=== PATIENT | male | born 1950 | race Caucasian/White ===

== ENCOUNTER → 2018-04-03 09:07 | Outpatient (CLI) | payer OTHER, MEDICARE, SELFPAY ==
[2018-04-03 10:53] LABS: Add Manual Diff / Slide Review NO; Basophils Percent Auto 0.7 % (0-2); Eosinophils Percent Auto 1.8 % (2-4); Hematocrit 44.8 % (41-53); Hemoglobin 15.1 g/dL (13.5-17.5); Lymphocytes Percent Auto 12.3 % (25-40); Mean Corpuscular HGB Conc 33.6 % (30-36); Mean Corpuscular Hemoglobin 32.4 PG (26-34); Mean Corpuscular Volume 96.5 fL (80-100); Monocytes Percent Auto 7.5 % (3-14); Neutrophils Absolute Auto 6800 /uL (3000-5900); Neutrophils Percent Auto 77.7 % (50-75); Platelet Count 169 X10^3/uL (150-400); Red Blood Cell Count 4.65 X10^6/uL (4.5-5.9); Red Cell Distribution Width 14.1 % (11.6-14.8); White Blood Cell Count 8.7 X10^3/uL (4.5-11.0)
[2018-04-03 11:10] LABS: Alanine Aminotransferase 39 IU/L (21-72); Albumin 3.9 g/dL (3.5-5.0); Albumin Globulin Ratio 1.2 (1.0-2.8); Alkaline Phosphatase 59 U/L (38-126); Aspartate Aminotransferase 31 IU/L (17-59); BUN Creatinine Ratio 25.6 (6-22); Bilirubin Total 0.7 mg/dL (0.2-1.3); Blood Urea Nitrogen 23 mg/dL (9-20); Calcium 9.1 mg/dL (8.4-10.2); Carbon Dioxide 28 mmol/L (22-32); Chloride 101 mmol/L (98-107); Cholesterol 107 mg/dL (140-199); Estimated Glomerular Filt Rate > 60.0 mL/min (>60); Globulin 3.2 g/dL (1.7-4.1); Glucose 116 mg/dL (80-110); HDL Cholesterol 44 mg/dL (40-60); HEMOLYSIS < 15 (0-50); LDL Cholesterol Calculated 42 mg/dL (<100); Potassium 4.4 mmol/L (3.4-5.1); Sodium 142 mmol/L (137-145); Total Protein 7.1 g/dL (6.3-8.2); Triglycerides 104 mg/dL (35-150)
[2018-04-04 20:19] LABS: Testosterone, Free 3.49 ng/dL
== END ==
PROVIDERS: PCP Registered Nurse; Visit Provider Internal Medicine
DX: I95.1 Orthostatic hypotension (principal)
CPT/HCPCS: 36415; 80053; 80061; 84402; 85025

== ENCOUNTER → 2018-09-28 17:30 | Outpatient (CLI) | payer MEDICARE, OTHER, SELFPAY | PROVIDERS: PCP Registered Nurse; Visit Provider Orthopaedic Surgery | DX: Z96.643 Presence of artificial hip joint, bilateral (principal) | CPT/HCPCS: 36415; 82495; 83018 ==

== ENCOUNTER → 2018-11-30 12:17 | Outpatient (CLI) | payer MEDICARE, OTHER, SELFPAY ==
--- NOTE | 2018-11-30 | DI.MRI.S_ITS ---
PROCEDURE: MR HIP LT WO CON INDICATIONS: LEFT HIP PAIN TECHNIQUE: Noncontrast coronal T1 spin echo and STIR through the bony pelvis. Coronal and axial T2 fast spin echo with fat saturation, sagittal T1 spin echo, and oblique axial T2 fast spin echo with fat saturation through the hip. COMPARISON: None. FINDINGS: Image quality: Blooming artifacts from left hip prosthesis is noted. Bones and joints: Patient is status post bilateral total hip arthroplasty. Blooming artifacts are noted partially obscuring evaluation of bilateral hip joints. There is no gross marrow edema. No acute fracture or dislocation. Bone marrow of the pelvic ring and proximal femurs show normal signal throughout. No intraosseous lesions or fractures. The visualized lower lumbar spine appears normally aligned. Tendons and ligaments: There is small amount of fluid seen adjacent to the posterior lateral aspect of bilateral greater trochanter, suggestive of fluid distending the trochanteric bursa and may represent trochanteric bursitis. The gluteus medius and minimus tendons appear intact, without associated muscle atrophy. The nearby proximal iliotibial band also appears intact. The iliopsoas tendon appears intact without evidence for impingement syndrome. The origin of the hamstring tendon is intact at the ischial tuberosity, as well as the associated sacrotuberous ligament. The straight and reflected heads of the rectus femoris muscle origin appear intact, as well as the conjoint tendon. The ligamentum teres appears intact where visualized. Soft tissues: Visualized muscles demonstrate normal bulk and internal signal. Quadratus femoris muscle demonstrates no internal edema to suggest ischiofemoral impingement. The proximal sciatic neurovascular bundle appears normal adjacent to the hamstring tendons. No free pelvic fluid. Bladder wall thickness is normal. Genitourinary structures and bowel loops appear normal where visualized. IMPRESSION: 1. Patient is status post bilateral total hip arthroplasty with post surgical changes. No gross acute fracture or dislocation. No abnormal marrow signal. 2. Fluid distending trochanteric bursa suggest clinical correlation for possible mild trochanteric bursitis. No other muscle or tendon signal abnormality. 3. No significant left hip joint effusion is seen. Dictated by: Silas Gonzalez M.D. on 11/30/2018 at 16:20 Approved by: Silas Gonzalez M.D. on 11/30/2018 at 16:36
== END ==
PROVIDERS: PCP Registered Nurse; Visit Provider Orthopaedic Surgery
DX: M25.552 Pain in left hip (principal); Z96.643 Presence of artificial hip joint, bilateral
CPT/HCPCS: 73721

== ENCOUNTER → 2018-12-18 16:01 | Outpatient (CLI) | payer MEDICARE, OTHER, SELFPAY ==
[2018-12-18 17:47] LABS: Erythrocyte Sedimentation Rate 7 MM/HR (0-15)
[2018-12-18 17:54] LABS: Add Manual Diff / Slide Review NO; Basophils Absolute Auto 0 /uL (0-100); Basophils Percent Auto 0.7 % (0-2); Eosinophils Absolute Auto 100 /uL (0-450); Eosinophils Percent Auto 1.5 % (2-4); Hematocrit 43.2 % (41-53); Hemoglobin 14.7 g/dL (13.5-17.5); Lymphocytes Absolute Auto 1300 /uL (1100-4500); Lymphocytes Percent Auto 19.7 % (25-40); Mean Corpuscular HGB Conc 34.1 % (30-36); Mean Corpuscular Hemoglobin 32.5 PG (26-34); Mean Corpuscular Volume 95.3 fL (80-100); Monocytes Absolute Auto 700 /uL (0-900); Monocytes Percent Auto 10.4 % (3-14); Neutrophils Absolute Auto 4500 /uL (1500-7000); Neutrophils Percent Auto 67.7 % (50-75); Platelet Count 189 X10^3/uL (150-400); Red Blood Cell Count 4.54 X10^6/uL (4.5-5.9); Red Cell Distribution Width 13.9 % (11.6-14.8); White Blood Cell Count 6.7 X10^3/uL (4.5-11.0)
[2018-12-18 18:02] LABS: Alanine Aminotransferase 44 IU/L (21-72); Albumin 4.3 g/dL (3.5-5.0); Albumin Globulin Ratio 1.4 (1.0-2.8); Alkaline Phosphatase 67 U/L (38-126); Aspartate Aminotransferase 32 IU/L (17-59); BUN Creatinine Ratio 17.5 (6-22); Bilirubin Total 0.6 mg/dL (0.2-1.3); Blood Urea Nitrogen 14 mg/dL (9-20); Calcium 9.5 mg/dL (8.4-10.2); Carbon Dioxide 26 mmol/L (22-32); Chloride 102 mmol/L (98-107); Estimated Glomerular Filt Rate > 60.0 mL/min (>60); Globulin 3.1 g/dL (1.7-4.1); Glucose 77 mg/dL (80-110); HEMOLYSIS < 15 (0-50); Potassium 4.1 mmol/L (3.4-5.1); Sodium 139 mmol/L (137-145); Total Protein 7.4 g/dL (6.3-8.2)
[2018-12-18 18:03] LABS: C-Reactive Protein Quant < 0.5 mg/dL (<1.0)
[2018-12-18 18:05] LABS: Hemoglobin A1C% w Est Avg Glu 5.7 % (4.0-6.0)
== END ==
PROVIDERS: PCP Registered Nurse; Visit Provider Orthopaedic Surgery
DX: Z96.643 Presence of artificial hip joint, bilateral (principal); Z01.818 Encounter for other preprocedural examination; Z01.812 Encounter for preprocedural laboratory examination
CPT/HCPCS: 36415; 80053; 83036; 85025; 85651; 86140; 87086

== ENCOUNTER 2019-02-07 08:46 | Inpatient (IN) | payer MEDICARE, OTHER, SELFPAY ==
[2019-01-24 14:02] VITALS: BMI 30.1
[2019-02-07] VITALS (13 sets, daily range): BP systolic 108–130; BP diastolic 52–77; PULSE 66–102; RESP 6–18; TEMP 36–37.1; O2SAT 92–98; BMI 30.1
--- NOTE | 2019-02-07 | PATH_ITS ---
[facility] Accession Number: [id number] . 01 Material submitted: . bursa - LEFT HIP BURSA . 02 Diagnosis: Left Hip Bursa: Reactive synovitis with associated foreign debris. . . . COMMENT: These changes are discussed with Dr. Cassie Ferris by telephone at 2:10 on 02/11/2019. MRV/02/11/2019 . 02 Electronically signed: . Lupillo Connell MD, Pathologist NPI- [id number] . 01 Gross description: . Received in formalin, labeled bursa left hip tissue, is a piece of narayan-luo rubbery semi-translucent fibromembranous tissue (6.5 x 3.5 x 0.7 cm). [employer] serial sections are submitted in cassettes A1 and A2. ([id number]) /MRV . 02 Microscopic: . Sections are of tissue stated to represent a left hip bursa. There is thick fibrosis and a marked proliferative inflammatory process which includes primarily hemosiderin-laden histiocytes with multinucleated giant cells and deposition of fragments of foreign material. Evidence of old hemorrhage is present with hemosiderin deposition in many areas. Focal calcification is noted. The changes are those of a reactive synovitis associated with foreign debris. . 02 Pathologist provided ICD-10: M70.72 . 02 CPT . 248906 Performed at: 01 [facility] [address], [place], [place] [id number] MD Alfrde Johns MD Phone: [phone] Performed at: 02 [facility] [address] [place], [place] [id number] MD Jessica Baeza MD Phone: [phone]
[2019-02-07] MEDS: LACTATED RINGERS 1,000 ML 42 ML IV ×2 (09:30→12:48)
[2019-02-07] MEDS: VANCOMYCIN 1,000 MG/200 ML FROZ.PIGGY 200 MG IV ×2 (10:09→18:23)
--- NOTE | 2019-02-07 10:54 | PM.PREOP ---
Pre-operative Note Interval Note History & Physical reviewed/Exam performed by Physician: Yes Changes to H&P: No H&P completed within 30 days and has changed as indicated here:: The patient does note some minimal increased right hip pain. his cultures were no growth from his left hip. I reviewed in detail that the plan is to revise his metal on metal acetabular liner and do a cup revision if needed. limits of the procedure options risks benefits and complications were discussed in detail. possibility of persistent symptoms and difficulties despite successful cup revision was also discussed in detail.
--- NOTE | 2019-02-07 10:56 | PM.OP.1 ---
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 he is quite concerned about metal on metal complications and potential systemic effects and preoperative workup did show evidence of elevated metal ions. He is brought to the operating room for revision of his acetabulum. Non-operative management has failed and the patient has requested total hip replacement. The risks, benefits and alternatives to surgery were discussed with the patient prior to proceeding. Risks discussed included, but were not limited to, failure to relieve pain, leg length discrepancy, dislocation, stiffness, infection, nerve damage, deep venous thrombosis, pulmonary embolism, stroke, coma, heart attack, permanent paralysis and , as well as the potential need for eventual revision of the prosthetic. Surgeon: aCssie Ferris Plant Maintenance Manager: Ernst Singh Anesthesia Type: General and Spinal Operative Notes Findings: Mild staining of the pseudo capsule was slightly brownish debris, moderate synovitis in the capsule and also anteriorly along the abductors, clear appearing fluid, no evidence of significant hip abductor abnormalities or necrosis, moderate trunnion no cysts at the neck head junction but no significant wear on the femoral neck, no obvious wear along the acetabular rim, metal liner, or femoral head, good stability with 40 mm polyethylene liner and ceramic head Closure Type: primary Specimen(s): other (Cultures) Prosthetic devices, grafts, tissues, transplants, or devices: Depuy 56 by 40 mm polyethylene liner, ceramic head +0 x 40 Applied: drain(s) Estimated Blood Loss (mL): 250 Blood products transfused: none Procedure in detail: The patient was seen in the pre-operative area, where the patient identified the left hip as the operative site and this was marked with my initials. The patient received pre-operative antibiotics and was taken to the operating room and placed on the operative table in the right lateral decubitus position after satisfactory anesthesia. A night time nanny out was performed. The left leg was prepared from the ankle to the iliac crest with ChloroPrep in the usual fashion and draped through sterile drapes. The hip was approached through an approximately 20 cm incision centered over the greater trochanter and curving gently posteriorly as it went proximally. This was carried sharply to the fascia janessa, which was divided and retracted with a self retaining retractor. The trochanteric bursa was excised with care being taken to avoid the sciatic nerve, which was identified and protected throughout the case. there was brownish staining of the trochanteric bursa and moderate synovitis especially anteriorly along the hip abductors but also in the capsule. the hip abductors did not have significant wear. The pseudo capsule was meticulously removed as well as the trochanteric bursa. The residual capsule was incised and the capsulomuscular flap was raised and tagged for later repair. The hip was dislocated, and the femoral head was removed. there was moderate trunnionosis at the head neck junction. the stem was checked and was noted to be stable. The femur was carefully retracted primarily superiorly and also anteriorly. A pocket along the superior and anterior aspect of the acetabulum was prepared for placement of the femoral neck. the femur was gently mobilized anteriorly in order to allow exposure of the acetabulum. Retractors were placed to expose the acetabulum. the rim of the acetabulum was meticulously visualized. synovectomy was performed removing all inflamed tissues, metal debris and some capsule. bone overlying the rim edge was carefully removed. the rim was then tamped with a metal tamp until the metal liner disengaged and it was carefully removed with a [place] and phoebe. There was no evidence of wear along the residual acetabular component rim. A 40 mm by 56 high density polyethylene liner was placed after meticulously cleaning and drying the acetabulum. the locking mechanism was meticulously checked circumferentially with a [place] and was noted that the component was stable. A trial head was then placed and the hip relocated and checked for leg length and stability. The patient was stable in the position of sleep, of squatting, and could be put through a range of motion with 45 degrees internal rotation without dislocation. At 90 degrees flexion, internal rotation to 70 was possible before dislocation. This was felt to be satisfactory and the appropriate components were opened, and the trials were removed. both the residual acetabular rim as well as the neck were carefully cleaned and dried prior to impacting the new components. The hip was meticulously irrigated with normal saline and carefully dried. Finally the femoral head was impacted onto the stem. The acetabulum was cleared of all material and the hip relocated one final time. The capsulomuscular flap was then repaired to the greater trochanter though an awl hole using the tag sutures. The short external rotators were repaired with a nonabsorbable polyester. A deep drain was placed and brought out anteriorly. The fascia janessa was closed with Vicryl. The subcutaneous layer was closed with barbed sutures and SteriStrips. A Jose dressing was applied and the patient was taken to recovery having tolerated the procedure well. Complications: none Condition: stable Disposition: Acute Care Plan for aftercare: The patient will be maintained on a standard total hip replacement protocol with weight bearing as tolerated and posterior hip precautions. The patient will receive Aspirin and sequential compression devices for DVT prophylaxis. The patient will be discharged home when safe for the home environment.
[2019-02-07] MEDS: GENTAMICIN 200 MG in SODIUM CHLORIDE 0.9% 100 ML 105 ML IV (11:00)
--- NOTE | 2019-02-07 11:05 | P.OP_ITS ---
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 he is quite concerned about metal on metal complications and potential systemic effects and preoperative workup did show evidence of elevated metal ions. He is brought to the operating room for revision of his acetabulum. Non-operative management has failed and the patient has requested total hip replacement. The risks, benefits and alternatives to surgery were discussed with the patient prior to proceeding. Risks discussed included, but were not limited to, failure to relieve pain, leg length discrepancy, dislocation, stiffness, infection, nerve damage, deep venous thrombosis, pulmonary embolism, stroke, coma, heart attack, permanent paralysis and , as well as the potential need for eventual revision of the prosthetic. Surgeon: Cassie Ferris Hydraulic Hammer Operator: Ernst Singh Anesthesia Type: General and Spinal Operative Notes Findings: Mild staining of the pseudo capsule was slightly brownish debris, mod erate synovitis in the capsule and also anteriorly along the abductors, clear appearing fluid, no evidence of significant hip abductor abnormalities or necrosis, moderate trunnion no cysts at the neck head junction but no significant wear on the femoral neck, no obvious wear along the acetabular rim, metal liner, or femoral head, good stability with 40 mm polyethylene liner and ceramic head Closure Type: primary Specimen(s): other (Cultures) Prosthetic devices, grafts, tissues, transplants, or devices: Depuy 56 by 40 mm polyethylene liner, ceramic head +0 x 40 Applied: drain(s) Estimated Blood Loss (mL): 250 Blood products transfused: none Procedure in detail: The patient was seen in the pre-operative area, where the patient identified the left hip as the operative site and this was marked with my initials. The patient received pre-operative antibiotics and was taken to the operating room and placed on the operative table in the right lateral decubitus position after satisfactory anesthesia. A full stack java developer out was performed. The left leg was prepared from the ankle to the iliac crest with ChloroPrep in the usual fashion and draped through sterile drapes. The hip was approached through an approximately 20 cm incision centered over the greater trochanter and curving gently posteriorly as it went proximally. This was carried sharply to the fascia janessa, which was divided and retracted with a self retaining retractor. The trochanteric bursa was excised with care being taken to avoid the sciatic nerve, which was identified and protected throughout the case. there was brownish staining of the trochanteric bursa and moderate synovitis especially anteriorly along the hip abductors but also in the capsule. the hip abductors did not have significant wear. The pseudo capsule was meticulously removed as well as the trochanteric bursa. The residual capsule was incised and the capsulomuscular flap was raised and tagged for later repair. The hip was dislocated, and the femoral head was removed. there was moderate trunnionosis at the head neck junction. the stem was checked and was noted to be stable. The femur was carefully retracted primarily superiorly and also anteriorly. A pocket along the superior and anterior aspect of the acetabulum was prepared for placement of the femoral neck. the femur was gently mobilized anteriorly in order to allow exposure of the acetabulum. Retractors were placed to expose the acetabulum. the rim of the acetabulum was meticulously visualized. synovectomy was performed removing all inflamed tissues, metal debris and some capsule. bone overlying the rim edge was carefully removed. the rim was then tamped with a metal tamp until the metal liner disengaged and it was carefully removed with a [place] and phoebe. There was no evidence of wear along the residual acetabular component rim. A 40 mm by 56 high density polyethylene liner was placed after meticulously cleaning and drying the acetabulum. the locking mechanism was meticulously checked circumferentially with a [place] and was noted that the component was stable. A trial head was then placed and the hip relocated and checked for leg length and stability. The patient was stable in the position of sleep, of squatting, and could be put through a range of motion with 45 degrees internal rotation without dislocation. At 90 degrees flexion, internal rotation to 70 was possible before dislocation. This was felt to be satisfactory and the appropriate components were opened, and the trials were removed. both the residual acetabular rim as well as the neck were carefully cleaned and dried prior to impacting the new components. The hip was meticulously irrigated with normal saline and carefully dried. Finally the femoral head was impacted onto the stem. The acetabulum was cleared of all material and the hip relocated one final time. The capsulomuscular flap was then repaired to the greater trochanter though an awl hole using the tag sutures. The short external rotators were repaired with a nonabsorbable polyester. A deep drain was placed and brought out anteriorly. The fascia janessa was closed with Vicryl. The subcutaneous layer was closed with barbed sutures and SteriStrips. A Jose dressing was applied and the patient was taken to recovery having tolerated the procedure well. Complications: none Condition: stable Disposition: Acute Care Plan for aftercare: The patient will be maintained on a standard total hip replacement protocol with weight bearing as tolerated and posterior hip precautions. The patient will receive Aspirin and sequential compression devices for DVT prophylaxis. The patient will be discharged home when safe for the home environment.
[2019-02-07] MEDS: TRANEXAMIC ACID 1,000 MG VIAL 1000 MG INJ ×2 (11:25→12:25)
--- NOTE | 2019-02-07 11:30 | DI.RAD.S_ITS ---
PROCEDURE: XR HIP W PEL IF DONE LT 2V INDICATIONS: post op films TECHNIQUE: AP pelvis and lateral view of the left hip acquired. COMPARISON: [facility], , HIP 2V LEFT, 11/22/2013, 16:03. FINDINGS: Bones: Patient is status post left hip arthroplasty, with hardware components in expected positions. The hip joint appears congruent. The visualized bony structures appear intact. Incidental right hip arthroplasty also noted Soft tissues: Overlying postoperative changes are noted. No suspicious soft tissue densities. IMPRESSION: Expected postoperative appearance. Dictated by: Alf Cantu M.D. on 02/07/2019 at 16:56 Approved by: Alf Cantu M.D. on 02/07/2019 at 16:57
[2019-02-07] MEDS: BUPIVACAINE 0.25% W/ EPI 30 ML VIAL 60 ML INJ (11:44)
[2019-02-07] MEDS: BUPIVACAINE LIPOSOME 266 MG/20 ML VIAL INJ (11:45)
[2019-02-07] MEDS: POVIDONE-IODINE 15 ML, SODIUM CHLORIDE 0.9% 250 ML TOP (11:53)
--- NOTE | 2019-02-07 11:59 | SUR.OPER ---
Lateral on padded OR bed. Gel axillary roll. Arms secured on padded armboard with pillow supporting top arm. Padded hip positioner braces x4 - anterior and posterior chest and pelvis. Additional gel pad used anterior pelvis. Gel pad under bottom leg from knee to foot and secured with tape over sheet.
--- NOTE | 2019-02-07 12:12 | PC.NURSE ---
Day shift: Not on AC unit at this time.
--- NOTE | 2019-02-07 14:15 | PC.NURSE ---
Day shift: Arrived on unit from PACU at approx 1410. Oriented to room and call light. Bed alarm is on. Pt is A&Ox3. MIKA dressing CDI and erica-vac in place and functioning. VS ok. Needs O2 monitoring for 12 hours. PPP. CMS not returned fully yet.
--- NOTE | 2019-02-07 14:18 | SUR.PHASEI ---
Stable PACU stay. Report called to Grant. Dressing to l hip c/d/i. MIKA dressing and hemovac intact. As I was getting ready to transport pt he stated, when I first got here (to PACU) I had right sided chest pain. Pt denied SOB, diaphoresis and nausea. This reported to Dr Castano who stated it could have been from positioning on OR table. This reported to pt along with instructions to tell staff immediately if he gets chest pains/discomfort and not to wait till after the fact. Pt voiced an understanding. Pt transported up to [facility] [address] and left in stable condition under the care of Grant.
[2019-02-07] MEDS: LACTATED RINGERS 1,000 ML 125 ML IV (14:30)
--- NOTE | 2019-02-07 15:25 | SUR.OPER ---
Per instructions reviewed with Cliff luong and Nataliia, director of surgical services. Following all instructions, explants prepared, packaged and shipped to [facility].
--- NOTE | 2019-02-07 17:02 | PT.IPTN ---
Current Diagnoses Broken internal left hip prosthesis, initial encounter (02/07/19) Surgery Performed Operation Date: 02/07/19 10:45 Actual Procedures p Total Hip Arthroplasty Revision(Left) - Cassie Ferris MD Physical Therapy Treatment Note M3 PT-IP Subjective Start: 02/07/19 17:01 Freq: NEEDED Status: Active Protocol: Document 02/07/19 17:01 AB (Rec: 02/07/19 17:02 AB [id number]) Subjective Physical Therapy Visit Type Notes checked on pt for PT eval but pt stated that he still cannot feel his toes and not able to move them. stated that he is not ready for PT. will f/u tomorrow.
--- NOTE | 2019-02-07 18:07 | PC.NURSE ---
Evening Shift Note- Patient arrive to room from PACU on at approx 1415. [facility] Patient alert and oriented and able to make needs known to staff. Patient pleasent, calm, and cooperative with care. Dressing to left hip c/d/i. ice pack applied. Patient reports getting feeling back to legs at 1810. Patient agrees to call for assistance. call conley and phone within reach. will continue to monitor.
[2019-02-07] MEDS: OXYCODONE IR 5 MG TABLET 10 MG PO ×2 (18:21→22:26)
[2019-02-07] MEDS: ACETAMINOPHEN 325 MG TABLET 975 MG PO (20:43)
[2019-02-07] MEDS: DOCUSATE 100 MG CAPSULE PO (20:43)
[2019-02-07] MEDS: ASPIRIN EC 81 MG TABLET PO (20:43)
[2019-02-08] VITALS: BP 127/58; PULSE 76; RESP 16; TEMP 36.6; O2SAT 95
[2019-02-08] MEDS: OXYCODONE IR 5 MG TABLET 10 MG PO ×3 (02:22→09:06)
[2019-02-08 03:55] VITALS: BP 144/88; PULSE 82; RESP 18; TEMP 36.9; O2SAT 95
--- NOTE | 2019-02-08 04:41 | PC.NURSE ---
Assumed care of pt at 2300 on 02/07/19. Pt sleeping during bedside hand-off. Awakens at approx 0200. Drsg C/D/I, Green ok light flashing on brandie cartridge. H/V compressed without drainage. CMS+, denies numbness, able to wiggle toes. PPP. Post hip precautions in effect and pt is aware of them. Pillow between legs. Pt able to reposition independently in bed while maintaining precautions. Voiding in urinal. PO Analgesics effective. Bed alarm on. Call light within reach.
[2019-02-08 05:30] LABS: Hematocrit 35.9 % (41-53); Hemoglobin 12.3 g/dL (13.5-17.5)
--- NOTE | 2019-02-08 07:16 | PM.PNPO.1 ---
Exam Vital Signs (past 8 hours): - 02/08/19 00:00 02/08/19 03:55 Temperature 97.9 F 98.4 F Pulse Rate 76 82 Respiratory Rate 16 18 Blood Pressure 127/58 L 144/88 H Pulse Oximetry 95 95 Oxygen Delivery Method Room Air Oxygen Flow Rate 0 Objective Labs Result Diagrams: 02/08/19 05:10 Labs: Laboratory Results - last 24 hr 02/08/19 05:10 Hgb 12.3 L Hct 35.9 L Assessment & Plan Post-op Postoperative Procedures Operation Date: 02/07/19 10:45 Actual Procedures Side Surgeon p Total Hip Arthroplasty Revision Left Cassie Ferris MD
--- NOTE | 2019-02-08 07:45 | PM.DS.1 ---
History of Present Illness Date Patient Seen: 02/08/19 Chief complaint: [id number] Narrative: Patient is seen bedside status post revision of left acetabular component and femoral head postop day #1. Patient is doing well he has been ambulating with his walker and his pain is well controlled. Denies chest pain shortness of breath and calf pain. He elicits understanding of his posterior hip precautions. He would like to go home today. Discharge Providers Date of admission: 02/07/19 08:46 Discharge Date: 02/08/19 Primary care physician: Payton Morfin MD Consults: 01/24/19 15:08 Consult to Respiratory Therapy Evaluate & Treat Comment: LT CHANDRIKA Revision 02/07-NIKI-no CPAP w/100lb wt loss Physician Instructions: Evaluate and treat 02/07/19 06:00 Consult to Anesthesiology Routine Comment: Consulting Provider: Anesthesiologist Reason for consultation: Regional block for post operative pain control 02/07/19 14:14 Consult to Discharge Planning Routine Comment: Consult to Physical Therapy Evaluate & Treat Comment: oob today Physician Instructions: post op CHANDRIKA protocol Consult to Respiratory Therapy Evaluate & Treat Comment: Physician Instructions: Evaluate and treat 02/08/19 09:42 Consult to Occupational Therapy Evaluate & Treat Comment: Physician Instructions: Evaluate and treat 02/08/19 14:06 Consult to Physical Therapy Evaluate & Treat Comment: Front Wheel Walker for home use Physician Instructions: Evaluate and Treat Discharge provider: Stephani Musa PA-C Summary Discharge Diagnosis: Failure of orthopedic prosthesis Hospital Course: Patient admitted to the hospital on 02/07/2019 status post revision of left acetabular component and femoral head by Dr. Ferris. Patient tolerated the procedure well with no major complications. They were transferred to the acute care floor where they were placed on the standard joint replacement pathway and protocol. They were seen by physical therapy who recommended that they be discharged home. They were stable and ready for discharge on 02/08/19. Status at Discharge Cognitive/behavioral status at discharge: oriented Functional status at discharge: uses cane/walker Overall status at discharge: patient is progressing back to baseline Time Spent with Patient Less than 30 minutes Exam Vital Signs (past 8 hours): - 02/08/19 09:00 02/08/19 12:00 Temperature 98.3 F 98.4 F Pulse Rate 88 62 Respiratory Rate 18 16 Blood Pressure 106/58 L 102/53 L Pulse Oximetry 96 95 Oxygen Delivery Method Room Air Oxygen Flow Rate 0 Narrative Exam Narrative: Well-developed, well-nourished, no acute distress. Alert and oriented to person, place, and time. Dressing on operative hip is clean, dry, and intact with no signs of drainage. Minimal erythema and generalized swelling around the surgical site. Neurovascularly intact in the operative extremity with a soft and compressible calf. Range of motion of the operative ankle intact. Objective Labs Result Diagrams: 02/08/19 05:10 Labs: Laboratory Results - last 24 hr 02/08/19 05:10 Hgb 12.3 L Hct 35.9 L Discharge Plan Discharge Plan Patient Disposition: Home Discharge comment: Discharge home with walker Discharge Med Rec/Prescriptions Prescriptions: New oxycodone 5 mg Tablet 10 mg PO Q4-6H PRN (Reason: Pain, Severe (7-10)) Qty: 40 RF: 0 acetaminophen 325 mg Tablet 975 mg PO TID Qty: 60 RF: 0 aspirin 81 mg Tablet,Delayed Release (Dr/Ec) 81 mg PO BID Qty: 60 RF: 0 docusate sodium 100 mg Capsule 100 mg PO BID Qty: 60 RF: 0 meloxicam 15 mg tablet 15 mg PO 0800 Qty: 30 RF: 0 hydroxyzine pamoate [Vistaril] 25 mg capsule 25 mg PO Q4-6H PRN (Reason: nausea or muscle spasms) Qty: 40 RF: 0 Continued ALBUTEROL (PROVENTIL INHALER) 1 puff Inhalation PRN PRN (Reason: Shortness Of Breath) Qty: 0 RF: 0 losartan [Cozaar] 100 MG tablet 100 mg PO QDAY Qty: 0 RF: 0 tamsulosin 0.4 mg Capsule 0.4 mg PO DAILY RF: 0 zolpidem [Ambien] 10 mg Tablet 10 mg PO BEDTIME PRN (Reason: Sleep) RF: 0 Victoza 2-Van 0.6 mg/0.1 mL (18 mg/3 mL) Pen Injector 1.8 mg SUBCUT DAILY RF: 0 atorvastatin 40 mg PO DAILY RF: 0 aspirin 81 mg Tablet,Delayed Release (Dr/Ec) 81 mg PO DAILY RF: 0 sertraline [Zoloft] 20 mg/mL Concentrate 20 mg PO DAILY RF: 0 Discontinued oxycodone 5 mg Capsule 1 - 2 tab PO Q4-6H PRN (Reason: Pain) RF: 0 Follow up/Referrals: Cassie Ferris MD [Physician] - Provider Discharge Instructions Diet: Diet as Tolerated Activity: Weight bear as tolerated. Posterior hip precautions: No flexing hip >90 degrees, No crossing operative leg over nonoperative leg. Cold/Heat Therapy: Ice packs as needed Skin/Wound/Dressing Care Report to your healthcare provider any signs of infection, such as:: chills, fever, increased pain and unusual drainage Dressing: Leave dressing in place. Dressing will be removed at post op visit. Other wound treatment: Follow [employer] guide. Visit Report/Discharge Packet Instructions: DI for Hip Replacement, Stool Softeners, Meloxicam, Oxycodone, Hydroxyzine Stand Alone Forms: Surgery Discharge Discharge Data Primary Care Provider: Payton Morfin Attending Provider: Cassie Ferris Admit Date/Time: 02/07/19 08:46
[2019-02-08] MEDS: DOCUSATE 100 MG CAPSULE PO (08:45)
[2019-02-08] MEDS: ATORVASTATIN 20 MG TABLET 40 MG PO (08:45)
[2019-02-08] MEDS: SERTRALINE 25 MG TABLET PO (08:45)
[2019-02-08] MEDS: MELOXICAM 7.5 MG TABLET 15 MG PO (08:45)
[2019-02-08] MEDS: ASPIRIN EC 81 MG TABLET PO (08:45)
[2019-02-08] MEDS: ACETAMINOPHEN 325 MG TABLET 975 MG PO ×2 (08:45→14:06)
[2019-02-08 09:00] VITALS: BP 106/58; PULSE 88; RESP 18; TEMP 36.8; O2SAT 96
[2019-02-08] MEDS: TAMSULOSIN 0.4 MG CAPSULE PO (09:06)
[2019-02-08] MEDS: LOSARTAN 50 MG TABLET 100 MG PO (09:06)
[2019-02-08 12:00] VITALS: BP 102/53; PULSE 62; RESP 16; TEMP 36.9; O2SAT 95
--- NOTE | 2019-02-08 12:06 | PT.IIE ---
Current Diagnoses Broken internal left hip prosthesis, initial encounter (02/07/19) Surgery Performed Operation Date: 02/07/19 10:45 Actual Procedures p Total Hip Arthroplasty Revision(Left) - Cassie Ferris MD Surgical History (Last Updated 01/24/19 @ 15:04 by Citlaly Limon, RN) History of arthroplasty of both hips (Acute) History of carpal tunnel surgery of right wrist (Acute) History of vasectomy (Acute) Hx of blepharoplasty (Acute) Hx of heart artery stent (Acute 10/20/01) Hx of prostate biopsy (Acute 10/14/15) S/P lobectomy of lung (Acute ~1991) Medical History (Last Updated 01/24/19 @ 15:13 by Citlaly Limon RN) Arthritis (Acute) Back pain (Acute) CAD (coronary artery disease) (Acute) COPD (chronic obstructive pulmonary disease) (Acute) Carotid artery disease (Acute) Compound fracture (Acute) Cyst of left kidney (Acute) Depression (Acute) Diabetes (Acute) Easy bruisability (Acute) Enlarged prostate (Acute) Finding of abnormal level of heavy metals in blood (Acute ~2018) Former smoker (Acute) HLD (hyperlipidemia) (Acute) HTN (hypertension) (Acute) Hearing loss (Acute 01/22/18) Lung cancer (Acute ~1991) Neck pain (Acute) Neuropathy (Acute) NIKI (obstructive sleep apnea) (Acute) Pneumonia (Acute) RLS (restless legs syndrome) (Acute) Rosacea (Acute) Physical Therapy Inpatient Evaluation/Re-Eval M1 PT/OT-IP Prior Functional Status Start: 02/07/19 17:01 Freq: NEEDED Status: Active Protocol: Document 02/08/19 09:25 (Rec: 02/08/19 12:06 [email or web address]) Medical Review Prior Functional Status Medical History Reviewed Yes Communication No deficits noted. Able to make needs known Mobility and Gait Pt was an independent ambulator at home and community without AD. Pt states he has difficulty time for prolonged sitting which increased his L hip pain. 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 Pt drives as well Activities of Daily Living and IADL's Pt was independent for ADLs and IADLs without AD. Social History Household Members spouse Living Arrangements Apartment/Condo Number of Floors (Floors) 3 or More Floors Number of Stairs To Enter/Railing? 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 He has his soapstoner office on 2nd floor and his studio is on 3rd floor. Pt states his entrance to his bedroom is very narrow that he usually has the wall for support in order to get to his bed. Citlaly is now in [place] but will be back on Monday faculty research assistant. Pt states he will be by himself for the weekend if he got to be d/c home. He has his personal compliance investigator friend that will be able to drive him upon d/c and assist him as needed. He also has couple friends live close by to help him if needed. Pt has a hx of bilateral avascular necrosis about 10 years ago and have both hip replaced. This sx is for revision of acetabulum with posterior approach. M2 PT-IP Current Condition Start: 02/07/19 17:01 Freq: NEEDED Status: Active Protocol: Document 02/08/19 09:25 (Rec: 02/08/19 12:06 [email or web address]) Physical Therapy Current Condition Current Condition Evaluation Date 02/07/19 Treatment Diagnosis Revision of L CHANDRIKA, impaired gait and activity tolerance. Onset Date 02/08/19 Precautions Posterior Hip Precautions No Hip Flexion > 90 degrees No Hip Internal Rotation No Hip Adduction Weight Bearing Status Weight Bearing Status Weight Bear as Tolerated M3 PT-IP Subjective Start: 02/07/19 17:01 Freq: NEEDED Status: Active Protocol: Document 02/08/19 09:25 (Rec: 02/08/19 12:06 [email or web address]) Subjective Physical Therapy Visit Type Type Initial Evaluation Visit Start Time 09:25 Visit Stop Time 10:05 Total Visit Minutes 40 Notes Per RN, pt has been getting OOB without difficulty. Number of ART PROFESSOR Visits 0 Physical Therapy Visit Comments Patient Comments Im doing very good and not much of discomfort. Patient Goals To return home Therapy Pain Assessment Pain When Pain Assessed During Mobility Pain Present Pain Present Pain Reported Location Left Hip Intensity 3 Scale Used Numeric (1 - 10) Description Aching Pain Management Techniques Apply Cold Modification of Treatment Timing of Activity with Medications M4 PT-IP Mobility and Gait Start: 02/07/19 17:01 Freq: NEEDED Status: Active Protocol: Document 02/08/19 09:25 (Rec: 02/08/19 12:06 [email or web address]) PT-Transfer Assessment Sit to and From Stand Sit to and from Stand Standby Assistance Use of Upper Extremities Equipment Transfer Assistive Device Gait Belt Front Wheeled Walker Orthotic/Prosthetic Devices or Brace: No Transfers Transfer Destination Bed Chair Transfer Technique Stand Step Pivot Transfer Ability Level of Assist Standby Assistance Comments Mobility Comments Pt was up in chair upon assessment. Pt got up from low chair with stagger stance, FWW and proper hand placements on walker and armrest. He stood up and transferred between low chair multiple times this session did not c/o discomfort. Gait Assessment Gait Gait Assistance Required: Standby Assistance Distance (Feet) 300 Able to Maintain Weight Bearing Status Yes During Gait Assistive Devices Assistive Device Gait Belt Front Wheeled Walker Orthotic/Prosthetic Devices or Brace: No Gait Deviations General Gait Pattern Antalgic Decreased Stride Length Decreased Feet Clearance Factors Limiting Gait Function Factors Limiting Gait Function Decreased Activity Tolerance Decreased Strength Limited Range of Motion Pain Comments Gait Comments Pt amb from chair to hallway with FWW SBA. Pt was very steady and only has minimal antalgic gait on L. Pt does seem to have slight IR during mobility but he states that is his baseline gait. Pt also amb without AD but with wall for support for 20 feet since he has a narrow entrance to his bedroom. Stair Climbing Assessment Comments Stair Climbing Comments did not attmept since pt does not have stairs PT-Balance Assessment Sitting Balance and Reactions Static Sitting Balance Ability Normal Dynamic Sitting Balance Ability Normal Standing Balance and Reactions Static Standing Balance Ability Normal Dynamic Standing Balance Ability Normal Device Used FWW M5 PT-IP Objective Assessments Start: 02/07/19 17:01 Freq: NEEDED Status: Active Protocol: Document 02/08/19 09:25 (Rec: 02/08/19 12:06 [email or web address]) Orientation Orientation/Cognition Level of Alertness Alert Orientation Name Age Birthday Month Date Year Day of Week Place Situation Language Function Ability No Deficits Noted Safety Awareness Understands Safety Issues Memory Description No Deficits Noted Gross Range of Motion Upper Extremity ROM Assessment Within Functional Limits Lower Extremity ROM Assessment Left Impaired Strength Upper Extremity Strength Assessment Within Functional Limits Lower Extremity Strength Assessment Left Impaired Hip 3+/5 Coordination Assessment Gross Coordination Gross Coordination WNL Assessment Finger to Nose Test Normal Performance Pronation/Supination Test Normal Performance Sensation Assessment Sensation Gross Sensation WNL Light Touch Intact Proprioception (Position) Intact Muscle Tone Muscle Tone WNL Yes M6 PT-IP Treatment Start: 02/07/19 17:01 Freq: NEEDED Status: Active Protocol: Document 02/08/19 09:25 HH (Rec: 02/08/19 12:06 HH [email or web address]) Physical Therapy Treatment Exercises Exercises Ankle Pumps Gluteal Sets Quad Sets Heel Slides Straight Leg Raises Education Education Provided Precautions Weight Bearing Status Post-Op Packet Safety M7 PT-IP Assessment and Plan Start: 02/07/19 17:01 Freq: NEEDED Status: Active Protocol: Document 02/08/19 09:25 HH (Rec: 02/08/19 12:06 HH [email or web address]) PT Summary Assessment and Plan Potential Rehabilitation Potential Excellent Status of Condition at Evaluation Stable Summary Impairments Pain ROM Strength Transfers Gait Activity Tolerance Assessment Summary Pt is low complexity who has POD #2 Revision of L CHANDRIKA. Pt was very independent for mobility assessment. He was able to amb 300 ft with FWW with minimal antalgic gait and he is very aware of his 3/3 precautions since prior hip sx . Pt currently does not have a FWW/ Shower seat or chair for transfer, and he will be alone for the weekend until Monday ( will be back on monday morning). Pt states he will temporarily take towel bath for the weekend and he feels safe to be d/c at this point as well. Recommended pt to participate outpatient PT to improve overall mobility. Pt will be safe to be d/c home once he gets a FWW today. Goals Bed Mobility Goal Independent Transfer Goal Independent Front Wheeled Walker Gait Goal Independent Front Wheel Walker Gait Distance 400 Other Goals walk with wall support but no AD for 20 ft Days to Meet Goals 1 Frequency of Treatment Frequency Of Treatment Twice a Day Treatment Plan Physical Therapy Treatment Plan Bed Mobility Training Transfer Training Gait Training Therapeutic Exercise Balance Retraining Post Op Education Discharge Planning Hot or Cold Pack Other Recommendations and Next Treatment walk with wall support but no Focus AD for 20 ft dispense FWW gait training as grace Recommendations To Nursing Amount of Assist Needed Standby Assistance Discharge Recommendations PT Discharge Recommendations Home with Assistance Other Discharge Recommendations Pt currently does not have a FWW/ Shower seat or chair for transfer, and he will be alone for the weekend until Monday ( will be back on monday morning). Pt states he will temporarily take towel bath for the weekend and he feels safe to be d/c at this point as well. Recommended pt to participate outpatient PT to improve overall mobility. Pt will be safe to be d/c home once he gets a FWW today. Equipment Needed for Home Before FWW/ Shower seat or chair Discharge
--- NOTE | 2019-02-08 14:37 | PT.IPTN ---
Current Diagnoses Broken internal left hip prosthesis, initial encounter (02/07/19) Surgery Performed Operation Date: 02/07/19 10:45 Actual Procedures p Total Hip Arthroplasty Revision(Left) - Cassie Ferris MD Physical Therapy Treatment Note M2 PT-IP Current Condition Start: 02/07/19 17:01 Freq: NEEDED Status: Active Protocol: Document 02/08/19 09:25 HH (Rec: 02/08/19 12:06 [email or web address]) Physical Therapy Current Condition Current Condition Evaluation Date 02/07/19 Treatment Diagnosis Revision of L CHANDRIKA, impaired gait and activity tolerance. Onset Date 02/08/19 Precautions Posterior Hip Precautions No Hip Flexion > 90 degrees No Hip Internal Rotation No Hip Adduction Weight Bearing Status Weight Bearing Status Weight Bear as Tolerated M3 PT-IP Subjective Start: 02/07/19 17:01 Freq: NEEDED Status: Active Protocol: Document 02/08/19 14:00 HH (Rec: 02/08/19 14:37 [id number]) Subjective Physical Therapy Visit Type Type Treatment Note Visit Start Time 14:00 Visit Stop Time 14:20 Total Visit Minutes 20 Number of SIEBEL ADMINISTRATOR Visits 0 Physical Therapy Visit Comments Patient Comments Pt deo discomfort after gait training this morning. Feels safe to go home. M4 PT-IP Mobility and Gait Start: 02/07/19 17:01 Freq: NEEDED Status: Active Protocol: Document 02/08/19 14:00 HH (Rec: 02/08/19 14:37 [id number]) PT-Transfer Assessment Sit to and From Stand Sit to and from Stand Independent Use of Upper Extremities Equipment Transfer Assistive Device Gait Belt Front Wheeled Walker Orthotic/Prosthetic Devices or Brace: No Transfers Transfer Destination Bed Transfer Technique Stand Step Pivot Transfer Ability Level of Assist Independent Comments Mobility Comments Pt sat up at EOB and agreeable to amb. He stood up independently with increased WB on RLE. Gait Assessment Gait Gait Assistance Required: Independent Distance (Feet) 350 Able to Maintain Weight Bearing Status Yes During Gait Assistive Devices Assistive Device Gait Belt Front Wheeled Walker Orthotic/Prosthetic Devices or Brace: No Gait Deviations General Gait Pattern Antalgic Decreased Stride Length Decreased Feet Clearance Factors Limiting Gait Function Factors Limiting Gait Function Decreased Activity Tolerance Decreased Strength Limited Range of Motion Pain Comments Gait Comments Pt amb from EOB to hallway for a total of 350 feet without break. Pt was able to amb with normal gait and step length. Educated pt to attempt with slight foot turner machine operator. Stair Climbing Assessment Comments Stair Climbing Comments did not attmept since pt does not have stairs PT-Balance Assessment Sitting Balance and Reactions Static Sitting Balance Ability Normal Dynamic Sitting Balance Ability Normal Standing Balance and Reactions Static Standing Balance Ability Normal Dynamic Standing Balance Ability Normal Device Used FWW M5 PT-IP Objective Assessments Start: 02/07/19 17:01 Freq: NEEDED Status: Active Protocol: Document 02/08/19 09:25 (Rec: 02/08/19 12:06 [email or web address]) Orientation Orientation/Cognition Level of Alertness Alert Orientation Name Age Birthday Month Date Year Day of Week Place Situation Language Function Ability No Deficits Noted Safety Awareness Understands Safety Issues Memory Description No Deficits Noted Gross Range of Motion Upper Extremity ROM Assessment Within Functional Limits Lower Extremity ROM Assessment Left Impaired Strength Upper Extremity Strength Assessment Within Functional Limits Lower Extremity Strength Assessment Left Impaired Hip 3+/5 Coordination Assessment Gross Coordination Gross Coordination WNL Assessment Finger to Nose Test Normal Performance Pronation/Supination Test Normal Performance Sensation Assessment Sensation Gross Sensation WNL Light Touch Intact Proprioception (Position) Intact Muscle Tone Muscle Tone WNL Yes M6 PT-IP Treatment Start: 02/07/19 17:01 Freq: NEEDED Status: Active Protocol: Document 02/08/19 14:00 (Rec: 02/08/19 14:37 [id number]) Physical Therapy Treatment Exercises Exercises Ankle Pumps Gluteal Sets Quad Sets Heel Slides Straight Leg Raises Education Education Provided Precautions Weight Bearing Status Post-Op Packet Safety Equipment Issued Equipment Type and Company FWW M7 PT-IP Assessment and Plan Start: 02/07/19 17:01 Freq: NEEDED Status: Active Protocol: Document 02/08/19 14:00 (Rec: 02/08/19 14:37 [id number]) PT Summary Assessment and Plan Potential Rehabilitation Potential Excellent Status of Condition at Evaluation Stable Summary Impairments Pain ROM Strength Transfers Gait Activity Tolerance Assessment Summary Verbal order received for FWW for home use from chandler Shields. Adjusted walker height for pt. Pt cont progress and able to amb with normal gait pattern. Pt is now safe to d/c home Frequency of Treatment Frequency Of Treatment Discharge Recommendations To Nursing Amount of Assist Needed Independent Discharge Recommendations PT Discharge Recommendations Home with Assistance Outpatient PT
[2019-02-08 15:30] VITALS: BP 94/47; PULSE 70; RESP 18; TEMP 37; O2SAT 94
--- NOTE | 2019-02-08 15:58 | CM.DANOTE ---
Discharge Planning/Care Management DCP: assessment: Case received, EMR reviewed and met with pt. Introduced self and role. Pt is a 68 year old male who admitted yesterday for a planned CHANDRIKA revision: Surgeon: Dr Ferris Payer: Medicare and [facility] INPT admission status: confirmed by UR ROMELIA Ricketts Pt's pre-op plan indicated he planned a snf rehab stay as he is currently home alone. Ortho PA did order a d/c home this morning but at that time pt had not yet been up with PT. Met with pt after the PT session and found him up and independent in the room. He stated he had done better than anticipated and he did wish to go home today. He has a friend picking him up after 1800 today and his medications have been sent to pharmacy, filled and then placed in the Pharmacy so that pt can be issued them at d/c. This was confirmed by RMOELIA Harman. Pt says he does not have anyone staying with him but has help getting him settled at home this evening and then checking in and assisting prn. He confirms that he feels very comfortable with this plan. Home as per above. CM Discharge Assessment Start: 02/08/19 15:57 Freq: Status: Active Protocol: Document 02/08/19 15:57 ITV (Rec: 02/08/19 15:58 ITV [id number]) Discharge Planning Assessment Advance Directives? Yes Advance Directives on File Yes History Provided By Patient Medical Record Prior Living Arrangements Apartment/Condo Whiteboard Updated in Patient Room with Yes name and ext. 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 Patient Also Known As (AKA) David Patient Information Reviewed Via Phone Assessment Assessment Completed With Patient Diagnostic Results BMP/CMP CBC EKG Primary Care Provider Payton Morfin Seen Specialist in Last 12 Months Yes Specialist Seen Manager Talent Management ENT Orthopedist Primary Language Cypriot Meter Reader Inspector Required No Height 175.26 cm Weight 92.533 kg Body Mass Index (BMI) 30.1 Hearing Ability Hard of Hearing Use of Hearing Aid Visual Assist Contacts Glasses Dentition Type Teeth, Natural Present Barriers to Learning None Auditory Comment Deaf in right ear, 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 Hx Anesthesia Reactions Yes: I was told I tried to get off the table during lung surgery Hx Family Anesthesia Reaction No Hx Malignant Hyperthermia No Hx Blood Transfusions No Comment Right upper, middle lobe lobectomy r/t lung cancer Anesthesia Review Requested No Park Attendant No alcohol intake former Alcohol Intake Frequency Other: Quit age 23 Smoking Status Former smoker how long ago did patient quit smoking Quit 1998 Substance Use Type does not use Pain Present Pain Reported Musculoskeletal Symptoms Back Pain Difficulty Walking Joint Pain Muscle Cramps Neck Pain History of Falling (Recent or History of No ) Patient is completely paralyzed or No completely immobile Mental Status Oriented to own ability Is patient on oxygen? No Does patient have ORDONEZ/SOB Yes: Stress related r/t reduced lung capacity, COPD Hx Sleep Apnea Yes: No CPAP after 100lb weight loss Currently Taking a Beta Phyllis No Can You Climb a Flight of Stairs Without Yes: Stress related r/t SOB reduced lung capacity, COPD Hx Chest Pain No Hx SOB Yes: Stress related r/t reduced lung capacity, COPD Hx Syncope or Dizziness No Anti-Coagulant Therapy No Has a Manager Talent Management Yes: Dr. Sheldon-last visit Hx Pacemaker/ICD No Pacemaker Rep Required? No Cardiac Clearance Received Yes Comment Cardiac visit, clearance scanned to record Diet Type At Home Regular dysphagia No Comment Restricts to 1250 calorie diet Genitourinary Symptoms Dribbling Bladder Pattern Frequency Urgency Urinary Catheter Present No Hx Urinary Self Catheterization No Diabetes Yes: Does not check blood sugars at home HgbA1C 5.7 Date 12/18/18 Presence of External or Internal Medical Yes: Bilateral hip prosthesis, Devices cardiac stents, clips in chest Have you traveled outside the [facility] in the last 30 days? Marital Status Lives With spouse Prior Living Arrangements Apartment/Condo Support System Child/Children Spouse Does the Patient Have Assistance After Yes Surgery Patient Discharge Plan Description Snf Facility/Rehab Comment Pt wants to go to [facility] Feels Safe in Current Environment Yes Been Physically Hurt or Threatened By a No Person in Current Environment Do you have thoughts of harming yourself None or others? Are you currently considering suicide? No Do you have a plan to hurt yourself or No Plan others? Do You Have Any Spiritual Beliefs That No May Affect Your HC Choices? Do You Have Any Cultural Practices That No May Affect Your HC Choices? Spiritual Referral None Who Can We Speak to About Patient's Care Family, friends Identifying Code for Release of Patient Declines to issue Information Health Care Proxy/Next of Kin Citlaly () Stephani (friend) Health Care Proxy Phone Number Citlaly: [phone] Stephani: Emergency Contact Name Citlaly () Stephani (friend) Emergency Contact Phone Number Citlaly: [phone] [facility]: Advance Directives? Yes Advance Directives on File Yes Power of Software Controls Engineer Yes Power of Software Controls Engineer Name Citlaly () Power of Software Controls Engineer PAC Instructions Durable medical equipment Medications to take/avoid Nasal antibiotic No ETOH/petroleum product on skin DOS NPO Post-op transportation Pre-surgical wash Sturdy shoes/comfortable clothes Do not bring valuables and remove jewelry
--- NOTE | 2019-02-08 16:48 | OT.IP.EVAL ---
Current Diagnoses Broken internal left hip prosthesis, initial encounter (02/07/19) Surgery Performed Operation Date: 02/07/19 10:45 Actual Procedures p Total Hip Arthroplasty Revision(Left) - Cassie Ferris MD Past Medical History (Last Updated 01/24/19 @ 15:13 by Citlaly Limon, RN) Arthritis (Acute) Back pain (Acute) CAD (coronary artery disease) (Acute) COPD (chronic obstructive pulmonary disease) (Acute) Carotid artery disease (Acute) Compound fracture (Acute) Cyst of left kidney (Acute) Depression (Acute) Diabetes (Acute) Easy bruisability (Acute) Enlarged prostate (Acute) Finding of abnormal level of heavy metals in blood (Acute ~2018) Former smoker (Acute) HLD (hyperlipidemia) (Acute) HTN (hypertension) (Acute) Hearing loss (Acute 01/22/18) Lung cancer (Acute ~1991) Neck pain (Acute) Neuropathy (Acute) NIKI (obstructive sleep apnea) (Acute) Pneumonia (Acute) RLS (restless legs syndrome) (Acute) Rosacea (Acute) Surgical History (Last Updated 01/24/19 @ 15:04 by Citlaly Limon, RN) History of arthroplasty of both hips (Acute) History of carpal tunnel surgery of right wrist (Acute) History of vasectomy (Acute) Hx of blepharoplasty (Acute) Hx of heart artery stent (Acute 10/20/01) Hx of prostate biopsy (Acute 10/14/15) S/P lobectomy of lung (Acute ~1991) Occupational Therapy Inpatient Evaluation/Re-Eval M1 PT/OT-IP Prior Functional Status Start: 02/08/19 16:30 Freq: NEEDED Status: Active Protocol: Document 02/08/19 16:31 [facility] (Rec: 02/08/19 16:48 [facility] [id number]) Medical Review Prior Functional Status Medical History Reviewed Yes Communication No deficits noted. Able to make needs known Mobility and Gait Pt was an independent ambulator at home and community without AD. Pt states he has difficulty time for prolonged sitting which increased his L hip pain. 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 Pt drives as well Activities of Daily Living and IADL's Pt was independent for ADLs and IADLs without AD. Social History Household Members none Living Arrangements Apartment/Condo Number of Floors (Floors) 3 or More Floors Number of Stairs To Enter/Railing? 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 He has his ticker installer office on 2nd floor and his studio is on 3rd floor. Pt states his entrance to his bedroom is very narrow that he usually has the wall for support in order to get to his bed. Citlaly is now in [place] but will be back on Monday hospital nurse liaison. Pt states he will be by himself for the weekend if he got to be d/c home. He has his personal child protective investigator friend that will be able to drive him upon d/c and assist him as needed. He also has couple friends live close by to help him if needed. Pt has a hx of bilateral avascular necrosis about 10 years ago and have both hip replaced. This sx is for revision of acetabulum with posterior approach. M2 OT-IP Current Condition Start: 02/08/19 16:30 Freq: Status: Active Protocol: Document 02/08/19 16:31 [facility] (Rec: 02/08/19 16:48 [facility] [id number]) Occupational Therapy Current Condition Current Condition Evaluation Date 02/08/19 Treatment Diagnosis Revision Left CHANDRIKA Diagnosis Onset Date 02/07/19 Post Operative Precautions Posterior Hip Precautions No Hip Flexion > 90 degrees No Hip Internal Rotation No Hip Adduction Weight Bearing Status Weight Bearing Status Weight Bear as Tolerated M3 OT- IP Subjective and Pain Start: 02/08/19 16:30 Freq: Status: Active Protocol: Document 02/08/19 16:31 [facility] (Rec: 02/08/19 16:48 [facility] [id number]) OT- Subjective Occupational Therapy Visit Type Type Initial Evaluation Visit Start Time 16:00 Visit Stop Time 16:15 Total Visit Minutes 15 Occupational Therapy Visit Comments Patient Comments Pt states doing well and mainly only concerns were showering as he has a tub/ shower at home. OT Pain Assessment Pain When Pain Assessed At Rest Pain Present Pain Present Denied Pain M4 OT- IP ADL's Start: 02/08/19 16:30 Freq: Status: Active Protocol: Document 02/08/19 16:31 [facility] (Rec: 02/08/19 16:48 [facility] [id number]) OT [id number] General Evaluation Self-Feeding Ability Independent OT ADL-Dressing Comments OT Dressing Comments Pt given finishing range feeder otherwise able to do LB dressing needs with increased time. OT ADL-Toileting Comments OT Toileting Comments Pt states able to lean over to wipe and follow hip precautions, otherwise aware to stand and wipe if needed. OT ADL-Bathing Comments OT Bathing Comments Educated pt tub bench option , but states to just sponge off for now. Pt refusing to try to shower at this time and wants to do it at home eventually. M6 OT- IP Functional Cognition Start: 02/08/19 16:30 Freq: Status: Active Protocol: Document 02/08/19 16:31 [facility] (Rec: 02/08/19 16:48 [facility] [id number]) Cognitive Factors Limiting Selfcare Function Cognitive Ability Level of Alertness Alert Patient Orientation Name Age Birthday Month Date Year Day of Week Place Situation Attention Span Ability Capable of Focused Attention Capable of Sustained Attention Ability to Follow Commands Able to Follow Multi-Step Commands Memory Description No Deficits Noted Safety Awareness No Deficits Noted Problem Solving Ability No deficits Noted Cognitive Comments Cognitive Assessment Comments Pt intact at this time. Pt a little concerned about his low blood pressure today, nursin aware. M7 OT- IP Mobility and Balance Start: 02/08/19 16:30 Freq: Status: Active Protocol: Document 02/08/19 16:31 [facility] (Rec: 02/08/19 16:48 [facility] [id number]) OT-Transfer Assessment Sit to and From Stand Sit to and from Stand Independent Comments Mobility Comments Pt able to independently stand on his own and move in the room with good safety. OT- Balance Assessment Sitting Balance and Reactions Static Sitting Balance Ability Normal Dynamic Sitting Balance Ability Normal Standing Balance and Reactions Static Standing Balance Ability Normal M8 OT- IP Objective Assessments Start: 02/08/19 16:30 Freq: Status: Active Protocol: Document 02/08/19 16:31 [facility] (Rec: 02/08/19 16:48 [facility] [id number]) OT Gross Range of Motion Upper Extremity Range of Motion Assessment Within Functional Limits M9 OT- IP Assessment and Plan Start: 02/08/19 16:30 Freq: Status: Active Protocol: Document 02/08/19 16:31 [facility] (Rec: 02/08/19 16:48 [facility] [id number]) OT Summary Assessment and Plan Potential Rehabilitation Potential Excellent Analytic Complexity at Evaluation Low Summary OT Impairments Strength Progress Towards Goals Progressing Toward Goals Assessment Summary Pt doing well and looking to go home today. Pt has multiple friends to call for assist until come home on Monday. . Goals Days to Meet Goals 1 Frequency of Treatment Frequency Of Treatment Once a Day Treatment Plan OT Treatment Plan Discharge Planning Discharge Recommendations OT Discharge Recommendations Home with Assistance Home Equipment Needs Tub bench
== END 2019-02-08 17:57 | disposition home or self-care (01) | DRG 468 ==
PROVIDERS: Admitting Provider Orthopaedic Surgery; Family Provider Internal Medicine; PCP Internal Medicine; Visit Provider Orthopaedic Surgery
PROC: 0SRB02Z Replacement of Left Hip Joint with Metal on Polyethylene Synthetic Substitute, Open Approach (ICD-10-PCS; principal; 2019-02-07 10:45)
DX: T84.091A Other mechanical complication of internal left hip prosthesis, initial encounter (principal); M65.852 Other synovitis and tenosynovitis, left thigh; E11.9 Type 2 diabetes mellitus without complications; G47.33 Obstructive sleep apnea (adult) (pediatric); E78.2 Mixed hyperlipidemia; G47.00 Insomnia, unspecified; I10 Essential (primary) hypertension; I25.10 Atherosclerotic heart disease of native coronary artery without angina pectoris; Z87.891 Personal history of nicotine dependence
CPT/HCPCS: 36415; 73502; 85014; 85018; 87070; 87075; 87205; 88304; 94760; 97116; 97161; 97165; 97530; C1776; C9290; J1100; J2250; J2405; J2704; J3010; J3370

== ENCOUNTER → 2019-04-30 16:36 | Outpatient (CLI) | payer MEDICARE, OTHER, SELFPAY ==
[2019-02-07 14:38] VITALS: BMI 30.1
[2019-05-02 21:14] LABS: Chromium, Plasma 1.8 mcg/L (< 1.3)
== END ==
PROVIDERS: Family Provider Internal Medicine; PCP Internal Medicine; Visit Provider Orthopaedic Surgery
DX: T84.011D Broken internal left hip prosthesis, subsequent encounter (principal); Z96.642 Presence of left artificial hip joint; Z96.643 Presence of artificial hip joint, bilateral
CPT/HCPCS: 36415; 82495; 83018

== ENCOUNTER → 2019-05-20 16:37 | Outpatient (CLI) | payer MEDICARE, OTHER, SELFPAY ==
[2019-02-07 14:38] VITALS: BMI 30.1
[2019-05-20 17:47] LABS: B Type Natriuretic Peptide < 100 (<100)
== END ==
PROVIDERS: Family Provider Internal Medicine; PCP Internal Medicine; Visit Provider Internal Medicine Cardiovascular Disease
DX: R06.02 Shortness of breath (principal)
CPT/HCPCS: 36415; 83880

== ENCOUNTER → 2019-06-18 07:38 | Outpatient (CLI) | payer MEDICARE, OTHER, SELFPAY ==
[2019-02-07 14:38] VITALS: BMI 30.1
--- NOTE | 2019-06-18 08:44 | P.PCN_ITS ---
Cardiac Stress Test Report Referral & Results Date Patient Seen: 06/18/19 Time Patient Seen: 08:30 Requesting provider: Padilla Sheldon Indication: Dyspnea on exertion Rest ECG: Normal sinus rhythm Procedure Note: Today following both written and verbal informed consent the patient was exercised according to a standard Shane protocol patient went for a total of 4 minutes 19 seconds achieving a maximum heart rate of 149 maximum systolic blood pressure of 210. This is approximately 7 METs. Exercise was terminated at this point because of dyspnea. Patient was also given Cardiolite through a previously started Hep-Lock IV by the supervisor nuclear medicine approximately 1 minute prior to the cessation of exercise. Markedly reduced exercise capacity. Patient very dyspneic and wheezy with exertion. Diffuse [address] deviations. Appropriate heart rate and blood pressure response to exercise. Impression: Intermediate probability for ischemia. Will await perfusion imaging. Please note: Actual ECG tracings can be found in the PACS system.
--- NOTE | 2019-06-19 17:46 | DI.NM.S_ITS ---
DATE OF SERVICE: 06/18/2019 PROCEDURE: Exercise perfusion study. INDICATIONS: Dyspnea on exertion with known CAD, status post Ms. circumflex and right coronary artery stenting in 10/2001; history of diabetes, hypertension, hyperlipidemia; history of CA, lung, status post right middle lobe and lower lobe lobectomy in 1991. RADIOPHARMACEUTICAL: 25.2 mCi technetium-99m Myoview IV was injected at stress and 20.3 mCi technetium-99m Myoview IV was injected at rest. CARDIAC STRESS: Patient underwent exercise perfusion study under the supervision of an attending staff. He walked on Shane protocol for 4 minutes 19 seconds, achieved 99% of target heart rate, hypertensive blood pressure response. Resting blood pressure 132/76. Peak blood pressure to 10/80. Baseline rhythm was sinus. During stress, there was some nonspecific ST-T changes, intermittent PACs. No significant sustained arrhythmias seen. Patient developed significant shortness of breath and had wheezing as well. His functional aerobic impairment, positive 40%. He achieved 7 METs of workload. RAW DATA: There is increased subdiaphragmatic activity. Patient's weight is 227 pounds. GATED STUDY: Stress LV ejection fraction 63% without any obvious wall motion abnormalities. Resting end-diastolic volume is 113 mL. TID ratio was not calculated; however, on my visual inspection, I don't see any significant transient ischemic dilatation.. Lung/heart ratio is 0.37, which is within normal limits. MYOCARDIAL PERFUSION SCAN: Stress supine, resting supine, and stress prone images were compared to each other. Stress supine and resting supine images revealed moderate-sized, [id number] decreased perfusion of inferior wall, inferior apex. There is additional small distal anterior wall defect seen as well during stress supine. During stress prone images, inferior wall and inferior apical defect got improved. However, distal anterior wall defect got worsened. CONCLUSION: This is an abnormal myocardial perfusion study with evidence of mild reversible ischemia in the distal anterior wall. Inferior wall defect appears to be due to diaphragmatic attenuation artifact as it got improved during prone images. Patient had perfusion study in 05/2015. At that time, he was able to walk for 7 minutes 42 seconds. Patient has diaphragmatic tissue attenuation artifact in the inferior wall. Distal anterior wall defect got improved during prone images as well. However, in this study, there is a reversible ischemia in the distal anterior wall. Poor exercise tolerance. His shortness of breath appears to be multifactorial. Stress left ventricular (LV) ejection fraction 63%. David Ochoa - JOSUÉ/elkin/ doc#: [id number]/job#: [id number] dd: 06/19/2019 17:19:00 dt: 06/19/2019 17:34:00 DICTATING MD/COPIES TO: Padilla Sheldon MD COPIES MNE: DAISY
== END ==
PROVIDERS: Family Provider Internal Medicine; PCP Internal Medicine; Visit Provider Internal Medicine Cardiovascular Disease
DX: R06.09 Other forms of dyspnea (principal); I25.10 Atherosclerotic heart disease of native coronary artery without angina pectoris; R94.39 Abnormal result of other cardiovascular function study; E11.9 Type 2 diabetes mellitus without complications; I10 Essential (primary) hypertension; E78.5 Hyperlipidemia, unspecified; Z95.5 Presence of coronary angioplasty implant and graft; Z85.118 Personal history of other malignant neoplasm of bronchus and lung
CPT/HCPCS: 78452; 93016; 93017; 93018; A9502

== ENCOUNTER → 2019-06-19 14:38 | Outpatient (CLI) | payer MEDICARE, OTHER, SELFPAY ==
[2019-02-07 14:38] VITALS: BMI 30.1
--- NOTE | 2019-06-19 | DI.ECHO.S_ITS ---
[facility]---------+ [facility] +---------+ : : [address] [place] [address] : : : : [id number] : : : : Phone: [phone]---------+ Echocardiogram Report + + :Name: TANK ALBARADO Study Date: 06/19/2019 Height: 69 in : :[facility] Weight: 218 lb : : Gender: Male BSA: 2.1 m2 : :: 1950 Age: 68 yrs BP: 128/55 mmHg: :Reason For Study: ORDONEZ : : Performed By: Markie Garza : :Referring: HAWK CABRERA : + + Interpretation Summary The left ventricle is normal in size. The ejection fraction is estimated to be 60-65%. There has been no significant change in LVEF since the previous study. MV E/A: 1.0 Med Peak E' Patricio: 2.9 cm/sec E/E' med: 24.0 The right ventricle is normal in size and function. No significant valvular pathology seen. The IVC is of normal diameter and collapses less than 50% with a sniff. This suggests a right atrial pressure of 8 mm Hg. Procedure: A two-dimensional transthoracic echocardiogram with color flow and Doppler was performed. The study quality was technically adequate. Comparison is made with the echocardiogram of 07/06/16. The patient was in normal sinus rhythm during the exam. Left Ventricle: The left ventricle is normal in size. There is normal left ventricular wall thickness. There is no thrombus. The ejection fraction is estimated to be 60-65%. There has been no significant change since the previous study. There are no focal wall motion abnormalities. MV E/A: 1.0 Med Peak E' Patricio: 2.9 cm/sec E/E' med: 24.0. Right Ventricle: The right ventricle is normal in size and function. Atria: The left atrial size is normal. There has been no significant change since the previous study. The right atrium is mildly dilated. The interatrial septum is intact with no evidence for an atrial septal defect. Mitral Valve: The mitral valve is normal in structure and function. There is trace mitral regurgitation. Aortic Valve: The aortic valve is trileaflet. The aortic valve opens well. There is no aortic valve stenosis. No aortic regurgitation is present. Tricuspid Valve: The tricuspid valve is normal in structure and function. Pulmonary artery pressures cannot be estimated because of the lack of a measurable TR jet velocity. There is trace tricuspid regurgitation. Pulmonic Valve: The pulmonic valve is not well seen, but is grossly normal. There is no pulmonic valvular regurgitation. Great Vessels: The aortic root is normal size. The dimensions of the ascending aorta are normal. The pulmonary artery is normal size. The IVC is of normal diameter and collapses less than 50% with a sniff. This suggests a right atrial pressure of 8 mm Hg. Pericardium/ Pleura There is no pericardial effusion. There is an anterior echo-free space consistent with a fat pad. There is no pleural effusion. MMode/2D Measurements & Calculations LVIDd: 5.4 cm LVOT diam: 2.3 cm LVIDs: 3.8 cm Ao root diam: 3.4 cm FS: 29.0 % Aortic Jxn: 2.3 cm EPSS: 0.63 cm asc Aorta Diam: 3.1 cm IVSd: 0.90 cm LVPWd: 0.88 cm LV morales. diameter/BSA (cm/m^2): 2.5 LV sys. diameter/BSA (cm/m^2): 1.8 LA dimension: 4.4 cm RA long axis: 4.3 cm LA A2 area: 20.6 cm2 RA area: 18.8 cm2 LA A4 area: 18.7 cm2 RA vol: 69.6 ml LA length (vol): 5.2 cm RA : 32.5 ml/m2 LA vol: 62.5 ml IVC diam: 1.9 cm LA vol index: 29.2 ml/m2 Doppler Measurements & Calculations Ao V2 max: 127.3 cm/sec LVOT Max Patricio: 112.6 cm/sec Ao V2 mean: 83.4 cm/sec LV V1 max P.1 mmHg Ao max P.5 mmHg LV V1 VTI: 22.2 cm Ao mean P.1 mmHg STANISLAV(I,D): 4.1 cm2 Ao V2 VTI: 22.7 cm STANISLAV(V,D): 3.7 cm2 sev ratio: 0.98 STANISLAV indexed to BSA (cm^2/m^2): 1.9 MV E max patricio: 69.2 cm/sec PA V2 max: 106.1 cm/sec MV A max patricio: 69.2 cm/sec PA V2 mean: 75.9 cm/sec MV E/A: 1.0 PA mean P.5 mmHg Med Peak E' Patricio: 2.9 cm/sec PA pr(Accel): 64.0 mmHg E/E' med: 24.0 PA Accel Time: 0.03 sec Lat Peak E' Patricio: 5.7 cm/sec E/E' lat: 12.2 E/e' average: 18.1 MV dec time: 0.20 sec SV([facility]): 92.2 ml Reading Physician:12:06 PM
== END ==
PROVIDERS: Family Provider Internal Medicine; PCP Internal Medicine; Visit Provider Internal Medicine Cardiovascular Disease
DX: R06.02 Shortness of breath (principal); R06.09 Other forms of dyspnea
CPT/HCPCS: 93306

== ENCOUNTER → 2019-06-21 15:53 | Outpatient (CLI) | payer MEDICARE, OTHER, SELFPAY ==
[2019-02-07 14:38] VITALS: BMI 30.1
--- NOTE | 2019-06-28 08:55 | P.PFT.S_ITS ---
Pulmonary Function Test Referral & Results Date Patient Seen: 06/21/19 Requesting provider: Padilla Sheldon Results: The spirometry demonstrates an FVC of 3.15 L which is 74% of predicted. The FEV1 was measured at 1.67 L which is 53% of predicted. The FEV1/FVC ratio was 53 which is 72% of predicted. Following the administration of bronchodilator there was an 18% improvement in FEV1 and a 59% improvement in FEF 25-75%. Lung volumes show an SVC of 3.54 L which is 80% of predicted. The diffusing capacity was measured at 20.81 which is 67% of predicted. No hemoglobin value was provided, so no correction for potential anemia could be made, if appropriate. The maximum voluntary ventilation was reduced Interpretation: This study demonstrates mild to moderate obstructive lung disease based on reduction FEV1. There is evidence of benefit following bronchodilator based on improvement in both FEV1 and FEF 25-75% There may also be mild restrictive lung disease based on minimal reduction in l fransisco volumes particularly SVC There is also reduction in diffusing capacity suggesting an element of disease at the capillary alveolar level
== END ==
PROVIDERS: Family Provider Internal Medicine; PCP Internal Medicine; Visit Provider Internal Medicine Cardiovascular Disease
DX: R06.02 Shortness of breath (principal); J44.9 Chronic obstructive pulmonary disease, unspecified
CPT/HCPCS: 94060; 94726; 94729

== ENCOUNTER → 2019-09-24 15:43 | Outpatient (ROUT) | payer MEDICARE, OTHER, SELFPAY ==
[2019-02-07 14:38] VITALS: BMI 30.1
[2019-09-24 16:06] LABS: Alanine Aminotransferase 37 IU/L (<50); Albumin 4.1 g/dL (3.5-5.0); Albumin Globulin Ratio 1.2 (1.0-2.8); Alkaline Phosphatase 68 U/L (38-126); Aspartate Aminotransferase 43 IU/L (17-59); Bilirubin Total 0.8 mg/dL (0.2-1.3); Blood Urea Nitrogen 18 mg/dL (9-20); Calcium 9.8 mg/dL (8.4-10.2); Carbon Dioxide 30 mmol/L (22-32); Chloride 103 mmol/L (98-107); Cholesterol 195 mg/dL (140-199); Estimated Glomerular Filt Rate > 60.0 mL/min (>60); Globulin 3.3 g/dL (1.7-4.1); Glucose 96 mg/dL (80-110); HDL Cholesterol 58 mg/dL (40-60); HEMOLYSIS < 15 (0-50); LDL Cholesterol Calculated 120 mg/dL (<100); Potassium 4.6 mmol/L (3.4-5.1); Sodium 140 mmol/L (137-145); Total Protein 7.4 g/dL (6.3-8.2); Triglycerides 84 mg/dL (35-150)
[2019-09-24 16:10] LABS: Hemoglobin A1C% w Est Avg Glu 5.9 % (4.0-6.0)
== END ==
PROVIDERS: Family Provider Internal Medicine; PCP Internal Medicine; Visit Provider Internal Medicine
DX: E11.9 Type 2 diabetes mellitus without complications (principal); E78.2 Mixed hyperlipidemia; I10 Essential (primary) hypertension
CPT/HCPCS: 80053; 80061; 83036

== ENCOUNTER → 2019-10-08 15:18 | Outpatient (CLI) | payer MEDICARE, OTHER, SELFPAY ==
[2019-02-07 14:38] VITALS: BMI 30.1
== END ==
PROVIDERS: Family Provider Internal Medicine; PCP Internal Medicine; Visit Provider Orthopaedic Surgery
DX: Z96.642 Presence of left artificial hip joint (principal)
CPT/HCPCS: 36415; 82495; 83018

== ENCOUNTER → 2019-12-23 18:34 | Outpatient (ROUT) | payer MEDICARE, OTHER, SELFPAY ==
[2019-02-07 14:38] VITALS: BMI 30.1
[2019-12-23 18:59] LABS: C-Reactive Protein Quant 1.4 mg/dL (<1.0); Uric Acid 5.6 mg/dL (3.5-8.5)
[2019-12-23 19:05] LABS: Rheumatoid Factor < 8.6 IU/mL (<12.0)
[2019-12-23 19:38] LABS: Hemoglobin A1C% w Est Avg Glu 5.9 % (4.0-6.0)
[2019-12-23 20:39] LABS: Erythrocyte Sedimentation Rate 35 MM/HR (0-15)
== END ==
PROVIDERS: Family Provider Internal Medicine; PCP Internal Medicine; Visit Provider Internal Medicine
DX: M25.50 Pain in unspecified joint (principal); E11.9 Type 2 diabetes mellitus without complications
CPT/HCPCS: 83036; 84550; 85651; 86038; 86140; 86430

== ENCOUNTER → 2020-03-05 12:27 | Outpatient (CLI) | payer MEDICARE, OTHER, SELFPAY ==
[2019-02-07 14:38] VITALS: BMI 30.1
--- NOTE | 2020-03-05 | DI.CT.S_ITS ---
PROCEDURE: CT CHEST WO CON INDICATIONS: Chronic obstructive pulmonary disease, unspecified TECHNIQUE: Noncontrast 5 mm thick sections acquired from the pulmonary apices to the posterior costophrenic angles. 1 mm lung window, 5 mm thick coronal and sagittal and 7 mm axial MIP reformats were then acquired. For radiation dose reduction, the following was used: automated exposure control, adjustment of mA and/or kV according to patient size. COMPARISON: [facility], CHEST 2 VIEW, 10/14/2015, 23:01. [facility], CHEST 2 VIEW, 06/04/2015, 17:19. FINDINGS: Image quality: Excellent. Lungs and pleura: No acute air space opacities. There is emphysematous exchange mechanic the lungs bilaterally comprised of both centrilobular emphysema and also mild bullous emphysema is seen at the lung base and lung apex on the right No pleural effusions or pneumothorax. Central and peripheral airways are patent and normal in caliber. Mediastinum: Heart size is normal. No pericardial effusion. No mediastinal adenopathy by size criteria. Thoracic aorta and central pulmonary arteries are normal in size. Esophagus is normal in caliber. No hiatal hernia. Bones and chest wall: No suspicious bony lesions. No vertebral body compression fractures. No axillary or supraclavicular adenopathy by size criteria. Thyroid gland appears normal where well seen but is only partially visualized. Abdomen: Visualized upper abdominal solid organs and bowel loops appear normal in the absence of contrast. IMPRESSION: COPD appears present with both centrilobular and bullous emphysema, right greater than left. Chronic lung scarring is present at each lung base, also greater on the right than the left, with asymmetric elevation of the right hemidiaphragm. No neoplasm found. Dictated by: Don Boswell M.D. on 03/05/2020 at 13:24 Approved by: Don Boswell M.D. on 03/05/2020 at 13:26
== END ==
PROVIDERS: Family Provider Internal Medicine; PCP Internal Medicine; Referring Provider Internal Medicine; Visit Provider Internal Medicine
DX: J44.9 Chronic obstructive pulmonary disease, unspecified (principal)
CPT/HCPCS: 71250

== ENCOUNTER → 2020-04-22 16:04 | Outpatient (CLI) | payer MEDICARE, OTHER, SELFPAY ==
[2019-02-07 14:38] VITALS: BMI 30.1
[2020-04-22 17:37] LABS: Hemoglobin A1C% w Est Avg Glu 5.7 % (4.0-6.0)
[2020-04-24 18:11] LABS: Chromium, Plasma 3.2 ug/L (0.1-2.1)
== END ==
PROVIDERS: Family Provider Internal Medicine; PCP Internal Medicine; Referring Provider Internal Medicine; Visit Provider Internal Medicine
DX: E11.9 Type 2 diabetes mellitus without complications (principal); T56.891D Toxic effect of other metals, accidental (unintentional), subsequent encounter
CPT/HCPCS: 36415; 82495; 83018; 83036

== ENCOUNTER → 2020-05-13 14:47 | Outpatient (CLI) | payer MEDICARE, OTHER, SELFPAY ==
[2019-02-07 14:38] VITALS: BMI 30.1
--- NOTE | 2020-05-13 | DI.ECHO.S_ITS ---
[place] +---------+ [facility] +---------+ : : [address] : [place] : : : : [id number] : : : : Phone: [phone]+ Echocardiogram Report + + :Name: TANK ALBARADO Study Date: 05/13/2020 Height: 69 in : :[facility] Weight: 242 lb : : Gender: Male BSA: 2.2 m2 : :: 1950 Age: 69 yrs BP: 142/80 mmHg: :Reason For Study: SHORTNESS OF BREATH : :Ordering Physician: DEBORAH, : :HAWK Performed By: Stephanie Mcwilliams : :Referring: HAWK CABRERA : + + Interpretation Summary The left ventricle is normal in size and wall thickness. The ejection fraction is estimated to be 55-60%. In June 19, 2019: E/E prime ratio was 24.In this study, it is 9.7. Diastolic dysfunction has improved. Now it is relaxation type of diastolic dysfunction. The right ventricle is normal in size and function. No significant valvular pathology seen. Procedure: There has been no significant change since the previous study. The study quality was technically adequate. Comparison is made with the echocardiogram of 06/19/2019. The patient was in sinus rhythm with heart rates between 46-81 bpm during the exam. Left Ventricle: The left ventricle is normal in size and wall thickness. There is no thrombus. The ejection fraction is estimated to be 55-60%. There has been no significant change since the previous exam. There are no focal wall motion abnormalities. Diastolic parameters suggest a relaxation abnormality of the left ventricle, consistent with probable normal filling pressures. Right Ventricle: The right ventricle is normal in size and function. Atria: Both atria are normal in size. Both atria have remained unchanged in size since the prior echo exam. There is no Doppler evidence for an interatrial shunt. Mitral Valve: There is mild mitral annular calcification. There is no mitral valve stenosis. There is trace mitral regurgitation. Aortic Valve: The aortic valve is not well visualized. The aortic valve opens well. There is no aortic valve stenosis. No aortic regurgitation is present. Tricuspid Valve: The tricuspid valve is normal. Pulmonary artery pressures cannot be estimated because of the lack of a measurable TR jet velocity but the IVC suggests a CVP of around 8 mmHg. There is trace tricuspid regurgitation. Pulmonic Valve: The pulmonic valve is not well seen, but is grossly normal. There is no pulmonic valvular regurgitation. Great Vessels: The aortic root is normal size. The ascending aorta could not be visualized. The IVC is of normal diameter and collapses less than 50% with a sniff. This suggests a right atrial pressure of 8 mm Hg. Pericardium/ Pleura There is no pericardial effusion. There is an anterior echo-free space consistent with a fat pad. There is no pleural effusion. MMode/2D Measurements & Calculations LVIDd: 5.4 cm LVOT diam: 2.5 cm LVIDs: 3.8 cm Ao root diam: 2.8 cm FS: 28.4 % Ao Arch Diam (Prox Trans): 2.0 cm EPSS: 1.4 cm IVSd: 0.81 cm LVPWd: 0.90 cm LV morales. diameter/BSA (cm/m^2): 2.4 LV sys. diameter/BSA (cm/m^2): 1.7 LA A2 area: 17.9 cm2 RA long axis: 4.7 cm LA A4 area: 18.2 cm2 RA area: 17.8 cm2 LA length (vol): 4.9 cm RA vol: 57.8 ml LA vol: 56.7 ml RA : 25.8 ml/m2 LA vol index: 25.3 ml/m2 IVC diam: 1.6 cm RVD1 (basal): 3.7 cm TAPSE: 2.1 cm Doppler Measurements & Calculations Ao V2 max: 97.8 cm/sec LVOT Max Patricio: 87.8 cm/sec Ao V2 mean: 67.5 cm/sec LV V1 max P.1 mmHg Ao max P.8 mmHg LV V1 VTI: 15.6 cm Ao mean P.1 mmHg STANISLAV(I,D): 4.4 cm2 Ao V2 VTI: 17.0 cm STANISLAV(V,D): 4.2 cm2 sev ratio: 0.92 STANISLAV indexed to BSA (cm^2/m^2): 1.9 MV E max patricio: 62.3 cm/sec PA V2 max: 94.4 cm/sec MV A max patricio: 72.6 cm/sec PA V2 mean: 67.7 cm/sec MV E/A: 0.86 PA mean P.0 mmHg Med Peak E' Patricio: 6.5 cm/sec PA pr(Accel): 53.3 mmHg E/E' med: 9.7 Lat Peak E' Patricio: 7.7 cm/sec E/E' lat: 8.1 E/e' average: 8.9 MV dec time: 0.24 sec SV(OT): 74.0 ml Reading Physician:02:03 PM
== END ==
PROVIDERS: Family Provider Internal Medicine; PCP Internal Medicine; Referring Provider Internal Medicine Cardiovascular Disease; Visit Provider Internal Medicine Cardiovascular Disease
DX: R06.02 Shortness of breath (principal); J44.9 Chronic obstructive pulmonary disease, unspecified
CPT/HCPCS: 93306

== ENCOUNTER → 2020-06-29 16:39 | Outpatient (CLI) | payer MEDICARE, OTHER, SELFPAY ==
[2019-02-07 14:38] VITALS: BMI 30.1
[2020-06-29 18:14] LABS: Alanine Aminotransferase 27 IU/L (<50); Albumin 3.7 g/dL (3.5-5.0); Albumin Globulin Ratio 1.2 (1.0-2.8); Alkaline Phosphatase 71 U/L (38-126); Aspartate Aminotransferase 38 IU/L (17-59); BUN Creatinine Ratio 18.5 (6-22); Bilirubin Total 0.4 mg/dL (0.2-1.3); Blood Urea Nitrogen 17 mg/dL (9-20); Calcium 8.9 mg/dL (8.4-10.2); Carbon Dioxide 29 mmol/L (22-32); Chloride 106 mmol/L (98-107); Cholesterol 137 mg/dL (140-199); Estimated Glomerular Filt Rate > 60.0 mL/min (>60); Globulin 3.2 g/dL (1.7-4.1); Glucose 98 mg/dL (80-110); HDL Cholesterol 49 mg/dL (40-60); HEMOLYSIS 15 (0-50); LDL Cholesterol Calculated 60 mg/dL (<100); Potassium 4.2 mmol/L (3.4-5.1); Sodium 140 mmol/L (137-145); Total Protein 6.9 g/dL (6.3-8.2); Triglycerides 139 mg/dL (35-150)
== END ==
PROVIDERS: Family Provider Internal Medicine; PCP Internal Medicine; Referring Provider Internal Medicine Cardiovascular Disease; Visit Provider Internal Medicine Cardiovascular Disease
DX: I25.10 Atherosclerotic heart disease of native coronary artery without angina pectoris (principal); E78.00 Pure hypercholesterolemia, unspecified; I10 Essential (primary) hypertension
CPT/HCPCS: 36415; 80053; 80061

== ENCOUNTER 2020-07-31 14:46 | Emergency (ER) | payer MEDICARE, OTHER, SELFPAY ==
[2019-02-07 14:38] VITALS: BMI 30.1
[2020-07-31] VITALS (14 sets, daily range): BP systolic 118–167; BP diastolic 59–80; PULSE 80–116; RESP 16–28; TEMP 37.7–38; O2SAT 95–97; BMI 37.5
--- NOTE | 2020-07-31 15:05 | DI.RAD.S_ITS ---
PROCEDURE: XR CHEST 1V INDICATIONS: Suspected sepsis TECHNIQUE: One view of the chest was acquired. COMPARISON: [facility], CT, CT CHEST WO CON, 03/05/2020, 12:34. FINDINGS: Surgical changes and devices: None. Lungs and pleura: Bullous changes and scarring in the right lung base are similar, again producing some elevation of the right hemidiaphragm. Prominent subdiaphragmatic fat is also present which further uplifts the right hemidiaphragm. Findings are not significantly changed from the CT chest obtained 03/05/2020. Right lung is otherwise clear. The left lung and pleural space are clear. Mediastinum: Mediastinal contours appear normal. Heart size is normal. Bones and chest wall: No suspicious bony lesions. Overlying soft tissues appear unremarkable. IMPRESSION: Chronic bullous emphysematous changes and scarring in the right lateral lung, not significantly changed. No acute process demonstrated. Dictated by: Jasvir Gastelum M.D. on 07/31/2020 at 15:18 Approved by: Jasvir Gastelum M.D. on 07/31/2020 at 15:20
[2020-07-31 15:12] LABS: Add Manual Diff / Slide Review NO; Basophils Absolute Auto 0 /uL (0-100); Basophils Percent Auto 0.4 % (0-2); Eosinophils Absolute Auto 100 /uL (0-450); Eosinophils Percent Auto 0.8 % (2-4); Hematocrit 41.5 % (41-53); Hemoglobin 13.8 g/dL (13.5-17.5); Lymphocytes Absolute Auto 500 /uL (1100-4500); Lymphocytes Percent Auto 7.7 % (25-40); Mean Corpuscular HGB Conc 33.2 % (30-36); Mean Corpuscular Hemoglobin 32.4 PG (26-34); Mean Corpuscular Volume 97.5 fL (80-100); Monocytes Absolute Auto 800 /uL (0-900); Monocytes Percent Auto 12.6 % (3-14); Neutrophils Absolute Auto 5300 /uL (1500-7000); Neutrophils Percent Auto 78.5 % (50-75); Platelet Count 187 X10^3/uL (150-400); Red Blood Cell Count 4.26 X10^6/uL (4.5-5.9); Red Cell Distribution Width 15.2 % (11.6-14.8); White Blood Cell Count 6.7 X10^3/uL (4.5-11.0)
[2020-07-31] MEDS: SODIUM CHLORIDE 0.9% 1,000 ML 1000 ML IV (15:19)
[2020-07-31 15:20] LABS: INR 1.2 (0.9-1.3); Prothrombin Time 13.5 SECONDS (10.1-12.7)
[2020-07-31 15:23] LABS: PTT Partial Thromboplastin Tim 30 SECONDS (26.4-36.2)
[2020-07-31 15:26] LABS: Alanine Aminotransferase 23 IU/L (<50); Albumin Globulin Ratio 1.2 (1.0-2.8); Alkaline Phosphatase 63 U/L (38-126); Aspartate Aminotransferase 32 IU/L (17-59); BUN Creatinine Ratio 16.3 (6-22); Bilirubin Total 0.7 mg/dL (0.2-1.3); Blood Urea Nitrogen 13 mg/dL (9-20); Calcium 9.2 mg/dL (8.4-10.2); Carbon Dioxide 26 mmol/L (22-32); Chloride 105 mmol/L (98-107); Estimated Glomerular Filt Rate > 60.0 mL/min (>60); Globulin 3.4 g/dL (1.7-4.1); Glucose 127 mg/dL (80-110); HEMOLYSIS 22 (0-50); Lipase 74 U/L (23-300); Sodium 138 mmol/L (137-145); Total Protein 7.4 g/dL (6.3-8.2)
[2020-07-31 15:28] LABS: Lactate (Lactic Acid) 2.4 mmol/L (0.7-2.1)
[2020-07-31 15:37] LABS: Amylase 61 U/L (30-110); Creatine Kinase 77 U/L (55-170)
[2020-07-31 15:41] LABS: Procalcitonin 0.66 ng/mL (<0.5)
[2020-07-31 15:48] LABS: COVID19 -Nasal RAPID Negative (Negative)
[2020-07-31 15:52] LABS: NT-proBNP (BNP-Adult 18+) 455 pg/mL (<125); Troponin I < 0.012 ng/mL (0.01-0.034)
[2020-07-31 16:08] LABS: Influenza A - CEPHEID Flu A NEGATIVE (NEGATIVE); Influenza B - CEPHEID Flu B NEGATIVE (NEGATIVE)
--- NOTE | 2020-07-31 16:28 | DI.CT.S_ITS ---
PROCEDURE: CT CHEST ABD PEL W CON INDICATIONS: sob, fever, lower abd pain TECHNIQUE: After the administration of intravenous contrast, 5 mm thick sections acquired from the lung apices to the symphysis. 5 mm coronal and sagittal reformats were performed, with additional 7 mm MIP reformats through the lungs. For radiation dose reduction, the following was used: automated exposure control, adjustment of mA and/or kV according to patient size. COMPARISON: [facility], CT, CHEST ABDOMEN PELVIS WITH CONTRAST, 11/08/2007, 16:25. [facility], CT, CT CHEST WO CON, 03/05/2020, 12:34. FINDINGS: Image quality: Excellent. CHEST: Lungs and pleura: Remote partial right pulmonary resection. Bilateral centrilobular emphysematous change, right greater than left. Numerous right sided prominent bullae. No suspicious pulmonary nodules. No acute airspace opacities. No pleural effusions or pneumothorax. Central and peripheral airways appear patent and normal in caliber. Mediastinum: Heart size is normal. Coronary artery calcifications. No pericardial effusion. No mediastinal or hilar adenopathy by size criteria. Thoracic aorta and central pulmonary arteries are normal in size. Esophagus is normal in caliber. No hiatal hernia. Chest wall: No axillary or supraclavicular adenopathy by size criteria. Thyroid gland is unremarkable as visualized. . ABDOMEN: Solid organs: Liver is normal in size and enhancement. Gallbladder is unremarkable . Biliary system is non dilated. Pancreas enhances normally. Spleen is normal in size and enhancement. No adrenal nodules. Kidneys demonstrate normal size and enhancement, without hydronephrosis. Peritoneum and bowel: . No free fluid or air. Extensive sigmoid diverticulosis. Question mild acute diverticulitis. Cannot exclude underlying lesion in the sigmoid. There is prominent bowel wall thickening focally in the sigmoid. Bowel loops otherwise demonstrate normal wall thickness and caliber Nodes and vessels: No retroperitoneal or mesenteric adenopathy by size criteria. Aorta and inferior vena cava are normal in size. Extensive abdominal aortic atherosclerotic calcifications. Miscellaneous: No ventral hernias. PELVIS: Genitourinary: Bladder wall thickness is normal. Miscellaneous: No inguinal hernias or adenopathy. Beam hardening artifact in the lower pelvis secondary to bilateral total hip arthroplasties. Bones: No suspicious bony lesions. No acute vertebral body compression fractures. Old mild L2 compression. Bilateral total hip arthroplasties. IMPRESSION: 1. Remote partial pulmonary resection on the right. 2. Centrilobular emphysema. 3. No evidence acute pulmonary process. 4. Coronary artery disease. 5. Extensive sigmoid diverticulosis. Cannot exclude mild superimposed acute sigmoid diverticulitis. 6. Recommend direct visualization of the sigmoid utilizing colonoscopy if this has not been done in the recent past. 7. No evidence of metastatic disease. Dictated by: Evert Briscoe M.D. on 07/31/2020 at 17:02 Approved by: Evert Briscoe M.D. on 07/31/2020 at 17:06
[2020-07-31 17:09] LABS: Reflexed Lactate in 2 Hours Y
[2020-07-31 17:55] LABS: Lactate 2HR (Lactic Acid Rflx) 0.8 mmol/L (0.7-2.1)
[2020-07-31] MEDS: CIPROFLOXACIN 500 MG TABLET PO (18:21)
[2020-07-31] MEDS: metroNIDAZOLE 500 MG TABLET PO (18:21)
--- NOTE | 2020-07-31 19:33 | ED.ABDPAIN ---
HPI - Abdominal Pain <KIMBERLY RodgersP-BC - Last Filed: 07/31/20 20:55> General Chief Complaint: Fever Stated Complaint: pain in midsection, chills, dry cough,headache Time Seen by Provider: 07/31/20 15:11 Source: patient Mode of arrival: Ambulatory Limitations: no limitations History of Present Illness HPI narrative: The patient is a very pleasant 70-year-old male former smoker with history of lung cancer who presents with a chief complaint of fever and lower abdominal pain for the past few days. This started yesterday. He had slight nausea, no vomiting, soft to loose stools. He does have history of lobectomy related to lung cancer. He states that he has felt increasingly short of breath recently, but that has been going on for several months. He has not taken anything to feel better. 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 He denies any chest pain. He denies any dysuria urgency or frequency. He does note fevers up to 101 at home. He denies any productive cough. Related Data Home Medications Medication Instructions Recorded Confirmed ALBUTEROL (PROVENTIL INHALER) 1 puff INHALATION PRN PRN #0 08/17/11 02/07/19 losartan [Cozaar] 100 mg PO QDAY #0 08/17/11 02/07/19 Victoza 2-Van 1.8 mg SUBCUT DAILY 01/24/19 02/07/19 aspirin 81 mg PO DAILY 01/24/19 02/07/19 atorvastatin 40 mg PO DAILY 01/24/19 02/07/19 tamsulosin 0.4 mg PO DAILY 01/24/19 02/07/19 zolpidem [Ambien] 10 mg PO BEDTIME PRN 01/24/19 02/07/19 sertraline [Zoloft] 20 mg PO DAILY 02/07/19 02/07/19 Previous Rx's Medication Instructions Recorded acetaminophen 975 mg PO TID #60 tab 02/08/19 aspirin 81 mg PO BID #60 tab 02/08/19 docusate sodium 100 mg PO BID #60 cap 02/08/19 hydroxyzine pamoate [Vistaril] 25 mg PO Q4-6H PRN #40 cap 02/08/19 meloxicam 15 mg PO 0800 #30 tab 02/08/19 oxycodone 10 mg PO Q4-6H PRN #40 tab 02/08/19 ciprofloxacin HCl [Cipro] 500 mg PO BID #20 tab 07/31/20 hydrocodone-acetaminophen [[place]] 1 tab PO Q4-6H PRN #10 tab 07/31/20 metronidazole 500 mg PO TID 10 Days #30 tab 07/31/20 ondansetron 4 mg PO Q6H PRN #20 tab 07/31/20 Allergies Allergy/AdvReac Type Severity Reaction Status Date / Time latex Allergy Severe Rash Verified 07/31/20 14:58 Penicillins [PENICILLINS] Allergy Severe Anaphylaxis Verified 07/31/20 14:58 adhesive tape AdvReac Severe Melts to Verified 07/31/20 14:58 my skin and pulls my skin off amino acids [From Chromimin] AdvReac Severe High blood Verified 07/31/20 14:58 level of chromim chromium [From Chromimin] AdvReac Severe High blood Verified 07/31/20 14:58 level of chromim cobalt AdvReac Severe High blood Verified 07/31/20 14:58 level of cobalt meperidine [MEPERIDINE] AdvReac Severe VOMITING Verified 07/31/20 14:58 morphine [MORPHINE] AdvReac Intermediate HALLUCINATI Verified 07/31/20 14:58 ONS Review of Systems <ESTHER Rodgers - Last Filed: 07/31/20 20:55> Review of Systems Narrative: GENERAL: See HPI HEENT: Denies sinus pain, ear pain, sore throat, difficulty swallowing, dizziness. RESPIRATORY: See HPI CARDIOVASCULAR: Denies chest pain, palpitations, orthopnea, edema, GASTROINTESTINAL: See HPI : Denies dysuria, frequency, incontinence, hematuria, urinary retention. MUSCULOSKELETAL: denies weakness, joint pain, or bony pain SKIN: Denies rash, skin lesions, or other NEUROLOGIC: Denies weakness, headache, numbness, change in speech, confusion, seizures, incoordination. PSYCHIATRIC: No concerning psychosocial issues. 12 point review of systems is negative except for those stated above Patient History <ESTHER Rodgers - Last Filed: 07/31/20 20:55> Medical History (Updated 07/31/20 @ 19:35 by ESTHER Rodgers) Arthritis (Acute) Back pain (Acute) CAD (coronary artery disease) (Acute) Carotid artery disease (Acute) Compound fracture (Acute) COPD (chronic obstructive pulmonary disease) (Acute) Cyst of left kidney (Acute) Depression (Acute) Diabetes (Acute) Easy bruisability (Acute) Enlarged prostate (Acute) Finding of abnormal level of heavy metals in blood (Acute ~2018) Former smoker (Acute) Hearing loss (Acute 01/22/18) HLD (hyperlipidemia) (Acute) HTN (hypertension) (Acute) Lung cancer (Acute ~1991) Neck pain (Acute) Neuropathy (Acute) NIKI (obstructive sleep apnea) (Acute) Pneumonia (Acute) RLS (restless legs syndrome) (Acute) Rosacea (Acute) Surgical History (Updated 01/24/19 @ 15:04 by Citlaly Limon RN) History of arthroplasty of both hips (Acute) History of carpal tunnel surgery of right wrist (Acute) History of vasectomy (Acute) Hx of blepharoplasty (Acute) Hx of heart artery stent (Acute 10/20/01) Hx of prostate biopsy (Acute 10/14/15) S/P lobectomy of lung (Acute ~1991) Social History household members: none Smoking Status: Former smoker alcohol intake: former Smoking Status: Former smoker alcohol intake frequency: holidays/special occasions only Substance Use Type: does not use Exam <ESTHER Rodgers - Last Filed: 07/31/20 20:55> Narrative Exam Narrative: GENERAL: This is a well-nourished, well-developed patient, in no acute distress HEAD: Atraumatic. Normocephalic. No temporal or scalp tenderness. EYES: Pupils equal round and reactive. Extraocular motions intact. No scleral icterus. No injection or drainage. ENT: Nose without bleeding, purulent drainage or septal hematoma. Throat without erythema, tonsillar hypertrophy or exudate. Uvula midline. Airway patent. NECK: Trachea midline. No JVD or lymphadenopathy. Supple, nontender, no meningeal signs. CARDIOVASCULAR: Regular rate and rhythm RESPIRATORY: Decreased bilaterally auscultation. Course Breath sounds equal bilaterally. No wheezes, rales, or rhonchi. No cough. No increased respiratory effort. No accessory muscle use. Speaking full sentences. GASTROINTESTINAL: Abdomen is diffusely tender bilateral lower quadrant palpation, non-tender, nondistended. No hepato-splenomegaly, or palpable masses. No guarding. Active bowel sounds all 4 quadrants. EXTREMITIES: No clubbing, cyanosis, or edema. No joint tenderness, effusion, or edema noted. BACK: Nontender without deformity or crepitance. No flank tenderness. NEURO: AOx3. Interactive. Age appropriate. Stable SKIN: No rash or erythema on visible skin Initial Vital Signs Initial Vital Signs: Vital Signs Temperature 100.4 F H 07/31/20 14:51 Pulse Rate 116 H 07/31/20 14:51 Respiratory Rate 28 H 07/31/20 14:51 Blood Pressure 167/72 H 07/31/20 14:51 Pulse Oximetry 96 07/31/20 14:51 <Sandra Pelaez DO - Last Filed: 08/02/20 07:08> Initial Vital Signs Initial Vital Signs: Vital Signs Temperature 100.4 F H 07/31/20 14:51 Pulse Rate 116 H 07/31/20 14:51 Respiratory Rate 28 H 07/31/20 14:51 Blood Pressure 167/72 H 07/31/20 14:51 Pulse Oximetry 96 07/31/20 14:51 Scores <ESTHER Rodgers - Last Filed: 07/31/20 20:55> GCS Sturdivant coma scale eye opening: Spontaneous Amado coma scale verbal response: Orientated Stur[place] coma scale motor response: Obey commands Amado coma scale total score: 15 Course <ESTHER Rodgers - Last Filed: 07/31/20 20:55> Orders Ordered: Discontinued Medications Ciprofloxacin (Cipro) 500 mg PO NOW ONE Stop: 07/31/20 18:11 Last Admin: 07/31/20 18:21 Dose: 500 mg Documented by: TOMAS Sodium Chloride (Normal Saline 0.9%) 1,000 mls @ 1,000 mls/hr IV BOLUS ONE Stop: 07/31/20 16:04 Last Infusion: 07/31/20 17:13 Dose: 0 mls/hr Documented by: Admin: 07/31/20 15:19 Dose: 1,000 mls/hr Documented by: JAMIE Metronidazole (Metronidazole) 500 mg PO NOW ONE Stop: 07/31/20 18:11 Last Admin: 07/31/20 18:21 Dose: 500 mg Documented by: MMINOR Vital Signs Vital signs: Vital Signs - 8 hr 07/31/20 14:51 07/31/20 15:05 07/31/20 15:07 Temperature 100.4 F H Pulse Rate 116 H 103 H 104 H Respiratory Rate 28 H Blood Pressure 167/72 H 146/65 H Pulse Oximetry 96 97 97 07/31/20 15:30 07/31/20 16:00 07/31/20 16:30 Temperature Pulse Rate 95 H 95 H 89 Respiratory Rate 16 Blood Pressure 143/59 H 135/60 118/79 Pulse Oximetry 96 96 96 07/31/20 17:00 07/31/20 17:40 07/31/20 17:42 Temperature Pulse Rate 84 85 84 Respiratory Rate Blood Pressure 128/65 Pulse Oximetry 96 97 97 07/31/20 18:00 07/31/20 18:30 07/31/20 19:38 Temperature Pulse Rate 81 80 94 H Respiratory Rate Blood Pressure 143/65 H 131/63 Pulse Oximetry 95 95 97 07/31/20 19:39 07/31/20 19:44 Temperature 99.8 F H Pulse Rate 94 H 85 Respiratory Rate 18 Blood Pressure 135/80 135/80 Pulse Oximetry 97 97 <Sandra Pelaez DO - Last Filed: 08/02/20 07:08> Orders Ordered: Discontinued Medications Ciprofloxacin (Cipro) 500 mg PO NOW ONE Stop: 07/31/20 18:11 Last Admin: 07/31/20 18:21 Dose: 500 mg Documented by: TOMAS Sodium Chloride (Normal Saline 0.9%) 1,000 mls @ 1,000 mls/hr IV BOLUS ONE Stop: 07/31/20 16:04 Last Infusion: 07/31/20 17:13 Dose: 0 mls/hr Documented by: Admin: 07/31/20 15:19 Dose: 1,000 mls/hr Documented by: JAMIE Metronidazole (Metronidazole) 500 mg PO NOW ONE Stop: 07/31/20 18:11 Last Admin: 07/31/20 18:21 Dose: 500 mg Documented by: MMJAVYR Vital Signs Vital signs: Vital Signs - 8 hr 07/31/20 14:51 07/31/20 15:05 07/31/20 15:07 Temperature 100.4 F H Pulse Rate 116 H 103 H 104 H Respiratory Rate 28 H Blood Pressure 167/72 H 146/65 H Pulse Oximetry 96 97 97 07/31/20 15:30 07/31/20 16:00 07/31/20 16:30 Temperature Pulse Rate 95 H 95 H 89 Respiratory Rate 16 Blood Pressure 143/59 H 135/60 118/79 Pulse Oximetry 96 96 96 07/31/20 17:00 07/31/20 17:40 07/31/20 17:42 Temperature Pulse Rate 84 85 84 Respiratory Rate Blood Pressure 128/65 Pulse Oximetry 96 97 97 07/31/20 18:00 07/31/20 18:30 07/31/20 19:38 Temperature Pulse Rate 81 80 94 H Respiratory Rate Blood Pressure 143/65 H 131/63 Pulse Oximetry 95 95 97 07/31/20 19:39 07/31/20 19:44 Temperature 99.8 F H Pulse Rate 94 H 85 Respiratory Rate 18 Blood Pressure 135/80 135/80 Pulse Oximetry 97 97 MDM - Abdominal Pain <KILEY Rodgers-BC - Last Filed: 07/31/20 20:55> Lab Data Result diagrams: 07/31/20 15:00 07/31/20 15:00 Labs: Lab Results 07/31/20 07/31/20 07/31/20 Range/Units 14:55 15:00 15:00 WBC 6.7 (4.5-11.0) X10^3/uL RBC 4.26 L (4.5-5.9) X10^6/uL Hgb 13.8 (13.5-17.5) g/dL Hct 41.5 (41-53) % MCV 97.5 (80-100) fL MCH 32.4 (26-34) PG MCHC 33.2 (30-36) % RDW 15.2 H (11.6-14.8) % Plt Count 187 (150-400) X10^3/uL Neut % (Auto) 78.5 H (50-75) % Lymph % (Auto) 7.7 L (25-40) % [place] % (Auto) 12.6 (3-14) % Eos % (Auto) 0.8 L (2-4) % Baso % (Auto) 0.4 (0-2) % Neut # (Auto) 5300 (7224-2589) /uL Lymph # (Auto) 500 L (6407-3597) /uL [place] # (Auto) 800 (0-900) /uL Eos # (Auto) 100 (0-450) /uL Baso # (Auto) 0 (0-100) /uL PT 13.5 H (10.1-12.7) SECONDS INR 1.2 (0.9-1.3) APTT 30 (26.4-36.2) SECONDS Sodium (137-145) mmol/L Potassium (3.4-5.1) mmol/L Chloride (98-107) mmol/L Carbon Dioxide (22-32) mmol/L BUN (9-20) mg/dL Creatinine (0.66-1.25) mg/dL Estimated GFR (>60) mL/min BUN/Creatinine Ratio (6-22) Glucose (80-110) mg/dL Lactate (0.7-2.1) mmol/L Calcium (8.4-10.2) mg/dL Total Bilirubin (0.2-1.3) mg/dL AST (17-59) IU/L ALT (<50) IU/L Alkaline Phosphatase (38-126) U/L Total Creatine Kinase (55-170) U/L CK-MB (CK-2) CK-MB (CK-2) Rel Index Troponin I (0.01-0.034) ng/mL NT-Pro-B Natriuret Pep (<125) pg/mL Total Protein (6.3-8.2) g/dL Albumin (3.5-5.0) g/dL Globulin (1.7-4.1) g/dL Albumin/Globulin Ratio (1.0-2.8) Amylase (30-110) U/L Lipase (23-300) U/L Procalcitonin (<0.5) ng/mL COVID-19 PCR Negative (Negative) Influenza A (RT-PCR) (NEGATIVE) Influenza B (RT-PCR) (NEGATIVE) 07/31/20 07/31/20 07/31/20 Range/Units 15:00 15:00 15:00 WBC (4.5-11.0) X10^3/uL RBC (4.5-5.9) X10^6/uL Hgb (13.5-17.5) g/dL Hct (41-53) % MCV (80-100) fL MCH (26-34) PG MCHC (30-36) % RDW (11.6-14.8) % Plt Count (150-400) X10^3/uL Neut % (Auto) (50-75) % Lymph % (Auto) (25-40) % [place] % (Auto) (3-14) % Eos % (Auto) (2-4) % Baso % (Auto) (0-2) % Neut # (Auto) (8340-8621) /uL Lymph # (Auto) (8934-0497) /uL [place] # (Auto) (0-900) /uL Eos # (Auto) (0-450) /uL Baso # (Auto) (0-100) /uL PT (10.1-12.7) SECONDS INR (0.9-1.3) APTT (26.4-36.2) SECONDS Sodium 138 (137-145) mmol/L Potassium 4.0 (3.4-5.1) mmol/L Chloride 105 (98-107) mmol/L Carbon Dioxide 26 (22-32) mmol/L BUN 13 (9-20) mg/dL Creatinine 0.80 (0.66-1.25) mg/dL Estimated GFR > 60.0 (>60) mL/min BUN/Creatinine Ratio 16.3 (6-22) Glucose 127 H (80-110) mg/dL Lactate 2.4 H (0.7-2.1) mmol/L Calcium 9.2 (8.4-10.2) mg/dL Total Bilirubin 0.7 (0.2-1.3) mg/dL AST 32 (17-59) IU/L ALT 23 (<50) IU/L Alkaline Phosphatase 63 (38-126) U/L Total Creatine Kinase (55-170) U/L CK-MB (CK-2) CK-MB (CK-2) Rel Index Troponin I (0.01-0.034) ng/mL NT-Pro-B Natriuret Pep (<125) pg/mL Total Protein 7.4 (6.3-8.2) g/dL Albumin 4.0 (3.5-5.0) g/dL Globulin 3.4 (1.7-4.1) g/dL Albumin/Globulin Ratio 1.2 (1.0-2.8) Amylase (30-110) U/L Lipase 74 (23-300) U/L Procalcitonin 0.66 H (<0.5) ng/mL COVID-19 PCR (Negative) Influenza A (RT-PCR) (NEGATIVE) Influenza B (RT-PCR) (NEGATIVE) 07/31/20 07/31/20 07/31/20 Range/Units 15:00 15:00 15:30 WBC (4.5-11.0) X10^3/uL RBC (4.5-5.9) X10^6/uL Hgb (13.5-17.5) g/dL Hct (41-53) % MCV (80-100) fL MCH (26-34) PG MCHC (30-36) % RDW (11.6-14.8) % Plt Count (150-400) X10^3/uL Neut % (Auto) (50-75) % Lymph % (Auto) (25-40) % [place] % (Auto) (3-14) % Eos % (Auto) (2-4) % Baso % (Auto) (0-2) % Neut # (Auto) (8884-0442) /uL Lymph # (Auto) (1026-2556) /uL [place] # (Auto) (0-900) /uL Eos # (Auto) (0-450) /uL Baso # (Auto) (0-100) /uL PT (10.1-12.7) SECONDS INR (0.9-1.3) APTT (26.4-36.2) SECONDS Sodium (137-145) mmol/L Potassium (3.4-5.1) mmol/L Chloride (98-107) mmol/L Carbon Dioxide (22-32) mmol/L BUN (9-20) mg/dL Creatinine (0.66-1.25) mg/dL Estimated GFR (>60) mL/min BUN/Creatinine Ratio (6-22) Glucose (80-110) mg/dL Lactate (0.7-2.1) mmol/L Calcium (8.4-10.2) mg/dL Total Bilirubin (0.2-1.3) mg/dL AST (17-59) IU/L ALT (<50) IU/L Alkaline Phosphatase (38-126) U/L Total Creatine Kinase 77 (55-170) U/L CK-MB (CK-2) TNP CK-MB (CK-2) Rel Index TNP Troponin I < 0.012 (0.01-0.034) ng/mL NT-Pro-B Natriuret Pep 455 H (<125) pg/mL Total Protein (6.3-8.2) g/dL Albumin (3.5-5.0) g/dL Globulin (1.7-4.1) g/dL Albumin/Globulin Ratio (1.0-2.8) Amylase 61 (30-110) U/L Lipase (23-300) U/L Procalcitonin (<0.5) ng/mL COVID-19 PCR (Negative) Influenza A (RT-PCR) Flu a negative (NEGATIVE) Influenza B (RT-PCR) Flu b negative (NEGATIVE) 07/31/20 Range/Units 17:36 WBC (4.5-11.0) X10^3/uL RBC (4.5-5.9) X10^6/uL Hgb (13.5-17.5) g/dL Hct (41-53) % MCV (80-100) fL MCH (26-34) PG MCHC (30-36) % RDW (11.6-14.8) % Plt Count (150-400) X10^3/uL Neut % (Auto) (50-75) % Lymph % (Auto) (25-40) % [place] % (Auto) (3-14) % Eos % (Auto) (2-4) % Baso % (Auto) (0-2) % Neut # (Auto) (5844-7925) /uL Lymph # (Auto) (5142-7893) /uL [place] # (Auto) (0-900) /uL Eos # (Auto) (0-450) /uL Baso # (Auto) (0-100) /uL PT (10.1-12.7) SECONDS INR (0.9-1.3) APTT (26.4-36.2) SECONDS Sodium (137-145) mmol/L Potassium (3.4-5.1) mmol/L Chloride (98-107) mmol/L Carbon Dioxide (22-32) mmol/L BUN (9-20) mg/dL Creatinine (0.66-1.25) mg/dL Estimated GFR (>60) mL/min BUN/Creatinine Ratio (6-22) Glucose (80-110) mg/dL Lactate 0.8 (0.7-2.1) mmol/L Calcium (8.4-10.2) mg/dL Total Bilirubin (0.2-1.3) mg/dL AST (17-59) IU/L ALT (<50) IU/L Alkaline Phosphatase (38-126) U/L Total Creatine Kinase (55-170) U/L CK-MB (CK-2) CK-MB (CK-2) Rel Index Troponin I (0.01-0.034) ng/mL NT-Pro-B Natriuret Pep (<125) pg/mL Total Protein (6.3-8.2) g/dL Albumin (3.5-5.0) g/dL Globulin (1.7-4.1) g/dL Albumin/Globulin Ratio (1.0-2.8) Amylase (30-110) U/L Lipase (23-300) U/L Procalcitonin (<0.5) ng/mL COVID-19 PCR (Negative) Influenza A (RT-PCR) (NEGATIVE) Influenza B (RT-PCR) (NEGATIVE) Point of care testing: Urine Dip Bedside Urine Glucose Negative Bedside Urine Bilirubin - Negative Bedside Urine Ketone - Negative Urine Specific [place] 1.010 Bedside Urine Occult Blood - Negative Bedside Urine pH 5.5 Bedside Urine Protein - Negative Bedside Urine Urobilinogen +/- 1mg Bedside Urine Nitrite - Negative Bedside Urine Leukocytes - Negative Esterase Imaging Data CT scan - abdomen/pelvis: Radiologist's Impression: [address] [place] [id number] Scan Report Signed Patient: David Ochoa RMR#: [id number] : 8Acct:[id number] Age/Sex: 70 / MDate of Service: 07/31/20 Loc: ED Accession Number: [id number] Procedure: CT chest abd pel w con [facility]ing [facility] CT CHEST ABD PEL W CON INDICATIONS: sob, fever, lower abd pain TECHNIQUE: After the administration of intravenous contrast, 5 mm thick sections acquired from the lung apices to the symphysis. 5 mm coronal and sagittal reformats were performed, with additional 7 mm MIP reformats through the lungs. For radiation dose reduction, the following was used: automated exposure control, adjustment of mA and/or kV according to patient size. COMPARISON: [facility], CT, CHEST ABDOMEN PELVIS WITH CONTRAST, 11/08/2007, 16:25. [facility], CT, CT CHEST WO CON, 03/05/2020, 12:34. FINDINGS: Image quality: Excellent. CHEST: Lungs and pleura: Remote partial right pulmonary resection. Bilateral centrilobular emphysematous change, right greater than left. Numerous right sided prominent bullae. No suspicious pulmonary nodules. No acute airspace opacities. No pleural effusions or pneumothorax. Central and peripheral airways appear patent and normal in caliber. Mediastinum: Heart size is normal. Coronary artery calcifications. No pericardial effusion. No mediastinal or hilar adenopathy by size criteria. Thoracic aorta and central pulmonary arteries are normal in size. Esophagus is normal in caliber. No hiatal hernia. Chest wall: No axillary or supraclavicular adenopathy by size criteria. Thyroid gland is unremarkable as visualized. . ABDOMEN: Solid organs: Liver is normal in size and enhancement. Gallbladder is unremarkable . Biliary system is non dilated. Pancreas enhances normally. Spleen is normal in size and enhancement. No adrenal nodules. Kidneys demonstrate normal size and enhancement, without hydronephrosis. Peritoneum and bowel: . No free fluid or air. Extensive sigmoid diverticulosis. Question mild acute diverticulitis. Cannot exclude underlying lesion in the sigmoid. There is prominent bowel wall thickening focally in the sigmoid. Bowel loops otherwise demonstrate normal wall thickness and caliber Nodes and vessels: No retroperitoneal or mesenteric adenopathy by size criteria. Aorta and inferior vena cava are normal in size. Extensive abdominal aortic atherosclerotic calcifications. Miscellaneous: No ventral hernias. PELVIS: Genitourinary: Bladder wall thickness is normal. Miscellaneous: No inguinal hernias or adenopathy. Beam hardening artifact in the lower pelvis secondary to bilateral total hip arthroplasties. Bones: No suspicious bony lesions. No acute vertebral body compression fractures. Old mild L2 compression. Bilateral total hip arthroplasties. IMPRESSION: 1. Remote partial pulmonary resection on the right. 2. Centrilobular emphysema. 3. No evidence acute pulmonary process. 4. Coronary artery disease. 5. Extensive sigmoid diverticulosis. Cannot exclude mild superimposed acute sigmoid diverticulitis. 6. Recommend direct visualization of the sigmoid utilizing colonoscopy if this has not been done in the recent past. 7. No evidence of metastatic disease. Dictated by: Evert Briscoe M.D. on 07/31/2020 at 17:02 Approved by: Evert Briscoe M.D. on 07/31/2020 at 17:06 ECG Data Attestation: I personally reviewed and interpreted this ECG as follows: Interpretation: Ventricular 86. P.r. interval 176. QRS 92. viewed by Dr Parsons MDM Narrative Medical decision making narrative: The patient is a 70-year-old male with complicated medical history including lung resection who presents with a chief complaint of lower abdominal pain and fever. He tests negative for covered, negative for influenza. He has a normal EKG, negative troponin. He initially notes that his shortness of breath is increasing, though and then states that his breathing is at baseline on discharge. His concerning for diverticulitis as he has prominent bowel wall thickening focally in the sigmoid. His initial lactate was 2.4, he received 1 L fluids and it decreased to 0.8. He is able to tolerate p.o. ciprofloxacin and Flagyl. I discussed at length dietary changes, not drinking alcohol with Flagyl, light clear liquid diet with slow to advance. Discussed at length coming back to ER for acute concerns such as chest pain, shortness of breath, concern of heart attack or stroke, abdominal pain with fever inability keep down fluids source medications. Case discussed with Dr. Pelaez. I did discuss with the patient's primary care provider Dr Morfin who plans on following up with the patient in the next week or so. The patient feels much improved on discharge, has no questions or concerns and states understanding of return precautions as well as follow-up care. He declines pain medications in the emergency department as he has to drive home. Steady to ambulate upon discharge. <Sandra Pelaez, DO - Last Filed: 08/02/20 07:08> Lab Data Labs: Lab Results 07/31/20 07/31/20 07/31/20 Range/Units 14:55 15:00 15:00 WBC 6.7 (4.5-11.0) X10^3/uL RBC 4.26 L (4.5-5.9) X10^6/uL Hgb 13.8 (13.5-17.5) g/dL Hct 41.5 (41-53) % MCV 97.5 (80-100) fL MCH 32.4 (26-34) PG MCHC 33.2 (30-36) % RDW 15.2 H (11.6-14.8) % Plt Count 187 (150-400) X10^3/uL Neut % (Auto) 78.5 H (50-75) % Lymph % (Auto) 7.7 L (25-40) % [place] % (Auto) 12.6 (3-14) % Eos % (Auto) 0.8 L (2-4) % Baso % (Auto) 0.4 (0-2) % Neut # (Auto) 5300 (0823-7311) /uL Lymph # (Auto) 500 L (0407-1183) /uL [place] # (Auto) 800 (0-900) /uL Eos # (Auto) 100 (0-450) /uL Baso # (Auto) 0 (0-100) /uL PT 13.5 H (10.1-12.7) SECONDS INR 1.2 (0.9-1.3) APTT 30 (26.4-36.2) SECONDS Sodium (137-145) mmol/L Potassium (3.4-5.1) mmol/L Chloride (98-107) mmol/L Carbon Dioxide (22-32) mmol/L BUN (9-20) mg/dL Creatinine (0.66-1.25) mg/dL Estimated GFR (>60) mL/min BUN/Creatinine Ratio (6-22) Glucose (80-110) mg/dL Lactate (0.7-2.1) mmol/L Calcium (8.4-10.2) mg/dL Total Bilirubin (0.2-1.3) mg/dL AST (17-59) IU/L ALT (<50) IU/L Alkaline Phosphatase (38-126) U/L Total Creatine Kinase (55-170) U/L CK-MB (CK-2) CK-MB (CK-2) Rel Index Troponin I (0.01-0.034) ng/mL NT-Pro-B Natriuret Pep (<125) pg/mL Total Protein (6.3-8.2) g/dL Albumin (3.5-5.0) g/dL Globulin (1.7-4.1) g/dL Albumin/Globulin Ratio (1.0-2.8) Amylase (30-110) U/L Lipase (23-300) U/L Procalcitonin (<0.5) ng/mL COVID-19 PCR Negative (Negative) Influenza A (RT-PCR) (NEGATIVE) Influenza B (RT-PCR) (NEGATIVE) 07/31/20 07/31/20 07/31/20 Range/Units 15:00 15:00 15:00 WBC (4.5-11.0) X10^3/uL RBC (4.5-5.9) X10^6/uL Hgb (13.5-17.5) g/dL Hct (41-53) % MCV (80-100) fL MCH (26-34) PG MCHC (30-36) % RDW (11.6-14.8) % Plt Count (150-400) X10^3/uL Neut % (Auto) (50-75) % Lymph % (Auto) (25-40) % [place] % (Auto) (3-14) % Eos % (Auto) (2-4) % Baso % (Auto) (0-2) % Neut # (Auto) (7177-2869) /uL Lymph # (Auto) (8144-4413) /uL [place] # (Auto) (0-900) /uL Eos # (Auto) (0-450) /uL Baso # (Auto) (0-100) /uL PT (10.1-12.7) SECONDS INR (0.9-1.3) APTT (26.4-36.2) SECONDS Sodium 138 (137-145) mmol/L Potassium 4.0 (3.4-5.1) mmol/L Chloride 105 (98-107) mmol/L Carbon Dioxide 26 (22-32) mmol/L BUN 13 (9-20) mg/dL Creatinine 0.80 (0.66-1.25) mg/dL Estimated GFR > 60.0 (>60) mL/min BUN/Creatinine Ratio 16.3 (6-22) Glucose 127 H (80-110) mg/dL Lactate 2.4 H (0.7-2.1) mmol/L Calcium 9.2 (8.4-10.2) mg/dL Total Bilirubin 0.7 (0.2-1.3) mg/dL AST 32 (17-59) IU/L ALT 23 (<50) IU/L Alkaline Phosphatase 63 (38-126) U/L Total Creatine Kinase (55-170) U/L CK-MB (CK-2) CK-MB (CK-2) Rel Index Troponin I (0.01-0.034) ng/mL NT-Pro-B Natriuret Pep (<125) pg/mL Total Protein 7.4 (6.3-8.2) g/dL Albumin 4.0 (3.5-5.0) g/dL Globulin 3.4 (1.7-4.1) g/dL Albumin/Globulin Ratio 1.2 (1.0-2.8) Amylase (30-110) U/L Lipase 74 (23-300) U/L Procalcitonin 0.66 H (<0.5) ng/mL COVID-19 PCR (Negative) Influenza A (RT-PCR) (NEGATIVE) Influenza B (RT-PCR) (NEGATIVE) 07/31/20 07/31/20 07/31/20 Range/Units 15:00 15:00 15:30 WBC (4.5-11.0) X10^3/uL RBC (4.5-5.9) X10^6/uL Hgb (13.5-17.5) g/dL Hct (41-53) % MCV (80-100) fL MCH (26-34) PG MCHC (30-36) % RDW (11.6-14.8) % Plt Count (150-400) X10^3/uL Neut % (Auto) (50-75) % Lymph % (Auto) (25-40) % [place] % (Auto) (3-14) % Eos % (Auto) (2-4) % Baso % (Auto) (0-2) % Neut # (Auto) (1486-1302) /uL Lymph # (Auto) (5407-5986) /uL [place] # (Auto) (0-900) /uL Eos # (Auto) (0-450) /uL Baso # (Auto) (0-100) /uL PT (10.1-12.7) SECONDS INR (0.9-1.3) APTT (26.4-36.2) SECONDS Sodium (137-145) mmol/L Potassium (3.4-5.1) mmol/L Chloride (98-107) mmol/L Carbon Dioxide (22-32) mmol/L BUN (9-20) mg/dL Creatinine (0.66-1.25) mg/dL Estimated GFR (>60) mL/min BUN/Creatinine Ratio (6-22) Glucose (80-110) mg/dL Lactate (0.7-2.1) mmol/L Calcium (8.4-10.2) mg/dL Total Bilirubin (0.2-1.3) mg/dL AST (17-59) IU/L ALT (<50) IU/L Alkaline Phosphatase (38-126) U/L Total Creatine Kinase 77 (55-170) U/L CK-MB (CK-2) TNP CK-MB (CK-2) Rel Index TNP Troponin I < 0.012 (0.01-0.034) ng/mL NT-Pro-B Natriuret Pep 455 H (<125) pg/mL Total Protein (6.3-8.2) g/dL Albumin (3.5-5.0) g/dL Globulin (1.7-4.1) g/dL Albumin/Globulin Ratio (1.0-2.8) Amylase 61 (30-110) U/L Lipase (23-300) U/L Procalcitonin (<0.5) ng/mL COVID-19 PCR (Negative) Influenza A (RT-PCR) Flu a negative (NEGATIVE) Influenza B (RT-PCR) Flu b negative (NEGATIVE) 07/31/20 Range/Units 17:36 WBC (4.5-11.0) X10^3/uL RBC (4.5-5.9) X10^6/uL Hgb (13.5-17.5) g/dL Hct (41-53) % MCV (80-100) fL MCH (26-34) PG MCHC (30-36) % RDW (11.6-14.8) % Plt Count (150-400) X10^3/uL Neut % (Auto) (50-75) % Lymph % (Auto) (25-40) % [place] % (Auto) (3-14) % Eos % (Auto) (2-4) % Baso % (Auto) (0-2) % Neut # (Auto) (4529-7770) /uL Lymph # (Auto) (4999-4655) /uL [place] # (Auto) (0-900) /uL Eos # (Auto) (0-450) /uL Baso # (Auto) (0-100) /uL PT (10.1-12.7) SECONDS INR (0.9-1.3) APTT (26.4-36.2) SECONDS Sodium (137-145) mmol/L Potassium (3.4-5.1) mmol/L Chloride (98-107) mmol/L Carbon Dioxide (22-32) mmol/L BUN (9-20) mg/dL Creatinine (0.66-1.25) mg/dL Estimated GFR (>60) mL/min BUN/Creatinine Ratio (6-22) Glucose (80-110) mg/dL Lactate 0.8 (0.7-2.1) mmol/L Calcium (8.4-10.2) mg/dL Total Bilirubin (0.2-1.3) mg/dL AST (17-59) IU/L ALT (<50) IU/L Alkaline Phosphatase (38-126) U/L Total Creatine Kinase (55-170) U/L CK-MB (CK-2) CK-MB (CK-2) Rel Index Troponin I (0.01-0.034) ng/mL NT-Pro-B Natriuret Pep (<125) pg/mL Total Protein (6.3-8.2) g/dL Albumin (3.5-5.0) g/dL Globulin (1.7-4.1) g/dL Albumin/Globulin Ratio (1.0-2.8) Amylase (30-110) U/L Lipase (23-300) U/L Procalcitonin (<0.5) ng/mL COVID-19 PCR (Negative) Influenza A (RT-PCR) (NEGATIVE) Influenza B (RT-PCR) (NEGATIVE) Point of care testing: Urine Dip Bedside Urine Glucose Negative Bedside Urine Bilirubin - Negative Bedside Urine Ketone - Negative Urine Specific [place] 1.010 Bedside Urine Occult Blood - Negative Bedside Urine pH 5.5 Bedside Urine Protein - Negative Bedside Urine Urobilinogen +/- 1mg Bedside Urine Nitrite - Negative Bedside Urine Leukocytes - Negative Esterase Discharge Plan Departure Patient Disposition: Home Clinical Impression: Diverticulitis Abdominal pain Qualifiers: Abdominal location: lower abdomen, unspecified Qualified Code(s): R10.30 - Lower abdominal pain, unspecified Discharge Date/Time: 07/31/20 19:45 Instructions: DI for Diverticulitis, DI for Fever (Symptom) -- Adult Activity Restrictions/Additional Instructions: Thank you for trusting us with your care today. Happy birthday. I am sorry that you have been diagnosed with diverticulitis on your birthday. As discussed, please start with a clear liquid diet and advance slowly. I sent for prescriptions to [facility], 1 is for pain, 1 is for nausea and to antibiotics. I have given you a prescription of a narcotic for pain. Be aware that this can be constipating and sedating. I encouraged taking with a stool softener, pushing fluids and fiber. Do not take and drive, operate heavy machinery, etc. Do not combine it with any other sedating substances such as alcohol. The combination of narcotics and alcohol and/or other sedatives can be lethal. As discussed, please follow-up with primary care provider in the next few days. Please come back to the emergency department for any acute concerns such as chest pain, shortness of breath, concern of heart attack stroke, inability keep down fluids or your medications. Please rest over the next few days and use Tylenol as needed and able. Today we tested due for influenza came back negative. We also tested you for coronavirus, which came back negative. Prescriptions: New ondansetron 4 mg tablet,disintegrating 4 mg PO Q6H PRN (Reason: nausea and vomiting) Qty: 20 RF: 0 hydrocodone-acetaminophen [[place]] 5-325 mg tablet 1 tab PO Q4-6H PRN (Reason: pain) Qty: 10 RF: 0 ciprofloxacin HCl [Cipro] 500 mg tablet 500 mg PO BID Qty: 20 RF: 0 metronidazole 500 mg tablet 500 mg PO TID 10 Days Qty: 30 RF: 0 No Action ALBUTEROL (PROVENTIL INHALER) 1 puff Inhalation PRN PRN (Reason: Shortness Of Breath) Qty: 0 RF: 0 losartan [Cozaar] 100 MG tablet 100 mg PO QDAY Qty: 0 RF: 0 tamsulosin 0.4 mg Capsule 0.4 mg PO DAILY RF: 0 zolpidem [Ambien] 10 mg Tablet 10 mg PO BEDTIME PRN (Reason: Sleep) RF: 0 Victoza 2-Van 0.6 mg/0.1 mL (18 mg/3 mL) Pen Injector 1.8 mg SUBCUT DAILY RF: 0 atorvastatin 40 mg PO DAILY RF: 0 aspirin 81 mg Tablet,Delayed Release (Dr/Ec) 81 mg PO DAILY RF: 0 sertraline [Zoloft] 20 mg/mL Concentrate 20 mg PO DAILY RF: 0 oxycodone 5 mg Tablet 10 mg PO Q4-6H PRN (Reason: Pain, Severe (7-10)) Qty: 40 RF: 0 acetaminophen 325 mg Tablet 975 mg PO TID Qty: 60 RF: 0 aspirin 81 mg Tablet,Delayed Release (Dr/Ec) 81 mg PO BID Qty: 60 RF: 0 docusate sodium 100 mg Capsule 100 mg PO BID Qty: 60 RF: 0 meloxicam 15 mg tablet 15 mg PO 0800 Qty: 30 RF: 0 hydroxyzine pamoate [Vistaril] 25 mg capsule 25 mg PO Q4-6H PRN (Reason: nausea or muscle spasms) Qty: 40 RF: 0 Referrals: Payton Morfin MD [Primary Care Provider] - <Sandra Pelaez DO - Last Filed: 08/02/20 07:08> Cosign ED Attending Cosrajature Attestation: I was immediately available in the department for consultation. Documentation has been reviewed. I agree with assessment and plan.
== END 2020-07-31 19:45 | disposition home or self-care (01) ==
PROVIDERS: Emergency Medicine; Emergency Provider Nurse Practitioner Family; Family Provider Internal Medicine; PCP Internal Medicine
DX: K57.92 Diverticulitis of intestine, part unspecified, without perforation or abscess without bleeding (principal); R10.30 Lower abdominal pain, unspecified; R50.9 Fever, unspecified; R11.0 Nausea; R06.02 Shortness of breath; R05 Cough; R51.9 Headache, unspecified
CPT/HCPCS: 36415; 71045; 71260; 74177; 80053; 81003; 82150; 82550; 83605; 83690; 83880; 84145; 84484; 85025; 85610; 85730; 87040; 87502; 87635; 93005; 96360; 96361; 99284; 99285

== ENCOUNTER → 2020-08-10 19:45 | Outpatient (CLI) | payer MEDICARE, OTHER, SELFPAY ==
[2019-02-07 14:38] VITALS: BMI 30.1
[2020-08-10 20:54] LABS: Clostridium Difficile Tox PCR Negative for C. diff
== END ==
PROVIDERS: Family Provider Internal Medicine; PCP Internal Medicine; Referring Provider Internal Medicine; Visit Provider Internal Medicine
DX: Z11.9 Encounter for screening for infectious and parasitic diseases, unspecified (principal)
CPT/HCPCS: 87493

== ENCOUNTER → 2020-08-26 13:50 | Outpatient (CLI) | payer MEDICARE, OTHER, SELFPAY ==
[2019-02-07 14:38] VITALS: BMI 30.1
[2020-08-26 17:51] LABS: Adenovirus F 40/41 Not Detected (Not Detect); Astrovirus Not Detected (Not Detect); Campylobacter Not Detected (Not Detect); Clostridium difficile toxin AB Not Detected (Not Detect); Cryptosporidium Not Detected (Not Detect); Cyclospora cayetanensis Not Detected (Not Detect); Entamoeba histolytica Not Detected (Not Detect); Enteroaggregative E.coli Not Detected (Not Detect); Enteropathogenic E.coli Not Detected (Not Detect); Enterotoxigenic E.coli It/st Not Detected (Not Detect); Giardia lamblia Not Detected (Not Detect); Norovirus GI/GII Not Detected (Not Detect); Plesiomonsa shigelloides Not Detected (Not Detect); Rotavirus A Not Detected (Not Detect); Salmonella Not Detected (Not Detect); Sapovirus Not Detected (Not Detect); Shiga-like toxin-prod E.coli Not Detected (Not Detect); Shigella/Enteroinvasive E.coli Not Detected (Not Detect); Vibrio Not Detected (Not Detect); Vibrio cholerae Not Detected (Not Detect); Yersinia enterocolitica Not Detected (Not Detect)
== END ==
PROVIDERS: Family Provider Internal Medicine; PCP Internal Medicine; Referring Provider Internal Medicine; Visit Provider Internal Medicine
DX: R19.7 Diarrhea, unspecified (principal)
CPT/HCPCS: 87493; 87507

== ENCOUNTER → 2020-09-04 12:43 | Outpatient (CLI) | payer MEDICARE, OTHER, SELFPAY ==
[2019-02-07 14:38] VITALS: BMI 30.1
--- NOTE | 2020-09-04 | DI.CT.S_ITS ---
PROCEDURE: CT ABDOMEN PELVIS W CON INDICATIONS: Lower abdominal pain, unspecified TECHNIQUE: After the administration of oral and intravenous contrast, 5 mm thick sections acquired from the diaphragms to the symphysis. 5 mm thick coronal and sagittal reformats were performed. For radiation dose reduction, the following was used: automated exposure control, adjustment of mA and/or kV according to patient size. COMPARISON: [facility], CT, CT CHEST ABD PEL W CON, 07/31/2020, 16:32. FINDINGS: Image quality: Excellent. ABDOMEN: Lung bases: Multiple paraseptal blebs within the right lower lobe, as before. No change in left lateral lung base nodule measuring 10 mm. Heart size is normal. Calcification of the coronary vasculature. Solid organs: Liver is normal in size and enhancement. Gallbladder is within normal limits . Biliary system is non-dilated. Pancreas enhances normally. Spleen is normal in size and enhancement. No adrenal nodules. Multiple right renal cysts are present, as before. Kidneys are otherwise normal in size and enhancement, without hydronephrosis. Peritoneum and bowel: Stomach and small bowel are within normal limits. Appendix is normal. Colon is nondistended. Diverticulosis of the descending and sigmoid colon is present. There is moderate thickening of the distal descending and proximal sigmoid colon, which demonstrates mild surrounding fat stranding. No pericolonic abscess. No free fluid or air. Nodes and vessels: No retroperitoneal or mesenteric adenopathy. Aorta and inferior vena cava are normal in caliber. Retroaortic left renal vein. Miscellaneous: No ventral hernias. PELVIS: Genitourinary: Bladder wall thickness is normal. Miscellaneous: No inguinal hernias or adenopathy. Bones: Bilateral hip arthroplasty. No suspicious bony lesions. No vertebral body compression fractures. IMPRESSION: 1. Distal descending/proximal sigmoid colon diverticulitis. No pericolonic abscess. Follow-up colonoscopy is recommended to exclude underlying neoplasm. 2. Coronary artery disease. 3. No change in left lung base nodule. Follow-up is recommended as below. 4. Normal appendix. Fleischner Society criteria for SOLID lung nodule followup. Nodule size (mm)Low-risk patientHigh-risk patient<6 (single or multiple)No routine followup.Optional CT at 12 months. 6-8 (single or multiple)CT at 6-12 months, then optional CT at 18-24 mo.CT at 6-12 months, then CT at 18-24 months. >8 (single)CT, PET-CT, or biopsy at 3 months. Same as for low-risk pts. >8 (multiple)CT at 3-6 months, then optional CT at 18-24 mo.CT at 3-6 months, then CT at 18-24 months. Recommendations do not apply to lung cancer screening, patients with immunosuppression, or patients with known primary cancer. Dictated by: Sharmaine Rosales M.D. on 09/04/2020 at 13:46 Approved by: Sharmaine Rosales M.D. on 09/04/2020 at 13:50
[2020-09-04 13:10] LABS: Bacteria Urine None Seen; RBC Urine None Seen (0-5/HPF); WBC Urine None Seen (0-5/HPF)
[2020-09-04 13:23] LABS: Add Manual Diff / Slide Review NO; Basophils Absolute Auto 0 /uL (0-100); Basophils Percent Auto 0.6 % (0-2); Eosinophils Absolute Auto 100 /uL (0-450); Eosinophils Percent Auto 1.8 % (2-4); Hematocrit 44.2 % (41-53); Hemoglobin 14.7 g/dL (13.5-17.5); Lymphocytes Absolute Auto 1000 /uL (1100-4500); Lymphocytes Percent Auto 12.9 % (25-40); Mean Corpuscular HGB Conc 33.2 % (30-36); Mean Corpuscular Hemoglobin 31.8 PG (26-34); Mean Corpuscular Volume 95.8 fL (80-100); Monocytes Absolute Auto 1000 /uL (0-900); Monocytes Percent Auto 12.6 % (3-14); Neutrophils Absolute Auto 5600 /uL (1500-7000); Neutrophils Percent Auto 72.1 % (50-75); Platelet Count 207 X10^3/uL (150-400); Red Blood Cell Count 4.62 X10^6/uL (4.5-5.9); Red Cell Distribution Width 14.8 % (11.6-14.8); White Blood Cell Count 7.7 X10^3/uL (4.5-11.0)
[2020-09-04 13:27] LABS: Appearance Urine UA CLEAR; Bilirubin Urine UA NEGATIVE (NEGATIVE); Color Urine UA YELLOW; Glucose Urine UA NEGATIVE (Negative); Ketones Urine UA NEGATIVE (NEGATIVE); Leukocyte Esterase Urine UA NEGATIVE (NEGATIVE); Nitrite Urine UA NEGATIVE (Negative); Occult Blood Urine UA TRACE-LYSED (Negative); Protein Urine UA TRACE (Negative); Specific Gravity Urine UA 1.025 (1.000-1.035); Urobilinogen Urine UA 0.2 E.U./dL (0.2); pH Urine UA 5.5 (4.5-8.0)
[2020-09-04 13:33] LABS: Mucus Urine 1+ (Negative)
[2020-09-04 13:38] LABS: Alanine Aminotransferase 27 IU/L (<50); Albumin 4.2 g/dL (3.5-5.0); Albumin Globulin Ratio 1.1 (1.0-2.8); Alkaline Phosphatase 75 U/L (38-126); Aspartate Aminotransferase 33 IU/L (17-59); BUN Creatinine Ratio 23.5 (6-22); Bilirubin Total 0.7 mg/dL (0.2-1.3); Blood Urea Nitrogen 19 mg/dL (9-20); Calcium 9.3 mg/dL (8.4-10.2); Carbon Dioxide 27 mmol/L (22-32); Chloride 105 mmol/L (98-107); Estimated Glomerular Filt Rate > 60.0 mL/min (>60); Globulin 3.8 g/dL (1.7-4.1); Glucose 111 mg/dL (80-110); HEMOLYSIS < 15 (0-50); Potassium 4.2 mmol/L (3.4-5.1); Sodium 137 mmol/L (137-145)
== END ==
PROVIDERS: Family Provider Internal Medicine; PCP Internal Medicine; Referring Provider Internal Medicine; Visit Provider Internal Medicine
DX: R10.30 Lower abdominal pain, unspecified (principal); K57.32 Diverticulitis of large intestine without perforation or abscess without bleeding; I25.10 Atherosclerotic heart disease of native coronary artery without angina pectoris
CPT/HCPCS: 36415; 74177; 80053; 81001; 85025; 87086

== ENCOUNTER → 2020-09-30 15:46 | Outpatient (CLI) | payer MEDICARE, OTHER, SELFPAY ==
[2019-02-07 14:38] VITALS: BMI 30.1
[2020-09-30 16:46] LABS: Alanine Aminotransferase 28 IU/L (<50); Albumin 3.8 g/dL (3.5-5.0); Albumin Globulin Ratio 1.1 (1.0-2.8); Alkaline Phosphatase 84 U/L (38-126); Aspartate Aminotransferase 34 IU/L (17-59); Bilirubin Total 0.3 mg/dL (0.2-1.3); Bilirubin Unconjugated 0.3 mg/dL (0.0-1.1); Cholesterol 127 mg/dL (140-199); Globulin 3.4 g/dL (1.7-4.1); HDL Cholesterol 45 mg/dL (40-60); HEMOLYSIS 16 (0-50); LDL Cholesterol Calculated 37 mg/dL (<100); Total Protein 7.2 g/dL (6.3-8.2); Triglycerides 227 mg/dL (35-150)
== END ==
PROVIDERS: Family Provider Internal Medicine; PCP Internal Medicine; Referring Provider Nurse Practitioner; Visit Provider Nurse Practitioner
DX: E78.00 Pure hypercholesterolemia, unspecified (principal)
CPT/HCPCS: 36415; 80061; 80076

== ENCOUNTER → 2020-10-20 14:36 | Outpatient (CLI) | payer MEDICARE, OTHER, SELFPAY ==
[2019-02-07 14:38] VITALS: BMI 30.1
[2020-10-20 16:25] LABS: COVID19 -Nasal RAPID Negative (Negative)
== END ==
PROVIDERS: PCP Internal Medicine; Visit Provider Specialist
DX: Z01.812 Encounter for preprocedural laboratory examination (principal); Z20.822 Contact with and (suspected) exposure to COVID-19
CPT/HCPCS: 87635; C9803

== ENCOUNTER 2020-10-22 06:49 | Day surgery (SDC) | payer MEDICARE, OTHER, SELFPAY ==
[2019-02-07 14:38] VITALS: BMI 30.1
[2020-10-22] VITALS (8 sets, daily range): BP systolic 111–163; BP diastolic 54–85; PULSE 58–82; RESP 13–18; TEMP 36.1–36.7; O2SAT 93–96; BMI 37.5
--- NOTE | 2020-10-22 | PATH_ITS ---
[facility] Accession Number: [id number] . 01 Material submitted: . PART A: colon - 30 CM COLON POLYP PART B: colon - 70 CM COLON POLYP . 01 Clinical history: . B: 70 CM COLON POLYP X2 LESIONS . 02 Diagnosis: A. Colon, 30 cm Polyp, Biopsy: Tubular adenoma. . B. Colon, 70 cm Polyp x2, Biopsies: Tubular adenomas. MRV 10/27/2020 1253 Local . 02 Electronically signed: . Jessica Baeza MD, Pathologist NPI- [id number] . 01 Gross description: . Part A: 30 CM COLON POLYP: Received in formalin are 3 fragment(s) of luo, soft tissue measuring 0.8 x 0.3 x 0.1 cm to 0.3 x 0.2 x 0.2 cm submitted entirely in 1 cassette(s) Part B: 70 CM COLON POLYP: Received in formalin are 3 fragment(s) of luo, soft tissue measuring 0.3 x 0.3 x 0.2 cm to 0.2 x 0.2 x 0.1 cm submitted entirely in 1 cassette(s) /QBJ 10/23/2020 0845 Local . 02 Pathologist provided ICD-10: D12.6 . 02 CPT . 016596, [id number] Performed at: 01 [facility] [address], [place], [place] [id number] MD Alfred Johns MD Phone: [phone] Performed at: 02 [facility] [address] [place], [place] [id number] MD Jessica Baeza MD Phone: [phone]
[2020-10-22] MEDS: LACTATED RINGERS 1,000 ML 200 ML IV (07:35)
--- NOTE | 2020-10-22 07:47 | PM.PREOP ---
Pre-operative Note COVID-19 COVID-19 status: Negative Result date/Date tested (Pos, Neg/Pending): 10/21/20 Interval Note History & Physical reviewed/Exam performed by Physician: Yes Changes to H&P: No ASA Class (for procedural sedation): III
[2020-10-22] MEDS: ONDANSETRON 4 MG/2 ML INJ IV (07:55)
[2020-10-22] MEDS: METOPROLOL TARTRATE 5 MG/5 ML INJ 3 MG IV (08:06)
[2020-10-22] MEDS: fentaNYL 250 MCG/5 ML INJ 200 MCG IV (08:21)
[2020-10-22] MEDS: MIDAZOLAM 5 MG/5 ML VIAL IV (08:22)
--- NOTE | 2020-10-22 08:33 | PM.OP.ENDO ---
Operative Date/Time/Diagnoses Date of procedure: 10/22/20 Time of procedure: 08:33 Pre-op diagnosis: History of diverticulitis. Screening exam. Post-op diagnosis: same (The sigmoid and right colon diverticulosis. Heaviest concentration in the sigmoid. Three small polyps. Internal hemorrhoids. Large prostate) Procedure & Clinicians Study performed: Colonoscopy with cold biopsy Same procedure as scheduled: Yes Indications: Screening. History of diverticulitis. Evaluating for colon lesion. Surgeon: Luis Felipe Johnson Procedure Notes SCOAP/Timeout: Performed Procedure in detail: The patient was placed in the left lateral decubitus position and underwent IV sedation directed by the surgeon consisting of fentanyl and Versed. Digital exam was remarkable for a very large firm prostate.. The scope was inserted and advanced through the rectum into the sigmoid, descending, transverse, and ascending colon. The sigmoid was somewhat tortuous with extensive diverticulosis. There was a small polyp at 30 cm. I partially removed on the way in so I could irene this and removed the rest of it on the way out.. The cecum was reached identified by the ileocecal valve and the appendiceal opening. The ileocecal valve was successfully cannulated. The terminal ileum was normal in appearance. The scope was gradually brought out. To Polyps were found at 70 cm adjacent to 1 another. These were biopsied and removed. The scope was continued out word and identified the 1st polyp site. I removed the remainder of that polyp.. The scope ultimately was retroflexed in the rectum. The appearance was remarkable for internal hemorrhoids.. The scope was removed and the patient tolerated the procedure well. Prep was excellent. Scope withdrawal time: 8 minutes (10 total) Sedation minutes: 28 Findings: diverticulosis and polyp (At 70 (two) in 30 (one)cm from the anal verge. All 3 polyps were small.) Specimen(s): other (Polyps) Complications: none Post-procedure Recommendations: Colonscopy in 5 years and Start medication(s) (Consider using Metamucil) Follow up: as needed Disposition: PACU
== END 2020-10-22 09:30 | disposition home or self-care (01) ==
PROVIDERS: PCP Internal Medicine; Referring Provider Internal Medicine; Visit Provider Specialist
PROC: 0DJD8ZZ Inspection of Lower Intestinal Tract, Via Natural or Artificial Opening Endoscopic (ICD-10-PCS; CPT 45378; principal; 2020-10-22 07:45)
DX: K57.30 Diverticulosis of large intestine without perforation or abscess without bleeding (principal); I10 Essential (primary) hypertension; E66.9 Obesity, unspecified; E11.9 Type 2 diabetes mellitus without complications; I25.10 Atherosclerotic heart disease of native coronary artery without angina pectoris; Z79.4 Long term (current) use of insulin; Z87.19 Personal history of other diseases of the digestive system; K64.8 Other hemorrhoids; N40.0 Benign prostatic hyperplasia without lower urinary tract symptoms; D12.6 Benign neoplasm of colon, unspecified
CPT/HCPCS: 45380; 99152; 99153; J2250; J2405; J3010

== ENCOUNTER → 2020-10-29 18:40 | Outpatient (ROUT) | payer MEDICARE, OTHER, SELFPAY ==
[2019-02-07 14:38] VITALS: BMI 30.1
[2020-10-31 06:10] LABS: PSA Free % 23.4 % (.); PSA, Total 5.9 ng/mL (0.0-4.0)
== END ==
PROVIDERS: PCP Internal Medicine; Visit Provider Internal Medicine
DX: Z12.5 Encounter for screening for malignant neoplasm of prostate (principal)
CPT/HCPCS: 84153; 84154; G0103

== ENCOUNTER → 2020-10-30 09:14 | Outpatient (CLI) | payer MEDICARE, OTHER, SELFPAY ==
[2019-02-07 14:38] VITALS: BMI 30.1
[2020-10-30] MEDS: COVID-19 VACC(MODERNA-1)/PF 100 MCG/0.5 ML VIAL IM (09:22)
== END ==
PROVIDERS: PCP Internal Medicine; Visit Provider Internal Medicine
DX: Z23 Encounter for immunization (principal)
CPT/HCPCS: 0011A; 91301

== ENCOUNTER → 2020-11-10 11:48 | Outpatient (CLI) | payer MEDICARE, OTHER, SELFPAY ==
[2019-02-07 14:38] VITALS: BMI 30.1
--- NOTE | 2020-11-10 11:54 | DI.RAD.S_ITS ---
PROCEDURE: XR LUMBAR SPINE 2-3V INDICATIONS: LOW BACK PAIN RT SIDE TECHNIQUE: 3 views of the lumbar spine were acquired. COMPARISON: MR, L-SPINE WITHOUT CONTRAST, 09/04/2012, 9:30. [facility], MR, L-SPINE WITHOUT CONTRAST, 03/22/2007, 16:47. [facility], CT, CT ABDOMEN PELVIS W CON, 09/04/2020, 14:10. [facility], CR, L-SPINE 2-3 VIEWS, 04/26/2012, 9:05. FINDINGS: Bones: 5 [id number] vertebrae are present. There is grade 1 anterolisthesis of L4 on L5. Mild degenerative disc disease throughout the lumbar spine, most pronounced at L1-L2 and L2-L3. Severe facet arthropathy at L4-L5 and L5-S1. No vertebral body compression fractures. No suspicious bony lesions. Bilateral hip arthroplasties. Soft tissues: Overlying bowel gas pattern is normal. There are atherosclerotic calcifications. IMPRESSION: 1. Mild degenerative disc disease and severe facet arthropathy in lumbar spine as described. 2. Severe atherosclerotic calcifications. Dictated by: Sanchez Stanley M.D. on 11/10/2020 at 13:14 Approved by: Sanchez Stanley M.D. on 11/10/2020 at 13:18
== END ==
PROVIDERS: PCP Internal Medicine; Referring Provider Internal Medicine; Visit Provider Internal Medicine
DX: M51.16 Intervertebral disc disorders with radiculopathy, lumbar region (principal); M47.26 Other spondylosis with radiculopathy, lumbar region; M47.27 Other spondylosis with radiculopathy, lumbosacral region
CPT/HCPCS: 72100

== ENCOUNTER → 2020-11-27 08:28 | Outpatient (CLI) | payer MEDICARE, OTHER, SELFPAY ==
[2019-02-07 14:38] VITALS: BMI 30.1
[2020-11-27] MEDS: COVID-19 VACC #2, MRNA(MOD) 100 MCG/0.5 ML VIAL IM (08:39)
== END ==
PROVIDERS: PCP Internal Medicine; Visit Provider Internal Medicine
DX: Z23 Encounter for immunization (principal)
CPT/HCPCS: 0012A; 91301

== ENCOUNTER → 2021-01-21 16:37 | Outpatient (CLI) | payer MEDICARE, OTHER, SELFPAY ==
[2019-02-07 14:38] VITALS: BMI 30.1
--- NOTE | 2021-01-21 16:39 | DI.MRI.S_ITS ---
PROCEDURE: MR LUMBAR SPINE WO CON INDICATIONS: LUMBAGO WITH SCIATICA, RIGHT SIDE TECHNIQUE: Noncontrast sagittal T1 spin echo and T2 fast echo, sagittal STIR, axial T1 and T2 fast spin echo through the lumbar spine. In cases with scoliosis, additional coronal T2 fast spin echo may be performed. COMPARISON: [facility], CR, L-SPINE 2-3 VIEWS, 04/26/2012, 9:05. [facility], MR, L-SPINE WITHOUT CONTRAST, 09/04/2012, 9:30. FINDINGS: Image quality: Excellent. Alignment and Curvature: 5 lumbar type vertebral bodies are present by plain film. There is mild, grade 1 anterolisthesis of L4 on L5. Bone Marrow: Marrow is of normal overall signal. No acute vertebral body compression fractures. There is mild reactive signal within the endplates adjacent to the T12-L1, L1-L2, L2-L3, and L4-L5 intervertebral discs. Small Schmorl's node invaginate the superior L2 endplate, as before. Spinal Cord: Conus medullaris terminates at the mid L2 level. Visualized cord demonstrates normal signal and size. Paraspinous Soft Tissues: No paravertebral masses. Retroaortic left renal vein. T12-L1: Mild disc height loss. Moderate disc desiccation. Mild facet and ligamentum flavum hypertrophy. Mild canal stenosis. Mild bilateral foraminal stenosis. No significant change. L1-L2: Moderate disc height loss and desiccation. Mild diffuse disc bulge. Mild facet and ligamentum flavum hypertrophy. Mild epidural lipomatosis. Mild canal stenosis. Mild right greater than left foraminal stenosis. No significant change. L2-L3: Moderate disc desiccation. Mild diffuse disc bulge. Mild facet and ligamentum flavum hypertrophy. Mild epidural lipomatosis. Mild canal stenosis. Mild bilateral foraminal stenosis. No significant change. L3-L4: Mild disc desiccation and diffuse disc bulge. Mild facet and ligamentum flavum hypertrophy. Mild epidural lipomatosis. Mild canal stenosis. Moderate left and mild right foraminal stenosis. No significant change. L4-L5: Mild disc height loss. Moderate disc desiccation. Mild diffuse disc bulge. Moderate facet and ligamentum flavum hypertrophy. Mild epidural lipomatosis. Increased, severe canal stenosis. Increased, moderate subarticular foraminal stenosis bilaterally. L5-S1: Mild disc height loss and desiccation. Mild diffuse disc bulge. Mild facet and ligamentum flavum hypertrophy. Mild canal stenosis. Moderate left and mild right subarticular foraminal stenosis. No significant change. IMPRESSION: 1. Multilevel degenerative disc and facet disease, as well as ligamentum flavum hypertrophy and epidural lipomatosis. 2. Multilevel canal stenosis, worst at L4-L5, where there is increased, severe canal stenosis. 3. Multilevel foraminal stenoses, worst at L3-L4, L4-L5, and L5-S1, where there are moderate foraminal stenosis as described above. Dictated by: Sharmaine Rosales M.D. on 01/22/2021 at 10:10 Approved by: Sharmaine Rosales M.D. on 01/22/2021 at 10:19
== END ==
PROVIDERS: PCP Internal Medicine; Referring Provider Internal Medicine; Visit Provider Internal Medicine
DX: M54.41 Lumbago with sciatica, right side (principal); M51.36 Other intervertebral disc degeneration, lumbar region; M48.061 Spinal stenosis, lumbar region without neurogenic claudication
CPT/HCPCS: 72148

== ENCOUNTER 2021-05-29 05:10 | Emergency (ER) | payer MEDICARE, OTHER, SELFPAY ==
[2019-02-07 14:38] VITALS: BMI 30.1
[2021-05-29 05:29] VITALS: BP 178/82; PULSE 102; TEMP 36.1; O2SAT 98; BMI 37.3
--- NOTE | 2021-05-29 05:34 | DI.CT.S_ITS ---
PROCEDURE: CT ABDOMEN PELVIS W CON INDICATIONS: llq pain. TECHNIQUE: After the administration of oral and IV contrast, axial sections were acquired from the lung bases to the pubic symphysis. Coronal and sagittal reformats were performed. For radiation dose reduction, the following was used: automated exposure control, adjustment of mA and/or kV according to patient size. COMPARISON: [facility], CT, CT ABDOMEN PELVIS W CON, 09/04/2020, 14:10. FINDINGS: Lower thorax: Subpleural blebs and bulla noted on the right, unchanged from the prior. Dense coronary vascular calcification present. Solid left lower lobe lateral small pulmonary nodule measuring 10 mm, remains unchanged. Liver: Normal in size and attenuation. No contour deformity present. Biliary system: No calcified cholelithiasis or pericholecystic inflammation. No intra or extrahepatic bile duct dilatation. Pancreas: Unremarkable without mass or inflammation evident. Spleen: Normal in size and density. Adrenals: Normal morphology and density. Reproductive system: Unremarkable as visualized. Urinary system: Normal renal size and attenuation. Right renal cysts measure up to 2.1 cm, similar to the prior. No renal calculi, hydronephrosis, or solid mass present. Urinary bladder unremarkable. Gastrointestinal system: Multiple diverticula arise from the descending and sigmoid colon. There is focal pericolonic phlegmon and small encapsulated pericolonic abscess measuring 1.7 x 3.3 cm. No evidence of obstruction. Appendix: Normal appendix identified. No evidence of appendicitis. Peritoneal spaces: No mesenteric or retroperitoneal adenopathy. No free air. No free fluid. Vasculature: Aortic atherosclerotic vascular calcification noted without evidence of aneurysm. Musculoskeletal: Normal bone mineralization. No acute fractures. Abdominal wall intact without evidence of ventral or inguinal hernias. Bilateral hip arthroplasty obscures evaluation of the pelvis. IMPRESSION: 1. Acute sigmoid diverticulitis associated with small 1.7 x 3.3 cm pericolonic abscess 2. Stable left lower lobe 10 mm nodule. Approved by: Jim Israel M.D. on 05/29/2021 at 7:20
[2021-05-29] MEDS: KETOROLAC 30 MG/ML VIAL IV (06:04)
[2021-05-29] MEDS: SODIUM CHLORIDE 0.9% 1,000 ML 150 ML IV (06:05)
--- NOTE | 2021-05-29 06:20 | ED.ABDPAIN ---
HPI - Abdominal Pain <Sandra DO Latanya - Last Filed: 05/30/21 03:35> General Chief Complaint: Abdominal Pain Stated Complaint: left side pain/spasms Time Seen by Provider: 05/29/21 05:28 Source: patient Mode of arrival: Wheelchair Limitations: no limitations History of Present Illness HPI narrative: The patient is a 70-year-old male history of coronary artery disease with 2 stents, type 2 diabetes, hypertension hyperlipidemia, pain and diverticulitis presenting today with left lower quadrant pain. He apparently had some abdominal discomfort after he ate dinner which then progressed through the evening. Pain started in his left lower quadrant it does seem to wax and wane however the car ride over was quite painful for him. He has had 4 bouts of diarrhea and feeling nauseous but no actual vomiting. He has not had any fever or chills. He has not had any bloody diarrhea no chest pain or shortness of breath. He denies any flank pain and no priors history of kidney stone. Related Data Home Medications Medication Instructions Recorded Confirmed ALBUTEROL (PROVENTIL INHALER) 1 puff INHALATION PRN PRN #0 08/17/11 10/22/20 losartan 100 mg tablet (Cozaar) 100 mg PO QDAY #0 08/17/11 10/22/20 aspirin 81 mg tablet,delayed 81 mg PO DAILY 01/24/19 10/22/20 release tamsulosin 0.4 mg capsule 0.4 mg PO DAILY 01/24/19 10/22/20 sertraline 20 mg/mL oral 20 mg PO DAILY 02/07/19 10/22/20 concentrate (Zoloft) atenolol 25 mg tablet 25 mg PO DAILY 09/23/20 10/22/20 celecoxib 200 mg capsule 200 mg PO DAILY 09/23/20 10/22/20 cholecalciferol (vitamin D3) 25 25 mcg PO DAILY 09/23/20 10/22/20 mcg (1,000 unit) capsule insulin glargine 100 unit/mL (3 10 unit SUBCUT QPM 09/23/20 10/22/20 mL) subcutaneous pen (Lantus Solostar U-100 Insulin) liraglutide 0.6 mg/0.1 mL (18 mg/3 See Rx Instructions SUBCUT .COMPLEX 09/23/20 10/22/20 mL) subcutaneous pen injector mv-min-vit C 1,000 ea PO 09/23/20 09/23/20 [id number] 124 50 mg efferves tablet (Air Protector) nitroglycerin 0.4 mg sublingual 0.4 mg SUBLINGUAL Q5M PRN 09/23/20 10/22/20 tablet sildenafil 25 mg tablet 25 mg PO DAILY 09/23/20 09/23/20 mometasone-formoterol HFA 50 mcg-5 See Rx Instructions .ROUTE .COMPLEX 10/22/20 10/22/20 mcg/actuation aerosol inhaler (Dulera) oxycodone 5 mg tablet 5 mg PO QID PRN 10/22/20 10/22/20 tamsulosin 0.4 mg capsule 0.8 mg PO BEDTIME 10/22/20 10/22/20 Previous Rx's Medication Instructions Recorded acetaminophen 325 mg tablet 975 mg PO TID #60 tab 02/08/19 meloxicam 15 mg tablet 15 mg PO 0800 #30 tab 02/08/19 levofloxacin 750 mg tablet 750 mg PO DAILY #10 tab 05/29/21 oxycodone-acetaminophen 5 mg-325 1 tab PO Q6H PRN #10 tab 05/29/21 mg tablet Allergies Allergy/AdvReac Type Severity Reaction Status Date / Time latex Allergy Severe Rash Verified 10/22/20 07:27 Penicillins [PENICILLINS] Allergy Severe Anaphylaxis Verified 10/22/20 07:27 adhesive tape AdvReac Severe Melts to Verified 10/22/20 07:27 my skin and pulls my skin off amino acids [From Chromimin] AdvReac Severe High blood Verified 10/22/20 07:27 level of chromim chromium [From Chromimin] AdvReac Severe High blood Verified 10/22/20 07:27 level of chromim cobalt AdvReac Severe High blood Verified 10/22/20 07:27 level of cobalt meperidine [MEPERIDINE] AdvReac Severe VOMITING Verified 10/22/20 07:27 morphine [MORPHINE] AdvReac Intermediate HALLUCINATI Verified 10/22/20 07:27 ONS Review of Systems <Sandra Pelaez DO - Last Filed: 05/30/21 03:35> Review of Systems Narrative: GENERAL: Denies chills, fatigue, malaise, fever, sweats, travel HEENT: Denies sinus pain, ear pain, sore throat, difficulty swallowing, neck pain RESPIRATORY: Denies dyspnea, cough, wheezing, hemoptysis, sputum. CARDIOVASCULAR: Denies chest pain, palpitations, orthopnea, edema GASTROINTESTINAL: See HPI : Denies dysuria, frequency, incontinence, hematuria, urinary retention, flank pain. MUSCULOSKELETAL: Denies weakness, joint pain, or bony pain SKIN: No rash, no erythema, no pruritus NEUROLOGIC: Denies weakness, dizziness, headache, numbness, change in speech, confusion PSYCHIATRIC: No concerning psychosocial issues. 12 point review of systems is negative except for those stated above and HPI Patient History <DO Alysia Byrd Last Filed: 05/30/21 03:35> Medical History Arthritis Back pain CAD (coronary artery disease) Carotid artery disease Compound fracture COPD (chronic obstructive pulmonary disease) Cyst of left kidney Depression Diabetes Easy bruisability Enlarged prostate Finding of abnormal level of heavy metals in blood (~2018) Former smoker Hearing loss (01/22/18) HLD (hyperlipidemia) HTN (hypertension) Lung cancer (~1991) Neck pain Neuropathy NIKI (obstructive sleep apnea) Pneumonia RLS (restless legs syndrome) Rosacea Surgical History History of arthroplasty of both hips History of carpal tunnel surgery of right wrist History of vasectomy Hx of blepharoplasty Hx of heart artery stent (10/20/01) Hx of prostate biopsy (10/14/15) S/P lobectomy of lung (~1991) Social History household members: none occupational status: employed Smoking Status: Former smoker alcohol intake: former substance use type: does not use Smoking Status: Former smoker alcohol intake frequency: holidays/special occasions only Substance Use Type: does not use Exam <DO Alysia Byrd Last Filed: 05/30/21 03:35> Initial Vital Signs Initial Vital Signs: Vital Signs Temperature 97.0 F L 05/29/21 05:29 Pulse Rate 102 H 05/29/21 05:29 Blood Pressure 178/82 H 05/29/21 05:29 Pulse Oximetry 98 05/29/21 05:29 GENERAL: Alert very nice 70-year-old male BMI 37 HEENT: Head atraumatic,EOMI, pupils reactive, face symmetric, moist mucous membranes CARDIOVASCULAR: Regular rate and rhythm without murmurs, rubs or gallops. RESPIRATORY: Breath sounds equal bilaterally, no wheezes rales or rhonchi. ABDOMEN: Soft, tender pain no guarding or rebound : No CVA tenderness EXTREMITIES: Normal range of motion, no clubbing or edema. Neurovascularly intact NEUROLOGICAL: Alert and oriented x4.Normal gait and speech. SKIN: Warm, dry, no laceration, no petechiae, no rashes or lesions. <Vale Carter MD - Last Filed: 05/29/21 09:59> Initial Vital Signs Initial Vital Signs: Vital Signs Temperature 97.0 F L 05/29/21 05:29 Pulse Rate 102 H 05/29/21 05:29 Blood Pressure 178/82 H 05/29/21 05:29 Pulse Oximetry 98 05/29/21 05:29 Course <Sandra Pelaez DO - Last Filed: 05/30/21 03:35> Orders Ordered: Discontinued Medications Hydromorphone HCl (Hydromorphone 0.5 Mg Inj) 0.5 mg IV Q15MIN PRN PRN Reason: Pain, Last Admin: 05/29/21 07:49 Dose: 0.5 mg Documented by: CTRIngrisHANDER Sodium Chloride (Normal Saline 0.9%) 1,000 mls @ 150 mls/hr IV CONT TREY Last Admin: 05/29/21 06:05 Dose: 150 mls/hr Documented by: JAMES Levofloxacin (Levaquin) 750 mg in 150 mls @ 100 mls/hr IV NOW ONE Stop: 05/29/21 09:09 Last Infusion: 05/29/21 09:57 Dose: 0 mls/hr Documented by: CTR.HANDER Admin: 05/29/21 07:50 Dose: 100 mls/hr Documented by: CTRIngrisHANDER Ketorolac Tromethamine (Ketorolac 30 Mg/Ml Vial) 30 mg IV NOW ONE Stop: 05/29/21 05:35 Last Admin: 05/29/21 06:04 Dose: 30 mg Documented by: JAMES Oxycodone/Acetaminophen (Oxycodone/Acetaminophen 5/325 Tablet) 1 tab PO NOW ONE Stop: 05/29/21 10:03 Last Admin: 05/29/21 10:06 Dose: 1 tab Documented by: GUILLERMO Vital Signs Vital signs: Vital Signs - 8 hr 05/29/21 05:29 Temperature 97.0 F L Pulse Rate 102 H Blood Pressure 178/82 H Pulse Oximetry 98 <Vale Carter MD - Last Filed: 05/29/21 09:59> Course Course Narrative: 740 am Care is assumed from Dr. Alex cameron. Patient is examined and independently examined. He remains mildly tachycardic in the mid 90s, Toradol has been somewhat helpful for pain but he is requesting additional pain medication. Abdominal exam reveals reasonable bowel tones moderate left lower quadrant pain with mild peritoneal signs but no guarding. With the CT scan revealing acute diverticulitis and a small layla diverticular abscess without free intraperitoneal air, IV antibiotics in the form of Levaquin are initiated. He has an anaphylactic reaction to penicillins. Given his diabetes and cancer comorbidities and the small layla diverticular abscess with peritoneal signs but no evidence of full abscess rupture will discuss care with General surgery, Dr. Ryder. To see if we should admit this gentleman for additional observation and IV antibiotics or go ahead and send him home with oral antibiotics. He and his for completely reliable they live just a couple blocks away and can easily return to the emergency department if symptoms worsen. Patient is willing to consider both options. Orders Ordered: Discontinued Medications Hydromorphone HCl (Hydromorphone 0.5 Mg Inj) 0.5 mg IV Q15MIN PRN PRN Reason: Pain, Last Admin: 05/29/21 07:49 Dose: 0.5 mg Documented by: GUILLERMO Sodium Chloride (Normal Saline 0.9%) 1,000 mls @ 150 mls/hr IV CONT TREY Last Admin: 05/29/21 06:05 Dose: 150 mls/hr Documented by: JAMES Levofloxacin (Levaquin) 750 mg in 150 mls @ 100 mls/hr IV NOW ONE Stop: 05/29/21 09:09 Last Infusion: 05/29/21 09:57 Dose: 0 mls/hr Documented by: Admin: 05/29/21 07:50 Dose: 100 mls/hr Documented by: GUILLERMO Ketorolac Tromethamine (Ketorolac 30 Mg/Ml Vial) 30 mg IV NOW ONE Stop: 05/29/21 05:35 Last Admin: 05/29/21 06:04 Dose: 30 mg Documented by: JAMES Oxycodone/Acetaminophen (Oxycodone/Acetaminophen 5/325 Tablet) 1 tab PO NOW ONE Stop: 05/29/21 10:03 Last Admin: 05/29/21 10:06 Dose: 1 tab Documented by: GUILLERMO Vital Signs Vital signs: Vital Signs - 8 hr 05/29/21 05:29 Temperature 97.0 F L Pulse Rate 102 H Blood Pressure 178/82 H Pulse Oximetry 98 MDM - Abdominal Pain <Sandra Pelaez DO - Last Filed: 05/30/21 03:35> Lab Data Result diagrams: 05/29/21 06:18 05/29/21 06:18 Labs: Lab Results 05/29/21 05/29/21 Range/Units 06:18 06:18 WBC 13.0 H (4.5-11.0) X10^3/uL RBC 3.78 L (4.5-5.9) X10^6/uL Hgb 12.1 L (13.5-17.5) g/dL Hct 36.6 L (41-53) % MCV 96.8 (80-100) fL MCH 31.9 (26-34) PG MCHC 33.0 (30-36) % RDW 14.6 (11.6-14.8) % Plt Count 205 (150-400) X10^3/uL Neut % (Auto) 84.7 H (50-75) % Lymph % (Auto) 6.9 L (25-40) % [facility] % (Auto) 7.8 (3-14) % Eos % (Auto) 0.2 L (2-4) % Baso % (Auto) 0.4 (0-2) % Neut # (Auto) 47898 H (5592-6145) /uL Lymph # (Auto) 900 L (3388-2736) /uL [facility] # (Auto) 1000 H (0-900) /uL Eos # (Auto) 0 (0-450) /uL Baso # (Auto) 100 (0-100) /uL Sodium 138 (137-145) mmol/L Potassium 4.6 (3.4-5.1) mmol/L Chloride 109 H (98-107) mmol/L Carbon Dioxide 22 (22-32) mmol/L BUN 24 H (9-20) mg/dL Creatinine 0.92 (0.66-1.25) mg/dL Estimated GFR > 60.0 (>60) mL/min BUN/Creatinine Ratio 26.1 H (6-22) Glucose 130 H (80-110) mg/dL Calcium 9.3 (8.4-10.2) mg/dL Total Bilirubin 0.6 (0.2-1.3) mg/dL AST 30 (17-59) IU/L ALT 24 (<50) IU/L Alkaline Phosphatase 71 (38-126) U/L Total Protein 7.7 (6.3-8.2) g/dL Albumin 4.1 (3.5-5.0) g/dL Globulin 3.6 (1.7-4.1) g/dL Albumin/Globulin Ratio 1.1 (1.0-2.8) Lipase 249 (23-300) U/L Point of care testing: Urine Dip Bedside Urine Glucose Negative Bedside Urine Bilirubin - Negative Bedside Urine Ketone - Negative Urine Specific [place] 1.025 Bedside Urine Occult Blood - Negative Bedside Urine pH 6.0 Bedside Urine Protein - Negative Bedside Urine Urobilinogen - Negative Bedside Urine Nitrite - Negative Bedside Urine Leukocytes - Negative Esterase MDM Narrative Medical decision making narrative: Patient is signed out to Dr. Carter CT pending. <Vale Carter MD - Last Filed: 05/29/21 09:59> Lab Data Labs: Lab Results 05/29/21 05/29/21 Range/Units 06:18 06:18 WBC 13.0 H (4.5-11.0) X10^3/uL RBC 3.78 L (4.5-5.9) X10^6/uL Hgb 12.1 L (13.5-17.5) g/dL Hct 36.6 L (41-53) % MCV 96.8 (80-100) fL MCH 31.9 (26-34) PG MCHC 33.0 (30-36) % RDW 14.6 (11.6-14.8) % Plt Count 205 (150-400) X10^3/uL Neut % (Auto) 84.7 H (50-75) % Lymph % (Auto) 6.9 L (25-40) % [facility] % (Auto) 7.8 (3-14) % Eos % (Auto) 0.2 L (2-4) % Baso % (Auto) 0.4 (0-2) % Neut # (Auto) 69292 H (6505-6933) /uL Lymph # (Auto) 900 L (4369-7917) /uL [facility] # (Auto) 1000 H (0-900) /uL Eos # (Auto) 0 (0-450) /uL Baso # (Auto) 100 (0-100) /uL Sodium 138 (137-145) mmol/L Potassium 4.6 (3.4-5.1) mmol/L Chloride 109 H (98-107) mmol/L Carbon Dioxide 22 (22-32) mmol/L BUN 24 H (9-20) mg/dL Creatinine 0.92 (0.66-1.25) mg/dL Estimated GFR > 60.0 (>60) mL/min BUN/Creatinine Ratio 26.1 H (6-22) Glucose 130 H (80-110) mg/dL Calcium 9.3 (8.4-10.2) mg/dL Total Bilirubin 0.6 (0.2-1.3) mg/dL AST 30 (17-59) IU/L ALT 24 (<50) IU/L Alkaline Phosphatase 71 (38-126) U/L Total Protein 7.7 (6.3-8.2) g/dL Albumin 4.1 (3.5-5.0) g/dL Globulin 3.6 (1.7-4.1) g/dL Albumin/Globulin Ratio 1.1 (1.0-2.8) Lipase 249 (23-300) U/L Point of care testing: Urine Dip Bedside Urine Glucose Negative Bedside Urine Bilirubin - Negative Bedside Urine Ketone - Negative Urine Specific [place] 1.025 Bedside Urine Occult Blood - Negative Bedside Urine pH 6.0 Bedside Urine Protein - Negative Bedside Urine Urobilinogen - Negative Bedside Urine Nitrite - Negative Bedside Urine Leukocytes - Negative Esterase Imaging Data CT scan - abdomen/pelvis: Radiologist's Impression: Acute diverticulitis involving the distal colon associated with a small layla diverticular abscess adjacent to the distal descending colon. No free intraperitoneal air. Yodit Irizarry MD [facility] Narrative Medical decision making narrative: Patient is signed out to Dr. Emma RAE pending. 1000 70-year-old gentleman with acute diverticulitis and small abscess without free air. Care is reviewed with Dr. Ryder. Treatment at this point would be IV antibiotics and observation only. With shared decision making we opted to have the patient go home with continued levofloxacin and a small prescription for pain medication. He and his live just a few blocks from the hospital and can easily return if things get worse. Believe he is a reliable an appropriate patient for discharge home at this time. Questions are answered. Discharge Plan Departure Patient Disposition: Home Clinical Impression: Diverticulitis Instructions: Diverticulitis Activity Restrictions/Additional Instructions: Thank you for coming in today You do have diverticulitis. There is a very small abscess but your body is controlling this nicely. You do need antibiotics. I have given you your 1st 24 hours worth of antibiotics 3 year IV in the emergency department. We discussed staying in the hospital versus going home. At this time, I think that it is safe for you to go home knowing that you can quickly return to the ER if your having worsening pain, increasing fevers, new symptoms or any other changes. You do need to complete 10 additional days of levofloxacin. You can use a Percocet every 6 hours for pain if you needed. This can cause constipation which can make the diverticulitis worse. If you find you are getting constipated please add fiber and or stool softeners. Again, if you are having worsening symptoms or your pain is not able to be controlled with oral pain medicine please come back and we will plan on admitting you to the hospital. Prescriptions: New levofloxacin 750 mg tablet 750 mg PO DAILY Qty: 10 RF: 0 oxycodone-acetaminophen 5-325 mg tablet 1 tab PO Q6H PRN (Reason: pain) Qty: 10 RF: 0 No Action ALBUTEROL (PROVENTIL INHALER) 1 puff Inhalation PRN PRN (Reason: Shortness Of Breath) Qty: 0 RF: 0 losartan [Cozaar] 100 MG tablet 100 mg PO QDAY Qty: 0 RF: 0 atenolol 25 mg tablet 25 mg PO DAILY RF: 0 celecoxib 200 mg capsule 200 mg PO DAILY RF: 0 cholecalciferol (vitamin D3) 25 mcg (1,000 unit) capsule 25 mcg PO DAILY RF: 0 Lantus Solostar U-100 Insulin 100 unit/mL (3 mL) insulin pen 10 unit SUBCUT QPM RF: 0 liraglutide 0.6 mg/0.1 mL (18 mg/3 mL) pen injector See Rx Instructions SUBCUT .COMPLEX RF: 0 nitroglycerin 0.4 mg tablet, sublingual 0.4 mg sublingual Q5M PRN (Reason: Chest Pain) RF: 0 Air Protector 1,000-50 mg tablet, effervescent PO RF: 0 sildenafil 25 mg tablet 25 mg PO DAILY RF: 0 tamsulosin 0.4 mg Capsule 0.4 mg PO DAILY RF: 0 aspirin 81 mg Tablet,Delayed Release (Dr/Ec) 81 mg PO DAILY RF: 0 sertraline [Zoloft] 20 mg/mL Concentrate 20 mg PO DAILY RF: 0 acetaminophen 325 mg Tablet 975 mg PO TID Qty: 60 RF: 0 meloxicam 15 mg tablet 15 mg PO 0800 Qty: 30 RF: 0 Dulera 50-5 mcg/actuation Hfa Aerosol Inhaler See Rx Instructions .ROUTE .COMPLEX RF: 0 tamsulosin 0.4 mg Capsule 0.8 mg PO BEDTIME RF: 0 oxycodone 5 mg Tablet 5 mg PO QID PRN (Reason: Pain (Scale Score 4-6)) RF: 0 Referrals: Payton Morfin MD [Primary Care Provider] -
[2021-05-29 06:25] LABS: Add Manual Diff / Slide Review NO; Basophils Absolute Auto 100 /uL (0-100); Basophils Percent Auto 0.4 % (0-2); Eosinophils Absolute Auto 0 /uL (0-450); Eosinophils Percent Auto 0.2 % (2-4); Hematocrit 36.6 % (41-53); Hemoglobin 12.1 g/dL (13.5-17.5); Lymphocytes Absolute Auto 900 /uL (1100-4500); Lymphocytes Percent Auto 6.9 % (25-40); Mean Corpuscular Hemoglobin 31.9 PG (26-34); Mean Corpuscular Volume 96.8 fL (80-100); Monocytes Absolute Auto 1000 /uL (0-900); Monocytes Percent Auto 7.8 % (3-14); Neutrophils Absolute Auto 11000 /uL (1500-7000); Neutrophils Percent Auto 84.7 % (50-75); Platelet Count 205 X10^3/uL (150-400); Red Blood Cell Count 3.78 X10^6/uL (4.5-5.9); Red Cell Distribution Width 14.6 % (11.6-14.8)
[2021-05-29 06:35] LABS: Alanine Aminotransferase 24 IU/L (<50); Albumin 4.1 g/dL (3.5-5.0); Albumin Globulin Ratio 1.1 (1.0-2.8); Alkaline Phosphatase 71 U/L (38-126); Aspartate Aminotransferase 30 IU/L (17-59); BUN Creatinine Ratio 26.1 (6-22); Bilirubin Total 0.6 mg/dL (0.2-1.3); Blood Urea Nitrogen 24 mg/dL (9-20); Calcium 9.3 mg/dL (8.4-10.2); Carbon Dioxide 22 mmol/L (22-32); Chloride 109 mmol/L (98-107); Estimated Glomerular Filt Rate > 60.0 mL/min (>60); Globulin 3.6 g/dL (1.7-4.1); Glucose 130 mg/dL (80-110); HEMOLYSIS 39 (0-50); Lipase 249 U/L (23-300); Potassium 4.6 mmol/L (3.4-5.1); Sodium 138 mmol/L (137-145); Total Protein 7.7 g/dL (6.3-8.2)
[2021-05-29] MEDS: HYDROMORPHONE 0.5 MG INJ IV (07:49)
[2021-05-29] MEDS: levoFLOXacin 750 MG/150 ML PIGGYBACK 100 MG IV (07:50)
[2021-05-29] MEDS: OXYCODONE/ACETAMINOPHEN 5/325 TABLET 1 TAB PO (10:06)
== END 2021-05-29 10:51 | disposition home or self-care (01) ==
PROVIDERS: Emergency Medicine; Emergency Provider Emergency Medicine; PCP Internal Medicine
DX: K57.92 Diverticulitis of intestine, part unspecified, without perforation or abscess without bleeding (principal)
CPT/HCPCS: 36415; 74177; 80053; 81003; 83690; 85025; 99284; J1170; J1885; J1956; Q9967

== ENCOUNTER 2021-05-30 08:50 | Inpatient (IN) | payer MEDICARE, OTHER, SELFPAY ==
[2019-02-07 14:38] VITALS: BMI 30.1
[2021-05-30 08:58] VITALS: BP 163/80; PULSE 102; RESP 16; TEMP 37.2; O2SAT 96; BMI 37.3
[2021-05-30] MEDS: SODIUM CHLORIDE 0.9% 1,000 ML 150 ML IV (09:21)
[2021-05-30] MEDS: metroNIDAZOLE 500 MG/100 ML PIGGYBACK 100 MG IV ×3 (09:22→22:17)
[2021-05-30] MEDS: HYDROMORPHONE 0.5 MG INJ IV (09:22)
[2021-05-30] MEDS: ONDANSETRON 4 MG/2 ML INJ IV (09:22)
[2021-05-30 09:29] LABS: Add Manual Diff / Slide Review NO; Basophils Absolute Auto 100 /uL (0-100); Basophils Percent Auto 0.6 % (0-2); Eosinophils Absolute Auto 100 /uL (0-450); Eosinophils Percent Auto 0.7 % (2-4); Hematocrit 35.2 % (41-53); Hemoglobin 11.8 g/dL (13.5-17.5); Lymphocytes Absolute Auto 900 /uL (1100-4500); Lymphocytes Percent Auto 7.8 % (25-40); Mean Corpuscular HGB Conc 33.5 % (30-36); Mean Corpuscular Volume 95.6 fL (80-100); Monocytes Absolute Auto 900 /uL (0-900); Monocytes Percent Auto 8.1 % (3-14); Neutrophils Absolute Auto 9300 /uL (1500-7000); Neutrophils Percent Auto 82.8 % (50-75); Platelet Count 183 X10^3/uL (150-400); Red Blood Cell Count 3.69 X10^6/uL (4.5-5.9); Red Cell Distribution Width 14.6 % (11.6-14.8); White Blood Cell Count 11.2 X10^3/uL (4.5-11.0)
[2021-05-30 09:42] LABS: Lactate (Lactic Acid) 0.9 mmol/L (0.7-2.1)
[2021-05-30 09:43] LABS: Alanine Aminotransferase 19 IU/L (<50); Albumin 3.9 g/dL (3.5-5.0); Albumin Globulin Ratio 1.1 (1.0-2.8); Alkaline Phosphatase 55 U/L (38-126); Aspartate Aminotransferase 27 IU/L (17-59); BUN Creatinine Ratio 17.9 (6-22); Bilirubin Total 0.6 mg/dL (0.2-1.3); Blood Urea Nitrogen 15 mg/dL (9-20); Calcium 9.4 mg/dL (8.4-10.2); Carbon Dioxide 21 mmol/L (22-32); Chloride 109 mmol/L (98-107); Estimated Glomerular Filt Rate > 60.0 mL/min (>60); Globulin 3.6 g/dL (1.7-4.1); Glucose 118 mg/dL (80-110); HEMOLYSIS 16 (0-50); Potassium 4.1 mmol/L (3.4-5.1); Sodium 137 mmol/L (137-145); Total Protein 7.5 g/dL (6.3-8.2)
--- NOTE | 2021-05-30 10:15 | ED_ITS ---
HPI - Abdominal Pain General Chief Complaint: Abdominal Pain Stated Complaint: DIVERTICULITIS- RETURNING PT OF [facility] Time Seen by Provider: 05/30/21 08:53 Source: patient Mode of arrival: Ambulatory Limitations: no limitations History of Present Illness HPI narrative: 70-year-old gentleman with history of coronary artery disease type 2 diabetes hypertension hyperlipidemia was seen yesterday in the emergency room and diagnosed with acute diverticulitis with small contained layla diverticular abscess. He was started on Levaquin and after significant discussion was discharged home with significant instructions to return if he was not improved. Over the course of the evening as long as he took his oxycodone h e found that his pain was tolerable however he is continuing to have significant discomfort and comes in for further evaluation today. He has not had any diarrhea, no fevers and is not vomiting. He denies chest pain, orthopnea, dyspnea, palpitations, headache or neurologic changes. Note urinary frequency that is a new finding. Suspect that this may be from inflammatory changes in the lower colon that are irritating his bladder. He does not complain of dysuria Related Data Home Medications Medication Instructions Recorded Confirmed ALBUTEROL (PROVENTIL INHALER) 1 puff INHALATION PRN PRN #0 08/17/11 10/22/20 losartan 100 mg tablet (Cozaar) 100 mg PO QDAY #0 08/17/11 10/22/20 aspirin 81 mg tablet,delayed 81 mg PO DAILY 01/24/19 10/22/20 release tamsulosin 0.4 mg capsule 0.4 mg PO DAILY 01/24/19 10/22/20 sertraline 20 mg/mL oral 20 mg PO DAILY 02/07/19 10/22/20 concentrate (Zoloft) atenolol 25 mg tablet 25 mg PO DAILY 09/23/20 10/22/20 celecoxib 200 mg capsule 200 mg PO DAILY 09/23/20 10/22/20 cholecalciferol (vitamin D3) 25 25 mcg PO DAILY 09/23/20 10/22/20 mcg (1,000 unit) capsule insulin glargine 100 unit/mL (3 10 unit SUBCUT QPM 09/23/20 10/22/20 mL) subcutaneous pen (Lantus Solostar U-100 Insulin) liraglutide 0.6 mg/0.1 mL (18 mg/3 See Rx Instructions SUBCUT .COMPLEX 09/23/20 10/22/20 mL) subcutaneous pen injector mv-min-vit C 1,000 ea PO 09/23/20 09/23/20 [id number]-herb 124 50 mg efferves tablet (Air Protector) nitroglycerin 0.4 mg sublingual 0.4 mg SUBLINGUAL Q5M PRN 09/23/20 10/22/20 tablet sildenafil 25 mg tablet 25 mg PO DAILY 09/23/20 09/23/20 mometasone-formoterol HFA 50 mcg-5 See Rx Instructions .ROUTE .COMPLEX 10/22/20 10/22/20 mcg/actuation aerosol inhaler (Dulera) oxycodone 5 mg tablet 5 mg PO QID PRN 10/22/20 10/22/20 tamsulosin 0.4 mg capsule 0.8 mg PO BEDTIME 10/22/20 10/22/20 Previous Rx's Medication Instructions Recorded acetaminophen 325 mg tablet 975 mg PO TID #60 tab 02/08/19 meloxicam 15 mg tablet 15 mg PO 0800 #30 tab 02/08/19 levofloxacin 750 mg tablet 750 mg PO DAILY #10 tab 05/29/21 oxycodone-acetaminophen 5 mg-325 1 tab PO Q6H PRN #10 tab 05/29/21 mg tablet Allergies Allergy/AdvReac Type Severity Reaction Status Date / Time latex Allergy Severe Rash Verified 05/30/21 08:58 Penicillins [PENICILLINS] Allergy Severe Anaphylaxis Verified 05/30/21 08:58 adhesive tape AdvReac Severe Melts to Verified 05/30/21 08:58 my skin and pulls my skin off amino acids [From Chromimin] AdvReac Severe High blood Verified 05/30/21 08:58 level of chromim chromium [From Chromimin] AdvReac Severe High blood Verified 05/30/21 08:58 level of chromim cobalt AdvReac Severe High blood Verified 05/30/21 08:58 level of cobalt meperidine [MEPERIDINE] AdvReac Severe VOMITING Verified 05/30/21 08:58 morphine [MORPHINE] AdvReac Intermediate HALLUCINATI Verified 05/30/21 08:58 ONS Review of Systems Review of Systems Narrative: Remainder of complete review of systems is otherwise unremarkable except for that included in the HPI. Patient History Medical History Arthritis Back pain CAD (coronary artery disease) Carotid artery disease Compound fracture COPD (chronic obstructive pulmonary disease) Cyst of left kidney Depression Diabetes Easy bruisability Enlarged prostate Finding of abnormal level of heavy metals in blood (~2018) Former smoker Hearing loss (01/22/18) HLD (hyperlipidemia) HTN (hypertension) Lung cancer (~1991) Neck pain Neuropathy NIKI (obstructive sleep apnea) Pneumonia RLS (restless legs syndrome) Rosacea Surgical History History of arthroplasty of both hips History of carpal tunnel surgery of right wrist History of vasectomy Hx of blepharoplasty Hx of heart artery stent (10/20/01) Hx of prostate biopsy (10/14/15) S/P lobectomy of lung (~1991) Family History (Updated 05/30/21 @ 11:01 by Carie Rizvi MD) Mother Congestive heart failure Father Pancreatic cancer Brother Diverticulitis Sister Diverticulitis Social History household members: none occupational status: employed Smoking Status: Former smoker alcohol intake: former substance use type: does not use Smoking Status: Former smoker alcohol intake frequency: holidays/special occasions only Substance Use Type: does not use Exam Narrative Exam Narrative: General: Alert appropriate in moderate pain but able to give a complete coherent history. Respiratory: Able to speak in full sentences, no obvious respiratory distress Cardiac: Regular rate in rhythm, no murmurs Abdomen: Positive bowel tones significant tenderness through the entire abdomen with mild peritoneal signs in the left lower quadrant. Exam is similar to yesterday. Skin: No obvious rashes, warm and dry Neurologic: Grossly intact no obvious asymmetries or abnormalities Psych: appropriate insight and affect, cooperative Initial Vital Signs Initial Vital Signs: Vital Signs Temperature 99.0 F 05/30/21 08:58 Pulse Rate 102 H 05/30/21 08:58 Respiratory Rate 16 05/30/21 08:58 Blood Pressure 163/80 H 05/30/21 08:58 Pulse Oximetry 96 05/30/21 08:58 Course Orders Ordered: ED Orders 05/30/21 09:10 COVID19 - ADMIT (EBD [employer] swab/PCR) Stat Complete Blood Count AUTO DIFF Stat Comprehensive Metabolic Panel Stat Lactate (Lactic Acid) Stat 05/30/21 09:45 Blood Culture Stat Enoxaparin Sodium (Enoxaparin 40 Mg/0.4 Ml Syringe) 40 mg SUBCUT DAILY TREY Hydromorphone HCl (Hydromorphone 0.5 Mg Inj) 0.5 mg IV Q15MIN PRN PRN Reason: Pain, Last Admin: 05/30/21 09:22 Dose: 0.5 mg Documented by: AURELIO Hydromorphone HCl (Hydromorphone 1 Mg Inj) 1 mg IV Q3H PRN PRN Reason: Pain, Severe (7-10) Hydromorphone HCl (Hydromorphone 0.5 Mg Inj) 0.5 mg IV Q3H PRN PRN Reason: Pain, Moderate (4-6) Sodium Chloride (Normal Saline 0.9%) 1,000 mls @ 100 mls/hr IV CONT TREY Ciprofloxacin (Cipro) 400 mg in 200 mls @ 200 mls/hr IV Q12H TREY Metronidazole (Flagyl) 500 mg in 100 mls @ 100 mls/hr IV Q6H TREY Naloxone HCl (Naloxone 0.4 Mg/Ml Vial) 0.2 mg IV Q2MIN PRN PRN Reason: Opiate Reversal Ondansetron HCl (Ondansetron 4 Mg Odt) 4 mg PO Q8HR PRN PRN Reason: Nausea And Vomiting Ondansetron HCl (Ondansetron 4 Mg/2 Ml Inj) 4 mg IV Q8HR PRN PRN Reason: Nausea And Vomiting Oxycodone HCl (Oxycodone Ir 5 Mg Tablet) 5 mg PO Q6HR PRN PRN Reason: Pain, Moderate (4-6) Discontinued Medications Sodium Chloride (Normal Saline 0.9%) 1,000 mls @ 150 mls/hr IV CONT TREY Stop: 05/30/21 10:50 Last Admin: 05/30/21 09:21 Dose: 150 mls/hr Documented by: ELISABETHOTEM Levofloxacin (Levaquin) 750 mg in 150 mls @ 100 mls/hr IV NOW ONE Stop: 05/30/21 10:27 Metronidazole (Flagyl) 500 mg in 100 mls @ 100 mls/hr IV NOW ONE Stop: 05/30/21 09:57 Last Infusion: 05/30/21 10:32 Dose: 0 mls/hr Documented by: Admin: 05/30/21 09:22 Dose: 100 mls/hr Documented by: AURELIO Ondansetron HCl (Ondansetron 4 Mg/2 Ml Inj) 4 mg IV NOW ONE Stop: 05/30/21 08:54 Last Admin: 05/30/21 09:22 Dose: 4 mg Documented by: AURELIO Vital Signs Vital signs: Vital Signs - 8 hr 05/30/21 08:58 Temperature 99.0 F Pulse Rate 102 H Respiratory Rate 16 Blood Pressure 163/80 H Pulse Oximetry 96 MDM - Abdominal Pain Lab Data Result diagrams: 05/30/21 09:10 05/30/21 09:10 Labs: Lab Results 05/30/21 05/30/21 05/30/21 Range/Units 09:10 09:10 09:10 WBC 11.2 H (4.5-11.0) X10^3/uL RBC 3.69 L (4.5-5.9) X10^6/uL Hgb 11.8 L (13.5-17.5) g/dL Hct 35.2 L (41-53) % MCV 95.6 (80-100) fL MCH 32.0 (26-34) PG MCHC 33.5 (30-36) % RDW 14.6 (11.6-14.8) % Plt Count 183 (150-400) X10^3/uL Neut % (Auto) 82.8 H (50-75) % Lymph % (Auto) 7.8 L (25-40) % [place] % (Auto) 8.1 (3-14) % Eos % (Auto) 0.7 L (2-4) % Baso % (Auto) 0.6 (0-2) % Neut # (Auto) 9300 H (7789-7969) /uL Lymph # (Auto) 900 L (0936-8420) /uL [place] # (Auto) 900 (0-900) /uL Eos # (Auto) 100 (0-450) /uL Baso # (Auto) 100 (0-100) /uL Sodium 137 (137-145) mmol/L Potassium 4.1 (3.4-5.1) mmol/L Chloride 109 H (98-107) mmol/L Carbon Dioxide 21 L (22-32) mmol/L BUN 15 (9-20) mg/dL Creatinine 0.84 (0.66-1.25) mg/dL Estimated GFR > 60.0 (>60) mL/min BUN/Creatinine Ratio 17.9 (6-22) Glucose 118 H (80-110) mg/dL Lactate 0.9 (0.7-2.1) mmol/L Calcium 9.4 (8.4-10.2) mg/dL Total Bilirubin 0.6 (0.2-1.3) mg/dL AST 27 (17-59) IU/L ALT 19 (<50) IU/L Alkaline Phosphatase 55 (38-126) U/L Total Protein 7.5 (6.3-8.2) g/dL Albumin 3.9 (3.5-5.0) g/dL Globulin 3.6 (1.7-4.1) g/dL Albumin/Globulin Ratio 1.1 (1.0-2.8) SARS-CoV-2 (PCR) (Negative) 05/30/21 Range/Units 09:10 WBC (4.5-11.0) X10^3/uL RBC (4.5-5.9) X10^6/uL Hgb (13.5-17.5) g/dL Hct (41-53) % MCV (80-100) fL MCH (26-34) PG MCHC (30-36) % RDW (11.6-14.8) % Plt Count (150-400) X10^3/uL Neut % (Auto) (50-75) % Lymph % (Auto) (25-40) % [place] % (Auto) (3-14) % Eos % (Auto) (2-4) % Baso % (Auto) (0-2) % Neut # (Auto) (9093-7927) /uL Lymph # (Auto) (4223-4380) /uL [place] # (Auto) (0-900) /uL Eos # (Auto) (0-450) /uL Baso # (Auto) (0-100) /uL Sodium (137-145) mmol/L Potassium (3.4-5.1) mmol/L Chloride (98-107) mmol/L Carbon Dioxide (22-32) mmol/L BUN (9-20) mg/dL Creatinine (0.66-1.25) mg/dL Estimated GFR (>60) mL/min BUN/Creatinine Ratio (6-22) Glucose (80-110) mg/dL Lactate (0.7-2.1) mmol/L Calcium (8.4-10.2) mg/dL Total Bilirubin (0.2-1.3) mg/dL AST (17-59) IU/L ALT (<50) IU/L Alkaline Phosphatase (38-126) U/L Total Protein (6.3-8.2) g/dL Albumin (3.5-5.0) g/dL Globulin (1.7-4.1) g/dL Albumin/Globulin Ratio (1.0-2.8) SARS-CoV-2 (PCR) Negative (Negative) Point of care testing: Urine Dip Bedside Urine Glucose Negative Bedside Urine Bilirubin - Negative Bedside Urine Ketone - Negative Urine Specific [place] 1.025 Bedside Urine Occult Blood - Negative Bedside Urine pH 6 Bedside Urine Protein - Negative Bedside Urine Urobilinogen - Negative Bedside Urine Nitrite - Negative Bedside Urine Leukocytes - Negative Esterase MDM Narrative Medical decision making narrative: 70-year-old gentleman who was seen yesterday diagnosed with acute diverticulitis and a small pericolonic abscess described as ?focal pericolonic phlegmon and small encapsulated pericolonic abscess measuring 1.7 x 3.3 cm without evidence of obstruction?. Care is reviewed with Dr. Ryder, general surgery yesterday. Abscess is small enough that percutaneous drainage is not going to be appropriate and he does not need surgery. This is medical management for the time being. With shared decision making we opted for discharge yesterday but he returns today with increasing pain. Labs are not worse and exam is similar to yesterday. Like to admit him for further pain control and IV antibiotics. Have expanded from oral Levaquin to IV Levaquin and Flagyl. He is comfortable was small doses of Dilaudid. Have spoken with Dr. garth ulrich, admitting hospitalist today. Patient will be admitted for acute diverticulitis with pericolonic abscess small enough to not need surgical or percutaneous intervention at this time. Discharge Plan Departure Patient Disposition: Admitted as Observation Clinical Impression: Diverticulitis, Pericolonic abscess due to diverticulitis Admit Date/Time: 05/30/21 10:33 Admit Provider: Carie Rizvi
[2021-05-30 10:19] LABS: COVID19 - ADMIT (NP swab/PCR) Negative (Negative)
[2021-05-30 10:50] VITALS: BP 155/65; PULSE 80; RESP 22; TEMP 36.9; O2SAT 97
--- NOTE | 2021-05-30 10:55 | PM.HP.1 ---
History of Present Illness History of Present Illness Date Patient Seen: 05/30/21 Chief complaint: DIVERTICULITIS- RETURNING PT OF [facility] Narrative: This is a 70-year-old male with type 2 diabetes mellitus, COPD and hypertension along with a history of diverticulitis who presents with sudden onset of left-sided abdominal pain yesterday morning and a CT scan done in the emergency department at that time showing diverticulitis with a diverticular abscess measuring 1.3 x 3.3 cm. He tried and failed an outpatient treatment regimen of oral antibiotics and oral pain medication. Last night he was not able to get pain control longer than 2 hours at a time and so returned to the emergency department. IV Dilaudid has been more effective and so now he will be admitted for IV antibiotics and IV pain control. He was discussed with surgery yesterday who reviewed the CT scan measurements and suggested oral antibiotics could be effective versus IV inpatient treatment. There is no indication for IR to place a drain unless the abscess becomes larger. He has had no fever, vomiting, bleeding, diarrhea. His 1st episode of diverticulitis took several weeks to resolve in 2019. He remembers a colonoscopy last year after which the surgeon suggested to him that he had severe diverticular disease. Patient History Medical History Arthritis Back pain CAD (coronary artery disease) Carotid artery disease Compound fracture COPD (chronic obstructive pulmonary disease) Cyst of left kidney Depression Diabetes Easy bruisability Enlarged prostate Finding of abnormal level of heavy metals in blood (~2018) Former smoker Hearing loss (01/22/18) HLD (hyperlipidemia) HTN (hypertension) Lung cancer (~1991) Neck pain Neuropathy NIKI (obstructive sleep apnea) Pneumonia RLS (restless legs syndrome) Rosacea Surgical History History of arthroplasty of both hips History of carpal tunnel surgery of right wrist History of vasectomy Hx of blepharoplasty Hx of heart artery stent (10/20/01) Hx of prostate biopsy (10/14/15) S/P lobectomy of lung (~1991) Family & Social History Family History (Updated 05/30/21 @ 11:01 by Carie Rizvi MD) Mother Congestive heart failure Father Pancreatic cancer Brother Diverticulitis Sister Diverticulitis Social History: household members none Safety & Behavioral: Feels Safe in Current Yes Environment Been Physically Hurt or No Threatened By a Person Tobacco & Substance use: Tobacco type cigarettes Smoking Status Former smoker alcohol intake former alcohol intake frequency holiday/special occasion Substance Use Type does not use Meds Home Medications and Allergies Home Medications Medication Instructions Recorded Confirmed Type ALBUTEROL (PROVENTIL INHALER) 1 puff INHALATION PRN PRN #0 08/17/11 05/30/21 History losartan 100 mg tablet (Cozaar) 100 mg PO QDAY #0 08/17/11 05/30/21 History tamsulosin 0.4 mg capsule 0.8 mg PO DAILY 01/24/19 05/30/21 History sertraline 20 mg/mL oral 100 mg PO DAILY 02/07/19 05/30/21 History concentrate (Zoloft) celecoxib 200 mg capsule 200 mg PO DAILY 09/23/20 05/30/21 History cholecalciferol (vitamin D3) 25 25 mcg PO DAILY 09/23/20 05/30/21 History mcg (1,000 unit) capsule liraglutide 0.6 mg/0.1 mL (18 mg/3 1.8 mg SUBCUT DAILY 09/23/20 05/30/21 History mL) subcutaneous pen injector nitroglycerin 0.4 mg sublingual 0.4 mg SUBLINGUAL Q5M PRN 09/23/20 05/30/21 History tablet mometasone-formoterol HFA 50 mcg-5 2 puff INHALATION BID 10/22/20 05/30/21 History mcg/actuation aerosol inhaler (Dulera) oxycodone 5 mg tablet 5 mg PO QID PRN 10/22/20 05/30/21 History levofloxacin 750 mg tablet 750 mg PO DAILY #10 tab 05/29/21 05/30/21 Rx oxycodone-acetaminophen 5 mg-325 1 tab PO Q6H PRN #10 tab 05/29/21 05/30/21 Rx mg tablet cyclobenzaprine 10 mg tablet 10 mg PO DAILY PRN 05/30/21 05/30/21 History evolocumab 140 mg/mL subcutaneous 140 mg SUBCUT Q10D 05/30/21 05/30/21 History syringe (Repatha Syringe) meloxicam 15 mg tablet 15 mg PO 0800 PRN 05/30/21 05/30/21 History methocarbamol 750 mg tablet 750 mg PO DAILY PRN 05/30/21 05/30/21 History metoprolol succinate 25 mg 25 mg PO DAILY 05/30/21 05/30/21 History tablet,extended release 24 hr rosuvastatin 5 mg tablet (Crestor) 5 mg PO DAILY 05/30/21 05/30/21 History zolpidem 10 mg tablet 10 mg PO QPM PRN 05/30/21 05/30/21 History Allergies Allergy/AdvReac Type Severity Reaction Status Date / Time latex Allergy Severe Rash Verified 05/30/21 08:58 Penicillins [PENICILLINS] Allergy Severe Anaphylaxis Verified 05/30/21 08:58 adhesive tape AdvReac Severe Melts to Verified 05/30/21 08:58 my skin and pulls my skin off amino acids [From Chromimin] AdvReac Severe High blood Verified 05/30/21 08:58 level of chromim chromium [From Chromimin] AdvReac Severe High blood Verified 05/30/21 08:58 level of chromim cobalt AdvReac Severe High blood Verified 05/30/21 08:58 level of cobalt meperidine [MEPERIDINE] AdvReac Severe VOMITING Verified 05/30/21 08:58 morphine [MORPHINE] AdvReac Intermediate HALLUCINATI Verified 05/30/21 08:58 ONS Review of Systems Review of Systems Narrative: Positive for abdominal pain, dysuria, hearing loss and mild fever. Negative for chills, sweats, vomiting, diarrhea, bleeding, rashes, coughing, chest pain, headaches, fever above 100, difficulty talking, difficulty walking, new allergies, seizures. Exam Vital Signs (past 8 hours): - 05/30/21 08:58 Temperature 99.0 F Pulse Rate 102 H Respiratory Rate 16 Blood Pressure 163/80 H Pulse Oximetry 96 Oxygen Delivery Method Room Air Narrative Exam Narrative: He is alert and oriented x3, in no apparent distress He is quite hard of hearing Pupils are equally round and reactive to light and accommodation. Extraocular muscles are intact. Sclerae are pink and nonicteric. No lymph nodes are felt head, neck, supraclavicular area. Throat looks normal JVD is less than 6 cm No carotid bruits are heard There is no thyromegaly Heart is regular rate and rhythm without murmur Lungs are clear to auscultation bilaterally Abdomen is soft, bowel sounds positive, obese, nontender except for a localized area in the left side of the abdomen that is quite tender. There is no organomegaly Extremities have no ankle edema Skin is no rash jaundice Neurological exam Cranial nerves 2-12 test intact There is no tremor Motor function is 5/5 throughout Gait and balance are not tested. Objective Labs Result Diagrams: 05/30/21 09:10 05/30/21 09:10 Labs: Laboratory Results - last 24 hr 05/30/21 05/30/21 05/30/21 09:10 09:10 09:10 WBC 11.2 H RBC 3.69 L Hgb 11.8 L Hct 35.2 L MCV 95.6 MCH 32.0 MCHC 33.5 RDW 14.6 Plt Count 183 Neut % (Auto) 82.8 H Lymph % (Auto) 7.8 L [place] % (Auto) 8.1 Eos % (Auto) 0.7 L Baso % (Auto) 0.6 Neut # (Auto) 9300 H Lymph # (Auto) 900 L [place] # (Auto) 900 Eos # (Auto) 100 Baso # (Auto) 100 Sodium 137 Potassium 4.1 Chloride 109 H Carbon Dioxide 21 L BUN 15 Creatinine 0.84 Estimated GFR > 60.0 BUN/Creatinine Ratio 17.9 Glucose 118 H Lactate 0.9 Calcium 9.4 Total Bilirubin 0.6 AST 27 ALT 19 Alkaline Phosphatase 55 Total Protein 7.5 Albumin 3.9 Globulin 3.6 Albumin/Globulin Ratio 1.1 SARS-CoV-2 (PCR) 05/30/21 09:10 WBC RBC Hgb Hct MCV MCH MCHC RDW Plt Count Neut % (Auto) Lymph % (Auto) [place] % (Auto) Eos % (Auto) Baso % (Auto) Neut # (Auto) Lymph # (Auto) [place] # (Auto) Eos # (Auto) Baso # (Auto) Sodium Potassium Chloride Carbon Dioxide BUN Creatinine Estimated GFR BUN/Creatinine Ratio Glucose Lactate Calcium Total Bilirubin AST ALT Alkaline Phosphatase Total Protein Albumin Globulin Albumin/Globulin Ratio SARS-CoV-2 (PCR) Negative Assessment & Plan Assessment & Plan narrative: This is a 70-year-old male with type 2 diabetes mellitus, COPD and hypertension along with a history of diverticulitis who presents with sudden onset of left-sided abdominal pain yesterday morning and a CT scan done in the emergency department at that time showing diverticulitis with a diverticular abscess measuring 1.3 x 3.3 cm. He tried and failed an outpatient treatment regimen of oral antibiotics and oral pain medication. Acute diverticulitis/diverticular abscess, present on admission, active. -white blood count 11.[address] scan showing a 1.3 by 3.3 cm diverticular abscess. -he has failed an attempt at outpatient oral antibiotics with increasing pain -will be placed on IV dilaudid, ciprofloxacin and metronidazole. -follow daily CBC and repeat CT scan if pain worsens. -consult General surgery if pain worsens COPD, present on admission. Active. -continue albuterol, Dulera Coronary artery disease, present admission. Active. -continue rosuvastatin and metoprolol. Hyperlipidemia, present admission. Chronic. -continue rosuvastatin Hypertension, present on admission. Active. -Continue losartan and metoprolol Type 2 diabetes mellitus, present on admission. Active. -Continue Liraglutide Depression, present admission. Chronic. -Continue Zoloft BPH, present on admission. Chronic. -Continue tamsulosin Insomnia, present on admission. Chronic. -Continue zolpidem Arthritis, present on admission. Chronic. -continue Celebrex Hearing loss, present on admission. Chronic. His backup decision maker is his Dilcianox for DVT prevention PCP is Dr. Payton perdomo
[2021-05-30 11:05] VITALS: BMI 37.3
[2021-05-30] MEDS: levoFLOXacin 750 MG/150 ML PIGGYBACK 100 MG IV (11:56)
[2021-05-30 11:59] VITALS: BP 155/69; PULSE 71; RESP 18; O2SAT 97
[2021-05-30] MEDS: SODIUM CHLORIDE 0.9% 1,000 ML 100 ML IV (12:04)
--- NOTE | 2021-05-30 13:04 | PC.NURSE ---
Patient brought up from ER to room 218 and admitted by Kimberly Martinez. Patient axox3, VSS on RA, up with SB assistance to bathroom to use urinal. Tolerating IV fluids and IV antibiotics as ordered. Full liquid tray delivered for lunch. Patient states abdominal pain is localized to left lower quadrant, but did note some crampy feelings after lunch. Call light within reach, and will continue to monitor.
[2021-05-30] MEDS: OXYCODONE IR 5 MG TABLET PO ×2 (13:54→20:23)
[2021-05-30 15:20] VITALS: BP 148/70; PULSE 75; RESP 18; TEMP 36.2; O2SAT 97
[2021-05-30] MEDS: HYDROMORPHONE 1 MG INJ IV (16:42)
[2021-05-30 19:41] VITALS: BP 127/62; PULSE 89; RESP 18; TEMP 36.8; O2SAT 96
[2021-05-30] MEDS: ATORVASTATIN 20 MG TABLET 10 MG PO (20:22)
[2021-05-30 23:20] VITALS: BP 160/79; PULSE 88; RESP 24; TEMP 36.5; O2SAT 97
[2021-05-31] VITALS (7 sets, daily range): BP systolic 118–152; BP diastolic 51–71; PULSE 69–89; RESP 12–20; TEMP 36.1–36.8; O2SAT 94–98
[2021-05-31] MEDS: HYDROMORPHONE 0.5 MG INJ IV ×2 (00:13→09:49)
[2021-05-31] MEDS: SODIUM CHLORIDE 0.9% 1,000 ML 100 ML IV ×2 (00:13→13:30)
[2021-05-31] MEDS: metroNIDAZOLE 500 MG/100 ML PIGGYBACK 100 MG IV ×4 (05:42→22:10)
[2021-05-31] MEDS: OXYCODONE IR 5 MG TABLET PO ×3 (05:43→22:14)
[2021-05-31 05:46] LABS: Add Manual Diff / Slide Review NO; Basophils Absolute Auto 0 /uL (0-100); Basophils Percent Auto 0.3 % (0-2); Eosinophils Absolute Auto 100 /uL (0-450); Eosinophils Percent Auto 0.5 % (2-4); Hematocrit 31.7 % (41-53); Hemoglobin 10.8 g/dL (13.5-17.5); Lymphocytes Absolute Auto 900 /uL (1100-4500); Lymphocytes Percent Auto 8.8 % (25-40); Mean Corpuscular HGB Conc 34.1 % (30-36); Mean Corpuscular Hemoglobin 33.1 PG (26-34); Mean Corpuscular Volume 96.9 fL (80-100); Monocytes Absolute Auto 1000 /uL (0-900); Monocytes Percent Auto 10.2 % (3-14); Neutrophils Absolute Auto 7900 /uL (1500-7000); Neutrophils Percent Auto 80.2 % (50-75); Platelet Count 167 X10^3/uL (150-400); Red Blood Cell Count 3.27 X10^6/uL (4.5-5.9); Red Cell Distribution Width 14.3 % (11.6-14.8); White Blood Cell Count 9.9 X10^3/uL (4.5-11.0)
[2021-05-31 05:49] LABS: Blood Urea Nitrogen 12 mg/dL (9-20); Calcium 8.9 mg/dL (8.4-10.2); Carbon Dioxide 25 mmol/L (22-32); Chloride 106 mmol/L (98-107); Estimated Glomerular Filt Rate > 60.0 mL/min (>60); Glucose 110 mg/dL (80-110); HEMOLYSIS < 15 (0-50); Potassium 4.4 mmol/L (3.4-5.1); Sodium 135 mmol/L (137-145)
[2021-05-31] MEDS: CELECOXIB 200 MG CAPSULE PO (08:56)
[2021-05-31] MEDS: CHOLECALCIFEROL (VITAMIN D3) 1,000 UNIT TABLET 1000 UNIT PO (08:56)
[2021-05-31] MEDS: ENOXAPARIN 40 MG/0.4 ML SYRINGE SUBCUT (08:56)
[2021-05-31] MEDS: SERTRALINE 50 MG TABLET 100 MG PO (08:57)
[2021-05-31] MEDS: TAMSULOSIN 0.4 MG CAPSULE 0.8 MG PO (08:57)
[2021-05-31] MEDS: LOSARTAN 50 MG TABLET 100 MG PO (08:58)
[2021-05-31] MEDS: METOPROLOL ER 25 MG TABLET PO (08:58)
--- NOTE | 2021-05-31 09:09 | CM.DANOTE ---
DCP: Case received, EMR reviewed and met with patient. Spouse, Citlaly, was also at bedside. Introduced self and role. Was able to obtain information regarding patient's baseline activity status prior to hospitalization. DCP assessment completed with information currently available. Patient is a 70 year old male who admitted yesterday morning to the care of the hospitalist team. PCP: Dr. Payton Morfin Payer: confirmed: Medicare/[facility]. Patient came to the hospital via private vehicle secondary to having abdominal discomfort. He originally came to the ER, and was diagnosed with acute diverticulitis. He was sent home with oral antibiotics, but when he went home, the pain had gotten worse, and came back to the ER. He was admitted for acute diverticulitis with layla diverticular abscess. He is now on IV Levaquin, as well as IV Flagyl. According to notes, as surgeon consulted, patient will not need surgery as long as the abscess remains small. He is also here for pain control. Met with patient in his room. He was sitting on the edge of his bed, he had originally been on the phone. His was also in the room. Patient is alert and oriented, and independent at his baseline. Him and his reside here in [place]. 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 Confirmed with him that Dr. Payton Morfin is his primary care provider. Patient also indicated, he has had an episode of diverticulitis before. P: DCP to continue to follow for any needs. Patient should be able to go home when deemed medically stable. Tracy Lyons RN/Photoeng[employer]ving Photographer
--- NOTE | 2021-05-31 13:06 | PM.PN.1 ---
Subjective Subjective Date Patient Seen: 05/31/21 Time Patient Seen: 08:00 Interval history: He has no change in his symptoms today. He still feels a little nauseous. No vomiting. Passing gas. Still has significant pain that comes and goes, but seems to be moderately improved with pain medications. Exam Vital Signs (past 8 hours): - 05/31/21 07:45 05/31/21 08:58 05/31/21 11:50 Temperature 97.4 F L 98.2 F Pulse Rate 75 75 69 Respiratory Rate 16 16 Blood Pressure 136/68 136/68 136/58 L Pulse Oximetry 97 96 Oxygen Delivery Method Room Air Oxygen Flow Rate 0 Narrative Exam Narrative: GEN: alert and oriented x3, in no acute distress CV: regular rate and rhythm without murmur PULM: clear to auscultation bilaterally ABD: soft, bowel sounds positive, obese, tender lower left side of abdomen, no rebound/guarding, no organomegaly EXT: no edema Objective Labs Result Diagrams: 05/31/21 05:00 05/31/21 05:00 Labs: Laboratory Results - last 24 hr 05/31/21 05/31/21 05:00 05:00 WBC 9.9 RBC 3.27 L Hgb 10.8 L Hct 31.7 L MCV 96.9 MCH 33.1 MCHC 34.1 RDW 14.3 Plt Count 167 Neut % (Auto) 80.2 H Lymph % (Auto) 8.8 L Mckean % (Auto) 10.2 Eos % (Auto) 0.5 L Baso % (Auto) 0.3 Neut # (Auto) 7900 H Lymph # (Auto) 900 L Mckean # (Auto) 1000 H Eos # (Auto) 100 Baso # (Auto) 0 Sodium 135 L Potassium 4.4 Chloride 106 Carbon Dioxide 25 BUN 12 Creatinine 0.80 Estimated GFR > 60.0 BUN/Creatinine Ratio 15.0 Glucose 110 Calcium 8.9 PFSH Medical History Arthritis Back pain CAD (coronary artery disease) Carotid artery disease Compound fracture COPD (chronic obstructive pulmonary disease) Cyst of left kidney Depression Diabetes Easy bruisability Enlarged prostate Finding of abnormal level of heavy metals in blood (~2018) Former smoker Hearing loss (01/22/18) HLD (hyperlipidemia) HTN (hypertension) Lung cancer (~1991) Neck pain Neuropathy NIKI (obstructive sleep apnea) Pneumonia RLS (restless legs syndrome) Rosacea Surgical History History of arthroplasty of both hips History of carpal tunnel surgery of right wrist History of vasectomy Hx of blepharoplasty Hx of heart artery stent (10/20/01) Hx of prostate biopsy (10/14/15) S/P lobectomy of lung (~1991) Family History (Updated 05/30/21 @ 11:01 by Carie Rizvi MD) Mother Congestive heart failure Father Pancreatic cancer Brother Diverticulitis Sister Diverticulitis Social History household members: spouse occupational status: employed Smoking Status: Former smoker alcohol intake: former substance use type: does not use Assessment & Plan Assessment & Plan narrative: Mr. Ochoa is a 70M with PMH type 2 diabetes mellitus, COPD and hypertension along with a history of diverticulitis who presents with left-sided abdominal pain found to have diverticulitis with a diverticular abscess measuring 1.3 x 3.3 cm. He tried and failed an outpatient treatment regimen of oral antibiotics and oral pain medication. Acute diverticulitis/diverticular abscess, present on admission, active. -white blood count 11.[address] scan showing a 1.3 by 3.3 cm diverticular abscess, WBC improved with antibiotics -he has failed an attempt at outpatient oral antibiotics with increasing pain -will be placed on IV dilaudid, ciprofloxacin and metronidazole. -follow daily CBC and repeat CT scan if pain worsens. -consult General surgery if pain worsens COPD, present on admission. Active. -continue albuterol, Dulera Coronary artery disease, present admission. Active. -continue rosuvastatin and metoprolol. Hyperlipidemia, present admission. Chronic. -continue rosuvastatin Hypertension, present on admission. Active. -Continue losartan and metoprolol Type 2 diabetes mellitus, present on admission. Active. -Continue Liraglutide Depression, present admission. Chronic. -Continue Zoloft BPH, present on admission. Chronic. -Continue tamsulosin Insomnia, present on admission. Chronic. -Continue zolpidem Arthritis, present on admission. Chronic. -continue Celebrex Hearing loss, present on admission. Chronic. His backup decision maker is his Rux for DVT prevention PCP is Dr. Payton perdomo
[2021-05-31] MEDS: CIPROFLOXACIN 400 MG/200 ML PIGGYBACK 200 MG IV ×2 (13:24→23:58)
[2021-05-31] MEDS: ATORVASTATIN 20 MG TABLET 10 MG PO (22:10)
[2021-05-31] MEDS: SODIUM CHLORIDE 0.9% 1,000 ML 1000 ML IV (23:16)
[2021-06-01] MEDS: SODIUM CHLORIDE 0.9% 1,000 ML 100 ML IV (03:15)
[2021-06-01] MEDS: metroNIDAZOLE 500 MG/100 ML PIGGYBACK 100 MG IV (04:26)
[2021-06-01 04:45] VITALS: BP 126/56; PULSE 59; RESP 20; TEMP 36.2; O2SAT 95
[2021-06-01 05:22] LABS: Hemoglobin 10.2 g/dL (13.5-17.5); Mean Corpuscular HGB Conc 33.9 % (30-36); Mean Corpuscular Hemoglobin 32.9 PG (26-34); Mean Corpuscular Volume 96.8 fL (80-100); Platelet Count 168 X10^3/uL (150-400); Red Cell Distribution Width 14.3 % (11.6-14.8); White Blood Cell Count 7.5 X10^3/uL (4.5-11.0)
[2021-06-01 05:47] LABS: BUN Creatinine Ratio 15.3 (6-22); Blood Urea Nitrogen 13 mg/dL (9-20); Calcium 8.5 mg/dL (8.4-10.2); Carbon Dioxide 23 mmol/L (22-32); Chloride 110 mmol/L (98-107); Estimated Glomerular Filt Rate > 60.0 mL/min (>60); Glucose 110 mg/dL (80-110); HEMOLYSIS < 15 (0-50); Potassium 4.2 mmol/L (3.4-5.1); Sodium 137 mmol/L (137-145)
[2021-06-01 08:17] VITALS: BP 144/68
[2021-06-01] MEDS: LOSARTAN 50 MG TABLET 100 MG PO (08:17)
[2021-06-01] MEDS: CHOLECALCIFEROL (VITAMIN D3) 1,000 UNIT TABLET 1000 UNIT PO (08:17)
[2021-06-01] MEDS: CELECOXIB 200 MG CAPSULE PO (08:17)
[2021-06-01 08:18] VITALS: BP 144/68
[2021-06-01] MEDS: SERTRALINE 50 MG TABLET 100 MG PO (08:18)
[2021-06-01] MEDS: METOPROLOL ER 25 MG TABLET PO (08:18)
[2021-06-01] MEDS: TAMSULOSIN 0.4 MG CAPSULE 0.8 MG PO (08:19)
[2021-06-01 09:10] VITALS: BP 144/68; PULSE 76; RESP 17; TEMP 36.4; O2SAT 98
--- NOTE | 2021-06-01 11:18 | CM.DPC ---
DCP: continued. Case received and discussed in Team Rounds. Dr. Rawls stated that pt was stable for d/c home today on oral antibiotics. Followup with PCP is planned.
[2021-06-01 11:53] VITALS: BP 127/61; PULSE 72; RESP 17; TEMP 36.6; O2SAT 98
--- NOTE | 2021-06-01 18:45 | P.DS_ITS ---
History of Present Illness History of Present Illness Chief complaint: DIVERTICULITIS- RETURNING PT OF MAHSA Narrative: Per Dr. Rizvi: This is a 70-year-old male with type 2 diabetes mellitus, COPD and hypertension along with a history of diverticulitis who presents with sudden onset of left- sided abdominal pain yesterday morning and a CT scan done in the emergency department at that time showing diverticulitis with a diverticular abscess measuring 1.3 x 3.3 cm. He tried and failed an outpatient treatment regimen of oral antibiotics and oral pain medication. Last night he was not able to get pain control longer than 2 hours at a time and so returned to the emergency department. IV Dilaudid has been more effective and so now he will be admitted for IV antibiotics and IV pain control. He was discussed with surgery yesterday who reviewed the CT scan measurements and suggested oral antibiotics could be effective versus IV inpatient treatment. There is no indication for IR to place a drain unless the abscess becomes larger. He has had no fever, vomiting, bleeding, diarrhea. His 1st episode of diverticulitis took several weeks to resolve in 2019. He remembers a colonoscopy last year after which the surgeon suggested to him that he had severe diverticular disease. Discharge Providers Provider Date of admission: 05/30/21 10:33 Discharge Date: 06/01/21 Primary care physician: Payton Morfin MD Discharge provider: Stefan Rawls MD Summary Hospital Course Discharge Diagnosis: 1. Acute diverticulitis with small diverticular abscess 2. COPD 3. CAD 4. HL 5. HTN 6. Type 2 Diabetes, not on insulin Hospital Course: Mr. Ochoa represented to the ED for worsening pain from his diverticulitis. He had been seen on 05/29 and discharged home, but had worsening abdominal pain. He remained hemodynamically stable. His initial WBC was 13.0, on dc improved to 7.5. His abdominal pain improved and he began tolerating diet with bowel movement. Surgery was made aware of patient but given size of abscess did not think patient needed drainage or surgery unless his symptoms worsened. He was discharged with an additional week of antibiotics to complete a 10 day course of antibiotics for his diverticulitis. He should follow up with his PCP within one week. Exam Vital Signs (past 8 hours): - 06/01/21 11:53 Temperature 97.8 F Pulse Rate 72 Respiratory Rate 17 Blood Pressure 127/61 Pulse Oximetry 98 Oxygen Delivery Method Room Air Oxygen Flow Rate 0 Narrative Exam Narrative: GEN: alert and oriented x3, in no acute distress CV: regular rate and rhythm without murmur PULM: clear to auscultation bilaterally ABD: soft, bowel sounds positive, obese, nontender, no rebound/guarding, no organomegaly EXT: no edema Objective Labs Result Diagrams: 06/01/21 04:55 06/01/21 04:55 Labs: Laboratory Results - last 24 hr 06/01/21 06/01/21 04:55 04:55 WBC 7.5 RBC 3.10 L Hgb 10.2 L Hct 30.0 L MCV 96.8 MCH 32.9 MCHC 33.9 RDW 14.3 Plt Count 168 Sodium 137 Potassium 4.2 Chloride 110 H Carbon Dioxide 23 BUN 13 Creatinine 0.85 Estimated GFR > 60.0 BUN/Creatinine Ratio 15.3 Glucose 110 Calcium 8.5 PFSH Medical History Arthritis Back pain CAD (coronary artery disease) Carotid artery disease Compound fracture COPD (chronic obstructive pulmonary disease) Cyst of left kidney Depression Diabetes Easy bruisability Enlarged prostate Finding of abnormal level of heavy metals in blood (~2018) Former smoker Hearing loss (01/22/18) HLD (hyperlipidemia) HTN (hypertension) Lung cancer (~1991) Neck pain Neuropathy NIKI (obstructive sleep apnea) Pneumonia RLS (restless legs syndrome) Rosacea Surgical History History of arthroplasty of both hips History of carpal tunnel surgery of right wrist History of vasectomy Hx of blepharoplasty Hx of heart artery stent (10/20/01) Hx of prostate biopsy (10/14/15) S/P lobectomy of lung (~1991) Family History (Updated 05/30/21 @ 11:01 by Carie Rizvi MD) Mother Congestive heart failure Father Pancreatic cancer Brother Diverticulitis Sister Diverticulitis Social History household members: spouse occupational status: employed Smoking Status: Former smoker alcohol intake: former substance use type: does not use Discharge Plan Discharge Plan Patient Disposition: Home Provider Discharge Comment: Mr. Ochoa was admitted with abdominal pain and had diverticulitis with a small fluid collection (abscess). Surgery was consulted and determined that there was no need for drainage given the size. Mr. Ochoa was started on antibiotics and improved. He should continue on antibiotics for another week. He should follow up with his PCP within a week to make sure he is improving. Discharge orders & Medications Prescriptions: New oxycodone 5 mg Tablet 5 mg PO Q6HR PRN (Reason: Pain, Moderate (4-6)) Qty: 16 RF: 0 ciprofloxacin HCl [Cipro] 500 mg tablet 500 mg PO Q12H Qty: 14 RF: 0 metronidazole [Flagyl] 500 mg tablet 500 mg PO Q8H Qty: 21 RF: 0 Continued ALBUTEROL (PROVENTIL INHALER) 1 puff Inhalation PRN PRN (Reason: Shortness Of Breath) Qty: 0 RF: 0 losartan [Cozaar] 100 MG tablet 100 mg PO QDAY Qty: 0 RF: 0 cholecalciferol (vitamin D3) 25 mcg (1,000 unit) capsule 25 mcg PO DAILY RF: 0 liraglutide 0.6 mg/0.1 mL (18 mg/3 mL) pen injector 1.8 mg SUBCUT DAILY RF: 0 nitroglycerin 0.4 mg tablet, sublingual 0.4 mg sublingual Q5M PRN (Reason: Chest Pain) RF: 0 tamsulosin 0.4 mg Capsule 0.8 mg PO DAILY RF: 0 sertraline [Zoloft] 20 mg/mL Concentrate 100 mg PO DAILY RF: 0 Dulera 50-5 mcg/actuation Hfa Aerosol Inhaler 2 puff inhalation BID RF: 0 cyclobenzaprine 10 mg tablet 10 mg PO DAILY PRN (Reason: Pain, Moderate) RF: 0 methocarbamol 750 mg tablet 750 mg PO DAILY PRN (Reason: Pain, Moderate) RF: 0 metoprolol succinate 25 mg tablet extended release 24 hr 25 mg PO DAILY RF: 0 zolpidem 10 mg tablet 10 mg PO QPM PRN (Reason: Sleep) RF: 0 Repatha Syringe 140 mg/mL syringe 140 mg SUBCUT Q10D RF: 0 meloxicam 15 mg tablet 15 mg PO 0800 PRN (Reason: Pain, Severe) RF: 0 rosuvastatin [Crestor] 5 mg tablet 5 mg PO DAILY RF: 0 Discontinued celecoxib 200 mg capsule 200 mg PO DAILY RF: 0 levofloxacin 750 mg tablet 750 mg PO DAILY Qty: 10 RF: 0 oxycodone-acetaminophen 5-325 mg tablet 1 tab PO Q6H PRN (Reason: pain) Qty: 10 RF: 0 oxycodone 5 mg Tablet 5 mg PO QID PRN (Reason: Pain (Scale Score 4-6)) RF: 0 Follow up/Referrals: Payton Morfin MD [Primary Care Provider] - Diet/Activity/Treatments Diet: Diet as Tolerated and Carb-consistent/Diabetic Skin/Wound/Dressing Care Report to your healthcare provider any signs of infection, such as:: chills, fever and increased pain Visit Report/Discharge Packet Instructions: Diverticulitis, DI for Prescription Opioid Use Discharge Data Primary Care Provider: Payton Morfin Quality MIPS - DC The patient has current or prior documentation of left ventricular ejection fraction (LVEF) less than 40%, or moderate or severely depressed left ventricular systolic function.: No
== END 2021-06-01 12:35 | disposition home or self-care (01) | DRG 392 ==
LOC: ED 10:31 → AC 11:52
PROVIDERS: Internal Medicine; Admitting Provider Family Medicine; Emergency Provider Emergency Medicine; PCP Internal Medicine; Referring Provider Emergency Medicine; Visit Provider Family Medicine
DX: K57.20 Diverticulitis of large intestine with perforation and abscess without bleeding (principal); E11.9 Type 2 diabetes mellitus without complications; J44.9 Chronic obstructive pulmonary disease, unspecified; I10 Essential (primary) hypertension; E78.5 Hyperlipidemia, unspecified; G25.81 Restless legs syndrome; F32.9 Major depressive disorder, single episode, unspecified; I25.10 Atherosclerotic heart disease of native coronary artery without angina pectoris; N40.0 Benign prostatic hyperplasia without lower urinary tract symptoms; G47.00 Insomnia, unspecified; M19.90 Unspecified osteoarthritis, unspecified site; Z20.822 Contact with and (suspected) exposure to COVID-19; Z79.899 Other long term (current) drug therapy; Z87.891 Personal history of nicotine dependence
CPT/HCPCS: 36415; 74177; 80048; 80053; 81003; 82962; 83605; 83690; 85025; 85027; 87040; 87635; 96365; 96375; 99284; C9803; J0744; J1170; J1650; J1885; J1956; J2405; Q9967

== ENCOUNTER → 2021-06-30 10:51 | Outpatient (CLI) | payer MEDICARE, OTHER, SELFPAY ==
[2021-06-30 11:23] LABS: Add Manual Diff / Slide Review NO; Basophils Absolute Auto 100 /uL (0-100); Basophils Percent Auto 0.9 % (0-2); Eosinophils Absolute Auto 100 /uL (0-450); Eosinophils Percent Auto 1.2 % (2-4); Hematocrit 37.9 % (41-53); Lymphocytes Absolute Auto 1200 /uL (1100-4500); Lymphocytes Percent Auto 16.5 % (25-40); Mean Corpuscular HGB Conc 34.3 % (30-36); Mean Corpuscular Hemoglobin 32.8 PG (26-34); Mean Corpuscular Volume 95.7 fL (80-100); Monocytes Absolute Auto 700 /uL (0-900); Monocytes Percent Auto 9.8 % (3-14); Neutrophils Absolute Auto 5400 /uL (1500-7000); Neutrophils Percent Auto 71.6 % (50-75); Platelet Count 199 X10^3/uL (150-400); Red Blood Cell Count 3.96 X10^6/uL (4.5-5.9); Red Cell Distribution Width 14.3 % (11.6-14.8); White Blood Cell Count 7.6 X10^3/uL (4.5-11.0)
[2021-06-30 11:45] LABS: Hemoglobin A1C% w Est Avg Glu 5.7 % (4.0-6.0)
[2021-06-30 11:57] LABS: Alanine Aminotransferase 25 IU/L (<50); Albumin 4.4 g/dL (3.5-5.0); Albumin Globulin Ratio 1.3 (1.0-2.8); Alkaline Phosphatase 66 U/L (38-126); Aspartate Aminotransferase 35 IU/L (17-59); BUN Creatinine Ratio 23.1 (6-22); Bilirubin Total 0.6 mg/dL (0.2-1.3); Blood Urea Nitrogen 18 mg/dL (9-20); Calcium 9.7 mg/dL (8.4-10.2); Carbon Dioxide 30 mmol/L (22-32); Chloride 104 mmol/L (98-107); Cholesterol 155 mg/dL (140-199); Estimated Glomerular Filt Rate > 60.0 mL/min (>60); Globulin 3.4 g/dL (1.7-4.1); Glucose 109 mg/dL (80-110); HDL Cholesterol 59 mg/dL (40-60); HEMOLYSIS 24 (0-50); LDL Cholesterol Calculated 71 mg/dL (<100); Potassium 4.8 mmol/L (3.4-5.1); Sodium 139 mmol/L (137-145); Total Protein 7.8 g/dL (6.3-8.2); Triglycerides 125 mg/dL (35-150)
[2021-06-30 15:07] LABS: Creatinine Urine Random 89.3 mg/dL
[2021-06-30 15:11] LABS: Microalbumi Creatinin Ratio Ur 23.5 ug/mg CR (<30); Microalbumin Urine Random 2.1 mg/dL (0-1.6)
[2021-07-01 17:46] LABS: Hep C Virus Ab w/Reflex Quant NEGATIVE s/c (NEGATIVE)
== END ==
PROVIDERS: PCP Internal Medicine; Referring Provider Internal Medicine; Visit Provider Internal Medicine
DX: E11.9 Type 2 diabetes mellitus without complications (principal); K57.92 Diverticulitis of intestine, part unspecified, without perforation or abscess without bleeding; Z79.4 Long term (current) use of insulin; I10 Essential (primary) hypertension; E78.5 Hyperlipidemia, unspecified; Z11.59 Encounter for screening for other viral diseases
CPT/HCPCS: 36415; 80053; 80061; 82043; 82570; 83036; 85025; 86803

== ENCOUNTER → 2021-08-31 11:35 | Outpatient (CLI) | payer MEDICARE, OTHER, SELFPAY ==
[2021-08-31 13:11] LABS: Add Manual Diff / Slide Review NO; Basophils Absolute Auto 0 /uL (0-100); Basophils Percent Auto 0.5 % (0-2); Eosinophils Absolute Auto 100 /uL (0-450); Eosinophils Percent Auto 0.6 % (2-4); Hematocrit 35.3 % (41-53); Hemoglobin 11.9 g/dL (13.5-17.5); Lymphocytes Absolute Auto 1200 /uL (1100-4500); Lymphocytes Percent Auto 14.5 % (25-40); Mean Corpuscular HGB Conc 33.7 % (30-36); Mean Corpuscular Hemoglobin 31.6 PG (26-34); Mean Corpuscular Volume 93.9 fL (80-100); Monocytes Absolute Auto 700 /uL (0-900); Monocytes Percent Auto 8.4 % (3-14); Neutrophils Absolute Auto 6100 /uL (1500-7000); Platelet Count 206 X10^3/uL (150-400); Red Blood Cell Count 3.76 X10^6/uL (4.5-5.9); Red Cell Distribution Width 14.4 % (11.6-14.8)
[2021-08-31 14:12] LABS: Cholesterol 147 mg/dL (140-199); HDL Cholesterol 53 mg/dL (40-60); LDL Cholesterol Calculated 69 mg/dL (<100); Triglycerides 125 mg/dL (35-150)
[2021-08-31 14:56] LABS: Vitamin B12 501 pg/mL (239-931)
== END ==
PROVIDERS: PCP Internal Medicine; Referring Provider Internal Medicine; Visit Provider Internal Medicine
DX: E78.5 Hyperlipidemia, unspecified (principal); R53.82 Chronic fatigue, unspecified
CPT/HCPCS: 36415; 80061; 82607; 85025

== ENCOUNTER → 2021-10-06 14:48 | Outpatient (ROUT) | payer MEDICARE, OTHER, SELFPAY ==
[2021-10-06 15:20] LABS: COVID19 -Nasal RAPID Negative (Negative)
== END ==
PROVIDERS: PCP Internal Medicine; Visit Provider Physician Assistant
DX: Z20.822 Contact with and (suspected) exposure to COVID-19 (principal)
CPT/HCPCS: 87635

== ENCOUNTER 2021-10-16 11:01 | Emergency (ER) | payer MEDICARE, OTHER, SELFPAY ==
[2021-10-16 11:08] VITALS: BP 152/79; PULSE 84; RESP 30; TEMP 36.4; O2SAT 97; BMI 35.4
[2021-10-16 11:16] VITALS: PULSE 85; RESP 25; O2SAT 96
--- NOTE | 2021-10-16 11:17 | DI.RAD.S_ITS ---
PROCEDURE: XR CHEST 1V INDICATIONS: suspected sepsis TECHNIQUE: One view of the chest was acquired. COMPARISON: [facility], CT, CT ABDOMEN PELVIS W CON, 05/29/2021, 6:43. , [facility], CR, XR CHEST 1V, 07/31/2020, 15:10. FINDINGS: Surgical changes and devices: None. Lungs and pleura: Emphysematous. changes are present. Subdiaphragmatic fat is noted on the right, unchanged minimal appearance of patchy left basilar opacity is noted. Mediastinum: Mediastinal contours appear normal. Heart size is normal. Bones and chest wall: No suspicious bony lesions. Overlying soft tissues appear unremarkable. IMPRESSION: Minimal patchy left basilar opacity possibly atelectasis versus developing pneumonia. Dictated by: Anna Horvath M.D. on 10/16/2021 at 11:50 Approved by: Anna Horvath M.D. on 10/16/2021 at 11:51
[2021-10-16 11:30] VITALS: PULSE 77; RESP 25; O2SAT 96
[2021-10-16 11:43] LABS: Add Manual Diff / Slide Review NO; Basophils Absolute Auto 0 /uL (0-100); Basophils Percent Auto 0.3 % (0-2); Eosinophils Absolute Auto 0 /uL (0-450); Eosinophils Percent Auto 0.1 % (2-4); Lymphocytes Absolute Auto 1000 /uL (1100-4500); Lymphocytes Percent Auto 8.4 % (25-40); Mean Corpuscular HGB Conc 33.4 % (30-36); Mean Corpuscular Hemoglobin 31.3 PG (26-34); Mean Corpuscular Volume 93.9 fL (80-100); Monocytes Absolute Auto 400 /uL (0-900); Monocytes Percent Auto 3.8 % (3-14); Neutrophils Absolute Auto 10100 /uL (1500-7000); Neutrophils Percent Auto 87.4 % (50-75); Platelet Count 216 X10^3/uL (150-400); Red Blood Cell Count 3.83 X10^6/uL (4.5-5.9); Red Cell Distribution Width 15.3 % (11.6-14.8); White Blood Cell Count 11.6 X10^3/uL (4.5-11.0)
[2021-10-16 11:52] LABS: INR 1.1 (0.9-1.3)
[2021-10-16 11:54] LABS: PTT Partial Thromboplastin Tim 31 SECONDS (26.4-36.2)
[2021-10-16 11:57] LABS: Lactate (Lactic Acid) 1.7 mmol/L (0.7-2.1)
[2021-10-16 11:58] LABS: Alanine Aminotransferase 37 IU/L (<50); Albumin 3.8 g/dL (3.5-5.0); Albumin Globulin Ratio 1.2 (1.0-2.8); Alkaline Phosphatase 81 U/L (38-126); Aspartate Aminotransferase 28 IU/L (17-59); BUN Creatinine Ratio 28.3 (6-22); Bilirubin Total 0.6 mg/dL (0.2-1.3); Blood Urea Nitrogen 26 mg/dL (9-20); Calcium 9.2 mg/dL (8.4-10.2); Carbon Dioxide 22 mmol/L (22-32); Chloride 110 mmol/L (98-107); Estimated Glomerular Filt Rate > 60.0 mL/min (>60); Globulin 3.3 g/dL (1.7-4.1); Glucose 136 mg/dL (80-110); HEMOLYSIS < 15 (0-50); Lipase 114 U/L (23-300); Sodium 139 mmol/L (137-145); Total Protein 7.1 g/dL (6.3-8.2)
[2021-10-16 11:59] LABS: Creatine Kinase 29 U/L (55-170)
[2021-10-16 12:11] LABS: NT-proBNP (BNP-Adult 18+) 338 pg/mL (<125); Troponin I < 0.012 ng/mL (0.01-0.034)
[2021-10-16 12:15] LABS: Procalcitonin 0.11 ng/mL (<0.5)
--- NOTE | 2021-10-16 13:01 | ED.GENADULT ---
HPI - General Adult General Chief complaint: Fever Stated complaint: thinks pneumonia, needs xray/labs Time Seen by Provider: 10/16/21 11:33 Source: patient Mode of arrival: Ambulatory History of Present Illness HPI narrative: 71-year-old gentleman with COPD, diabetes, hypertension, coronary artery disease presents with worsening cough and low-grade fevers after completing a course of doxycycline for presumed pneumonia. He is fully vaccinated in boosted for COVID. Has not been having significant chest pain or palpitations however he does notice some pain across his mid back starting on the left side radiating to the right that is worse with a deep breath. He saw his primary care physician when symptoms started about a week and half ago was given a prednisone taper and a course of doxycycline. He felt that that improved but then he plateaued and over the last 2-3 days has been having recurrent low-grade fevers and increasing cough. The cough is nonproductive. His primary care provider has given him a prescription for continued prednisone and changed antibiotics to Levaquin. He has not yet started these but has both medications available to him. He comes in for further evaluation at this time. He describes no orthopnea, palpitations, exertional dyspnea, abdominal pain, vomiting, diarrhea, dysuria or hematuria. He notes no lower extremity edema and has not complain of any headaches. Related Data Home Medications Medication Instructions Recorded Confirmed ALBUTEROL (PROVENTIL INHALER) 1 puff INHALATION PRN PRN #0 08/17/11 05/30/21 losartan 100 mg tablet (Cozaar) 100 mg PO QDAY #0 08/17/11 05/30/21 tamsulosin 0.4 mg capsule 0.8 mg PO DAILY 01/24/19 05/30/21 sertraline 20 mg/mL oral 100 mg PO DAILY 02/07/19 05/30/21 concentrate (Zoloft) cholecalciferol (vitamin D3) 25 25 mcg PO DAILY 09/23/20 05/30/21 mcg (1,000 unit) capsule liraglutide 0.6 mg/0.1 mL (18 mg/3 1.8 mg SUBCUT DAILY 09/23/20 05/30/21 mL) subcutaneous pen injector nitroglycerin 0.4 mg sublingual 0.4 mg SUBLINGUAL Q5M PRN 12/09/20 08/15/21 tablet mometasone-formoterol HFA 50 mcg-5 2 puff INHALATION BID 10/22/20 05/30/21 mcg/actuation aerosol inhaler (Dulera) cyclobenzaprine 10 mg tablet 10 mg PO DAILY PRN 05/30/21 05/30/21 evolocumab 140 mg/mL subcutaneous 140 mg SUBCUT Q10D 05/30/21 05/30/21 syringe (Repatha Syringe) meloxicam 15 mg tablet 15 mg PO 0800 PRN 05/30/21 05/30/21 methocarbamol 750 mg tablet 750 mg PO DAILY PRN 05/30/21 05/30/21 metoprolol succinate 25 mg 25 mg PO DAILY 05/30/21 05/30/21 tablet,extended release 24 hr rosuvastatin 5 mg tablet (Crestor) 5 mg PO DAILY 05/30/21 05/30/21 zolpidem 10 mg tablet 10 mg PO QPM PRN 05/30/21 05/30/21 Previous Rx's Medication Instructions Recorded ciprofloxacin HCl 500 mg tablet 500 mg PO Q12H #14 tab 06/01/21 (Cipro) metronidazole 500 mg tablet 500 mg PO Q8H #21 tab 06/01/21 (Flagyl) oxycodone 5 mg tablet 5 mg PO Q6HR PRN #16 tab 06/01/21 Allergies Allergy/AdvReac Type Severity Reaction Status Date / Time latex Allergy Severe Rash Verified 10/16/21 11:12 Penicillins [PENICILLINS] Allergy Severe Anaphylaxis Verified 10/16/21 11:12 adhesive tape AdvReac Severe Melts to Verified 10/16/21 11:12 my skin and pulls my skin off amino acids [From Chromimin] AdvReac Severe High blood Verified 10/16/21 11:12 level of chromim chromium [From Chromimin] AdvReac Severe High blood Verified 10/16/21 11:12 level of chromim cobalt AdvReac Severe High blood Verified 10/16/21 11:12 level of cobalt meperidine [MEPERIDINE] AdvReac Severe VOMITING Verified 10/16/21 11:12 morphine [MORPHINE] AdvReac Intermediate HALLUCINATI Verified 10/16/21 11:12 ONS Review of Systems Review of Systems Narrative: Remainder of complete review of systems is otherwise unremarkable except for that included in the HPI. Patient History Medical History Arthritis Back pain CAD (coronary artery disease) Carotid artery disease Compound fracture COPD (chronic obstructive pulmonary disease) Cyst of left kidney Depression Diabetes Easy bruisability Enlarged prostate Finding of abnormal level of heavy metals in blood (~2018) Former smoker Hearing loss (01/22/18) HLD (hyperlipidemia) HTN (hypertension) Lung cancer (~1991) Neck pain Neuropathy NIKI (obstructive sleep apnea) Pneumonia RLS (restless legs syndrome) Rosacea Surgical History History of arthroplasty of both hips History of carpal tunnel surgery of right wrist History of vasectomy Hx of blepharoplasty Hx of heart artery stent (10/20/01) Hx of prostate biopsy (10/14/15) S/P lobectomy of lung (~1991) Family History Mother Congestive heart failure Father Pancreatic cancer Brother Diverticulitis Sister Diverticulitis Social History household members: spouse occupational status: employed Smoking Status: Former smoker alcohol intake: former substance use type: does not use Smoking Status: Former smoker alcohol intake frequency: holidays/special occasions only Substance Use Type: does not use Exam Narrative Exam Narrative: General: Healthy appearing, in no acute distress. Able to give a complete and coherent history. Well-nourished well-developed HEENT: Moist mucous membranes, normal sclera with reactive pupils, Neck: No JVD, supple Respiratory: Lungs are clear to auscultation, no wheezing no rales no rhonchi. Full and symmetrical air movement Cardiac: Regular rate and rhythm no murmurs no bruits Abdomen: Soft, nontender, good bowel tones, no flank pain Skin: Warm and dry, no rashes Neurologic: Grossly neurologically intact with no obvious asymmetries or abnormalities Extremities: No trauma, well perfused Psych: Cooperative, appropriate insight and affect Initial Vital Signs Initial Vital Signs: Vital Signs Temperature 97.5 F L 10/16/21 11:08 Pulse Rate 84 10/16/21 11:08 Respiratory Rate 30 H 10/16/21 11:08 Blood Pressure 152/79 H 10/16/21 11:08 Pulse Oximetry 97 10/16/21 11:08 Course Orders Ordered: ED Orders 10/16/21 11:17 XR chest 1V Stat EKG-12 Lead Stat RT Consult Eval and Treat NOW 10/16/21 11:25 Complete Blood Count AUTO DIFF Stat Comprehensive Metabolic Panel Stat Lactate (Lactic Acid) Stat Lipase Stat NT-proBNP (BNP-Adult 18+) Stat Partial Thromboplastin Time Stat Procalcitonin Stat Prothrombin Time INR Stat Respiratory Panel (Film Array) Stat Troponin & CK Cardiac Panel Stat 10/16/21 12:20 Blood Culture Stat Vital Signs Vital signs: Vital Signs - 8 hr 10/16/21 11:08 10/16/21 11:16 10/16/21 11:30 Temperature 97.5 F L Pulse Rate 84 85 77 Respiratory Rate 30 H 25 H 25 H Blood Pressure 152/79 H Pulse Oximetry 97 96 96 Medical Decision Making Lab Data Result diagrams: 10/16/21 11:25 10/16/21 11:25 Labs: Lab Results 10/16/21 10/16/21 10/16/21 Range/Units 11:25 11:25 11:25 WBC 11.6 H (4.5-11.0) X10^3/uL RBC 3.83 L (4.5-5.9) X10^6/uL Hgb 12.0 L (13.5-17.5) g/dL Hct 36.0 L (41-53) % MCV 93.9 (80-100) fL MCH 31.3 (26-34) PG MCHC 33.4 (30-36) % RDW 15.3 H (11.6-14.8) % Plt Count 216 (150-400) X10^3/uL Neut % (Auto) 87.4 H (50-75) % Lymph % (Auto) 8.4 L (25-40) % [place] % (Auto) 3.8 (3-14) % Eos % (Auto) 0.1 L (2-4) % Baso % (Auto) 0.3 (0-2) % Neut # (Auto) 35584 H (7357-0119) /uL Lymph # (Auto) 1000 L (9692-5714) /uL [place] # (Auto) 400 (0-900) /uL Eos # (Auto) 0 (0-450) /uL Baso # (Auto) 0 (0-100) /uL PT (10.1-12.7) SECONDS INR (0.9-1.3) APTT (26.4-36.2) SECONDS Sodium 139 (137-145) mmol/L Potassium 4.0 (3.4-5.1) mmol/L Chloride 110 H (98-107) mmol/L Carbon Dioxide 22 (22-32) mmol/L BUN 26 H (9-20) mg/dL Creatinine 0.92 (0.66-1.25) mg/dL Estimated GFR > 60.0 (>60) mL/min BUN/Creatinine Ratio 28.3 H (6-22) Glucose 136 H (80-110) mg/dL Lactate 1.7 (0.7-2.1) mmol/L Calcium 9.2 (8.4-10.2) mg/dL Total Bilirubin 0.6 (0.2-1.3) mg/dL AST 28 (17-59) IU/L ALT 37 (<50) IU/L Alkaline Phosphatase 81 (38-126) U/L Total Creatine Kinase (55-170) U/L CK-MB (CK-2) CK-MB (CK-2) Rel Index Troponin I (0.01-0.034) ng/mL NT-Pro-B Natriuret Pep (<125) pg/mL Total Protein 7.1 (6.3-8.2) g/dL Albumin 3.8 (3.5-5.0) g/dL Globulin 3.3 (1.7-4.1) g/dL Albumin/Globulin Ratio 1.2 (1.0-2.8) Lipase 114 (23-300) U/L Procalcitonin 0.11 (<0.5) ng/mL 10/16/21 10/16/21 Range/Units 11:25 11:25 WBC (4.5-11.0) X10^3/uL RBC (4.5-5.9) X10^6/uL Hgb (13.5-17.5) g/dL Hct (41-53) % MCV (80-100) fL MCH (26-34) PG MCHC (30-36) % RDW (11.6-14.8) % Plt Count (150-400) X10^3/uL Neut % (Auto) (50-75) % Lymph % (Auto) (25-40) % [place] % (Auto) (3-14) % Eos % (Auto) (2-4) % Baso % (Auto) (0-2) % Neut # (Auto) (9303-9250) /uL Lymph # (Auto) (7548-4549) /uL [place] # (Auto) (0-900) /uL Eos # (Auto) (0-450) /uL Baso # (Auto) (0-100) /uL PT 12.0 (10.1-12.7) SECONDS INR 1.1 (0.9-1.3) APTT 31 (26.4-36.2) SECONDS Sodium (137-145) mmol/L Potassium (3.4-5.1) mmol/L Chloride (98-107) mmol/L Carbon Dioxide (22-32) mmol/L BUN (9-20) mg/dL Creatinine (0.66-1.25) mg/dL Estimated GFR (>60) mL/min BUN/Creatinine Ratio (6-22) Glucose (80-110) mg/dL Lactate (0.7-2.1) mmol/L Calcium (8.4-10.2) mg/dL Total Bilirubin (0.2-1.3) mg/dL AST (17-59) IU/L ALT (<50) IU/L Alkaline Phosphatase (38-126) U/L Total Creatine Kinase 29 L (55-170) U/L CK-MB (CK-2) TNP CK-MB (CK-2) Rel Index TNP Troponin I < 0.012 (0.01-0.034) ng/mL NT-Pro-B Natriuret Pep 338 H (<125) pg/mL Total Protein (6.3-8.2) g/dL Albumin (3.5-5.0) g/dL Globulin (1.7-4.1) g/dL Albumin/Globulin Ratio (1.0-2.8) Lipase (23-300) U/L Procalcitonin (<0.5) ng/mL Urine Dip Bedside Urine Glucose Negative Bedside Urine Bilirubin - Negative Bedside Urine Ketone - Negative Urine Specific [place] 1.030 Bedside Urine Occult Blood - Negative Bedside Urine pH 6.0 Bedside Urine Protein - Negative Bedside Urine Urobilinogen - Negative Bedside Urine Nitrite - Negative Bedside Urine Leukocytes - Negative Esterase Point of care testing: Urine Dip Bedside Urine Glucose Negative Bedside Urine Bilirubin - Negative Bedside Urine Ketone - Negative Urine Specific [place] 1.030 Bedside Urine Occult Blood - Negative Bedside Urine pH 6.0 Bedside Urine Protein - Negative Bedside Urine Urobilinogen - Negative Bedside Urine Nitrite - Negative Bedside Urine Leukocytes - Negative Esterase Imaging Data Chest x-ray: Radiologist's Impression: FINDINGS:? ? Surgical changes and devices:? None.? ? Lungs and pleura:? Emphysematous.? changes are present.? Subdiaphragmatic fat is noted on the right, unchanged minimal appearance of patchy left basilar opacity is noted. ? Mediastinum:? Mediastinal contours appear normal.? Heart size is normal.? ? Bones and chest wall:? No suspicious bony lesions.? Overlying soft tissues appear unremarkable.? ? IMPRESSION:? Minimal patchy left basilar opacity possibly atelectasis versus developing pneumonia. ? ? Dictated by: Anna Horvath M.D. on 10/16/2021 at 11:50 ? ? ECG Data Interpretation: Sinus rhythm at 75 Normal intervals, normal axis No acute ischemic changes MDM Narrative Medical decision making narrative: 71-year-old gentleman with coronary artery disease and COPD upper respiratory infection with pleuritic pain that seems to start on the left side posteriorly. No evidence of congestive heart failure clinically. No evidence of sepsis, acute coronary syndrome or consolidated bacterial pneumonia. Respiratory panel shows parainfluenza virus which is certainly fitting with his clinical picture. Given his COPD in the slight fevers I am going to recommend that he continue with the Levaquin as already prescribed and the steroid taper as already prescribed. At this point he is not hypoxic, tachypneic, hypotensive or significantly tachycardic and does not need hospital admission. Findings reviewed with him and he is discharged home Discharge Plan Departure Patient Disposition: Home Clinical Impression: Infection due to parainfluenza virus 2, Acute exacerbation of chronic obstructive pulmonary disease Instructions: DI for Pneumonia -- Adult Activity Restrictions/Additional Instructions: Thank you for coming in today I did not find any evidence for worsening bacterial pneumonia. With your symptoms as well as her COPD I would continue with the Levaquin and prednisone taper as already prescribed. Your respiratory panel came back showing parainfluenza virus 2 which causes upper respiratory symptoms. You do not have COVID or influenza. Typically viruses are going to last 7-10 days and resolve with supportive care I did not find any evidence for alternative explanations for your fever and cough such as congestive heart failure or acute coronary syndrome. Please continue with all current medications and if you find that you are getting worse please feel free to return to the emergency department I hope your trial goes well next week. Prescriptions: No Action ALBUTEROL (PROVENTIL INHALER) 1 puff Inhalation PRN PRN (Reason: Shortness Of Breath) Qty: 0 0RF losartan [Cozaar] 100 MG tablet 100 mg PO QDAY Qty: 0 0RF cholecalciferol (vitamin D3) 25 mcg (1,000 unit) capsule 25 mcg PO DAILY 0RF liraglutide 0.6 mg/0.1 mL (18 mg/3 mL) pen injector 1.8 mg SUBCUT DAILY 0RF nitroglycerin 0.4 mg tablet, sublingual 0.4 mg sublingual Q5M PRN (Reason: Chest Pain) 0RF Rx Instructions: do not exceed 3 doses per episode tamsulosin 0.4 mg Capsule 0.8 mg PO DAILY 0RF sertraline [Zoloft] 20 mg/mL Concentrate 100 mg PO DAILY 0RF Dulera 50-5 mcg/actuation Hfa Aerosol Inhaler 2 puff inhalation BID 0RF cyclobenzaprine 10 mg tablet 10 mg PO DAILY PRN (Reason: Pain, Moderate) 0RF Label Comments: TAKE 1 TABLET BY MOUTH EVERY NIGHT NEEDED methocarbamol 750 mg tablet 750 mg PO DAILY PRN (Reason: Pain, Moderate) 0RF metoprolol succinate 25 mg tablet extended release 24 hr 25 mg PO DAILY 0RF Label Comments: TAKE 1 TABLET BY MOUTH EVERY DAY zolpidem 10 mg tablet 10 mg PO QPM PRN (Reason: Sleep) 0RF Label Comments: TAKE 1 TABLET BY MOUTH ONE DAILY AT BEDTIME NEEDED Repatha Syringe 140 mg/mL syringe 140 mg SUBCUT Q10D 0RF Label Comments: INJECT 1 ML UNDER THE SKIN EVERY 2 WEEKS meloxicam 15 mg tablet 15 mg PO 0800 PRN (Reason: Pain, Severe) 0RF rosuvastatin [Crestor] 5 mg tablet 5 mg PO DAILY 0RF Label Comments: TAKE 1 TABLET BY MOUTH EVERY DAY oxycodone 5 mg Tablet 5 mg PO Q6HR PRN (Reason: Pain, Moderate (4-6)) Qty: 16 0RF ciprofloxacin HCl [Cipro] 500 mg tablet 500 mg PO Q12H Qty: 14 0RF metronidazole [Flagyl] 500 mg tablet 500 mg PO Q8H Qty: 21 0RF Referrals: Payton Morfin MD [Primary Care Provider] -
[2021-10-16 13:21] LABS: Adenovirus Not Detected (Not Detect); B. parapertussis Not Detected (Not Detecte); Bordetella pertussis Not Detected (Not Detecte); Chlamydophila pneumoniae Not Detected (Not Detect); Coronavirus 229E Not Detected (Not Detect); Coronavirus HKU1 Not Detected (Not Detect); Coronavirus NL 63 Not Detected (Not Detect); Coronavirus OC43 Not Detected (Not Detect); Human Metapneumovirus Not Detected (Not Detect); Human Rhinovirus/Enterovirus Not Detected (Not Detect); Influenza A Not Detected (Not Detect); Influenza B Not Detected (Not Detect); Mycoplasma pneumoniae Not Detected (Not Detect); Parainfluenza Virus 1 Not Detected (Not Detect); Parainfluenza Virus 2 Detected (Not Detect); Parainfluenza Virus 3 Not Detected (Not Detect); Parainfluenza Virus 4 Not Detected (Not Detect); Respiratory Syncytial Virus Not Detected (Not Detect); SARS- CoV-2 Not Detected (Not Detecte)
[2021-10-16 13:40] VITALS: BP 165/70; PULSE 81; RESP 19; O2SAT 95
== END 2021-10-16 13:43 | disposition home or self-care (01) ==
PROVIDERS: Emergency Provider Emergency Medicine; PCP Internal Medicine
DX: B34.8 Other viral infections of unspecified site (principal); J44.1 Chronic obstructive pulmonary disease with (acute) exacerbation; I10 Essential (primary) hypertension; Z87.891 Personal history of nicotine dependence
CPT/HCPCS: 71045; 80053; 81003; 82550; 83605; 83690; 83880; 84145; 84484; 85025; 85610; 85730; 87040; 87633; 93005; 99284

== ENCOUNTER → 2021-10-26 15:56 | Outpatient (CLI) | payer MEDICARE, OTHER, SELFPAY ==
--- NOTE | 2021-10-26 | DI.RAD.S_ITS ---
PROCEDURE: XR CHEST 2V INDICATIONS: Pnuemonia TECHNIQUE: 2 views of the chest were acquired. COMPARISON: [facility], CR, XR CHEST 1V, 07/31/2020, 15:10. [facility], CT, CT ABDOMEN PELVIS W CON, 05/29/2021, 6:43. [facility], CR, XR CHEST 1V, 10/16/2021, 11:28. FINDINGS: Surgical changes and devices: None. Lungs and pleura: Right lower lobe opacities appear increased, superimposed on r chronic scars and atelectasis. No pleural effusions or pneumothorax. Mediastinum: Mediastinal contours are normal. Heart size is normal. Bones and chest wall: No suspicious bony abnormalities. Soft tissues appear unremarkable. IMPRESSION: Increased right lower lobe opacities superimposed on chronic abnormality suspicious for superimposed pneumonia. Recommend clinical correlation. Dictated by: Sanchez Stanley M.D. on 10/26/2021 at 16:56 Approved by: Sanchez Stanley M.D. on 10/26/2021 at 16:58
[2021-10-26 17:26] LABS: Add Manual Diff / Slide Review NO; Basophils Absolute Auto 0 /uL (0-100); Basophils Percent Auto 0.4 % (0-2); Eosinophils Absolute Auto 100 /uL (0-450); Eosinophils Percent Auto 1.3 % (2-4); Hemoglobin 11.5 g/dL (13.5-17.5); Lymphocytes Absolute Auto 1000 /uL (1100-4500); Lymphocytes Percent Auto 11.4 % (25-40); Mean Corpuscular HGB Conc 33.9 % (30-36); Mean Corpuscular Volume 94.4 fL (80-100); Monocytes Absolute Auto 1300 /uL (0-900); Monocytes Percent Auto 14.2 % (3-14); Neutrophils Absolute Auto 6500 /uL (1500-7000); Neutrophils Percent Auto 72.7 % (50-75); Platelet Count 178 X10^3/uL (150-400); Red Cell Distribution Width 15.8 % (11.6-14.8); White Blood Cell Count 8.9 X10^3/uL (4.5-11.0)
[2021-10-26 17:58] LABS: Alanine Aminotransferase 17 IU/L (<50); Albumin 3.5 g/dL (3.5-5.0); Albumin Globulin Ratio 1.2 (1.0-2.8); Alkaline Phosphatase 68 U/L (38-126); Aspartate Aminotransferase 23 IU/L (17-59); Bilirubin Total 0.3 mg/dL (0.2-1.3); Blood Urea Nitrogen 23 mg/dL (9-20); Calcium 9.1 mg/dL (8.4-10.2); Carbon Dioxide 24 mmol/L (22-32); Chloride 107 mmol/L (98-107); Estimated Glomerular Filt Rate > 60.0 mL/min (>60); Glucose 98 mg/dL (80-110); HEMOLYSIS < 15 (0-50); Potassium 4.7 mmol/L (3.4-5.1); Sodium 137 mmol/L (137-145); Total Protein 6.5 g/dL (6.3-8.2)
[2021-10-26 18:06] LABS: NT-proBNP (BNP-Adult 18+) 319 pg/mL (<125)
== END ==
PROVIDERS: PCP Internal Medicine; Referring Provider Physician Assistant; Visit Provider Physician Assistant
DX: J18.9 Pneumonia, unspecified organism (principal); R06.02 Shortness of breath
CPT/HCPCS: 36415; 71046; 80053; 83880; 85025

== ENCOUNTER → 2021-12-16 13:24 | Outpatient (CLI) | payer MEDICARE, OTHER, SELFPAY ==
--- NOTE | 2021-12-16 13:30 | DI.ECHO.S_ITS ---
[facility] +---------+ : : [address] : : : : [id number] : : : : Phone: [phone] Echocardiogram Report + + :Name: TANK ALBARADO Study Date: 12/16/2021 Height: 69 in : :[facility] ReadingLocation: Weight: 258 lb : : Gender: Male BSA: 2.3 m2 : :: 1950 Age: 71 yrs BP: 154/74 mmHg: :Reason For Study: SOB : :Ordering Physician: SINDI, : :LAY Performed By: Stephanie Mcwilliams : :Referring: JIMI FOFANA : + + Interpretation Summary The left ventricle is normal in size and wall thickness. The ejection fraction is estimated to be 55-60%. No significant change in LVEF from the previous study. The right ventricle is normal in size and function. No significant valvular pathology seen. The IVC is of normal diameter and collapses greater than 50% with a sniff. This suggests a low right atrial pressure of 3 mm Hg. Mild atherosclerotic plaque(s) in the aortic arch. Procedure: A two-dimensional transthoracic echocardiogram with color flow and Doppler was performed. The study quality was technically difficult. Comparison is made with the echocardiogram of 05/13/2020. The patient was in sinus rhythm with heart rates between 68-80 bpm during the exam. Left Ventricle: The left ventricle is normal in size and wall thickness. There is no thrombus. The ejection fraction is estimated to be 55-60%. There are no focal wall motion abnormalities. Diastolic parameters suggest a relaxation abnormality of the left ventricle, consistent with probable normal filling pressures. Right Ventricle: The right ventricle is normal in size and function. Atria: The left atrial size is normal. Both atria have remained unchanged in size since the prior echo exam. Right atrial size is normal. There is no Doppler evidence for an interatrial shunt. Mitral Valve: There is mild mitral annular calcification. There is trace mitral regurgitation. Aortic Valve: The aortic valve opens well. The aortic valve is trileaflet. There is mild aortic valve sclerosis. There is no aortic valve stenosis. There is trace aortic regurgitation. Tricuspid Valve: The tricuspid valve is normal. There is trace tricuspid regurgitation. Pulmonary artery pressures cannot be estimated because of the lack of a measurable TR jet velocity but the IVC suggests a CVP of around 3 mmHg. Pulmonic Valve: The pulmonic valve is not well visualized. There is no pulmonic valvular regurgitation. Great Vessels: The aortic root is normal size. The ascending aorta could not be visualized. Mild atherosclerotic plaque(s) in the aortic arch. The IVC is of normal diameter and collapses greater than 50% with a sniff. This suggests a low right atrial pressure of 3 mm Hg. Pericardium/ Pleura There is no pericardial effusion. There is an anterior echo-free space consistent with a fat pad. There is no pleural effusion. MMode/2D Measurements & Calculations LVIDd: 5.1 cm LVOT diam: 2.4 cm LVIDs: 3.4 cm Ao root diam: 3.5 cm FS: 33.0 % Ao Arch Diam (Prox Trans): 2.6 cm IVSd: 0.97 cm LVPWd: 0.99 cm LV morales. diameter/BSA (cm/m^2): 2.2 LV sys. diameter/BSA (cm/m^2): 1.5 LA A2 area: 19.0 cm2 RA long axis: 4.8 cm LA A4 area: 19.8 cm2 RA area: 16.2 cm2 LA length (vol): 5.0 cm RA vol: 46.1 ml LA vol: 64.0 ml RA : 20.0 ml/m2 LA vol index: 27.8 ml/m2 IVC diam: 1.3 cm RVD1 (basal): 3.9 cm TAPSE: 2.2 cm Doppler Measurements & Calculations Ao V2 max: 111.1 cm/sec LVOT Max Patricio: 100.2 cm/sec Ao V2 mean: 71.2 cm/sec LV V1 max P.0 mmHg Ao max P.9 mmHg LV V1 VTI: 18.4 cm Ao mean P.4 mmHg STANISLAV(I,D): 4.5 cm2 Ao V2 VTI: 19.0 cm STANISLAV(V,D): 4.2 cm2 sev ratio: 0.97 STANISLAV indexed to BSA (cm^2/m^2): 1.9 MV E max patricio: 69.2 cm/sec PA V2 max: 118.4 cm/sec MV A max patricio: 76.2 cm/sec PA V2 mean: 83.7 cm/sec MV E/A: 0.91 PA mean P.1 mmHg Med Peak E' Patricio: 6.2 cm/sec PA pr(Accel): 55.0 mmHg E/E' med: 11.1 Lat Peak E' Patricio: 5.9 cm/sec E/E' lat: 11.7 E/e' average: 11.4 MV dec time: 0.25 sec SV(OT): 84.6 ml Reading Physician:05:45 PM
== END ==
PROVIDERS: PCP Internal Medicine; Referring Provider Physician Assistant; Visit Provider Physician Assistant
DX: I70.0 Atherosclerosis of aorta (principal); R06.02 Shortness of breath
CPT/HCPCS: 93306

== ENCOUNTER → 2022-01-29 | Outpatient (CLI) | payer MEDICARE, OTHER, SELFPAY ==
[2022-01-29 10:45] LABS: Add Manual Diff / Slide Review NO; Basophils Absolute Auto 0 /uL (0-100); Basophils Percent Auto 0.7 % (0-2); Eosinophils Absolute Auto 100 /uL (0-450); Hematocrit 35.2 % (41-53); Hemoglobin 11.8 g/dL (13.5-17.5); Lymphocytes Absolute Auto 900 /uL (1100-4500); Lymphocytes Percent Auto 13.1 % (25-40); Mean Corpuscular HGB Conc 33.6 % (30-36); Mean Corpuscular Hemoglobin 31.2 PG (26-34); Monocytes Absolute Auto 500 /uL (0-900); Monocytes Percent Auto 8.2 % (3-14); Neutrophils Absolute Auto 5000 /uL (1500-7000); Platelet Count 216 X10^3/uL (150-400); Red Blood Cell Count 3.78 X10^6/uL (4.5-5.9); Red Cell Distribution Width 15.3 % (11.6-14.8); White Blood Cell Count 6.5 X10^3/uL (4.5-11.0)
[2022-01-29 10:56] LABS: Reticulocyte Count, Percent 1.7 % (0.9-2.6)
[2022-01-29 11:12] LABS: HEMOLYSIS < 15 (0-50); Iron 94 ug/dL (49-181)
[2022-01-29 11:13] LABS: Cholesterol 128 mg/dL (140-199); HDL Cholesterol 62 mg/dL (40-60); LDL Cholesterol Calculated 54 mg/dL (<100); Triglycerides 58 mg/dL (35-150)
[2022-01-29 11:23] LABS: Percent Iron Saturation 35 % (20-50); Total Iron Binding Capacity 268 ug/dL (261-462); Transferrin 201 mg/dL (206-381)
[2022-01-29 12:18] LABS: Folate 9.2 ng/mL (2.76-20.0); Vitamin B12 418 pg/mL (239-931)
== END ==
PROVIDERS: PCP Internal Medicine; Referring Provider Internal Medicine Cardiovascular Disease; Visit Provider Internal Medicine Cardiovascular Disease
DX: D64.9 Anemia, unspecified (principal); E78.00 Pure hypercholesterolemia, unspecified
CPT/HCPCS: 36415; 80061; 82607; 82746; 83540; 83550; 85025; 85045

== ENCOUNTER → 2022-02-16 07:34 | Outpatient (CLI) | payer MEDICARE, OTHER, SELFPAY ==
--- NOTE | 2022-02-16 | DI.US.S_ITS ---
PROCEDURE: US CAROTID DOPPLER BI INDICATIONS: OCCLUSION AND STENOSIS OF CAROTID ARTERIES TECHNIQUE: Color and pulse Doppler interrogation was performed of both carotid systems, with image documentation and velocity measurements. COMPARISON: [facility], , CAROTID ARTERY DOPPLER BILAT, 01/27/2012, 13:29. FINDINGS: Stenosis calculations are based on SRU (Society of Radiologists in Ultrasound) criteria. Right side: Brachial blood pressure: 131/82 mm Hg. Common carotid artery peak systolic velocity: 120 cm/sec. Internal carotid artery peak systolic velocity: 109 cm/sec. Internal carotid artery end diastolic velocity: 33 cm/sec. External carotid artery peak systolic velocity: 116 cm/sec. ICA/CCA peak systolic ratio: 0.9 . Jamison scale imaging description: Mild calcific plaque at the bifurcation Percent internal carotid artery stenosis: Less than 50% . Vertebral artery: Flow direction is antegrade. Left side: Brachial blood pressure: 146/75 mm Hg. Common carotid artery peak systolic velocity: 130 cm/sec. Internal carotid artery peak systolic velocity: 128 cm/sec. Internal carotid artery end diastolic velocity: 30 cm/sec. External carotid artery peak systolic velocity: 119 cm/sec. ICA/CCA peak systolic ratio: 1.0 . Jamison scale imaging description: Moderate calcific plaque at the bifurcation Percent internal carotid artery stenosis: 50-69% . Vertebral artery: Flow direction is antegrade. IMPRESSION: 1. Left greater than right internal carotid artery stenosis as described above. 2. Antegrade vertebral artery flow bilaterally. Dictated by: Sharmaine Rosales M.D. on 02/16/2022 at 10:45 Approved by: Sharmaine Rosales M.D. on 02/16/2022 at 10:46
== END ==
PROVIDERS: PCP Internal Medicine; Referring Provider Internal Medicine Cardiovascular Disease; Visit Provider Internal Medicine Cardiovascular Disease
DX: I65.23 Occlusion and stenosis of bilateral carotid arteries (principal)
CPT/HCPCS: 93880

== ENCOUNTER → 2022-06-28 14:07 | Outpatient (CLI) | payer MEDICARE, OTHER, SELFPAY ==
--- NOTE | 2022-06-28 | DI.RAD.S_ITS ---
PROCEDURE: XR CHEST 2V INDICATIONS: 71-year-old male short of breath, COPD, right-sided lung cancer status post lobectomy 1990 TECHNIQUE: 2 views of the chest were acquired. COMPARISON: [facility], , XR CHEST 2V, 10/26/2021, 16:06. FINDINGS: Surgical changes and devices: None. Lungs and pleura: Pleural and parenchymal changes in the right lung consistent with prior lobectomy is stable from the prior exam. Right apical bulla noted. Left lung and pleural space clear. Atherosclerotic vascular calcification noted in the aortic arch. Mediastinum: Mediastinal contours are normal. Heart size is normal. Bones and chest wall: No suspicious bony abnormalities. Soft tissues appear unremarkable. IMPRESSION: Stable chest x-ray. Right-sided pleural parenchymal density consistent with prior lobectomy and scarring. No acute infiltrate or pneumothorax. Approved by: Jim Israel M.D. on 06/28/2022 at 16:38
== END ==
PROVIDERS: PCP Internal Medicine; Referring Provider Internal Medicine; Visit Provider Internal Medicine
DX: J44.9 Chronic obstructive pulmonary disease, unspecified (principal)
CPT/HCPCS: 71046

== ENCOUNTER → 2022-09-21 10:49 | Outpatient (CLI) | payer MEDICARE, OTHER, SELFPAY ==
--- NOTE | 2022-09-21 | DI.CT.S_ITS ---
PROCEDURE: CT ANGIO CHEST PE PROTOCOL INDICATIONS: Other forms of dyspnea TECHNIQUE: After the administration of intravenous contrast, 2 mm thick sections acquired from the pulmonary apices to the posterior costophrenic angles. 3-dimensional maximum intensity projection (MIP) coronal and sagittal reformats were then acquired through the thorax. For radiation dose reduction, the following was used: automated exposure control, adjustment of mA and/or kV according to patient size. COMPARISON: [facility], CT, CT ABDOMEN PELVIS W CON, 05/29/2021, 6:43. [facility], CR, XR CHEST 2V, 06/28/2022, 14:16. FINDINGS: Image quality: Excellent. Pulmonary arteries: Pulmonary arteries are normal in size, and demonstrate no intraluminal filling defects to suggest central pulmonary embolism. Lungs and pleura: There is moderate emphysematous change and severe paraseptal emphysema within the apices and along the periphery of the right lung. No acute airspace opacities. There is a 4 mm pulmonary nodule within the left upper lobe (series 5/image 106). No pleural effusion or pneumothorax. Mediastinum: Heart size is normal, without pericardial effusion. No mediastinal or hilar adenopathy. Thoracic aorta is normal in caliber and enhancement. Scattered atheromatous calcifications are present within the aortic arch. Esophagus is normal in caliber, without hiatal hernia. Bones and chest wall: No suspicious bony lesions. A compression deformity is present at the superior L1 endplate which appears increased in extent when compared with the study dated May 29, 2021. Thyroid gland is unremarkable. No axillary or supraclavicular adenopathy. Abdomen: Visualized upper abdominal solid organs appear normal in the early arterial phase of enhancement. IMPRESSION: 1. No acute pulmonary embolus. 2. Severe emphysematous changes as above. 3. No acute airspace opacities. 4. Increased compression deformity at the superior L1 endplate when compared with the prior CT dated May 29, 2021. The acuity of this finding is unknown. Please correlate with history of trauma. Dictated by: Sharita Garcias M.D. on 09/21/2022 at 14:23 Approved by: Sharita Garcias M.D. on 09/21/2022 at 14:42
== END ==
PROVIDERS: PCP Internal Medicine; Referring Provider Internal Medicine; Visit Provider Internal Medicine
DX: R06.09 Other forms of dyspnea (principal); R91.1 Solitary pulmonary nodule; J43.8 Other emphysema
CPT/HCPCS: 71275; Q9967

== ENCOUNTER → 2023-02-02 13:49 | Outpatient (CLI) | payer MEDICARE, OTHER, SELFPAY ==
[2023-02-02 14:32] LABS: C-Reactive Protein Quant 1.3 mg/dL (<1.0); Erythrocyte Sedimentation Rate 12 MM/HR (0-15); Uric Acid 7.2 mg/dL (3.5-8.5)
[2023-02-02 16:22] LABS: Vitamin D 25 Hydroxy (D3) 41.6 ng/mL (30.0-100.0)
== END ==
PROVIDERS: PCP Internal Medicine; Referring Provider Internal Medicine; Visit Provider Internal Medicine
DX: M25.50 Pain in unspecified joint (principal)
CPT/HCPCS: 36415; 82306; 84550; 85651; 86140

== ENCOUNTER → 2023-03-23 15:33 | Outpatient (CLI) | payer MEDICARE, OTHER, SELFPAY ==
--- NOTE | 2023-04-05 10:24 | PM.PFT.1 ---
Pulmonary Function Test Referral & Results Date Patient Seen: 03/23/23 Results: The spirometry demonstrates an FVC of 2.73 L which is 67% of predicted. The FEV1 was measured at 1.69 L which is 57% of predicted. The FEV1/FVC ratio was 62 which is 84% of predicted. Following the administration of bronchodilator there was a 19% improvement in FEV1 and a 96% improvement in FEF 25-75%. Lung volumes show an SVC of 3.54 L which is 81% of predicted. The diffusing capacity was measured at 15.93 which is 51% of predicted. No hemoglobin value was provided, so no correction for potential anemia could be made, if appropriate. The maximum voluntary ventilation was reduced Interpretation: This study demonstrates moderate obstructive lung disease based on reduction FEV1 although FEV1/FVC ratio is relatively preserved. There is evidence of benefit following bronchodilator both in FEV1 and more prominently in FEF 25-75% suggesting a better response in small airway flow There is a minimal reduction in lung volumes suggesting the presence of minimal restrictive lung disease There is a moderate reduction diffusing capacity suggesting moderate disease at the capillary alveolar level Clinical correlation suggested
== END ==
PROVIDERS: PCP Internal Medicine; Referring Provider Internal Medicine Pulmonary Disease; Visit Provider Internal Medicine Pulmonary Disease
DX: J44.9 Chronic obstructive pulmonary disease, unspecified (principal); Z87.891 Personal history of nicotine dependence
CPT/HCPCS: 94060; 94726; 94729

== ENCOUNTER 2023-05-30 13:19 | Inpatient (IN) | payer MEDICARE, OTHER, SELFPAY ==
[2023-05-30 13:19] VITALS: BP 143/64; PULSE 111; RESP 20; TEMP 37; O2SAT 95; BMI 34.7
--- NOTE | 2023-05-30 13:34 | DI.RAD.S_ITS ---
PROCEDURE: XR CHEST 1V INDICATIONS: SOBx2 TECHNIQUE: One view of the chest was acquired. COMPARISON: [facility], CR, XR CHEST 2V, 06/28/2022, 14:16. [facility], CR, XR CHEST 2V, 10/26/2021, 16:06. [facility], CR, XR CHEST 1V, 10/16/2021, 11:28. FINDINGS: Surgical changes and devices: Multiple surgical clips project over the right hilum. Lungs and pleura: Moderate-sized right pleural effusion versus pleural-parenchymal scarring. Right hilar prominence which could represent scarring or hilar mass. Mediastinum: Mediastinal contours appear normal. Heart size is normal. Bones and chest wall: No suspicious bony lesions. Overlying soft tissues appear unremarkable. IMPRESSION: Moderate-sized right pleural effusion versus pleural-parenchymal scarring. Right hilar postsurgical scarring versus hilar mass. Dictated by: Ivon Foster MD, PhD on 05/30/2023 at 14:24 Approved by: Ivon Foster MD, PhD on 05/30/2023 at 14:27
[2023-05-30 14:52] LABS: Add Manual Diff / Slide Review NO; Basophils Absolute Auto 0 /uL (0-100); Basophils Percent Auto 0.1 % (0-2); Eosinophils Absolute Auto 0 /uL (0-450); Eosinophils Percent Auto 0.1 % (2-4); Hematocrit 32.7 % (41-53); Hemoglobin 10.8 g/dL (13.5-17.5); Lymphocytes Absolute Auto 900 /uL (1100-4500); Lymphocytes Percent Auto 5.6 % (25-40); Mean Corpuscular HGB Conc 32.9 % (30-36); Mean Corpuscular Hemoglobin 30.9 PG (26-34); Mean Corpuscular Volume 93.8 fL (80-100); Monocytes Absolute Auto 700 /uL (0-900); Monocytes Percent Auto 4.6 % (3-14); Neutrophils Absolute Auto 14200 /uL (1500-7000); Neutrophils Percent Auto 89.6 % (50-75); Platelet Count 321 X10^3/uL (150-400); Red Blood Cell Count 3.49 X10^6/uL (4.5-5.9); Red Cell Distribution Width 15.4 % (11.6-14.8); White Blood Cell Count 15.9 X10^3/uL (4.5-11.0)
[2023-05-30 14:54] LABS: INR 1.2 (0.9-1.3); Prothrombin Time 13.6 SECONDS (10.1-12.7)
[2023-05-30 14:59] LABS: Alanine Aminotransferase 18 IU/L (<50); Albumin 4.2 g/dL (3.5-5.0); Albumin Globulin Ratio 1.2 (1.0-2.8); Alkaline Phosphatase 86 U/L (38-126); Aspartate Aminotransferase 36 IU/L (17-59); Bilirubin Total 0.4 mg/dL (0.2-1.3); Blood Urea Nitrogen 51 mg/dL (9-20); Calcium 9.3 mg/dL (8.4-10.2); Carbon Dioxide 19 mmol/L (22-32); Chloride 106 mmol/L (98-107); Estimated Glomerular Filt Rate 21 mL/min (>60); Globulin 3.5 g/dL (1.7-4.1); Glucose 133 mg/dL (80-110); HEMOLYSIS < 15 (0-50); Lactate (Lactic Acid) 1.5 mmol/L (0.7-2.1); Potassium 4.6 mmol/L (3.4-5.1); Sodium 137 mmol/L (137-145); Total Protein 7.7 g/dL (6.3-8.2)
[2023-05-30 15:09] LABS: NT-proBNP (BNP-Adult 18+) 327 pg/mL (<125); Troponin I < 0.012 ng/mL (0.01-0.034)
--- NOTE | 2023-05-30 15:16 | DI.US.S_ITS ---
PROCEDURE: US RENAL COMPLETE INDICATIONS: NICHOLE TECHNIQUE: Real-time scanning was performed of the kidneys and bladder, with image documentation. COMPARISON: None. FINDINGS: Kidneys: Kidneys are normal in size. Right kidney measures 10.2 cm long; left kidney measures 10.2 cm long. Right renal cortical thickness is 1.3 cm; left renal cortical thickness is 1.2 cm. Renal cortical echotexture is normal. No hydronephrosis or nephrolithiasis. No suspicious solid mass lesions. Multiple bilateral renal simple cysts, largest measuring 2.5 cm on the right, subcentimeter on the left. Bladder: Pre-void bladder volume is 176 mL. Post-void residual is 135 mL. Patient was unable to urinate Pre-void images demonstrate no intraluminal masses or stones. Ureteral jets were not seen.. (Of note, ureteral jets may not be detectable in up to 25% of cases due to insufficient differences in specific gravity between ureteral and bladder urine). Miscellaneous: No free pelvic fluid. IMPRESSION: 1. Bilateral renal cysts. Otherwise, the kidneys are normal in appearance. 2. Postvoid residual 135 cc, patient was unable to urinate. Dictated by: Wilberto Hadley M.D. on 05/30/2023 at 16:55 Approved by: Wilberto Hadley M.D. on 05/30/2023 at 17:05
--- NOTE | 2023-05-30 16:02 | ED.SOB ---
HPI - SOB/Dyspnea General Chief Complaint: Shortness of Breath/Dyspnea Stated Complaint: SOBx2 Time Seen by Provider: 05/30/23 15:15 Source: patient and EMS Mode of arrival: EMS History of Present Illness HPI Narrative: This is a 72-year-old male with history of lung cancer with right-sided upper and middle lobectomy, patient did not receive chemoradiation, COPD, hypertension, dyslipidemia, diabetes type 2, BPH and chronic pain. Patient states he is felt increasingly short of breath since fall, patient states today felt more short of breath and was having some dyspnea with exertion. EMS arrived found him at 95% but tachypneic received [address] DuoNeb [address] route felt significantly better. Patient has continued to feel better since then. He denies fevers or chills no chest pain or pressure, no shortness of breath currently. No new swelling in his extremities except for some swelling of his toe which is little bit painful and started recently. He had nausea and vomiting last week. States none today, no new changes to bowel movements but does get diarrhea regularly no black or bloody stools. Notes that he has to have a bowel movement in order to urinate. He states that might started after he stopped his Flomax a month ago. He states no dysuria, urgency or frequency but has difficulty starting urination. He denies abdominal back or flank pain. He notes that he started Ozempic a month ago for diabetes he was not on insulin or oral medications before this he states he takes medications for hypertension, dyslipidemia his COPD. Surgeries include right-sided lobectomy, hip surgery x3, tonsillectomy and coronary artery stents x2. Describes anaphylaxis to penicillin for allergies. No tobacco, alcohol or illicit. Primary care is [facility] perdomo. Related Data Home Medications Medication Instructions Recorded Confirmed ALBUTEROL (PROVENTIL INHALER) 1 puff inhalation PRN PRN 08/17/11 05/30/21 Shortness Of Breath ##0 losartan 100 mg tablet (Cozaar) 100 mg PO QDAY ##0 08/17/11 05/30/21 tamsulosin 0.4 mg capsule 0.8 mg PO DAILY 01/24/19 05/30/21 sertraline 20 mg/mL oral 100 mg PO DAILY 02/07/19 05/30/21 concentrate (Zoloft) cholecalciferol (vitamin D3) 25 25 mcg PO DAILY 09/23/20 05/30/21 mcg (1,000 unit) capsule liraglutide 0.6 mg/0.1 mL (18 mg/3 1.8 mg SUBCUT DAILY 09/23/20 05/30/21 mL) subcutaneous pen injector nitroglycerin 0.4 mg sublingual 0.4 mg sublingual Q5M PRN Chest 09/23/20 05/30/21 tablet Pain mometasone-formoterol HFA 50 mcg-5 2 puff inhalation BID 10/22/20 05/30/21 mcg/actuation aerosol inhaler (Dulera) cyclobenzaprine 10 mg tablet 10 mg PO DAILY PRN Pain, Moderate 05/30/21 05/30/21 evolocumab 140 mg/mL subcutaneous 140 mg SUBCUT Q10D 05/30/21 05/30/21 syringe (Repatha Syringe) meloxicam 15 mg tablet 15 mg PO 0800 PRN Pain, Severe 05/30/21 05/30/21 methocarbamol 750 mg tablet 750 mg PO DAILY PRN Pain, Moderate 05/30/21 05/30/21 metoprolol succinate 25 mg 25 mg PO DAILY 05/30/21 05/30/21 tablet,extended release 24 hr rosuvastatin 5 mg tablet (Crestor) 5 mg PO DAILY 05/30/21 05/30/21 zolpidem 10 mg tablet 10 mg PO QPM PRN Sleep 05/30/21 05/30/21 Previous Rx's Medication Instructions Recorded ciprofloxacin HCl 500 mg tablet 500 mg PO Q12H #14 tabs 06/01/21 (Cipro) metronidazole 500 mg tablet 500 mg PO Q8H #21 tabs 06/01/21 (Flagyl) oxycodone 5 mg tablet 5 mg PO Q6HR PRN Pain, Moderate 06/01/21 (4-6) #16 tabs Allergies Allergy/AdvReac Type Severity Reaction Status Date / Time latex Allergy Severe Rash Verified 10/16/21 11:12 Penicillins [PENICILLINS] Allergy Severe Anaphylaxis Verified 10/16/21 11:12 adhesive tape AdvReac Severe Melts to Verified 10/16/21 11:12 my skin and pulls my skin off amino acids [From Chromimin] AdvReac Severe High blood Verified 10/16/21 11:12 level of chromim chromium [From Chromimin] AdvReac Severe High blood Verified 10/16/21 11:12 level of chromim cobalt AdvReac Severe High blood Verified 10/16/21 11:12 level of cobalt meperidine [MEPERIDINE] AdvReac Severe VOMITING Verified 10/16/21 11:12 morphine [MORPHINE] AdvReac Intermediate HALLUCINATI Verified 10/16/21 11:12 ONS Review of Systems Review of Systems ROS Unobtainable: All systems reviewed & are unremarkable except as noted in HPI and below Patient History Medical History Arthritis Back pain CAD (coronary artery disease) Carotid artery disease Compound fracture COPD (chronic obstructive pulmonary disease) Cyst of left kidney Depression Diabetes Easy bruisability Enlarged prostate Finding of abnormal level of heavy metals in blood (~2018) Former smoker Hearing loss (01/22/18) HLD (hyperlipidemia) HTN (hypertension) Lung cancer (~1991) Neck pain Neuropathy NIKI (obstructive sleep apnea) Pneumonia RLS (restless legs syndrome) Rosacea Surgical History History of arthroplasty of both hips History of carpal tunnel surgery of right wrist History of vasectomy Hx of blepharoplasty Hx of heart artery stent (10/20/01) Hx of prostate biopsy (10/14/15) S/P lobectomy of lung (~1991) Family History Mother Congestive heart failure Father Pancreatic cancer Brother Diverticulitis Sister Diverticulitis Social History household members: spouse occupational status: employed Smoking Status: Former smoker alcohol intake: former substance use type: does not use Smoking Status: Former smoker alcohol intake frequency: holidays/special occasions only Substance Use Type: does not use Exam Narrative Exam Narrative: GEN: well nourished, well appearing obese male, alert and oriented x 3, patient appears to be in mild distress. HEENT: Atraumatic, pupils are equal round reactive to light, extraocular movements are intact, nares are clear, TMs are clear with no fluid, there is no conjunctival pallor. Throat is clear without any exudates, erythema, tonsillar enlargement or uvular deviation, patient has nasal cannula in place but oxygen is off. HEART: Regular rate and rhythm without murmur, clicks, rubs. pulses are equal in upper and lower extremities no edema bilateral lower extremities. LUNGS:Lungs clear to auscultation, no wheezes, rales, crackles, chest moves symmetrically, no tachypnea, no accessory muscle use ABD:bowel sounds normal, soft, non-tender, no guarding, rebound, rigidity, no masses noted, no hepatosplenomegaly :No CVA tenderness MSCL: Non-tender, no muscle atrophy, muscles strength 5/5 upper and lower extremities, full range of motion NEURO:CN 2-12 intact, sensation normal SKIN: Patient redness over the distal joint of the great toe on the right foot. There is no surrounding erythema or other changes barely tender to touch on examination. Initial Vital Signs Initial Vital Signs: Vital Signs Temperature 98.6 F 05/30/23 13:19 Pulse Rate 111 H 05/30/23 13:19 Respiratory Rate 20 05/30/23 13:19 Blood Pressure 143/64 H 05/30/23 13:19 Pulse Oximetry 95 05/30/23 13:19 Oxygen Delivery Method Room Air 05/30/23 13:19 Course Orders Ordered: ED Orders 05/30/23 13:34 XR chest 1V Stat EKG-12 Lead Stat Measure peak expiratory flow ONCE RT Consult Eval and Treat NOW 05/30/23 14:16 Complete Blood Count AUTO DIFF Stat Comprehensive Metabolic Panel Stat Lactate (Lactic Acid) Stat NT-proBNP (BNP-Adult 18+) Stat Prothrombin Time INR Stat Troponin I Stat 05/30/23 15:16 US renal complete Stat 05/30/23 17:12 Creatinine Urine Random Stat Sodium Urine Random Stat UA Complete [Urinalysis and Microscopic] Stat Urine Culture Stat 05/30/23 18:52 CT chest wo con Stat Discontinued Medications Sodium Chloride (Normal Saline 0.9%) 1,000 mls @ 1,000 mls/hr IV BOLUS ONE Stop: 05/30/23 17:30 Last Infusion: 05/30/23 18:17 Dose: 0 mls/hr Documented By: Admin: 05/30/23 16:54 Dose: 1,000 mls/hr Documented By: PARUL Ciprofloxacin (Cipro) 400 mg in 200 mls @ 200 mls/hr IV NOW ONE Stop: 05/30/23 18:53 Last Admin: 05/30/23 18:14 Dose: 200 mls/hr Documented By: PARUL Lidocaine HCl (Lidocaine 2% (Glydo) 6 Ml Gel) 6 ml TOP NOW ONE Stop: 05/30/23 16:38 Last Admin: 05/30/23 16:54 Dose: 6 ml Documented By: PARUL Vital Signs Vital signs: Vital Signs - 8 hr 05/30/23 13:19 05/30/23 13:19 05/30/23 18:35 Temperature 98.6 F 98.8 F Pulse Rate 111 H Respiratory Rate 20 Blood Pressure 143/64 H Pulse Oximetry 95 Oxygen Delivery Method Room Air 05/30/23 18:30 Temperature Pulse Rate 90 Respiratory Rate 14 Blood Pressure 144/64 H Pulse Oximetry 97 Oxygen Delivery Method Room Air MDM - SOB/Dyspnea Lab Data 05/30/23 14:16 05/30/23 14:16 Labs: Lab Results 05/30/23 05/30/23 05/30/23 Range/Units 14:16 14:16 14:16 WBC 15.9 H (4.5-11.0) X10^3/uL RBC 3.49 L (4.5-5.9) X10^6/uL Hgb 10.8 L (13.5-17.5) g/dL Hct 32.7 L (41-53) % MCV 93.8 (80-100) fL MCH 30.9 (26-34) PG MCHC 32.9 (30-36) % RDW 15.4 H (11.6-14.8) % Plt Count 321 (150-400) X10^3/uL Neut % (Auto) 89.6 H (50-75) % Lymph % (Auto) 5.6 L (25-40) % Lyon % (Auto) 4.6 (3-14) % Eos % (Auto) 0.1 L (2-4) % Baso % (Auto) 0.1 (0-2) % Neut # (Auto) 98492 H (9585-6651) /uL Lymph # (Auto) 900 L (7589-3055) /uL Lyon # (Auto) 700 (0-900) /uL Eos # (Auto) 0 (0-450) /uL Baso # (Auto) 0 (0-100) /uL PT 13.6 H (10.1-12.7) SECONDS INR 1.2 (0.9-1.3) Sodium 137 (137-145) mmol/L Potassium 4.6 (3.4-5.1) mmol/L Chloride 106 (98-107) mmol/L Carbon Dioxide 19 L (22-32) mmol/L BUN 51 H (9-20) mg/dL Creatinine 3.00 H (0.66-1.25) mg/dL Estimated GFR 21 L (>60) mL/min BUN/Creatinine Ratio 17.0 (6-22) Glucose 133 H (80-110) mg/dL Lactate (0.7-2.1) mmol/L Calcium 9.3 (8.4-10.2) mg/dL Total Bilirubin 0.4 (0.2-1.3) mg/dL AST 36 (17-59) IU/L ALT 18 (<50) IU/L Alkaline Phosphatase 86 (38-126) U/L Troponin I < 0.012 (0.01-0.034) ng/mL NT-Pro-B Natriuret Pep 327 H (<125) pg/mL Total Protein 7.7 (6.3-8.2) g/dL Albumin 4.2 (3.5-5.0) g/dL Globulin 3.5 (1.7-4.1) g/dL Albumin/Globulin Ratio 1.2 (1.0-2.8) Urine Color Urine Appearance Urine pH (4.5-8.0) Ur Specific [place] (1.000-1.035) Urine Protein (Negative) Urine Glucose (UA) (Negative) g/dL Urine Ketones (NEGATIVE) Urine Occult Blood (Negative) Urine Nitrate (Negative) Urine Bilirubin (NEGATIVE) Urine Urobilinogen (0.2) E.U./dL Ur Leukocyte Esterase (NEGATIVE) Urine RBC (0-5/HPF) Urine WBC (0-5/HPF) Ur Squamous Epith Cells (0-5/HPF) Urine Bacteria (None) Hyaline Casts (None) Urine Mucus (Negative) Urine Yeast (None) Ur Culture Indicated? Ur Random Sodium (30-90) mmol/L Urine Creatinine mg/dL 08/15/23 08/15/23 08/15/23 Range/Units 14:16 17:12 17:12 WBC (4.5-11.0) X10^3/uL RBC (4.5-5.9) X10^6/uL Hgb (13.5-17.5) g/dL Hct (41-53) % MCV (80-100) fL MCH (26-34) PG MCHC (30-36) % RDW (11.6-14.8) % Plt Count (150-400) X10^3/uL Neut % (Auto) (50-75) % Lymph % (Auto) (25-40) % Lyon % (Auto) (3-14) % Eos % (Auto) (2-4) % Baso % (Auto) (0-2) % Neut # (Auto) (2152-1735) /uL Lymph # (Auto) (5485-3764) /uL Lyon # (Auto) (0-900) /uL Eos # (Auto) (0-450) /uL Baso # (Auto) (0-100) /uL PT (10.1-12.7) SECONDS INR (0.9-1.3) Sodium (137-145) mmol/L Potassium (3.4-5.1) mmol/L Chloride (98-107) mmol/L Carbon Dioxide (22-32) mmol/L BUN (9-20) mg/dL Creatinine (0.66-1.25) mg/dL Estimated GFR (>60) mL/min BUN/Creatinine Ratio (6-22) Glucose (80-110) mg/dL Lactate 1.5 (0.7-2.1) mmol/L Calcium (8.4-10.2) mg/dL Total Bilirubin (0.2-1.3) mg/dL AST (17-59) IU/L ALT (<50) IU/L Alkaline Phosphatase (38-126) U/L Troponin I (0.01-0.034) ng/mL NT-Pro-B Natriuret Pep (<125) pg/mL Total Protein (6.3-8.2) g/dL Albumin (3.5-5.0) g/dL Globulin (1.7-4.1) g/dL Albumin/Globulin Ratio (1.0-2.8) Urine Color Yellow Urine Appearance Clear Urine pH 5.5 (4.5-8.0) Ur Specific [place] 1.025 (1.000-1.035) Urine Protein Negative (Negative) Urine Glucose (UA) Negative (Negative) g/dL Urine Ketones Negative (NEGATIVE) Urine Occult Blood Negative (Negative) Urine Nitrate Negative (Negative) Urine Bilirubin Negative (NEGATIVE) Urine Urobilinogen 0.2 (0.2) E.U./dL Ur Leukocyte Esterase Negative (NEGATIVE) Urine RBC 0-1/hpf (0-5/HPF) Urine WBC 1-5/hpf (0-5/HPF) Ur Squamous Epith Cells 0-1 /hpf (0-5/HPF) Urine Bacteria Moderate (10-30) H (None) Hyaline Casts 0-1/lpf (None) Urine Mucus 1+ H (Negative) Urine Yeast 0-1/hpf (None) Ur Culture Indicated? Specimen cultured Ur Random Sodium 84 (30-90) mmol/L Urine Creatinine 156.2 mg/dL Imaging Data Chest x-ray: Radiologist's Impression: [address] [address] XRay Report Signed Patient: David Ochoa MR#: [id number] : 1950 Acct:[id number] Age/Sex: 72 / M Date of Service: 05/30/23 Loc: ED Accession Number: [id number] ?? Procedure: XR chest 1V Ordering Provider: Tana Funez D.O. PROCEDURE:? XR CHEST 1V ? INDICATIONS:? SOBx2 ? TECHNIQUE:? One view of the chest was acquired.? ? COMPARISON:? [facility], CR, XR CHEST 2V, 06/28/2022, 14:16.? formerly [facility], XR CHEST 2V, 10/26/2021, 16:06.? [facility], , XR CHEST 1V, 10/16/2021, 11:28. ? FINDINGS:? ? Surgical changes and devices:? Multiple surgical clips project over the right hilum. ? Lungs and pleura:? Moderate-sized right pleural effusion versus pleural-parenchymal scarring.? Right hilar prominence which could represent scarring or hilar mass. ? Mediastinum:? Mediastinal contours appear normal.? Heart size is normal.? ? Bones and chest wall:? No suspicious bony lesions.? Overlying soft tissues appear unremarkable.? ? IMPRESSION:? ? Moderate-sized right pleural effusion versus pleural-parenchymal scarring. ? Right hilar postsurgical scarring versus hilar mass.? ? ? Dictated by: Ivon Foster MD, PhD on 05/30/2023 at 14:24 ? ? Approved by: Ivon Foster MD, PhD on 05/30/2023 at 14:27?? renal US: Radiologist's Impression: Close Chest CT 05/30/23 Renal Ultrasound (Signed) Wilberto Hadley - 05/30/23 Chest X-Ray (Signed) Ivon Foster - 05/30/23 PFT Result 03/23/23 Chest CTA (Signed) Sharita Garcias - 09/21/22 Chest X-Ray (Signed) Jim Israel - 06/28/22 Carotid Doppler Study (Signed) Sharmaine Rosales - 02/16/22 Echocardiogram Ultrasound (Signed) Padilla Sheldon - 12/16/21 Chest X-Ray (Signed) Thea Stanley - 10/26/21 Chest X-Ray (Signed) Anna Horvath - 10/16/21 Abdomen/Pelvis CT (Signed) Jim Israel - 05/29/21 Lumbar Spine MRI (Signed) Sharmaine Rosales - 01/21/21 Lumbar Spine X-Ray (Signed) Thea Stanley - 11/10/20 Telemetry Strips 10/22/20 Abdomen/Pelvis CT (Signed) Sharmaine Rosales - 09/04/20 Chest/Abdomen/Pelvis CT (Signed) Evert Briscoe - 07/31/20 Chest X-Ray (Signed) Jasvir Gastelum - 07/31/20 Echocardiogram Ultrasound (Signed) Padilla Sheldon - 05/13/[address] (Signed) Don Boswell - 03/05/20 PFT Result 06/21/19 Radiology Report (Cancelled) Padilla Sheldon - 06/19/19 Myocardial Perfusion Scan Nuc Med (Signed) Padilla Sheldon - 06/19/19 Echocardiogram Ultrasound (Signed) Padilla Sheldon - 06/19/19 Hip X-Ray (Signed) Alf Cantu - 02/07/19 Hip MRI (Signed) Silas Gonzalez - 11/30/18 Outside EKG 10/08/18 Outside EKG 10/08/18 Outside EKG 10/08/18 [place] [address] Ultrasound Report Signed Patient: David Ochoa MR#: [id number] : 1950 Acct:[id number] Age/Sex: 72 / M Date of Service: 05/30/23 Loc: ED Accession Number: [id number] ?? Procedure: US renal complete Ordering Provider: Tana Funez D.O. PROCEDURE:? US RENAL COMPLETE ? INDICATIONS:? NICHOLE ? TECHNIQUE:? Real-time scanning was performed of the kidneys and bladder, with image documentation.? ? COMPARISON:? None. ? FINDINGS:? ? Kidneys:? Kidneys are normal in size.? Right kidney measures 10.2 cm long; left kidney measures 10.2 cm long.? Right renal cortical thickness is 1.3 cm; left renal cortical thickness is 1.2 cm.? Renal cortical echotexture is normal.? No hydronephrosis or nephrolithiasis.? No suspicious solid mass lesions.? Multiple bilateral renal simple cysts, largest measuring 2.5 cm on the right, subcentimeter on the left. ? Bladder:? Pre-void bladder volume is 176 mL.? Post-void residual is 135 mL.? Patient was unable to urinate Pre-void images demonstrate no intraluminal masses or stones.? Ureteral jets were not seen..? (Of note, ureteral jets may not be detectable in up to 25% of cases due to insufficient differences in specific gravity between ureteral and bladder urine).? ? ? Miscellaneous:? No free pelvic fluid.? ? IMPRESSION:? ? 1. Bilateral renal cysts.? Otherwise, the kidneys are normal in appearance. 2. Postvoid residual 135 cc, patient was unable to urinate. ? ? Dictated by: Wilberto Hadley M.D. on 05/30/2023 at 16:55 ? ? Approved by: Wilberto Hadley M.D. on 05/30/2023 at 17:05?? ECG Data Attestation: I personally reviewed and interpreted this ECG as follows: Prior ECG tracings: available for review Interpretation: Sinus tachycardia rate of 109 ND 162 QRS is 78 QTC [address]. No acute ST elevation or depression noted. Patient has prior from October 16, 2021 with no acute change. MDM Narrative Medical decision making narrative: Male with known COPD, patient had shortness of breath but improved thickening fully with did not require any additional intervention. His chest x-ray does show pleural effusion but he had lumpectomy and is menses maybe appointment he does have a white count of 13.9, hemoglobin, platelets are 321 coags are negative, creatinine is 3 today which is atypical appreciate normally 9 back in January 2022, BUN 51 with normal electrolytes, lactate 0.5, patient had negative troponin, LFTs BNP 327. I would assume patient had 270 on bladder scan, had postvoid residual 135 did have Conteh catheter placed he is making urine but suspect possibly intrinsic renal source of acute kidney injury secondary to possible new medications have Ozempic, he is and diclofenac daily. Or other potential causes. Patient seen by Dr. Rawls, hospitalist accepts for admission. Asks for CT chest does not require results prior to transfer upstairs. Discharge Plan Departure Patient Disposition: Admitted As Inpatient Clinical Impression: Acute kidney failure Admit Date/Time: 05/30/23 19:14 Admit Provider: Stefan Rawls
[2023-05-30] MEDS: SODIUM CHLORIDE 0.9% 1,000 ML 1000 ML IV (16:54)
[2023-05-30] MEDS: LIDOCAINE 2% (GLYDO) 6 ML GEL TOP (16:54)
[2023-05-30 17:39] LABS: Appearance Urine UA CLEAR; Bilirubin Urine UA NEGATIVE (NEGATIVE); Color Urine UA YELLOW; Glucose Urine UA NEGATIVE (Negative); Ketones Urine UA NEGATIVE (NEGATIVE); Leukocyte Esterase Urine UA NEGATIVE (NEGATIVE); Nitrite Urine UA NEGATIVE (Negative); Occult Blood Urine UA NEGATIVE (Negative); Protein Urine UA NEGATIVE (Negative); Specific Gravity Urine UA 1.025 (1.000-1.035); Urobilinogen Urine UA 0.2 E.U./dL (0.2); pH Urine UA 5.5 (4.5-8.0)
[2023-05-30 17:50] LABS: Bacteria Urine Moderate (10-30); Hyaline Casts Urine 0-1/LPF; Mucus Urine 1+ (Negative); RBC Urine 0-1/HPF (0-5/HPF); Squamous Epithelial Cell Urine 0-1 /HPF (0-5/HPF); WBC Urine 1-5/HPF (0-5/HPF)
[2023-05-30 17:51] LABS: Culture Indicated Urine Specimen Cultured
[2023-05-30 18:07] LABS: Creatinine Urine Random 156.2 mg/dL; Sodium Urine Random 84 mmol/L (30-90)
[2023-05-30] MEDS: CIPROFLOXACIN 400 MG/200 ML PIGGYBACK 200 MG IV (18:14)
[2023-05-30 18:30] VITALS: BP 144/64; PULSE 90; RESP 14; O2SAT 97
[2023-05-30 18:35] VITALS: TEMP 37.1
--- NOTE | 2023-05-30 18:52 | DI.CT.S_ITS ---
PROCEDURE: CT CHEST WO CON INDICATIONS: shortness of breath TECHNIQUE: Noncontrast 5 mm thick sections acquired from the pulmonary apices to the posterior costophrenic angles. 1 mm lung window, 5 mm thick coronal and sagittal and 7 mm axial MIP reformats were then acquired. For radiation dose reduction, the following was used: automated exposure control, adjustment of mA and/or kV according to patient size. COMPARISON: [facility], CT, CT CHEST WO CON, 03/05/2020, 12:34. FINDINGS: Image quality: Excellent. Lungs and pleura: Centrilobular emphysematous changes with several large bulla in the right upper lobe. No acute air space opacities. Scarring in the right posterior lung base with traction bronchiectasis is unchanged. No pleural effusions or pneumothorax. Central and peripheral airways are patent and normal in caliber. Mediastinum: Heart size is normal. The coronary arteries have atherosclerotic calcifications. No pericardial effusion. No mediastinal adenopathy by size criteria. Thoracic aorta and central pulmonary arteries are normal in size. Esophagus is normal in caliber. No hiatal hernia. Bones and chest wall: No suspicious bony lesions. No vertebral body compression fractures. No axillary or supraclavicular adenopathy by size criteria. Thyroid gland is normal. Abdomen: Limited visualization of the upper abdomen shows no acute abnormality. IMPRESSION: 1. No acute abnormality of the chest. 2. Centrilobular emphysematous changes with bulla in the right apex. Dictated by: Fabrice Garcia M.D. on 05/30/2023 at 20:02 Approved by: Fabrice Garcia M.D. on 05/30/2023 at 20:07
[2023-05-30 19:31] VITALS: PULSE 94; RESP 22; O2SAT 97
[2023-05-30 19:34] VITALS: BMI 33.7
[2023-05-30 20:35] VITALS: BP 166/62; PULSE 97; RESP 18; TEMP 36.9; O2SAT 97
[2023-05-30 21:50] VITALS: BMI 33.7
[2023-05-30] MEDS: HEPARIN 5,000 UNIT/ML VIAL 5000 UNIT SUBCUT (22:54)
[2023-05-30] MEDS: SODIUM CHLORIDE 0.9% 1,000 ML 125 ML IV (22:55)
[2023-05-31 00:06] VITALS: BP 125/52; PULSE 88; RESP 18; TEMP 36.6; O2SAT 97
--- NOTE | 2023-05-31 00:48 | P.HP_ITS ---
History of Present Illness History of Present Illness Chief complaint: SOBx2 Narrative: David is a 72-year-old gentleman who presents to the emergency room with a chief complaint of shortness of breath. 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 This was an admission signed out from the dayshift to me.? Dayshift report rece ived report from the emergency room. In the emergency room, the patient was not found to be hypoxic.? He reported history of COPD and was given albuterol treatment after which his shortness of breath/dyspnea on exertion completely resolved.? He is also signed out to be a poor historian.? Vital signs show that he is hemodynamically stable. Undergoing labs in the emergency room showed a new creatinine of 3 with a previous normal baseline.? The patient denies having any significant lower urinary tract symptoms.? He was found to be in urinary retention with 270 cc of urine and a Conteh catheter was inserted in the emergency room.? His white count was elevated to 15 K with an abnormal urinalysis.? The patient is allergic to penicillins and was given a dose of ciprofloxacin for urinary tract infection for complicated UTI. Patient reports LUTS. Renal ultrasound shows normal renal appearance without obstruction.? CT chest does not show any acute pulmonary findings but does show bilateral emphysema. The patient is currently asymptomatic.? Conteh catheter draining clear urine.? The patient denies having any chest pains, ongoing shortness of breath, fevers, chills, headache, back pain that is new, abdominal pain, diarrhea, constipation. 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 Therefore Cipro was given but would like to avoid fluoroquinolones in the setting of NICHOLE.? Clindamycin without sufficient gram-negative coverage.? Will start aztreonam for UTI.? Follow urine culture results.? Bactrim will be avoided in the setting of NICHOLE. [facility] Medical History Arthritis Back pain CAD (coronary artery disease) Carotid artery disease Compound fracture COPD (chronic obstructive pulmonary disease) Cyst of left kidney Depression Diabetes Easy bruisability Enlarged prostate Finding of abnormal level of heavy metals in blood (~2018) Former smoker Hearing loss (01/22/18) HLD (hyperlipidemia) HTN (hypertension) Lung cancer (~1991) Neck pain Neuropathy NIKI (obstructive sleep apnea) Pneumonia RLS (restless legs syndrome) Rosacea Surgical History History of arthroplasty of both hips History of carpal tunnel surgery of right wrist History of vasectomy Hx of blepharoplasty Hx of heart artery stent (10/20/01) Hx of prostate biopsy (10/14/15) S/P lobectomy of lung (~1991) Family History Mother Congestive heart failure Father Pancreatic cancer Brother Diverticulitis Sister Diverticulitis Social History household members: spouse occupational status: employed Smoking Status: Former smoker alcohol intake: former substance use type: does not use Meds Home Medications and Allergies Home Medications Medication Instructions Recorded Confirmed Type ALBUTEROL (PROVENTIL INHALER) 1 puff inhalation PRN PRN 08/17/11 05/30/23 History Shortness Of Breath ##0 tamsulosin 0.4 mg capsule 0.8 mg PO DAILY 01/24/19 05/30/23 History sertraline 20 mg/mL oral 100 mg PO DAILY 02/07/19 05/30/23 History concentrate (Zoloft) nitroglycerin 0.4 mg sublingual 0.4 mg sublingual Q5M PRN Chest 09/23/20 05/30/23 History tablet Pain cyclobenzaprine 10 mg tablet 10 mg PO DAILY PRN Pain, Moderate 05/30/21 05/30/23 History evolocumab 140 mg/mL subcutaneous 140 mg SUBCUT Q10D 05/30/21 05/30/23 History syringe (Repatha Syringe) metoprolol succinate 25 mg 25 mg PO DAILY 05/30/21 05/30/23 History tablet,extended release 24 hr zolpidem 10 mg tablet 5 mg PO QPM PRN Sleep 05/30/21 05/30/23 History ciprofloxacin HCl 500 mg tablet 500 mg PO Q12H #14 tabs 06/01/21 05/30/23 Rx (Cipro) metronidazole 500 mg tablet 500 mg PO Q8H #21 tabs 06/01/21 05/30/23 Rx (Flagyl) oxycodone 5 mg tablet 5 mg PO Q6HR PRN Pain, Moderate 06/01/21 05/30/23 Rx (4-6) #16 tabs clopidogrel 75 mg tablet 75 mg PO DAILY 05/30/23 05/30/23 History lisinopril 10 mg tablet 10 mg PO DAILY 05/30/23 05/30/23 History pantoprazole 20 mg tablet,delayed 20 mg PO DAILY 05/30/23 05/30/23 History release semaglutide 1 mg/dose (4 mg/3 mL) 1 mg SUBCUT 05/30/23 History subcutaneous pen injector (Ozempic) Allergies Allergy/AdvReac Type Severity Reaction Status Date / Time latex Allergy Severe Rash Verified 10/16/21 11:12 Penicillins [PENICILLINS] Allergy Severe Anaphylaxis Verified 10/16/21 11:12 adhesive tape AdvReac Severe Melts to Verified 10/16/21 11:12 my skin and pulls my skin off amino acids [From Chromimin] AdvReac Severe High blood Verified 10/16/21 11:12 level of chromim chromium [From Chromimin] AdvReac Severe High blood Verified 10/16/21 11:12 level of chromim cobalt AdvReac Severe High blood Verified 10/16/21 11:12 level of cobalt meperidine [MEPERIDINE] AdvReac Severe VOMITING Verified 10/16/21 11:12 morphine [MORPHINE] AdvReac Intermediate HALLUCINATI Verified 10/16/21 11:12 ONS Review of Systems Review of Systems Narrative: 14 POINT ROS negative Exam Vital Signs (past 8 hours): - 05/30/23 18:35 05/30/23 18:30 05/30/23 19:31 Temperature 98.8 F Pulse Rate 90 94 H Respiratory Rate 14 22 Blood Pressure 144/64 H Pulse Oximetry 97 97 Oxygen Delivery Method Room Air Oxygen Flow Rate 05/30/23 20:35 05/30/23 19:34 05/31/23 00:06 Temperature 98.4 F 98 F Pulse Rate 97 H 88 Respiratory Rate 18 18 Blood Pressure 166/62 H 125/52 L Pulse Oximetry 97 97 Oxygen Delivery Method Room Air Oxygen Flow Rate 0 0 Oxygen Delivery Method Room Air Oxygen Flow Rate 0 Narrative Exam Narrative: Physical examination General alert and orientated x4, no apparent distress HEENT normocephalic atraumatic Cardiovascular exam S1-S2 present PMI nondisplaced Lungs are clear to auscultation without wheezing Abdomen is soft, nontender Back exam no costovertebral angle tenderness Lower extremity exam warm and well-perfused without edema Neuro nonfocal Objective Labs 05/30/23 14:16 05/30/23 14:16 Labs: Laboratory Results - last 24 hr 05/30/23 05/30/23 05/30/23 14:16 14:16 14:16 WBC 15.9 H RBC 3.49 L Hgb 10.8 L Hct 32.7 L MCV 93.8 MCH 30.9 MCHC 32.9 RDW 15.4 H Plt Count 321 Neut % (Auto) 89.6 H Lymph % (Auto) 5.6 L Henry % (Auto) 4.6 Eos % (Auto) 0.1 L Baso % (Auto) 0.1 Neut # (Auto) 75633 H Lymph # (Auto) 900 L Henry # (Auto) 700 Eos # (Auto) 0 Baso # (Auto) 0 PT 13.6 H INR 1.2 Sodium 137 Potassium 4.6 Chloride 106 Carbon Dioxide 19 L BUN 51 H Creatinine 3.00 H Estimated GFR 21 L BUN/Creatinine Ratio 17.0 Glucose 133 H Lactate Calcium 9.3 Total Bilirubin 0.4 AST 36 ALT 18 Alkaline Phosphatase 86 Troponin I < 0.012 NT-Pro-B Natriuret Pep 327 H Total Protein 7.7 Albumin 4.2 Globulin 3.5 Albumin/Globulin Ratio 1.2 Urine Color Urine Appearance Urine pH Ur Specific [place] Urine Protein Urine Glucose (UA) Urine Ketones Urine Occult Blood Urine Nitrate Urine Bilirubin Urine Urobilinogen Ur Leukocyte Esterase Urine RBC Urine WBC Ur Squamous Epith Cells Urine Bacteria Hyaline Casts Urine Mucus Urine Yeast Ur Culture Indicated? Ur Random Sodium Urine Creatinine 05/30/23 05/30/23 05/30/23 14:16 17:12 17:12 WBC RBC Hgb Hct MCV MCH MCHC RDW Plt Count Neut % (Auto) Lymph % (Auto) Henry % (Auto) Eos % (Auto) Baso % (Auto) Neut # (Auto) Lymph # (Auto) Henry # (Auto) Eos # (Auto) Baso # (Auto) PT INR Sodium Potassium Chloride Carbon Dioxide BUN Creatinine Estimated GFR BUN/Creatinine Ratio Glucose Lactate 1.5 Calcium Total Bilirubin AST ALT Alkaline Phosphatase Troponin I NT-Pro-B Natriuret Pep Total Protein Albumin Globulin Albumin/Globulin Ratio Urine Color Yellow Urine Appearance Clear Urine pH 5.5 Ur Specific [place] 1.025 Urine Protein Negative Urine Glucose (UA) Negative Urine Ketones Negative Urine Occult Blood Negative Urine Nitrate Negative Urine Bilirubin Negative Urine Urobilinogen 0.2 Ur Leukocyte Esterase Negative Urine RBC 0-1/hpf Urine WBC 1-5/hpf Ur Squamous Epith Cells 0-1 /hpf Urine Bacteria Moderate (10-30) H Hyaline Casts 0-1/lpf Urine Mucus 1+ H Urine Yeast 0-1/hpf Ur Culture Indicated? Specimen cultured Ur Random Sodium 84 Urine Creatinine 156.2 Assessment & Plan Assessment & Plan narrative: ACUTE: Acute kidney injury presenting creatinine of 3 possibly from postobstructive pr ocess, urinary retention.? Currently with a Conteh catheter in place Dyspnea on exertion POA now resolved with bronchodilators Chronic: Enlarged prostate on tamsulosin Depression on sertraline Episodes of chest pain on nitroglycerin as needed Nonspecific back pain on cyclobenzaprine Hypertension on metoprolol succinate Insomnia on zolpidem Dyslipidemia on evolocumab Type 2 diabetes on semaglutide CAD on Plavix Hypertension on lisinopril PLAN: Admit to [facility] with telemetry Upfront antibiotic for complicated UTI will be aztreonam IV Follow urine culture results DC Conteh when able Avoid nephrotoxic drugs Interval renal function testing in a.m. Normal saline 75 MLS per hour DuoNeb as needed CONSULTS NONE CODE FULL CODE DVT Proph: Heparin 5000 units SQ Q 12 hrs Time spent 90 mins
[2023-05-31 04:11] VITALS: BP 134/58; PULSE 95; RESP 20; TEMP 36.8; O2SAT 96
[2023-05-31] MEDS: AZTREONAM 1 GM in SODIUM CHLORIDE 0.9% 50 ML IV (04:40)
--- NOTE | 2023-05-31 05:00 | PC.ADMIT ---
Addendum entered by Gisella Kothari R.N. 05/31/23 05:48: Pt started on Atreonam, tolerated well. Original Note: [phone] Admission Note: Patient admitted to AC unit from ED at 20:24 via stretcher. Able to ambulate from stretcher to hospital bed with SBA. Spouse present upon admit. A/O x 4, able to make needs known, denies pain. NS running at 125/hr. Bed locked and in low position. Bed alarm on and call light within reach. The patient,David Ochoa,72 y/o, was given written information regarding hospital policies, unit procedures and contact persons. Patient's smoking status: Former smoker. Vital Signs - 8 hr 05/31/23 00:06 05/31/23 04:11 Temperature 98 F 98.2 F Pulse Rate 88 95 H Respiratory Rate 18 20 Blood Pressure 125/52 L 134/58 L Pulse Oximetry 97 96 Oxygen Flow Rate 0 0
[2023-05-31 06:47] LABS: Add Manual Diff / Slide Review NO; Basophils Absolute Auto 0 /uL (0-100); Basophils Percent Auto 0.3 % (0-2); Eosinophils Absolute Auto 0 /uL (0-450); Eosinophils Percent Auto 0.2 % (2-4); Hematocrit 27.2 % (41-53); Hemoglobin 9.2 g/dL (13.5-17.5); Lymphocytes Absolute Auto 1300 /uL (1100-4500); Lymphocytes Percent Auto 11.9 % (25-40); Mean Corpuscular HGB Conc 33.6 % (30-36); Mean Corpuscular Hemoglobin 31.5 PG (26-34); Mean Corpuscular Volume 93.8 fL (80-100); Monocytes Absolute Auto 1000 /uL (0-900); Monocytes Percent Auto 9.1 % (3-14); Neutrophils Absolute Auto 8800 /uL (1500-7000); Neutrophils Percent Auto 78.5 % (50-75); Platelet Count 245 X10^3/uL (150-400); Red Cell Distribution Width 15.7 % (11.6-14.8); White Blood Cell Count 11.2 X10^3/uL (4.5-11.0)
[2023-05-31 08:00] VITALS: BP 133/84; PULSE 91; RESP 18; TEMP 36.3; O2SAT 97
[2023-05-31 08:25] VITALS: BP 133/84; PULSE 93
[2023-05-31] MEDS: METOPROLOL ER 25 MG TABLET PO (08:25)
[2023-05-31] MEDS: SERTRALINE 50 MG TABLET 100 MG PO (08:28)
[2023-05-31] MEDS: HEPARIN 5,000 UNIT/ML VIAL 5000 UNIT SUBCUT ×2 (08:28→20:07)
[2023-05-31] MEDS: SODIUM CHLORIDE 0.9% 1,000 ML 125 ML IV ×2 (08:34→19:27)
[2023-05-31 08:52] LABS: BUN Creatinine Ratio 21.2 (6-22); Blood Urea Nitrogen 45 mg/dL (9-20); Calcium 8.8 mg/dL (8.4-10.2); Carbon Dioxide 21 mmol/L (22-32); Chloride 109 mmol/L (98-107); Estimated Glomerular Filt Rate 32 mL/min (>60); Glucose 96 mg/dL (80-110); HEMOLYSIS < 15 (0-50); Potassium 4.5 mmol/L (3.4-5.1); Sodium 138 mmol/L (137-145)
--- NOTE | 2023-05-31 10:26 | P.PN_ITS ---
Subjective Subjective Interval history: Admitted with urine retention and NICHOLE. Also possible UTI. Allergic to PCN. Known BPH, had been on flomax, stopped in the past. Some issues with orthostasis in the past as well as chronic dyspnea. Had seen [facility]rology in the past, recommended flomax. Exam Vital Signs (past 8 hours): - 05/31/23 04:11 05/31/23 08:25 05/31/23 07:00 Temperature 98.2 F Pulse Rate 95 H 93 H Respiratory Rate 20 Blood Pressure 134/58 L 133/84 Pulse Oximetry 96 Oxygen Delivery Method Room Air Oxygen Flow Rate 0 05/31/23 08:00 Temperature 97.4 F L Pulse Rate 91 H Respiratory Rate 18 Blood Pressure 133/84 Pulse Oximetry 97 Oxygen Delivery Method Oxygen Flow Rate Oxygen Delivery Method Room Air Oxygen Flow Rate 0 Narrative Exam Narrative: NAD Lungs clear CV regular without murmur. Abdomen soft and Non-tender. No leg edema San in place. Objective Imaging Renal US: Radiologist's impression: IMPRESSION:? ? 1. Bilateral renal cysts.? Otherwise, the kidneys are normal in appearance. 2. Postvoid residual 135 cc, patient was unable to urinate. CT scan - chest: Radiologist's impression: IMPRESSION: 1. No acute abnormality of the chest. 2. Centrilobular emphysematous changes with bulla in the right apex.? Labs 05/31/23 06:30 05/31/23 06:30 Labs: Laboratory Results - last 24 hr 05/30/23 05/30/23 05/30/23 14:16 14:16 14:16 WBC 15.9 H RBC 3.49 L Hgb 10.8 L Hct 32.7 L MCV 93.8 MCH 30.9 MCHC 32.9 RDW 15.4 H Plt Count 321 Neut % (Auto) 89.6 H Lymph % (Auto) 5.6 L [place] % (Auto) 4.6 Eos % (Auto) 0.1 L Baso % (Auto) 0.1 Neut # (Auto) 82760 H Lymph # (Auto) 900 L [place] # (Auto) 700 Eos # (Auto) 0 Baso # (Auto) 0 PT 13.6 H INR 1.2 Sodium 137 Potassium 4.6 Chloride 106 Carbon Dioxide 19 L BUN 51 H Creatinine 3.00 H Estimated GFR 21 L BUN/Creatinine Ratio 17.0 Glucose 133 H Lactate Calcium 9.3 Total Bilirubin 0.4 AST 36 ALT 18 Alkaline Phosphatase 86 Troponin I < 0.012 NT-Pro-B Natriuret Pep 327 H Total Protein 7.7 Albumin 4.2 Globulin 3.5 Albumin/Globulin Ratio 1.2 Urine Color Urine Appearance Urine pH Ur Specific [place] Urine Protein Urine Glucose (UA) Urine Ketones Urine Occult Blood Urine Nitrate Urine Bilirubin Urine Urobilinogen Ur Leukocyte Esterase Urine RBC Urine WBC Ur Squamous Epith Cells Urine Bacteria Hyaline Casts Urine Mucus Urine Yeast Ur Culture Indicated? Ur Random Sodium Urine Creatinine 05/30/23 05/30/23 05/30/23 14:16 17:12 17:12 WBC RBC Hgb Hct MCV MCH MCHC RDW Plt Count Neut % (Auto) Lymph % (Auto) [place] % (Auto) Eos % (Auto) Baso % (Auto) Neut # (Auto) Lymph # (Auto) [place] # (Auto) Eos # (Auto) Baso # (Auto) PT INR Sodium Potassium Chloride Carbon Dioxide BUN Creatinine Estimated GFR BUN/Creatinine Ratio Glucose Lactate 1.5 Calcium Total Bilirubin AST ALT Alkaline Phosphatase Troponin I NT-Pro-B Natriuret Pep Total Protein Albumin Globulin Albumin/Globulin Ratio Urine Color Yellow Urine Appearance Clear Urine pH 5.5 Ur Specific [place] 1.025 Urine Protein Negative Urine Glucose (UA) Negative Urine Ketones Negative Urine Occult Blood Negative Urine Nitrate Negative Urine Bilirubin Negative Urine Urobilinogen 0.2 Ur Leukocyte Esterase Negative Urine RBC 0-1/hpf Urine WBC 1-5/hpf Ur Squamous Epith Cells 0-1 /hpf Urine Bacteria Moderate (10-30) H Hyaline Casts 0-1/lpf Urine Mucus 1+ H Urine Yeast 0-1/hpf Ur Culture Indicated? Specimen cultured Ur Random Sodium 84 Urine Creatinine 156.2 05/31/23 05/31/23 06:30 06:30 WBC 11.2 H RBC 2.90 L Hgb 9.2 L Hct 27.2 L MCV 93.8 MCH 31.5 MCHC 33.6 RDW 15.7 H Plt Count 245 Neut % (Auto) 78.5 H Lymph % (Auto) 11.9 L [place] % (Auto) 9.1 Eos % (Auto) 0.2 L Baso % (Auto) 0.3 Neut # (Auto) 8800 H Lymph # (Auto) 1300 [place] # (Auto) 1000 H Eos # (Auto) 0 Baso # (Auto) 0 PT INR Sodium 138 Potassium 4.5 Chloride 109 H Carbon Dioxide 21 L BUN 45 H Creatinine 2.12 H Estimated GFR 32 L BUN/Creatinine Ratio 21.2 Glucose 96 Lactate Calcium 8.8 Total Bilirubin AST ALT Alkaline Phosphatase Troponin I NT-Pro-B Natriuret Pep Total Protein Albumin Globulin Albumin/Globulin Ratio Urine Color Urine Appearance Urine pH Ur Specific [place] Urine Protein Urine Glucose (UA) Urine Ketones Urine Occult Blood Urine Nitrate Urine Bilirubin Urine Urobilinogen Ur Leukocyte Esterase Urine RBC Urine WBC Ur Squamous Epith Cells Urine Bacteria Hyaline Casts Urine Mucus Urine Yeast Ur Culture Indicated? Ur Random Sodium Urine Creatinine PFSH Medical History Arthritis Back pain CAD (coronary artery disease) Carotid artery disease Compound fracture COPD (chronic obstructive pulmonary disease) Cyst of left kidney Depression Diabetes Easy bruisability Enlarged prostate Finding of abnormal level of heavy metals in blood (~2018) Former smoker Hearing loss (01/22/18) HLD (hyperlipidemia) HTN (hypertension) Lung cancer (~1991) Neck pain Neuropathy NIKI (obstructive sleep apnea) Pneumonia RLS (restless legs syndrome) Rosacea Surgical History History of arthroplasty of both hips History of carpal tunnel surgery of right wrist History of vasectomy Hx of blepharoplasty Hx of heart artery stent (10/20/01) Hx of prostate biopsy (10/14/15) S/P lobectomy of lung (~1991) Family History Mother Congestive heart failure Father Pancreatic cancer Brother Diverticulitis Sister Diverticulitis Social History household members: spouse occupational status: employed Smoking Status: Former smoker alcohol intake: former substance use type: does not use Assessment & Plan Assessment & Plan narrative: 1. NICHOLE with retention, POA. Continue san decompression. And follow renal function. 2. BPH, POA. Flomax. Home with san and OP urology appt. 3. Possible UTI, POA. Cont aztreonam and await cx. 4. Chronic ORDONEZ, better with bronchodilators. POA. Follow clinically. 5. Chronic medical problems, continue home meds except hold lisinopril. Chronic medical problems, POA and stable. BPH, had been on flomax in the past. Depression on sertraline Episodes of chest pain on nitroglycerin as needed Nonspecific back pain on cyclobenzaprine Hypertension on metoprolol succinate, lisinopril. Insomnia on zolpidem Dyslipidemia on evolocumab Type 2 diabetes on semaglutide CAD on Plavix Time Spent With Patient Time with patient: 30 to 49 minutes with 50% spent counseling/coordinating care
--- NOTE | 2023-05-31 11:42 | CM.DANOTE ---
DCP Assessment Note: Patient is a 72yo Male here following weakness/shortness of breath/urine retention/NICHOLE, possible UTI. PCP Payton Morfin Payer Medicare and [facility] COOK SHORT ORDER reviewed EMR. Per provider in rounds, patient will likely be here another day. COOK SHORT ORDER entered room and introduced self and role. Patient was lying in bed and appeared A/Ox4. Patient was accompanied by spouse Citlaly ([phone]). Patient son Power ([phone]) can help with d/c as well. Patient could stay with Power upon d/c if needed due to Citlaly needing to go to [facility] starting tomorrow. Patient has a walker but does not use it. Patient used to have home 02 and is interested in starting that back up again. 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 Patient reports Payton Morfin has been recommending more intensive pulmonary treatment. Patient is not open to HH or SNF. Plan: likely home with family when medically stable transport in POV with either spouse or son. CM team will continue to follow closely should needs arise. COOPER Real Discharge Planning/Care Management CM Discharge Assessment Start: 05/31/23 11:40 Freq: Status: Active Protocol: Document 05/31/23 11:40 (Rec: 05/31/23 11:42 [id number]) Discharge Planning Assessment Assigned Gun Examiner COOPER Bishop DPOA/Assigned Designee Name Citlaly Ochoa (spouse) Contact Information [phone] Advance Directives? Yes Advance Directives on File Yes History Provided By Patient,Family Member,Medical Record Prior Living Arrangements Apartment/Condo Household Members spouse Type of transporation used prior to Drives own vehicle admit Independent with ADL's Yes Is patient alert and oriented? Yes DME Already Rented / Owned Elevated Toilet Seat,FWW / Walker Comment has walker doesn't use it. Used home o2 in the past. Discharge Plan Home Transportation Arrangement Spouse Referrals Initiated None needed Whiteboard Updated in Patient Room with Yes name and ext. # of Gun Examiner Review Status In Process Next Review Type Continued Stay Review
[2023-05-31] MEDS: CLOPIDOGREL 75 MG TABLET PO (11:45)
[2023-05-31] MEDS: PANTOPRAZOLE DR 20 MG TABLET PO (11:45)
[2023-05-31] MEDS: TAMSULOSIN 0.4 MG CAPSULE PO (11:49)
[2023-05-31 12:00] VITALS: BP 133/84; PULSE 91; RESP 18; TEMP 36.3; O2SAT 97
[2023-05-31] MEDS: levoFLOXacin 750 MG/150 ML PIGGYBACK 100 MG IV (15:44)
[2023-05-31] MEDS: ALBUTEROL 2.5 MG/3 ML NEB (ADULT) INH (15:53)
[2023-05-31 18:00] VITALS: BP 116/51; PULSE 83; RESP 18; TEMP 36.5; O2SAT 97
[2023-05-31] MEDS: LORazepam 0.5 MG TABLET PO (20:26)
[2023-06-01] MEDS: DOCUSATE 100 MG CAPSULE PO (00:15)
[2023-06-01 00:34] VITALS: BP 109/58; PULSE 95; RESP 22; TEMP 36.8; O2SAT 98
[2023-06-01] MEDS: SODIUM CHLORIDE 0.9% 1,000 ML 125 ML IV (02:43)
[2023-06-01] MEDS: ONDANSETRON 4 MG/2 ML INJ IV (04:59)
[2023-06-01 06:25] VITALS: BP 140/79; PULSE 94; RESP 22; TEMP 36.4; O2SAT 98
[2023-06-01 07:42] LABS: Add Manual Diff / Slide Review NO; Basophils Absolute Auto 100 /uL (0-100); Basophils Percent Auto 0.6 % (0-2); Eosinophils Absolute Auto 100 /uL (0-450); Eosinophils Percent Auto 0.5 % (2-4); Hematocrit 30.4 % (41-53); Hemoglobin 10.3 g/dL (13.5-17.5); Lymphocytes Absolute Auto 900 /uL (1100-4500); Lymphocytes Percent Auto 7.9 % (25-40); Mean Corpuscular HGB Conc 33.8 % (30-36); Mean Corpuscular Hemoglobin 31.8 PG (26-34); Monocytes Absolute Auto 1000 /uL (0-900); Monocytes Percent Auto 8.2 % (3-14); Neutrophils Absolute Auto 9900 /uL (1500-7000); Neutrophils Percent Auto 82.8 % (50-75); Platelet Count 283 X10^3/uL (150-400); Red Blood Cell Count 3.23 X10^6/uL (4.5-5.9); Red Cell Distribution Width 15.5 % (11.6-14.8); White Blood Cell Count 11.9 X10^3/uL (4.5-11.0)
[2023-06-01 07:54] LABS: BUN Creatinine Ratio 22.8 (6-22); Blood Urea Nitrogen 28 mg/dL (9-20); Calcium 9.2 mg/dL (8.4-10.2); Carbon Dioxide 19 mmol/L (22-32); Chloride 107 mmol/L (98-107); Estimated Glomerular Filt Rate > 60 mL/min (>60); Glucose 100 mg/dL (80-110); HEMOLYSIS < 15 (0-50); Potassium 4.8 mmol/L (3.4-5.1); Sodium 137 mmol/L (137-145)
[2023-06-01 08:56] VITALS: BP 140/79; PULSE 94
[2023-06-01] MEDS: OXYCODONE IR 5 MG TABLET PO (08:56)
[2023-06-01] MEDS: CLOPIDOGREL 75 MG TABLET PO (08:56)
[2023-06-01] MEDS: HEPARIN 5,000 UNIT/ML VIAL 5000 UNIT SUBCUT (08:56)
[2023-06-01] MEDS: PANTOPRAZOLE DR 20 MG TABLET PO (08:56)
[2023-06-01] MEDS: METOPROLOL ER 25 MG TABLET PO (08:56)
[2023-06-01] MEDS: SERTRALINE 50 MG TABLET 100 MG PO (08:56)
[2023-06-01] MEDS: TAMSULOSIN 0.4 MG CAPSULE PO (09:02)
--- NOTE | 2023-06-01 12:31 | PC.NURSE ---
Day shift: Discharge instructions gone over with patient and his son. All questions answered and patient stated understanding. PIV removed prior to d/c. [facility] [place] MD Vance notified. Switched patient's Conteh cathetar to leg bag. Provided instructions for cathetar care at home. Pt stated he would call urologist for follow up. Pt walked to exit via w/c with PAOLA Andersen and patient's son. All belongings with patient.
--- NOTE | 2023-06-01 13:57 | CM.DPC ---
DCP Continued: Per provider in rounds, patient likely to d/c today. Provider reports patient could benefit from HH nursing for san management. ORACLE DATABASE ARCHITECT entered room and introduced self and role. Patient reports being open to HH for nursing, and understands he has to be homebound. 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 Patient reports preference for [facility] . ORACLE DATABASE ARCHITECT gave patient care management card and [facility] brochure to patient. Patient was accompanied by son Power at bedside, who is taking him home and staying with him upon d/c. ORACLE DATABASE ARCHITECT spoke with Giovanni at [facility] . Giovanni sees no barriers to accepting patient. CM Horticultural Nursery Assistant Xochilt faxed initial/dc information/face to face/HH order to Giovanni. Plan: d/c home with son/[facility] for nursing. Transport in POV. CM team will follow as needed. COOPER Real
--- NOTE | 2023-06-01 17:45 | PM.DS.1 ---
History of Present Illness History of Present Illness Chief complaint: SOBx2 Narrative: David is a 72-year-old gentleman who presents to the emergency room with a chief complaint of shortness of breath. 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 This was an admission signed out from the [facility]hift to [place].? [facility] report received report from the emergency room. In the emergency room, the patient was not found to be hypoxic.? He reported history of COPD and was given albuterol treatment after which his shortness of breath/dyspnea on exertion completely resolved.? He is also signed out to be a poor historian.? Vital signs show that he is hemodynamically stable. Undergoing labs in the emergency room showed a new creatinine of 3 with a previous normal baseline.? The patient denies having any significant lower urinary tract symptoms.? He was found to be in urinary retention with 270 cc of urine and a San catheter was inserted in the emergency room.? His white count was elevated to 15 K with an abnormal urinalysis.? The patient is allergic to penicillins and was given a dose of ciprofloxacin for urinary tract infection for complicated UTI. Patient reports LUTS. Renal ultrasound shows normal renal appearance without obstruction.? CT chest does not show any acute pulmonary findings but does show bilateral emphysema. The patient is currently asymptomatic.? San catheter draining clear urine.? The patient denies having any chest pains, ongoing shortness of breath, fevers, chills, headache, back pain that is new, abdominal pain, diarrhea, constipation. 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 Therefore Cipro was given but would like to avoid fluoroquinolones in the setting of NICHOLE.? Clindamycin without sufficient gram-negative coverage.? Will start aztreonam for UTI.? Follow urine culture results.? Bactrim will be avoided in the setting of NICHOLE. Discharge Providers Provider Date of admission: 05/30/23 19:14 Discharge Date: 06/01/23 Primary care physician: Payton Morfin MD Consults: 06/01/23 11:51 Consult to Home Health Routine Comment: san management Reason For Exam: nursing Discharge provider: Ricardo Vance, DO Summary Hospital Course Discharge Diagnosis: 1. NICHOLE with retention, POA. Continue san decompression. NICHOLE now resolved s/p san. Will f/u with urology in clinic and go home with san and leg back until then. 2. BPH, POA. Flomax. Home with san and OP urology appt. 3. Possible UTI, POA. Cont aztreonam and await cx. 4. Chronic ORDONEZ, better with bronchodilators. POA. Follow clinically. 5. Chronic medical problems, continue home meds?except hold lisinopril. Chronic medical problems, POA and stable. BPH, had been on flomax in the past. Depression on sertraline Episodes of chest pain on nitroglycerin as needed Nonspecific back pain on cyclobenzaprine Hypertension on metoprolol succinate, lisinopril. Insomnia on zolpidem Dyslipidemia on evolocumab Type 2 diabetes on semaglutide CAD on Plavix Hospital Course: Admitted for NICHOLE due to bladder outlet obstruction from flomax being stopped. San placed and NICHOLE resolved. Lisinopril dose lowered on dc. Will f/u with urology for ongoing management and use san plus leg bag until then. Exam Vital Signs (past 8 hours): Oxygen Delivery Method Room Air Oxygen Flow Rate 0 Narrative Exam Narrative: NAD Lungs clear CV regular without murmur. Abdomen soft and Non-tender. No leg edema San in place. Objective Labs 06/01/23 07:27 06/01/23 07:27 Labs: Laboratory Results - last 24 hr 06/01/23 06/01/23 07:27 07:27 WBC 11.9 H RBC 3.23 L Hgb 10.3 L Hct 30.4 L MCV 94.0 MCH 31.8 MCHC 33.8 RDW 15.5 H Plt Count 283 Neut % (Auto) 82.8 H Lymph % (Auto) 7.9 L [place] % (Auto) 8.2 Eos % (Auto) 0.5 L Baso % (Auto) 0.6 Neut # (Auto) 9900 H Lymph # (Auto) 900 L [place] # (Auto) 1000 H Eos # (Auto) 100 Baso # (Auto) 100 Sodium 137 Potassium 4.8 Chloride 107 Carbon Dioxide 19 L BUN 28 H Creatinine 1.23 Estimated GFR > 60 BUN/Creatinine Ratio 22.8 H Glucose 100 Calcium 9.2 PFSH Medical History Arthritis Back pain CAD (coronary artery disease) Carotid artery disease Compound fracture COPD (chronic obstructive pulmonary disease) Cyst of left kidney Depression Diabetes Easy bruisability Enlarged prostate Finding of abnormal level of heavy metals in blood (~2018) Former smoker Hearing loss (01/22/18) HLD (hyperlipidemia) HTN (hypertension) Lung cancer (~1991) Neck pain Neuropathy NIKI (obstructive sleep apnea) Pneumonia RLS (restless legs syndrome) Rosacea Surgical History History of arthroplasty of both hips History of carpal tunnel surgery of right wrist History of vasectomy Hx of blepharoplasty Hx of heart artery stent (10/20/01) Hx of prostate biopsy (10/14/15) S/P lobectomy of lung (~1991) Family History Mother Congestive heart failure Father Pancreatic cancer Brother Diverticulitis Sister Diverticulitis Social History household members: spouse occupational status: employed Smoking Status: Former smoker alcohol intake: former substance use type: does not use Discharge Plan Discharge Plan Patient Disposition: Home Provider Discharge Comment: I've halved your home lisinopril dose because you came in with kidney injury. Please f/u with urology for your large prostate. Discharge orders & Medications Prescriptions: New oxycodone-acetaminophen [Percocet] 5-325 mg tablet 1 tab PO Q4-6H PRN (Reason: pain) Qty: 20 0RF Continued ALBUTEROL (PROVENTIL INHALER) 1 puff Inhalation PRN PRN (Reason: Shortness Of Breath) Qty: 0 nitroglycerin 0.4 mg tablet, sublingual 0.4 mg sublingual Q5M PRN (Reason: Chest Pain) Rx Instructions: do not exceed 3 doses per episode tamsulosin 0.4 mg Capsule 0.8 mg PO DAILY sertraline [Zoloft] 20 mg/mL Concentrate 100 mg PO DAILY clopidogrel 75 mg tablet 75 mg PO DAILY Ozempic 1 mg/dose (4 mg/3 mL) pen injector 1 mg SUBCUT QWEEK pantoprazole 20 mg tablet,delayed release (DR/EC) 20 mg PO DAILY cyclobenzaprine 10 mg tablet 10 mg PO DAILY PRN (Reason: Pain, Moderate) Patient Comments: TAKE 1 TABLET BY MOUTH EVERY NIGHT NEEDED metoprolol succinate 25 mg tablet extended release 24 hr 25 mg PO DAILY Patient Comments: TAKE 1 TABLET BY MOUTH EVERY DAY zolpidem 10 mg tablet 5 mg PO QPM PRN (Reason: Sleep) Patient Comments: TAKE 1 TABLET BY MOUTH ONE DAILY AT BEDTIME NEEDED Repatha Syringe 140 mg/mL syringe 140 mg SUBCUT Q10D Patient Comments: INJECT 1 ML UNDER THE SKIN EVERY 2 WEEKS Changed lisinopril 10 mg tablet 5 mg PO DAILY Qty: 30 0RF Discontinued oxycodone 5 mg Tablet 5 mg PO Q6HR PRN (Reason: Pain, Moderate (4-6)) Qty: 16 0RF ciprofloxacin HCl [Cipro] 500 mg tablet 500 mg PO Q12H Qty: 14 0RF metronidazole [Flagyl] 500 mg tablet 500 mg PO Q8H Qty: 21 0RF Follow up/Referrals: Payton Morfin MD [Primary Care Provider] - 06/15/23 11:00 am (Appt:06/15 @ 11:[address] Morfin in [place] please arrive 15 minutes prior to your scheduled appointment time ) Visit Report/Discharge Packet Instructions: How to Prevent Falls, DI for Prescription Opioid Use Stand Alone Forms: Patient Portal/API, Stroke Signs & Symptoms Discharge Data Primary Care Provider: Payton Morfin Discharges patient from system. Discharge Date/Time: 06/01/23 12:33
== END 2023-06-01 12:33 | disposition home or self-care (01) | DRG 683 ==
LOC: ED 18:51 → AC 19:15
PROVIDERS: Student in an Organized Health Care Education/Training Program; Admitting Provider Internal Medicine; Emergency Provider Emergency Medicine; PCP Internal Medicine; Referring Provider Emergency Medicine; Visit Provider Internal Medicine
DX: N17.9 Acute kidney failure, unspecified (principal); N39.0 Urinary tract infection, site not specified; R06.00 Dyspnea, unspecified; I25.10 Atherosclerotic heart disease of native coronary artery without angina pectoris; I10 Essential (primary) hypertension; E11.9 Type 2 diabetes mellitus without complications; E78.5 Hyperlipidemia, unspecified; G47.00 Insomnia, unspecified; F32.A Depression, unspecified; N40.1 Benign prostatic hyperplasia with lower urinary tract symptoms; R33.8 Other retention of urine; N32.0 Bladder-neck obstruction; M54.9 Dorsalgia, unspecified; R07.9 Chest pain, unspecified; Z79.85 Long-term (current) use of injectable non-insulin antidiabetic drugs; Z87.891 Personal history of nicotine dependence; Z79.02 Long term (current) use of antithrombotics/antiplatelets; Z79.84 Long term (current) use of oral hypoglycemic drugs; Z88.0 Allergy status to penicillin
CPT/HCPCS: 36415; 51798; 71045; 71250; 76770; 80048; 80053; 81001; 82570; 83605; 83880; 84300; 84484; 85025; 85610; 87086; 93005; 94640; 96365; 96366; 99284; 99285; S0073; J0744; J1644; J1956; J2405; J7613

== ENCOUNTER 2023-06-04 21:14 | Inpatient (IN) | payer MEDICARE, OTHER, SELFPAY ==
[2023-06-04] VITALS (8 sets, daily range): BP systolic 129–165; BP diastolic 56–89; PULSE 93–121; RESP 16–30; TEMP 36.2; O2SAT 96–97; BMI 33.4
--- NOTE | 2023-06-04 21:38 | ED_ITS ---
HPI - Male Genitourinary General Chief complaint: Urogenital-Male Stated complaint: CATHETER ISSUE Time Seen by Provider: 06/04/23 21:18 Mode of arrival: Wheelchair History of Present Illness HPI Narrative: 72-year-old male with history of carotid artery disease, coronary artery disease, type 2 diabetes, depression, COPD, obstructive sleep apnea, enlarged prostate, lung cancer with history of lobectomy, and recent hospitalization for acute kidney injury presents with a chief complaint that his Conteh bag is leaking. He was just discharged on and states that since then he just does not feel great. He is very nonspecific and states that he is a bit more weak than normal, his feet are more cold than normal. He feels fatigued and at times lightheaded. Denies any chest pain or significant shortness of breath. He denies nausea, vomiting or diarrhea. He and his son state that his urine seemed to be darker than they might expect earlier today. Related Data Home Medications Medication Instructions Recorded Confirmed ALBUTEROL (PROVENTIL INHALER) 1 puff inhalation PRN PRN 08/17/11 05/30/23 Shortness Of Breath ##0 tamsulosin 0.4 mg capsule 0.8 mg PO DAILY 01/24/19 05/30/23 sertraline 20 mg/mL oral 100 mg PO DAILY 02/07/19 05/30/23 concentrate (Zoloft) nitroglycerin 0.4 mg sublingual 0.4 mg sublingual Q5M PRN Chest 09/23/20 05/30/23 tablet Pain cyclobenzaprine 10 mg tablet 10 mg PO DAILY PRN Pain, Moderate 05/30/21 05/30/23 evolocumab 140 mg/mL subcutaneous 140 mg SUBCUT Q10D 05/30/21 05/30/23 syringe (Repatha Syringe) metoprolol succinate 25 mg 25 mg PO DAILY 05/30/21 05/30/23 tablet,extended release 24 hr zolpidem 10 mg tablet 5 mg PO QPM PRN Sleep 05/30/21 05/30/23 clopidogrel 75 mg tablet 75 mg PO DAILY 05/30/23 05/30/23 pantoprazole 20 mg tablet,delayed 20 mg PO DAILY 05/30/23 05/30/23 release semaglutide 1 mg/dose (4 mg/3 mL) 1 mg SUBCUT QWEEK 05/30/23 05/31/23 subcutaneous pen injector (Ozempic) Previous Rx's Medication Instructions Recorded lisinopril 10 mg tablet 5 mg PO DAILY #30 tabs 06/01/23 oxycodone-acetaminophen 5 mg-325 1 tab PO Q4-6H PRN pain #20 tabs 06/01/23 mg tablet (Percocet) Allergies Allergy/AdvReac Type Severity Reaction Status Date / Time latex Allergy Severe Rash Verified 10/16/21 11:12 Penicillins [PENICILLINS] Allergy Severe Anaphylaxis Verified 10/16/21 11:12 adhesive tape AdvReac Severe Melts to Verified 10/16/21 11:12 my skin and pulls my skin off amino acids [From Chromimin] AdvReac Severe High blood Verified 10/16/21 11:12 level of chromim chromium [From Chromimin] AdvReac Severe High blood Verified 10/16/21 11:12 level of chromim cobalt AdvReac Severe High blood Verified 10/16/21 11:12 level of cobalt meperidine [MEPERIDINE] AdvReac Severe VOMITING Verified 10/16/21 11:12 morphine [MORPHINE] AdvReac Intermediate HALLUCINATI Verified 10/16/21 11:12 ONS Review of Systems Review of Systems Narrative: GENERAL: Denies chills, fatigue, malaise, fever, sweats. HEENT: Denies sinus pain, ear pain, sore throat, difficulty swallowing, dizziness. RESPIRATORY: Denies dyspnea, cough, wheezing, hemoptysis, sputum. CARDIOVASCULAR: Denies chest pain, palpitations, orthopnea, edema, GASTROINTESTINAL: Denies nausea, vomiting, abdominal pain, diarrhea, constipation, melena. : Denies dysuria, frequency, incontinence, hematuria, urinary retention. MUSCULOSKELETAL: denies weakness, joint pain, or bony pain SKIN: Denies rash, skin lesions, or other NEUROLOGIC: Denies weakness, headache, numbness, change in speech, confusion, seizures, incoordination. PSYCHIATRIC: No concerning psychosocial issues. 12 point review of systems is negative except for those stated above Patient History Medical History Arthritis Back pain CAD (coronary artery disease) Carotid artery disease Compound fracture COPD (chronic obstructive pulmonary disease) Cyst of left kidney Depression Diabetes Easy bruisability Enlarged prostate Finding of abnormal level of heavy metals in blood (~2018) Former smoker Hearing loss (01/22/18) HLD (hyperlipidemia) HTN (hypertension) Lung cancer (~1991) Neck pain Neuropathy NIKI (obstructive sleep apnea) Pneumonia RLS (restless legs syndrome) Rosacea Surgical History History of arthroplasty of both hips History of carpal tunnel surgery of right wrist History of vasectomy Hx of blepharoplasty Hx of heart artery stent (10/20/01) Hx of prostate biopsy (10/14/15) S/P lobectomy of lung (~1991) Family History Mother Congestive heart failure Father Pancreatic cancer Brother Diverticulitis Sister Diverticulitis Social History household members: spouse occupational status: employed Smoking Status: Former smoker alcohol intake: former substance use type: does not use Smoking Status: Former smoker alcohol intake frequency: holidays/special occasions only Substance Use Type: does not use Exam Narrative Exam Narrative: GENERAL: [72] year old patient appears stated age. Well-developed patient, in mild distress. HEAD: Atraumatic. Normocephalic. EYES: Pupils equal round and reactive. Extraocular motions intact. No scleral icterus. No injection or drainage. ENT: Nose without bleeding, purulent drainage. Throat without erythema, tonsillar hypertrophy or exudate. Airway patent. NECK: Trachea midline. Non tender CARDIOVASCULAR: Tachycardic but regular rhythm without murmurs, gallops, or rubs. RESPIRATORY: Clear to auscultation. Breath sounds equal bilaterally. No wheezes, rales, or rhonchi. GASTROINTESTINAL: Abdomen soft, non-tender, nondistended. EXTREMITIES: No edema or joint tenderness. BACK: Nontender without deformity or crepitance. No flank tenderness. NEURO: AOx3. SKIN: No rash or erythema of visible areas Initial Vital Signs Initial Vital Signs: Vital Signs Temperature 97.2 F L 06/04/23 21:25 Pulse Rate 121 H 06/04/23 21:25 Respiratory Rate 30 H 06/04/23 21:25 Blood Pressure 165/78 H 06/04/23 21:25 Pulse Oximetry 96 08/20/23 21:25 Oxygen Delivery Method Room Air 06/04/23 21:25 Course Orders Ordered: ED Orders 06/04/23 22:04 Chest [XR chest 1V] Stat 06/04/23 22:48 Complete Blood Count AUTO DIFF Stat Comprehensive Metabolic Panel Stat Lactate (Lactic Acid) Stat Lipase Stat Magnesium Stat 06/04/23 23:06 Blood Culture Stat 06/05/23 00:05 Creatinine Urine Random Stat Sodium Urine Random Stat Urine Culture Stat Urine Microscopic Stat 06/05/23 01:27 BMP [Basic Metabolic Panel] Stat 06/05/23 01:51 US renal complete Stat Discontinued Medications Sodium Chloride (Normal Saline 0.9%) 2,052 mls @ 684 mls/hr 30 ml/kg infuse over 3 hr (2052 ml) IV NOW ONE Stop: 06/05/23 01:02 Last Infusion: 06/05/23 01:28 Dose: 0 mls/hr Documented By: ROSE MARY Infusion: 06/04/23 22:52 Dose: 684 mls/hr Documented By: Infusion: 06/04/23 22:31 Dose: 0 mls/hr Documented By: Admin: 06/04/23 22:31 Dose: 684 mls/hr Documented By: ALICE Vital Signs Vital signs: Vital Signs - 8 hr 06/04/23 21:25 06/04/23 21:32 06/04/23 22:00 Temperature 97.2 F L Pulse Rate 121 H 105 H Respiratory Rate 30 H 20 Blood Pressure 165/78 H 156/78 H Pulse Oximetry 96 97 Oxygen Delivery Method Room Air Room Air 06/04/23 22:00 06/04/23 22:30 06/04/23 22:31 Temperature Pulse Rate 107 H 98 H Respiratory Rate Blood Pressure 151/89 H Pulse Oximetry 96 96 Oxygen Delivery Method 06/04/23 22:31 06/04/23 23:00 06/04/23 23:00 Temperature Pulse Rate 101 H 97 H Respiratory Rate 16 Blood Pressure 129/73 Pulse Oximetry 97 97 Oxygen Delivery Method 06/04/23 23:30 06/04/23 23:31 06/04/23 23:31 Temperature Pulse Rate 93 H 94 H Respiratory Rate Blood Pressure 131/56 L Pulse Oximetry 97 97 Oxygen Delivery Method 06/05/23 00:00 06/05/23 00:00 06/05/23 00:30 Temperature Pulse Rate 94 H 96 H Respiratory Rate Blood Pressure 146/69 H Pulse Oximetry 98 98 Oxygen Delivery Method 06/05/23 00:31 06/05/23 00:31 06/05/23 01:00 Temperature Pulse Rate 95 H 94 H Respiratory Rate Blood Pressure 143/65 H Pulse Oximetry 98 98 Oxygen Delivery Method 06/05/23 01:01 06/05/23 01:01 06/05/23 01:30 Temperature Pulse Rate 94 H 96 H Respiratory Rate Blood Pressure 140/58 L Pulse Oximetry 99 98 Oxygen Delivery Method 06/05/23 01:31 06/05/23 01:31 06/05/23 02:00 Temperature Pulse Rate 94 H Respiratory Rate Blood Pressure 133/61 146/66 H Pulse Oximetry 99 Oxygen Delivery Method 06/05/23 02:00 Temperature Pulse Rate 93 H Respiratory Rate 18 Blood Pressure Pulse Oximetry 99 Oxygen Delivery Method MDM - Male Genitourinary Lab Data 06/04/23 22:48 06/05/23 01:27 Labs: Lab Results 06/04/23 06/04/23 06/04/23 Range/Units 22:48 22:48 22:48 WBC 13.1 H (4.5-11.0) X10^3/uL RBC 3.10 L (4.5-5.9) X10^6/uL Hgb 9.7 L (13.5-17.5) g/dL Hct 29.1 L (41-53) % MCV 93.9 (80-100) fL MCH 31.3 (26-34) PG MCHC 33.4 (30-36) % RDW 15.2 H (11.6-14.8) % Plt Count 303 (150-400) X10^3/uL Neut % (Auto) 88.3 H (50-75) % Lymph % (Auto) 5.2 L (25-40) % [place] % (Auto) 5.8 (3-14) % Eos % (Auto) 0.1 L (2-4) % Baso % (Auto) 0.6 (0-2) % Neut # (Auto) 02132 H (7402-6093) /uL Lymph # (Auto) 700 L (2485-4100) /uL [place] # (Auto) 800 (0-900) /uL Eos # (Auto) 0 (0-450) /uL Baso # (Auto) 100 (0-100) /uL Sodium 133 L (137-145) mmol/L Potassium 5.0 (3.4-5.1) mmol/L Chloride 103 (98-107) mmol/L Carbon Dioxide 16 L (22-32) mmol/L BUN 59 H (9-20) mg/dL Creatinine 2.82 H (0.66-1.25) mg/dL Estimated GFR 23 L (>60) mL/min BUN/Creatinine Ratio 20.9 (6-22) Glucose 117 H (80-110) mg/dL Lactate 0.9 (0.7-2.1) mmol/L Calcium 9.3 (8.4-10.2) mg/dL Magnesium 1.8 (1.6-2.3) mg/dL Total Bilirubin 0.3 (0.2-1.3) mg/dL AST 27 (17-59) IU/L ALT 23 (<50) IU/L Alkaline Phosphatase 74 (38-126) U/L Total Protein 7.6 (6.3-8.2) g/dL Albumin 3.9 (3.5-5.0) g/dL Globulin 3.7 (1.7-4.1) g/dL Albumin/Globulin Ratio 1.1 (1.0-2.8) Lipase 106 (23-300) U/L Urine RBC (0-5/HPF) Urine WBC (0-5/HPF) Ur Squamous Epith Cells (0-5/HPF) Uric Acid Crystals (None) Urine Bacteria (None) Hyaline Casts (None) Ur Culture Indicated? Ur Random Sodium (30-90) mmol/L Urine Creatinine mg/dL 06/05/23 06/05/23 06/05/23 Range/Units 00:05 00:05 01:27 WBC (4.5-11.0) X10^3/uL RBC (4.5-5.9) X10^6/uL Hgb (13.5-17.5) g/dL Hct (41-53) % MCV (80-100) fL MCH (26-34) PG MCHC (30-36) % RDW (11.6-14.8) % Plt Count (150-400) X10^3/uL Neut % (Auto) (50-75) % Lymph % (Auto) (25-40) % [place] % (Auto) (3-14) % Eos % (Auto) (2-4) % Baso % (Auto) (0-2) % Neut # (Auto) (8981-3834) /uL Lymph # (Auto) (7959-1488) /uL [place] # (Auto) (0-900) /uL Eos # (Auto) (0-450) /uL Baso # (Auto) (0-100) /uL Sodium 133 L (137-145) mmol/L Potassium 4.9 (3.4-5.1) mmol/L Chloride 109 H (98-107) mmol/L Carbon Dioxide 17 L (22-32) mmol/L BUN 54 H (9-20) mg/dL Creatinine 2.48 H (0.66-1.25) mg/dL Estimated GFR 27 L (>60) mL/min BUN/Creatinine Ratio 21.8 (6-22) Glucose 108 (80-110) mg/dL Lactate (0.7-2.1) mmol/L Calcium 8.2 L (8.4-10.2) mg/dL Magnesium (1.6-2.3) mg/dL Total Bilirubin (0.2-1.3) mg/dL AST (17-59) IU/L ALT (<50) IU/L Alkaline Phosphatase (38-126) U/L Total Protein (6.3-8.2) g/dL Albumin (3.5-5.0) g/dL Globulin (1.7-4.1) g/dL Albumin/Globulin Ratio (1.0-2.8) Lipase (23-300) U/L Urine RBC 5-10/hpf H (0-5/HPF) Urine WBC 1-5/hpf (0-5/HPF) Ur Squamous Epith Cells 0-1 /hpf (0-5/HPF) Uric Acid Crystals Occasional (None) Urine Bacteria Few (2-10) H (None) Hyaline Casts 1-5/lpf (None) Ur Culture Indicated? Specimen cultured Ur Random Sodium 103 H (30-90) mmol/L Urine Creatinine 62.7 mg/dL Urine Dip Bedside Urine Glucose Negative Bedside Urine Bilirubin - Negative Bedside Urine Ketone - Negative Urine Specific [place] 1.015 Bedside Urine Occult Blood ++ Bedside Urine pH 6 Bedside Urine Protein - Negative Bedside Urine Urobilinogen - Negative Bedside Urine Nitrite - Negative Bedside Urine Leukocytes +/- 15 Esterase MDM Narrative Medical decision making narrative: CC: 72-year-old male with Conteh bag problem Complicating co-morbidities: Age, recent hospitalization, kidney disease, coronary artery disease, carotid disease Data collected from: Patient Medical records reviewed: Prior notes reviewed in our EMR Differential considered, but not limited to: Conteh catheter problem versus dehydration versus acute kidney injury versus CHF versus pneumonia versus other Exam documented above, pertinent findings include: Tachycardic but regular, lungs clear, abdomen soft Lab Test results independently reviewed as above. Pertinent findings: White blood cells 13.1, relative left shift, hemoglobin 9.7 and hematocrit 29.1, sodium 133, potassium 4.9, chloride 109, carbon dioxide 17, BUN 54, creatinine 2 .82. This is up from his discharge numbers of 1.2. Urine without clear signs of infection Independently reviewed EKG as above Imaging studies independently reviewed: Chest x-ray without infiltrate Scores Used: FeNa = 3.1% Consultations: Discussed with Dr. Bardales, happy to accept on her service Treatments: saline at 30mL/kg IBW Re-evaluations: Patient does admit that he is feeling slightly improved after fluids but no where near as well as when he was discharged a few days ago. Discussion: Patient was having trouble with Conteh catheter leg bag leaking but upon further discussion he is generally feeling poorly over the past few days with generalized weakness and fatigue and dark urine. He has been trying to force fluids at home but still feels terrible. He denies any fever or chills. Discharge creatinine was 1.2 and initial today was 2.8, rechecked after a few L of fluid and it had improved slightly to 2.4. He does appear dry on exam with dry mucous membranes and poor skin turgor, initially urine was dark and it has cleared up a bit. Renal ultrasound obtained, FENA calculated at 3 0.1% suggesting intrinsic cause. Discharge Plan Departure Patient Disposition: Admitted As Inpatient Clinical Impression: Acute kidney injury Admit Date/Time: 06/05/23 03:49
--- NOTE | 2023-06-04 22:04 | DI.RAD.S_ITS ---
PROCEDURE: XR CHEST 1V INDICATIONS: sepsis TECHNIQUE: One view of the chest was acquired. COMPARISON: [facility], CT, CT CHEST WO CON, 05/30/2023, 19:00. [facility], CR, XR CHEST 1V, 05/30/2023, 13:58. [facility], CR, XR CHEST 1V, 10/16/2021, 11:28. FINDINGS: Surgical changes and devices: Postsurgical changes in the right hemithorax.. Lungs and pleura: Mild volume loss in the right hemithorax with mildly prominent fat at the right lung base that does not appear significantly changed when compared to the CT from 05/30/2023. No new pulmonary opacity is seen. No pleural effusion or pneumothorax. Mediastinum: Mediastinal contours appear normal. Heart size is normal. Bones and chest wall: No suspicious bony lesions. Overlying soft tissues appear unremarkable. IMPRESSION: No acute cardiopulmonary abnormality. Approved by: Arthur Castro M.D. on 06/04/2023 at 23:11
[2023-06-04] MEDS: SODIUM CHLORIDE 0.9% 2,052 ML 684 ML IV (22:31)
[2023-06-04 22:58] LABS: Add Manual Diff / Slide Review NO; Basophils Absolute Auto 100 /uL (0-100); Basophils Percent Auto 0.6 % (0-2); Eosinophils Absolute Auto 0 /uL (0-450); Eosinophils Percent Auto 0.1 % (2-4); Hematocrit 29.1 % (41-53); Hemoglobin 9.7 g/dL (13.5-17.5); Lymphocytes Absolute Auto 700 /uL (1100-4500); Lymphocytes Percent Auto 5.2 % (25-40); Mean Corpuscular HGB Conc 33.4 % (30-36); Mean Corpuscular Hemoglobin 31.3 PG (26-34); Mean Corpuscular Volume 93.9 fL (80-100); Monocytes Absolute Auto 800 /uL (0-900); Monocytes Percent Auto 5.8 % (3-14); Neutrophils Absolute Auto 11500 /uL (1500-7000); Neutrophils Percent Auto 88.3 % (50-75); Platelet Count 303 X10^3/uL (150-400); Red Cell Distribution Width 15.2 % (11.6-14.8); White Blood Cell Count 13.1 X10^3/uL (4.5-11.0)
[2023-06-04 23:06] LABS: Alanine Aminotransferase 23 IU/L (<50); Albumin 3.9 g/dL (3.5-5.0); Albumin Globulin Ratio 1.1 (1.0-2.8); Alkaline Phosphatase 74 U/L (38-126); Aspartate Aminotransferase 27 IU/L (17-59); BUN Creatinine Ratio 20.9 (6-22); Bilirubin Total 0.3 mg/dL (0.2-1.3); Blood Urea Nitrogen 59 mg/dL (9-20); Calcium 9.3 mg/dL (8.4-10.2); Carbon Dioxide 16 mmol/L (22-32); Chloride 103 mmol/L (98-107); Estimated Glomerular Filt Rate 23 mL/min (>60); Globulin 3.7 g/dL (1.7-4.1); Glucose 117 mg/dL (80-110); HEMOLYSIS < 15 (0-50); Lipase 106 U/L (23-300); Magnesium 1.8 mg/dL (1.6-2.3); Sodium 133 mmol/L (137-145); Total Protein 7.6 g/dL (6.3-8.2)
[2023-06-04 23:07] LABS: Lactate (Lactic Acid) 0.9 mmol/L (0.7-2.1)
[2023-06-05] VITALS (22 sets, daily range): BP systolic 116–161; BP diastolic 57–119; PULSE 85–104; RESP 18–24; TEMP 36–36.8; O2SAT 95–99; BMI 33.4
[2023-06-05 00:19] LABS: Bacteria Urine Few (2-10); Squamous Epithelial Cell Urine 0-1 /HPF (0-5/HPF); WBC Urine 1-5/HPF (0-5/HPF)
[2023-06-05 00:20] LABS: Hyaline Casts Urine 1-5/LPF; RBC Urine 5-10/HPF (0-5/HPF)
[2023-06-05 00:22] LABS: Culture Indicated Urine Specimen Cultured; Uric Acid Crystals Urine Occasional
[2023-06-05 01:44] LABS: BUN Creatinine Ratio 21.8 (6-22); Blood Urea Nitrogen 54 mg/dL (9-20); Calcium 8.2 mg/dL (8.4-10.2); Carbon Dioxide 17 mmol/L (22-32); Chloride 109 mmol/L (98-107); Estimated Glomerular Filt Rate 27 mL/min (>60); Glucose 108 mg/dL (80-110); HEMOLYSIS < 15 (0-50); Potassium 4.9 mmol/L (3.4-5.1); Sodium 133 mmol/L (137-145)
--- NOTE | 2023-06-05 01:51 | DI.US.S_ITS ---
PROCEDURE: US RENAL COMPLETE INDICATIONS: NICHOLE TECHNIQUE: Real-time scanning was performed of the kidneys and bladder, with image documentation. COMPARISON: [facility], , US RENAL COMPLETE, 05/30/2023, 15:58. FINDINGS: Kidneys: Kidneys are normal in size. Right kidney measures 10.3 cm long; left kidney measures 11.0 cm long. Right renal cortical thickness is 1.4 cm; left renal cortical thickness is 1.4 cm. Renal cortical echotexture is normal. No hydronephrosis or nephrolithiasis. No suspicious solid mass lesions. Bilateral renal simple cysts measuring up to 2.3 cm. Bladder: Decompressed bladder with Conteh catheter in place. Miscellaneous: No free pelvic fluid. IMPRESSION: The kidneys are normal in appearance without hydronephrosis or stones. Findings are concordant with preliminary interpretation provided by [facility]. Dictated by: Wilberto Hadley M.D. on 06/05/2023 at 8:12 Approved by: Wilberto Hadley M.D. on 06/05/2023 at 8:16
[2023-06-05 02:23] LABS: Creatinine Urine Random 62.7 mg/dL; Sodium Urine Random 103 mmol/L (30-90)
--- NOTE | 2023-06-05 05:28 | PM.HP.1 ---
History of Present Illness History of Present Illness Date Patient Seen: 06/05/23 Time Patient Seen: 05:28 Chief complaint: san bag is leaking Narrative: 72 year old male with history of CAD,carotid disease, COPD, Lung resection for cancer, BPH, diabetes, HTN, NIKI, recent visit for bladder outlet obstruction and NICHOLE returns to the ED because his san bag was leaking. He was discharged after a 2 day stay with a dose reduction of his lisinopril and the addition of flomax with san in place to see urology. He has not seen urology yet and would not have come except that the san bag was making a mess and he had to wrap it in the garbage bag. Once here he admitted that he had not been eating/drinking as well and did not feel as good as when he left. Subsequent labwork revealed an NICHOLE again. He was discharged with a creatinine of 1.24 and returned at 2.82 which after ED hydration corrected to 2.48. He denies nausea, vomiting or diarrhea and states he has taken his medications as prescribed. He further denies fever and changes in his usual shortness of breath. He has not had chest pain and has no explanation for his intake issues. [facility]LY [facility] Medical History Arthritis Back pain CAD (coronary artery disease) Carotid artery disease Compound fracture COPD (chronic obstructive pulmonary disease) Cyst of left kidney Depression Diabetes Easy bruisability Enlarged prostate Finding of abnormal level of heavy metals in blood (~2018) Former smoker Hearing loss (01/22/18) HLD (hyperlipidemia) HTN (hypertension) Lung cancer (~1991) Neck pain Neuropathy NIKI (obstructive sleep apnea) Pneumonia RLS (restless legs syndrome) Rosacea Surgical History History of arthroplasty of both hips History of carpal tunnel surgery of right wrist History of vasectomy Hx of blepharoplasty Hx of heart artery stent (10/20/01) Hx of prostate biopsy (10/14/15) S/P lobectomy of lung (~1991) Family History Mother Congestive heart failure Father Pancreatic cancer Brother Diverticulitis Sister Diverticulitis Social History household members: spouse occupational status: employed Smoking Status: Former smoker alcohol intake: former substance use type: does not use Meds Home Medications and Allergies Home Medications Medication Instructions Recorded Confirmed Type ALBUTEROL (PROVENTIL INHALER) 1 puff inhalation PRN PRN 08/17/11 05/30/23 History Shortness Of Breath ##0 tamsulosin 0.4 mg capsule 0.8 mg PO DAILY 01/24/19 05/30/23 History sertraline 20 mg/mL oral 100 mg PO DAILY 02/07/19 05/30/23 History concentrate (Zoloft) nitroglycerin 0.4 mg sublingual 0.4 mg sublingual Q5M PRN Chest 09/23/20 05/30/23 History tablet Pain cyclobenzaprine 10 mg tablet 10 mg PO DAILY PRN Pain, Moderate 05/30/21 05/30/23 History evolocumab 140 mg/mL subcutaneous 140 mg SUBCUT Q10D 05/30/21 05/30/23 History syringe (Repatha Syringe) metoprolol succinate 25 mg 25 mg PO DAILY 05/30/21 05/30/23 History tablet,extended release 24 hr zolpidem 10 mg tablet 5 mg PO QPM PRN Sleep 05/30/21 05/30/23 History clopidogrel 75 mg tablet 75 mg PO DAILY 05/30/23 05/30/23 History pantoprazole 20 mg tablet,delayed 20 mg PO DAILY 05/30/23 05/30/23 History release semaglutide 1 mg/dose (4 mg/3 mL) 1 mg SUBCUT QWEEK 05/30/23 05/31/23 History subcutaneous pen injector (Ozempic) lisinopril 10 mg tablet 5 mg PO DAILY #30 tabs 06/01/23 05/30/23 Rx oxycodone-acetaminophen 5 mg-325 1 tab PO Q4-6H PRN pain #20 tabs 06/01/23 Rx mg tablet (Percocet) Allergies Allergy/AdvReac Type Severity Reaction Status Date / Time latex Allergy Severe Rash Verified 10/16/21 11:12 Penicillins [PENICILLINS] Allergy Severe Anaphylaxis Verified 10/16/21 11:12 adhesive tape AdvReac Severe Melts to Verified 10/16/21 11:12 my skin and pulls my skin off amino acids [From Chromimin] AdvReac Severe High blood Verified 10/16/21 11:12 level of chromim chromium [From Chromimin] AdvReac Severe High blood Verified 10/16/21 11:12 level of chromim cobalt AdvReac Severe High blood Verified 10/16/21 11:12 level of cobalt meperidine [MEPERIDINE] AdvReac Severe VOMITING Verified 10/16/21 11:12 morphine [MORPHINE] AdvReac Intermediate HALLUCINATI Verified 10/16/21 11:12 ONS Review of Systems Review of Systems Narrative: all systems revieewd and positive noted Cardiovascular Comments: no chest pain Respiratory Comments: baseline dyspnea Gastrointestinal Comments: no nausea vomiting or diarrhea Genitourinary Comments: has san for urination, urine has been darker Musculoskeletal Comments: chronic back pain Integumentary/Breasts Comments: bruises all over arms Exam Vital Signs (past 8 hours): - 06/04/23 21:32 06/04/23 22:00 06/04/23 22:00 Temperature Pulse Rate 105 H 107 H Respiratory Rate 20 Blood Pressure 156/78 H Pulse Oximetry 97 96 Oxygen Delivery Method Room Air Oxygen Flow Rate 06/04/23 22:30 06/04/23 22:31 06/04/23 22:31 Temperature Pulse Rate 98 H 101 H Respiratory Rate 16 Blood Pressure 151/89 H Pulse Oximetry 96 97 Oxygen Delivery Method Oxygen Flow Rate 06/04/23 23:00 06/04/23 23:00 06/04/23 23:30 Temperature Pulse Rate 97 H 93 H Respiratory Rate Blood Pressure 129/73 Pulse Oximetry 97 97 Oxygen Delivery Method Oxygen Flow Rate 06/04/23 23:31 06/04/23 23:31 06/05/23 00:00 Temperature Pulse Rate 94 H Respiratory Rate Blood Pressure 131/56 L 146/69 H Pulse Oximetry 97 Oxygen Delivery Method Oxygen Flow Rate 06/05/23 00:00 06/05/23 00:30 06/05/23 00:31 Temperature Pulse Rate 94 H 96 H 95 H Respiratory Rate Blood Pressure Pulse Oximetry 98 98 98 Oxygen Delivery Method Oxygen Flow Rate 06/05/23 00:31 06/05/23 01:00 06/05/23 01:01 Temperature Pulse Rate 94 H Respiratory Rate Blood Pressure 143/65 H 140/58 L Pulse Oximetry 98 Oxygen Delivery Method Oxygen Flow Rate 06/05/23 01:01 06/05/23 01:30 06/05/23 01:31 Temperature Pulse Rate 94 H 96 H Respiratory Rate Blood Pressure 133/61 Pulse Oximetry 99 98 Oxygen Delivery Method Oxygen Flow Rate 06/05/23 01:31 06/05/23 02:00 06/05/23 02:00 Temperature Pulse Rate 94 H 93 H Respiratory Rate 18 Blood Pressure 146/66 H Pulse Oximetry 99 99 Oxygen Delivery Method Oxygen Flow Rate 06/05/23 02:30 06/05/23 02:31 06/05/23 02:31 Temperature Pulse Rate 100 H 102 H Respiratory Rate Blood Pressure 156/88 H Pulse Oximetry 98 98 Oxygen Delivery Method Oxygen Flow Rate 06/05/23 03:00 06/05/23 03:01 06/05/23 03:01 Temperature Pulse Rate 92 H 91 H Respiratory Rate Blood Pressure 161/73 H Pulse Oximetry 98 97 Oxygen Delivery Method Oxygen Flow Rate 06/05/23 03:30 06/05/23 03:31 06/05/23 03:31 Temperature Pulse Rate 93 H 94 H Respiratory Rate Blood Pressure 126/81 Pulse Oximetry 97 97 Oxygen Delivery Method Oxygen Flow Rate 06/05/23 04:00 06/05/23 04:00 06/05/23 04:38 Temperature 98.2 F Pulse Rate 91 H 98 H Respiratory Rate 18 24 Blood Pressure 138/75 144/119 H Pulse Oximetry 97 98 Oxygen Delivery Method Room Air Oxygen Flow Rate 0 Oxygen Delivery Method Room Air Oxygen Flow Rate 0 Const General: cooperative Nutritional Appearance: obese Orientation: alert and oriented x3 [facility] Head: normal to inspection Eyes Periorbital: periorbital findings normal Eyelids: eyelids normal Sclera: sclerae normal Neck Neck: normal visual inspection Resp Auscultation: diminished lung sounds on the right in the lower lung hunt and in the upper lung hunt Cardio Rate: regular rate Rhythm: regular rhythm Heart Sounds: S1 normal and S2 normal GI Palpation: soft, No guarding, No rigid and No tender Auscultation: normal bowel sounds Other: san draining clear urine Skin Rashes: no rashes Other: bruises on arms Neuro Cranial Nerves: CN's II-XI intact bilaterally Cognition: normal cognition Speech: speech normal Motor: muscle tone normal throughout Sensory Exam: other (abnormal sensation of feet) Extrem General: normal to inspection and edema Psych Mental Status: mental status grossly normal Speech and Movement: speech and movement normal Mood: congruent mood Objective Labs 06/04/23 22:48 06/05/23 04:55 Labs: Laboratory Results - last 24 hr 06/04/23 06/04/23 06/04/23 22:48 22:48 22:48 WBC 13.1 H RBC 3.10 L Hgb 9.7 L Hct 29.1 L MCV 93.9 MCH 31.3 MCHC 33.4 RDW 15.2 H Plt Count 303 Neut % (Auto) 88.3 H Lymph % (Auto) 5.2 L [place] % (Auto) 5.8 Eos % (Auto) 0.1 L Baso % (Auto) 0.6 Neut # (Auto) 11208 H Lymph # (Auto) 700 L [place] # (Auto) 800 Eos # (Auto) 0 Baso # (Auto) 100 Sodium 133 L Potassium 5.0 Chloride 103 Carbon Dioxide 16 L BUN 59 H Creatinine 2.82 H Estimated GFR 23 L BUN/Creatinine Ratio 20.9 Glucose 117 H Lactate 0.9 Calcium 9.3 Magnesium 1.8 Total Bilirubin 0.3 AST 27 ALT 23 Alkaline Phosphatase 74 Total Protein 7.6 Albumin 3.9 Globulin 3.7 Albumin/Globulin Ratio 1.1 Lipase 106 Urine RBC Urine WBC Ur Squamous Epith Cells Uric Acid Crystals Urine Bacteria Hyaline Casts Ur Culture Indicated? Ur Random Sodium Urine Creatinine 06/05/23 06/05/23 06/05/23 00:05 00:05 01:27 WBC RBC Hgb Hct MCV MCH MCHC RDW Plt Count Neut % (Auto) Lymph % (Auto) [place] % (Auto) Eos % (Auto) Baso % (Auto) Neut # (Auto) Lymph # (Auto) [place] # (Auto) Eos # (Auto) Baso # (Auto) Sodium 133 L Potassium 4.9 Chloride 109 H Carbon Dioxide 17 L BUN 54 H Creatinine 2.48 H Estimated GFR 27 L BUN/Creatinine Ratio 21.8 Glucose 108 Lactate Calcium 8.2 L Magnesium Total Bilirubin AST ALT Alkaline Phosphatase Total Protein Albumin Globulin Albumin/Globulin Ratio Lipase Urine RBC 5-10/hpf H Urine WBC 1-5/hpf Ur Squamous Epith Cells 0-1 /hpf Uric Acid Crystals Occasional Urine Bacteria Few (2-10) H Hyaline Casts 1-5/lpf Ur Culture Indicated? Specimen cultured Ur Random Sodium 103 H Urine Creatinine 62.7 Assessment & Plan Assessment and plan (1) Acute kidney failure: Status: Acute Assessment & Plan narrative: NICHOLE patient with known BPH, now with san renal US did not reveal any hydronephrosis on preliminary read continue san to relieve obstruction does not appear infected continue fluids to improve kidney function needs urology followup Hypertension holding lisinopril continue metoprolol 25 mg ER daily CAD continue prn Nitro Plavix 75mg daily no current symptoms COPD continue nebs prn not in exacerbation but compromised due to resection in past Depresion continue sertraline Liz Bardales MD in [facility] has seen David mckeon in [place] using all aspects of audio and video telemedicine with nursing assistance
[2023-06-05 05:49] LABS: BUN Creatinine Ratio 21.5 (6-22); Blood Urea Nitrogen 54 mg/dL (9-20); Calcium 8.9 mg/dL (8.4-10.2); Carbon Dioxide 19 mmol/L (22-32); Chloride 108 mmol/L (98-107); Estimated Glomerular Filt Rate 26 mL/min (>60); Glucose 109 mg/dL (80-110); HEMOLYSIS < 15 (0-50); Magnesium 1.8 mg/dL (1.6-2.3); Phosphorous 4.4 mg/dL (2.3-3.7); Potassium 4.7 mmol/L (3.4-5.1); Sodium 136 mmol/L (137-145)
[2023-06-05] MEDS: ACETAMINOPHEN 325 MG TABLET 650 MG PO (05:52)
[2023-06-05] MEDS: SODIUM CHLORIDE 0.9% 1,000 ML 100 ML IV ×2 (05:53→15:33)
[2023-06-05] MEDS: METOPROLOL ER 25 MG TABLET PO (08:31)
[2023-06-05] MEDS: CLOPIDOGREL 75 MG TABLET PO (08:31)
[2023-06-05] MEDS: PANTOPRAZOLE DR 20 MG TABLET PO (08:31)
[2023-06-05] MEDS: TAMSULOSIN 0.4 MG CAPSULE PO (08:32)
--- NOTE | 2023-06-05 08:57 | CM.DANOTE ---
DCP: Case received, EMR reviewed and met with patient. Introduced self and role. Was able to obtain information regarding patient's baseline activity level prior to hospitalization, as well as his current living situation. DCP assessment completed with information currently available. Patient is a 72 year old male who admitted early this morning to the care of the hospitalist team. PCP: Dr. Payton Morfin. Payer: confirmed: Medicare/[facility]. Patient came to the hospital via private vehicle secondary to having feelings of weakness. Patient was recently here on the of this month, and discharged with a san catheter. Patient was having difficulty voiding due to an enlarged prostate. Patient has history of COPD, lung resection, diabetes. His last admission was due to bladder outlet obstruction, he was supposed to follow up with urologist. Patient holds current diagnosis of NICHOLE. Met with patient in his room. He was sitting on the edge of his bed, alert and pleasant, was having his breakfast. Confirmed that he resides here in [place] with his spouse, Citlaly, who is currently out of town. Her son, Power, is assisting patient while spouse is out of town. Patient does have a four wheel walker for home use, does not always use. He has not been driving since his last admission. Confirmed that [facility] was ordered upon discharge, since he went home with a catheter, but they have not yet been in the home to see patient. Called Giovanni at [facility] and updated him that patient is here, he has not yet been seen. Giovanni confirmed that a new face to face is not needed, unless there is a significant change of condition. Will just need resumption orders if he is inpatient, or if not inpatient, would just need DC Summary. Patient indicated that he was supposed to see a urologist, but has not yet been able to get in to see someone. He was discharged around the of this month. P: DCP to continue to follow. Patient should be able to go home when deemed medically stable and resume home health with [facility]. Tracy Lyons RN/Battery Checker Discharge Planning/Care Management CM Discharge Assessment Start: 06/05/23 08:52 Freq: Status: Active Protocol: Document 06/05/23 08:53 (Rec: 06/05/23 08:57 [email or web address]) Discharge Planning Assessment Assigned Day Worker Tracy Serena, RN/Battery Checker Advance Directives? Yes Advance Directives on File Yes History Provided By Patient,Family Member,Medical Record Prior Living Arrangements House Household Members spouse,other Comment Spouse is currently out of town, son Power is staying with patient. Type of transporation used prior to Relies on Others admit Comment Has not been driving since last admission. Independent with ADL's Yes Is patient alert and oriented? Yes Needs Assistance With Meal Prep,Home Chores / Shopping Caregiver for Another No DME Already Rented / Owned Other Comment has four wheel walker Patient/Family Preference Home with Home Health Comment Patient was opened to [facility] upon recent admission. Barriers to Discharge No Discharge Plan Home with Home Health Transportation Arrangement Spouse Referrals Initiated Other Additional Comment [facility] was already ordered upon recent admission this month. Whiteboard Updated in Patient Room with Yes name and ext. # of Day Worker Review Status In Process Next Review Type Continued Stay Review
--- NOTE | 2023-06-05 17:54 | PM.PN.1 ---
Subjective Subjective Interval history: Today he feels like he is starting to improve. No current dizziness. Exam Vital Signs (past 8 hours): - 06/05/23 10:06 06/05/23 12:00 06/05/23 16:00 Temperature 97.5 F L 98.1 F Pulse Rate 100 H 85 93 H Respiratory Rate 18 18 Blood Pressure 148/95 H 116/57 L Pulse Oximetry 97 95 Oxygen Delivery Method Room Air Oxygen Flow Rate 0 Narrative Exam Narrative: GEN: no acute distress CV: tachcyardic no murmurs PULM: clear bilaterally ABD: soft, nontender, nondistended EXT: warm and well perfused, no edema Objective Labs 06/04/23 22:48 06/05/23 04:55 Labs: Laboratory Results - last 24 hr 06/04/23 06/04/23 06/04/23 22:48 22:48 22:48 WBC 13.1 H RBC 3.10 L Hgb 9.7 L Hct 29.1 L MCV 93.9 MCH 31.3 MCHC 33.4 RDW 15.2 H Plt Count 303 Neut % (Auto) 88.3 H Lymph % (Auto) 5.2 L [place] % (Auto) 5.8 Eos % (Auto) 0.1 L Baso % (Auto) 0.6 Neut # (Auto) 69233 H Lymph # (Auto) 700 L [place] # (Auto) 800 Eos # (Auto) 0 Baso # (Auto) 100 Sodium 133 L Potassium 5.0 Chloride 103 Carbon Dioxide 16 L BUN 59 H Creatinine 2.82 H Estimated GFR 23 L BUN/Creatinine Ratio 20.9 Glucose 117 H Lactate 0.9 Calcium 9.3 Phosphorus Magnesium 1.8 Total Bilirubin 0.3 AST 27 ALT 23 Alkaline Phosphatase 74 Total Protein 7.6 Albumin 3.9 Globulin 3.7 Albumin/Globulin Ratio 1.1 Lipase 106 Urine RBC Urine WBC Ur Squamous Epith Cells Uric Acid Crystals Urine Bacteria Hyaline Casts Ur Culture Indicated? Ur Random Sodium Urine Creatinine 06/05/23 06/05/23 06/05/23 00:05 00:05 01:27 WBC RBC Hgb Hct MCV MCH MCHC RDW Plt Count Neut % (Auto) Lymph % (Auto) [place] % (Auto) Eos % (Auto) Baso % (Auto) Neut # (Auto) Lymph # (Auto) [place] # (Auto) Eos # (Auto) Baso # (Auto) Sodium 133 L Potassium 4.9 Chloride 109 H Carbon Dioxide 17 L BUN 54 H Creatinine 2.48 H Estimated GFR 27 L BUN/Creatinine Ratio 21.8 Glucose 108 Lactate Calcium 8.2 L Phosphorus Magnesium Total Bilirubin AST ALT Alkaline Phosphatase Total Protein Albumin Globulin Albumin/Globulin Ratio Lipase Urine RBC 5-10/hpf H Urine WBC 1-5/hpf Ur Squamous Epith Cells 0-1 /hpf Uric Acid Crystals Occasional Urine Bacteria Few (2-10) H Hyaline Casts 1-5/lpf Ur Culture Indicated? Specimen cultured Ur Random Sodium 103 H Urine Creatinine 62.7 06/05/23 04:55 WBC RBC Hgb Hct MCV MCH MCHC RDW Plt Count Neut % (Auto) Lymph % (Auto) [place] % (Auto) Eos % (Auto) Baso % (Auto) Neut # (Auto) Lymph # (Auto) [place] # (Auto) Eos # (Auto) Baso # (Auto) Sodium 136 L Potassium 4.7 Chloride 108 H Carbon Dioxide 19 L BUN 54 H Creatinine 2.51 H Estimated GFR 26 L BUN/Creatinine Ratio 21.5 Glucose 109 Lactate Calcium 8.9 Phosphorus 4.4 H Magnesium 1.8 Total Bilirubin AST ALT Alkaline Phosphatase Total Protein Albumin Globulin Albumin/Globulin Ratio Lipase Urine RBC Urine WBC Ur Squamous Epith Cells Uric Acid Crystals Urine Bacteria Hyaline Casts Ur Culture Indicated? Ur Random Sodium Urine Creatinine PFSH Medical History Arthritis Back pain CAD (coronary artery disease) Carotid artery disease Compound fracture COPD (chronic obstructive pulmonary disease) Cyst of left kidney Depression Diabetes Easy bruisability Enlarged prostate Finding of abnormal level of heavy metals in blood (~2018) Former smoker Hearing loss (01/22/18) HLD (hyperlipidemia) HTN (hypertension) Lung cancer (~1991) Neck pain Neuropathy NIKI (obstructive sleep apnea) Pneumonia RLS (restless legs syndrome) Rosacea Surgical History History of arthroplasty of both hips History of carpal tunnel surgery of right wrist History of vasectomy Hx of blepharoplasty Hx of heart artery stent (10/20/01) Hx of prostate biopsy (10/14/15) S/P lobectomy of lung (~1991) Family History Mother Congestive heart failure Father Pancreatic cancer Brother Diverticulitis Sister Diverticulitis Social History household members: spouse and other occupational status: employed Smoking Status: Former smoker alcohol intake: former substance use type: does not use Assessment & Plan Assessment and plan (1) Acute kidney failure: Status: Acute Assessment & Plan narrative: NICHOLE -creatinine on admission 2.82, now improved to 2.51 -patient with known BPH, now with san - renal US did not reveal any hydronephrosis -continue san to relieve obstruction - does not appear infected -continue fluids to improve kidney function - needs urology followup as outpatient Hypertension holding lisinopril continue metoprolol 25 mg ER daily CAD continue prn Nitro Plavix 75mg daily no current symptoms COPD continue nebs prn not in exacerbation but compromised due to resection in past Depresion continue sertraline
[2023-06-05] MEDS: SERTRALINE 50 MG TABLET 100 MG PO (22:08)
[2023-06-06] VITALS: BP 154/62; PULSE 92; RESP 18; TEMP 36.2; O2SAT 98
[2023-06-06] MEDS: SODIUM CHLORIDE 0.9% 1,000 ML 100 ML IV (00:30)
[2023-06-06 04:00] VITALS: BP 143/64; PULSE 89; RESP 18; TEMP 36.8; O2SAT 97
[2023-06-06 05:04] LABS: Hematocrit 25.8 % (41-53); Hemoglobin 8.8 g/dL (13.5-17.5); Mean Corpuscular HGB Conc 34.3 % (30-36); Mean Corpuscular Hemoglobin 32.1 PG (26-34); Mean Corpuscular Volume 93.7 fL (80-100); Platelet Count 246 X10^3/uL (150-400); Red Blood Cell Count 2.76 X10^6/uL (4.5-5.9); Red Cell Distribution Width 15.6 % (11.6-14.8); White Blood Cell Count 9.3 X10^3/uL (4.5-11.0)
[2023-06-06 05:11] LABS: BUN Creatinine Ratio 26.5 (6-22); Blood Urea Nitrogen 39 mg/dL (9-20); Calcium 8.9 mg/dL (8.4-10.2); Carbon Dioxide 18 mmol/L (22-32); Chloride 112 mmol/L (98-107); Estimated Glomerular Filt Rate 50 mL/min (>60); Glucose 100 mg/dL (80-110); HEMOLYSIS < 15 (0-50); Potassium 4.6 mmol/L (3.4-5.1); Sodium 138 mmol/L (137-145)
--- NOTE | 2023-06-06 06:09 | PC.NURSE ---
Addendum entered by Florecita Ferris R.N. 06/06/23 06:54: pt requested a stool softener last night, Dr. Longo was notified and gave orders for senna and miralax. Pt ended up having 2 stools this am and is now refusing stool softeners. Original Note: pt IV became compromised this am, pt refusing to have another IV start due to possibly going home today.
[2023-06-06] MEDS: PANTOPRAZOLE DR 20 MG TABLET PO (07:34)
[2023-06-06 08:00] VITALS: BP 161/79; PULSE 91; RESP 20; TEMP 36.1; O2SAT 96
--- NOTE | 2023-06-06 09:02 | PC.NURSE ---
Patient is sitting up in chair. States that his l.side of tongue is hurting him. This RN looked at patients mouth and it looks like a possible kanker soar. Offered tylenol but patient refused. He has a san putting out light yellow urine and he is working on his breakfast slowly.
[2023-06-06] MEDS: TAMSULOSIN 0.4 MG CAPSULE PO (09:44)
[2023-06-06] MEDS: SENNOSIDES 8.6 MG TABLET 17.2 MG PO (09:44)
[2023-06-06] MEDS: METOPROLOL ER 25 MG TABLET PO (09:44)
[2023-06-06] MEDS: CLOPIDOGREL 75 MG TABLET PO (09:44)
--- NOTE | 2023-06-06 11:00 | PM.PN.1 ---
Subjective Subjective Interval history: Feels weak today, complains of pain on his tongue that is limiting his ability to eat. Creatinine did improve today with fluids. Hg did drop but may be dilutional, no melena or hematochezia. Exam Vital Signs (past 8 hours): - 06/06/23 04:00 06/06/23 08:00 Temperature 98.2 F 96.9 F L Pulse Rate 89 91 H Respiratory Rate 18 20 Blood Pressure 143/64 H 161/79 H Pulse Oximetry 97 96 Oxygen Flow Rate 0 0 Oxygen Delivery Method Room Air Oxygen Flow Rate 0 Narrative Exam Narrative: GEN: no acute distress CV: RRR no murmurs PULM: clear bilaterally ABD: soft, nontender, nondistended EXT: warm and well perfused, no edema Objective Labs 06/06/23 04:40 06/06/23 04:40 Labs: Laboratory Results - last 24 hr 06/06/23 06/06/23 04:40 04:40 WBC 9.3 RBC 2.76 L Hgb 8.8 L Hct 25.8 L MCV 93.7 MCH 32.1 MCHC 34.3 RDW 15.6 H Plt Count 246 Sodium 138 Potassium 4.6 Chloride 112 H Carbon Dioxide 18 L BUN 39 H Creatinine 1.47 H Estimated GFR 50 L BUN/Creatinine Ratio 26.5 H Glucose 100 Calcium 8.9 PFSH Medical History Arthritis Back pain CAD (coronary artery disease) Carotid artery disease Compound fracture COPD (chronic obstructive pulmonary disease) Cyst of left kidney Depression Diabetes Easy bruisability Enlarged prostate Finding of abnormal level of heavy metals in blood (~2018) Former smoker Hearing loss (01/22/18) HLD (hyperlipidemia) HTN (hypertension) Lung cancer (~1991) Neck pain Neuropathy NIKI (obstructive sleep apnea) Pneumonia RLS (restless legs syndrome) Rosacea Surgical History History of arthroplasty of both hips History of carpal tunnel surgery of right wrist History of vasectomy Hx of blepharoplasty Hx of heart artery stent (10/20/01) Hx of prostate biopsy (10/14/15) S/P lobectomy of lung (~1991) Family History Mother Congestive heart failure Father Pancreatic cancer Brother Diverticulitis Sister Diverticulitis Social History household members: spouse and other occupational status: employed Smoking Status: Former smoker alcohol intake: former substance use type: does not use Assessment & Plan Assessment and plan (1) Acute kidney failure: Status: Acute Assessment & Plan narrative: NICHOLE, BPH with urinary obstructionBPH -creatinine on admission 2.82, now improved to 1.47. -patient with known BPH, now with san - renal US did not reveal any hydronephrosis -continue san to relieve obstruction - does not appear infected -will monitor today without IV fluids, repeat Cr tomorrow to make sure continues to improve given his readmission. Held lisinopril. - needs urology followup as outpatient - suspect combination of obstruction with decreased output, now with aphthous ulcer limiting oral intake. Hypertension holding lisinopril continue metoprolol 25 mg ER daily CAD continue prn Nitro Plavix 75mg daily no current symptoms COPD continue nebs prn not in exacerbation but compromised due to resection in past Depresion continue sertraline Code: Full, surrogate is patient's spouse
[2023-06-06 12:00] VITALS: BP 130/69; PULSE 95; RESP 18; TEMP 36.5; O2SAT 99
--- NOTE | 2023-06-06 13:56 | PT.IIE ---
Current Diagnoses Acute kidney failure, unspecified (06/05/23) Surgical History (Last Reviewed 06/05/23 @ 05:41 by Liz Bardales MD) History of arthroplasty of both hips History of carpal tunnel surgery of right wrist History of vasectomy Hx of blepharoplasty Hx of heart artery stent (10/20/01) Hx of prostate biopsy (10/14/15) S/P lobectomy of lung (~1991) Medical History (Last Reviewed 06/05/23 @ 05:40 by Liz Bardales MD) Arthritis Back pain CAD (coronary artery disease) Carotid artery disease Compound fracture COPD (chronic obstructive pulmonary disease) Cyst of left kidney Depression Diabetes Easy bruisability Enlarged prostate Finding of abnormal level of heavy metals in blood (~2018) Former smoker Hearing loss (01/22/18) HLD (hyperlipidemia) HTN (hypertension) Lung cancer (~1991) Neck pain Neuropathy NIKI (obstructive sleep apnea) Pneumonia RLS (restless legs syndrome) Rosacea Physical Therapy Inpatient Evaluation/Re-Eval M1 PT/OT-IP Prior Functional Status Start: 06/06/23 14:44 Freq: NEEDED Status: Active Protocol: Document 06/06/23 14:45 AB (Rec: 06/06/23 15:14 AB [id number]) Medical Review Prior Functional Status Medical History Reviewed Yes Communication Pt able to communicate needs. Mobility and Gait IND with mobility but furniture surfs or uses 4WW with community distances at times. Activities of Daily Living and IADL's IND Social History Household Members spouse,other Living Arrangements Apartment/Condo Number of Floors (Floors) One Floor Number of Stairs To Enter/Railing? Elevator available to reach his apartment. 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 M2 PT-IP Current Condition Start: 06/06/23 14:44 Freq: NEEDED Status: Active Protocol: Document 06/06/23 14:45 AB (Rec: 06/06/23 15:14 AB [id number]) Physical Therapy Current Condition Current Condition Evaluation Date 06/06/23 Treatment Diagnosis Weakness; deconditioning Onset Date 06/04/23 M3 PT-IP Subjective Start: 06/06/23 14:44 Freq: NEEDED Status: Active Protocol: Document 06/06/23 14:45 AB (Rec: 06/06/23 15:14 AB [id number]) Subjective Physical Therapy Visit Type Type Initial Evaluation Visit Start Time 13:56 Visit Stop Time 14:42 Total Visit Minutes 46 Notes Pt presents seated in chair with sister present in room. He is agreeable to PT evaluation this afternoon. Number of DIGITAL ENGINEER Visits 0 Physical Therapy Visit Comments Patient Comments Pt denies any symptoms currently. He does report a history of falls secondary to orthostatic hypotension which causes him to feel dizzy and pass out. Patient Goals To get stronger. Therapy Pain Assessment Pain Present Pain Present Denied Pain M4 PT-IP Mobility and Gait Start: 06/06/23 14:44 Freq: NEEDED Status: Active Protocol: Document 06/06/23 14:45 AB (Rec: 06/06/23 15:14 AB [id number]) PT-Bed Mobility Assessment Rolling Level of Assist Independent Supine to Sit Supine to Sit Independent Sit to Supine Sit to Supine Independent Scooting Scooting to Edge of Bed Independent PT-Transfer Assessment Sit to and From Stand Sit to and from Stand Standby Assistance,Use of Upper Extremities Equipment Transfer Assistive Device Gait Belt,Front Wheeled Walker Transfers Transfer Destination Bed,Chair Transfer Technique Stand Step Pivot Transfer Ability Level of Assist Standby Assistance,Use of Upper Extremities Comments Mobility Comments Able to transfer without FWW but demos small steps and increase imbalance than when using FWW. Pt quickly fatigues and has SOB but no O2 desat. Gait Assessment Gait Gait Assistance Required: Standby Assistance,Contact Guard Assist Distance (Feet) 70 Assistive Devices Assistive Device Front Wheeled Walker Gait Deviations General Gait Pattern Decreased Stride Length, Decreased Feet Clearance, Narrow Based Gait Factors Limiting Gait Function Factors Limiting Gait Function Decreased Activity Tolerance, Decreased Strength Comments Gait Comments Pt ambulates with FWW and SBA, and without FWW with CGA. Decreased stride length, decreased clearance, slower felice noted when ambulating without FWW and when pt fatigues. No LOB occurred, but pt demonstrates instability when ambulating without FWW. Pt quickly fatigues and has SOB, requiring seated rest break, but no O2 desat. Pt able to ambulate up to 70ft with FWW and SBA, however was followed by wheelchair due to concerns of onset of symptoms occuring while ambulating. Stair Climbing Assessment Comments Stair Climbing Comments Not assessed due to fatigue and weakness. PT-Balance Assessment Sitting Balance and Reactions Static Sitting Balance Ability Normal Dynamic Sitting Balance Ability Good Standing Balance and Reactions Static Standing Balance Ability Good Dynamic Standing Balance Ability Fair M5 PT-IP Objective Assessments Start: 06/06/23 14:44 Freq: NEEDED Status: Active Protocol: Document 06/06/23 14:45 AB (Rec: 06/06/23 15:14 AB [id number]) Orientation Orientation/Cognition Level of Alertness Alert Orientation Name,Date,Place,Situation Language Function Ability No Deficits Noted Safety Awareness Understands Safety Issues Memory Description No Deficits Noted Gross Range of Motion Upper Extremity ROM Assessment Within Functional Limits Lower Extremity ROM Assessment Within Functional Limits Strength Upper Extremity Strength Assessment Within Functional Limits Lower Extremity Strength Assessment Bilaterally Impaired Coordination Assessment Gross Coordination Gross Coordination WNL Muscle Tone Muscle Tone WNL Yes M6 PT-IP Treatment Start: 06/06/23 14:44 Freq: NEEDED Status: Active Protocol: Document 06/06/23 14:45 AB (Rec: 06/06/23 15:14 AB [id number]) Physical Therapy Treatment Education Education Provided Safety Brace Education Patient M7 PT-IP Assessment and Plan Start: 06/06/23 14:44 Freq: NEEDED Status: Active Protocol: Document 06/06/23 14:45 AB (Rec: 06/06/23 15:14 AB [id number]) PT Summary Assessment and Plan Potential Rehabilitation Potential Good Status of Condition at Evaluation Stable Summary Impairments Strength,Bed Mobility, Transfers,Gait,Activity Tolerance Assessment Summary David Ochoa is a 72 year old male patient evaluated for functional mobility deficits after being admitted for increased weakness and a leaking san bag. Today's PT evaluation revealed weakness, balance deficits, gait impairments and decreased activity tolerance, which are limiting his ability to perform ADLs and IADLs at his prior level of function and are increasing his risk for falls. These deficits are also exacerbated by his comorbid conditions. Based on these findings the pt would benefit from skilled PT during the course of his hospital stay, focusing on improving his strength and endurance. Referral to home health or outpatient PT services depending on his level of function at discharge is recommended at this time. Goals Bed Mobility Goal Independent Transfer Goal Independent Gait Goal Independent Gait Distance 100 Days to Meet Goals 5 Frequency of Treatment Frequency Of Treatment Once a Day Treatment Plan Physical Therapy Treatment Plan Transfer Training,Gait Training,Therapeutic Exercise, Balance Retraining,Discharge Planning,Neuromuscular Re-ed Other Recommendations and Next Treatment Gait to be performed with LRAD Focus . Pt would benefit from a shower chair and installation of grab bars in his bathroom to reduce fall risk. Recommendations To Nursing Amount of Assist Needed Standby Assistance Discharge Recommendations PT Discharge Recommendations Home,Home Health,Outpatient PT Other Discharge Recommendations PT vs outpatient PT based on level of function at DC. Equipment Needed for Home Before Shower chair Discharge Transportation Needs at Discharge Private Vehicle
[2023-06-06 16:00] VITALS: BP 142/70; PULSE 94; RESP 19; TEMP 36.3; O2SAT 97
--- NOTE | 2023-06-06 18:42 | PC.NURSE ---
Resumed care of patient this afternoon. He is A&Ox4 on RA. noted slight unsteady gait and SOB with activity. He remains NSR on telemetry this shift. MD cleared patient to d/c tel and ok to leave IV out. Family supportive at bedside. Son expresses to staff that he is concerned about patient taking care of himself at home. OT and PT ordered. PT at bedside this evening ambulating in [place] with patient using FWW. Fall risk,call light in reach, continuous monitoring.
[2023-06-06 20:00] VITALS: BP 121/71; PULSE 105; RESP 18; TEMP 36.8; O2SAT 96
[2023-06-06] MEDS: SERTRALINE 50 MG TABLET 100 MG PO (20:08)
[2023-06-06] MEDS: ALBUTEROL/IPRATROPIUM 3 ML AMPUL INH (20:23)
[2023-06-07] VITALS (9 sets, daily range): BP systolic 127–143; BP diastolic 56–73; PULSE 92–102; RESP 16–20; TEMP 35.9–36.7; O2SAT 94–99
[2023-06-07] MEDS: TETRACAINE/BENZOCAINE/BUTAMBEN (CETACAINE) BOTTLE 1 SPRAY TOP ×5 (05:00→17:28)
[2023-06-07 05:41] LABS: BUN Creatinine Ratio 25.5 (6-22); Blood Urea Nitrogen 24 mg/dL (9-20); Calcium 9.6 mg/dL (8.4-10.2); Carbon Dioxide 21 mmol/L (22-32); Chloride 107 mmol/L (98-107); Estimated Glomerular Filt Rate > 60 mL/min (>60); Glucose 104 mg/dL (80-110); HEMOLYSIS < 15 (0-50); Potassium 4.2 mmol/L (3.4-5.1); Sodium 136 mmol/L (137-145)
[2023-06-07 08:04] LABS: Hematocrit 29.8 % (41-53); Hemoglobin 10.1 g/dL (13.5-17.5)
--- NOTE | 2023-06-07 09:00 | OT.IP.EVAL ---
Current Diagnoses Acute kidney failure, unspecified (06/05/23) Past Medical History (Last Reviewed 06/05/23 @ 05:40 by Liz Bardales MD) Arthritis Back pain CAD (coronary artery disease) Carotid artery disease Compound fracture COPD (chronic obstructive pulmonary disease) Cyst of left kidney Depression Diabetes Easy bruisability Enlarged prostate Finding of abnormal level of heavy metals in blood (~2018) Former smoker Hearing loss (01/22/18) HLD (hyperlipidemia) HTN (hypertension) Lung cancer (~1991) Neck pain Neuropathy NIKI (obstructive sleep apnea) Pneumonia RLS (restless legs syndrome) Rosacea Surgical History (Last Reviewed 06/05/23 @ 05:41 by Liz Bardales MD) History of arthroplasty of both hips History of carpal tunnel surgery of right wrist History of vasectomy Hx of blepharoplasty Hx of heart artery stent (10/20/01) Hx of prostate biopsy (10/14/15) S/P lobectomy of lung (~1991) Occupational Therapy Inpatient Evaluation/Re-Eval M1 PT/OT-IP Prior Functional Status Start: 06/06/23 14:44 Freq: NEEDED Status: Active Protocol: Document 06/07/23 09:00 [facility] (Rec: 06/07/23 10:43 [facility] [id number]) Medical Review Prior Functional Status Medical History Reviewed Yes Communication Pt able to communicate needs. Mobility and Gait IND with mobility but furniture surfs or uses 4WW with community distances at times. Activities of Daily Living and IADL's IND Prior Functional Level (Other details) Pt states has had falls in the past due to hypotension. Social History Household Members spouse,other Living Arrangements Apartment/Condo Number of Floors (Floors) One Floor Number of Stairs To Enter/Railing? Elevator available to reach his apartment. 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 OT-IP Current Condition Start: 06/07/23 10:21 Freq: Status: Active Protocol: Document 06/07/23 09:00 [facility] (Rec: 06/07/23 10:43 [facility] [id number]) Occupational Therapy Current Condition Current Condition Evaluation Date 06/05/23 Treatment Diagnosis NICHOLE, generalized weakness Diagnosis Onset Date 06/07/23 M3 OT- IP Subjective and Pain Start: 06/07/23 10:21 Freq: Status: Active Protocol: Document 06/07/23 09:00 [facility] (Rec: 06/07/23 10:43 [facility] [id number]) OT- Subjective Occupational Therapy Visit Type Type Initial Evaluation Visit Start Time 09:00 Visit Stop Time 09:40 Total Visit Minutes 40 Occupational Therapy Visit Comments Patient Comments Pt wanting to get up to use the bathroom. Patient/Caregiver Goals To go home. OT Pain Assessment Pain When Pain Assessed At Rest Pain Present Pain Present Denied Pain M4 OT- IP ADL's Start: 06/07/23 10:21 Freq: Status: Active Protocol: Document 06/07/23 09:00 [facility] (Rec: 06/07/23 10:43 [facility] [id number]) OT [id number]-[id number] General Evaluation Self-Feeding Ability Independent OT ADL-Grooming General Evaluation Grooming Ability Independent OT ADL-Oral Care Comments Oral Care Comments Not performed. OT ADL-Dressing General Eval Lower Body Dressing Ability Standby Assistance Comments OT Dressing Comments Pt able to cross his legs over to maritza/doff his socks with increased time. OT ADL-Toileting General Evaluation Toileting Ability Standby Assistance Comments OT Toileting Comments Pt able to do all toileting needing with increased time. Pt heavily relies on the grab bars for balance. Spoke of getting a bidet or use of toilet paper aid for hygiene needs. OT ADL-Bathing Comments OT Bathing Comments Spoke on getting a transfer pole, shower chair, non slip mat to increase the safety for bathing needs. M5 OT- IP IADL's Start: 06/07/23 10:21 Freq: Status: Active Protocol: Document 06/07/23 09:00 [facility] (Rec: 06/07/23 10:43 [facility] [id number]) OT-Instrumental Activities of Daily Living Deficits IADL Deficits Identified Deficits Home Safety Awareness Awareness of Need for Assistance at Home Good Awareness Ability to Problem Solve Emergency Able to Problem Solve Situations Home Safety Comments Pt has a supportive to assist with his needs. M6 OT- IP Functional Cognition Start: 06/07/23 10:21 Freq: Status: Active Protocol: Document 06/07/23 09:00 [facility] (Rec: 06/07/23 10:43 [facility] [id number]) Cognitive Factors Limiting Selfcare Function Cognitive Ability Level of Alertness Alert Patient Orientation Name,Age,Birthday,Month,Date, Year,Day of Week,Place, Situation Attention Span Ability Capable of Focused Attention, Capable of Sustained Attention Cognitive Comments Cognitive Assessment Comments Pt able to follow commands but needing occasional cues to stay close to the FWW. OT- Vision and Hearing OT- Hearing Assessment OT- Hearing Assessment Right Ear Impaired,Use of Hearing Aids OT- Vision Assessment Visual Acuity Glasses For Reading M7 OT- IP Mobility and Balance Start: 06/07/23 10:21 Freq: Status: Active Protocol: Document 06/07/23 09:00 [facility] (Rec: 06/07/23 10:43 [facility] [id number]) OT-Transfer Assessment Sit to and From Stand Sit to and from Stand Standby Assistance Transfers Transfer Ability Standby Assistance Technique Transfer Destination Chair,Toilet Devices Transfer Assistive Devices None,Front Wheeled Walker Comments Mobility Comments SBA with FWW and also use of grab bar in the bathroom to help sit and come to stand. OT- Balance Assessment Sitting Balance and Reactions Static Sitting Balance Ability Normal Dynamic Sitting Balance Ability Normal Standing Balance and Reactions Static Standing Balance Ability Good Dynamic Standing Balance Ability Fair M8 OT- IP Objective Assessments Start: 06/07/23 10:21 Freq: Status: Active Protocol: Document 06/07/23 09:00 [facility] (Rec: 06/07/23 10:43 [facility] [id number]) OT Gross Range of Motion Upper Extremity Range of Motion Assessment Within Functional Limits OT-Muscle Tone Assessment Muscle Tone WNL Yes M9 OT- IP Assessment and Plan Start: 06/07/23 10:21 Freq: Status: Active Protocol: Document 06/07/23 09:00 [facility] (Rec: 06/07/23 10:43 [facility] [id number]) OT Summary Assessment and Plan Potential Rehabilitation Potential Good Analytic Complexity at Evaluation Moderate Summary OT Impairments Balance,Functional Mobility, Bathing,Toilet Transfers, Shower Transfers,Activity Tolerance Progress Towards Goals Slow Progress due to Medical Issues,Slow Progress due to Activity Tolerance Assessment Summary Pt MOD complexity and main barriers is decreased activity tolerance. OT able to suggest pt to have a transfer pole, shower chair, and non skid mat for bathing needs. Pt looking to go home with to assist when medically stable. Goals Dressing Goal Independent Toileting Goal Independent Bathing Goal Independent Toilet Transfer Goal Independent Shower Transfer Goal Independent Patient/Caregiver Education Goal Demonstrate Energy Conservation and Pacing Days to Meet Goals 10 Frequency of Treatment Frequency Of Treatment Once a Day Treatment Plan OT Treatment Plan ADL Training,Functional Mobility,Patient/Family Education,Discharge Planning Other Treatment Recommendations and Next shower Treatment Focus Discharge Recommendations OT Discharge Recommendations Home with Assistance,Home Health Home Equipment Needs transfer pole, shower chair, non slip mat, bidet Transportation Needs at Discharge Private Vehicle
--- NOTE | 2023-06-07 09:09 | PM.PN.1 ---
Subjective Subjective Interval history: Feels weak today, pain on his tongue is a bit better. Discussed with his PCP that he started Ozempic fairly recently, there is a <1% incidence of AIN / NICHOLE with nephritis. Creatinine did improve today without fluids. Hg improved. Given re-admit, will watch creatinine 1 more day given continued weakness and decreased oral intake which may be from his Ozempic. Exam Vital Signs (past 8 hours): - 06/07/23 04:58 06/07/23 08:00 Temperature 97.7 F 97.0 F L Pulse Rate 97 H 96 H Respiratory Rate 18 16 Blood Pressure 131/69 138/72 Pulse Oximetry 98 99 Oxygen Flow Rate 0 Oxygen Delivery Method Room Air Oxygen Flow Rate 0 Narrative Exam Narrative: GEN: no acute distress CV: RRR no murmurs PULM: clear bilaterally ABD: soft, nontender, nondistended EXT: warm and well perfused, no edema Objective Labs 06/07/23 04:45 06/07/23 04:45 Labs: Laboratory Results - last 24 hr 06/07/23 06/07/23 04:45 04:45 Hgb 10.1 L Hct 29.8 L Sodium 136 L Potassium 4.2 Chloride 107 Carbon Dioxide 21 L BUN 24 H Creatinine 0.94 Estimated GFR > 60 BUN/Creatinine Ratio 25.5 H Glucose 104 Calcium 9.6 PFSH Medical History Arthritis Back pain CAD (coronary artery disease) Carotid artery disease Compound fracture COPD (chronic obstructive pulmonary disease) Cyst of left kidney Depression Diabetes Easy bruisability Enlarged prostate Finding of abnormal level of heavy metals in blood (~2018) Former smoker Hearing loss (01/22/18) HLD (hyperlipidemia) HTN (hypertension) Lung cancer (~1991) Neck pain Neuropathy NIKI (obstructive sleep apnea) Pneumonia RLS (restless legs syndrome) Rosacea Surgical History History of arthroplasty of both hips History of carpal tunnel surgery of right wrist History of vasectomy Hx of blepharoplasty Hx of heart artery stent (10/20/01) Hx of prostate biopsy (10/14/15) S/P lobectomy of lung (~1991) Family History Mother Congestive heart failure Father Pancreatic cancer Brother Diverticulitis Sister Diverticulitis Social History household members: spouse and other occupational status: employed Smoking Status: Former smoker alcohol intake: former substance use type: does not use Assessment & Plan Assessment and plan (1) Acute kidney failure: Status: Acute Assessment & Plan narrative: NICHOLE with metabolic acidosis, BPH with urinary obstruction -creatinine on admission 2.82, now improved to 0.94. Bicarb on chemistries as low as 16, now improving to 21 today. But continues to feel weak today and not eating well. -patient with known BPH, now with san - renal US did not reveal any hydronephrosis - continue san to relieve obstruction - does not appear infected with unremarkable UA. - will monitor today again without IV fluids, repeat Cr tomorrow to make sure continues to improve given his readmission. Continue to hold lisinopril. - needs urology followup as outpatient for BPH with obstruction - suspect combination of obstruction with decreased output, with decreased intake in setting of ozempic, with kit-inhibition as well. Discussed his presentation with PCP and will stop Ozempic. There is a <1% reported incidence of NICHOLE with Ozempic, but also contributes to his decreased oral intake at this time. - continue PT/OT. Hypertension holding lisinopril continue metoprolol 25 mg ER daily - BP is better today. CAD continue prn Nitro Plavix 75mg daily no current symptoms COPD continue nebs prn not in exacerbation but compromised due to resection in past Depresion continue sertraline Chronic anemia - Hg to 8.8, improved to 10.1 today. Suspect 8.8 was dilutional with IV fluids given. Code: Full, surrogate is patient's spouse Dispo: Discussed discharge home today vs continued monitoring with the patient. Given his decreased intake, multifactorial nature of NICHOLE, continued lethargy and weakness, he favors continued stay in the hospital at this time to monitor renal function. If renal function is stable tomorrow, he can discharge home +/- home health. Continue PT / OT today. Quality MIPS - Admit I confirm the patient?s Advance Care Plan is present, Code status is documented, Surrogate decision maker is in patient?s record [If Yes, STOP here]: Yes
[2023-06-07] MEDS: CLOPIDOGREL 75 MG TABLET PO (09:47)
[2023-06-07] MEDS: METOPROLOL ER 25 MG TABLET PO (09:47)
[2023-06-07] MEDS: TAMSULOSIN 0.4 MG CAPSULE PO (09:48)
[2023-06-07] MEDS: PANTOPRAZOLE DR 20 MG TABLET PO (09:49)
--- NOTE | 2023-06-07 10:18 | CM.DPC ---
DCP Cont: Discussed patient during team rounds. Patient has worked with P.T. as well. Patient is to be staying another day, most likely will DC tomorrow, hospitalist indicated that NICHOLE is improving. Will ensure that [facility] is updated. P: DCP to continue to follow. Patient most likely will discharge home tomorrow as long as his kidney function continues to improve, and will go home with san. Will update [facility]. Tracy Lyons RN/Collar Setter
--- NOTE | 2023-06-07 11:20 | PT.IPTN ---
Current Diagnoses Acute kidney failure, unspecified (06/05/23) Physical Therapy Treatment Note M2 PT-IP Current Condition Start: 06/06/23 14:44 Freq: NEEDED Status: Active Protocol: Document 06/06/23 14:45 AB (Rec: 06/06/23 15:14 AB [id number]) Physical Therapy Current Condition Current Condition Evaluation Date 06/06/23 Treatment Diagnosis Weakness; deconditioning Onset Date 06/04/23 M3 PT-IP Subjective Start: 06/06/23 14:44 Freq: NEEDED Status: Active Protocol: Document 06/07/23 12:04 TS (Rec: 06/07/23 12:28 TS [id number]) Subjective Physical Therapy Visit Type Type Treatment Note Visit Start Time 11:20 Visit Stop Time 11:48 Total Visit Minutes 28 Number of 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 Patient Goals To get stronger. M4 PT-IP Mobility and Gait Start: 06/06/23 14:44 Freq: NEEDED Status: Active Protocol: Document 06/07/23 12:04 TS (Rec: 06/07/23 12:28 TS [id number]) PT-Bed Mobility Assessment Rolling Level of Assist Independent Supine to Sit Supine to Sit Independent Sit to Supine Sit to Supine Independent Scooting Scooting to Edge of Bed Independent Scooting Up and Down in Bed Independent PT-Transfer Assessment Sit to and From Stand Sit to and from Stand Standby Assistance Equipment Transfer Assistive Device None,4 Wheeled Walker Comments Mobility Comments Pt found resting in bed, Spo2 99%, BP135/64 in supine. Supine to sit from flat bed Ind with single UE suppport and handrail assist. Pt sat EOB with BUE/no UE support, maintains good midline. Sit to stand with 4WW SBA, pt cued self for locking of brakes, has not posterior leaning. Pt ambulated ~250' SBA with 4WW, after ~150' pt became SOB, Spo2 88% on RA, pt ambulated back to room. Pt sat on EOB, pt recovered to Spo2 97% after ~30secs at rest. Pt was left sitting back in bed, bed alarm on, all needs met. Gait Assessment Gait Gait Assistance Required: Standby Assistance Distance (Feet) 250 Assistive Devices Assistive Device Gait Belt,4 Wheeled Walker Gait Deviations General Gait Pattern Decreased Stride Length, Decreased Feet Clearance, Narrow Based Gait Factors Limiting Gait Function Factors Limiting Gait Function Decreased Activity Tolerance, Decreased Strength Comments Gait Comments See mobility comments. PT-Balance Assessment Sitting Balance and Reactions Static Sitting Balance Ability Normal Dynamic Sitting Balance Ability Normal Standing Balance and Reactions Static Standing Balance Ability Good Dynamic Standing Balance Ability Fair M5 PT-IP Objective Assessments Start: 06/06/23 14:44 Freq: NEEDED Status: Active Protocol: Document 06/06/23 14:45 AB (Rec: 06/06/23 15:14 AB [id number]) Orientation Orientation/Cognition Level of Alertness Alert Orientation Name,Date,Place,Situation Language Function Ability No Deficits Noted Safety Awareness Understands Safety Issues Memory Description No Deficits Noted Gross Range of Motion Upper Extremity ROM Assessment Within Functional Limits Lower Extremity ROM Assessment Within Functional Limits Strength Upper Extremity Strength Assessment Within Functional Limits Lower Extremity Strength Assessment Bilaterally Impaired Coordination Assessment Gross Coordination Gross Coordination WNL Muscle Tone Muscle Tone WNL Yes M6 PT-IP Treatment Start: 06/06/23 14:44 Freq: NEEDED Status: Active Protocol: Document 06/07/23 12:04 TS (Rec: 06/07/23 12:28 TS [id number]) Physical Therapy Treatment Education Education Provided Safety Brace Education Patient M7 PT-IP Assessment and Plan Start: 06/06/23 14:44 Freq: NEEDED Status: Active Protocol: Document 06/07/23 12:04 TS (Rec: 06/07/23 12:28 TS [id number]) PT Summary Assessment and Plan Potential Rehabilitation Potential Good Summary Impairments Strength,Bed Mobility, Transfers,Gait,Activity Tolerance Progress Towards Goals Progressing Toward Goals Assessment Summary Pt is progressing well with his mobility. He continues to be Ind for bed mobility from a flat bed. He progressed his gait to ~250' SBA w/4WW, he became SOB after ~150', Spo2 desat to 88% on RA, recovered after ~30 secs sitting at rest to 97%. PT is recommending return home with assist and HHPT/outpatient to improve activity tolerance. Goals Bed Mobility Goal Independent Transfer Goal Independent Gait Goal Independent Gait Distance 100 Days to Meet Goals 5 Frequency of Treatment Frequency Of Treatment Once a Day Treatment Plan Physical Therapy Treatment Plan Transfer Training,Gait Training,Therapeutic Exercise, Balance Retraining,Discharge Planning,Neuromuscular Re-ed Other Recommendations and Next Treatment Gait to be performed with LRAD Focus . Pt would benefit from a shower chair and installation of grab bars in his bathroom to reduce fall risk. Recommendations To Nursing Amount of Assist Needed Standby Assistance Discharge Recommendations PT Discharge Recommendations Home with Assistance,Home Health,Outpatient PT Other Discharge Recommendations PT vs outpatient PT based on level of function at DC. Equipment Needed for Home Before Shower chair Discharge Transportation Needs at Discharge Private Vehicle
[2023-06-07] MEDS: ACETAMINOPHEN 325 MG TABLET 650 MG PO (17:28)
[2023-06-07] MEDS: ZOLPIDEM 5 MG TABLET 10 MG PO (20:45)
[2023-06-07] MEDS: SERTRALINE 50 MG TABLET 100 MG PO (20:45)
[2023-06-08 04:54] VITALS: BP 115/50; PULSE 93; RESP 20; TEMP 36.9; O2SAT 96
[2023-06-08 05:28] LABS: Add Manual Diff / Slide Review NO; Basophils Absolute Auto 100 /uL (0-100); Basophils Percent Auto 0.7 % (0-2); Eosinophils Absolute Auto 100 /uL (0-450); Eosinophils Percent Auto 0.8 % (2-4); Hematocrit 28.6 % (41-53); Hemoglobin 9.7 g/dL (13.5-17.5); Lymphocytes Absolute Auto 1100 /uL (1100-4500); Lymphocytes Percent Auto 8.1 % (25-40); Mean Corpuscular Hemoglobin 31.7 PG (26-34); Mean Corpuscular Volume 93.1 fL (80-100); Monocytes Absolute Auto 1100 /uL (0-900); Monocytes Percent Auto 8.3 % (3-14); Neutrophils Absolute Auto 11100 /uL (1500-7000); Neutrophils Percent Auto 82.1 % (50-75); Platelet Count 282 X10^3/uL (150-400); Red Blood Cell Count 3.07 X10^6/uL (4.5-5.9); White Blood Cell Count 13.5 X10^3/uL (4.5-11.0)
[2023-06-08 05:30] LABS: BUN Creatinine Ratio 28.7 (6-22); Blood Urea Nitrogen 25 mg/dL (9-20); Calcium 9.3 mg/dL (8.4-10.2); Carbon Dioxide 22 mmol/L (22-32); Chloride 104 mmol/L (98-107); Estimated Glomerular Filt Rate > 60 mL/min (>60); Glucose 103 mg/dL (80-110); HEMOLYSIS < 15 (0-50); Potassium 3.9 mmol/L (3.4-5.1); Sodium 134 mmol/L (137-145)
[2023-06-08] MEDS: PANTOPRAZOLE DR 20 MG TABLET PO (06:49)
[2023-06-08 08:00] VITALS: BP 142/67; PULSE 107; RESP 19; TEMP 36.8; O2SAT 94
[2023-06-08] MEDS: TAMSULOSIN 0.4 MG CAPSULE PO (08:07)
[2023-06-08 08:08] VITALS: BP 142/67; PULSE 107
[2023-06-08] MEDS: CLOPIDOGREL 75 MG TABLET PO (08:08)
[2023-06-08] MEDS: METOPROLOL ER 25 MG TABLET PO (08:08)
[2023-06-08] MEDS: ACETAMINOPHEN 325 MG TABLET 650 MG PO (08:08)
[2023-06-08] MEDS: TETRACAINE/BENZOCAINE/BUTAMBEN (CETACAINE) BOTTLE 1 SPRAY TOP (08:09)
--- NOTE | 2023-06-08 09:04 | PM.DS.1 ---
History of Present Illness History of Present Illness Date Patient Seen: 06/08/23 Time Patient Seen: 08:45 Chief complaint: san bag is leaking Narrative: Per admitting provider, 72 year old male with history of CAD,carotid disease, COPD, Lung resection for cancer, BPH, diabetes, HTN, NIKI, recent visit for bladder outlet obstruction and NICHOLE returns to the ED because his san bag was leaking. He was discharged after a 2 day stay with a dose reduction of his lisinopril and the addition of flomax with san in place to see urology. He has not seen urology yet and would not have come except that the san bag was making a mess and he had to wrap it in the garbage bag. Once here he admitted that he had not been eating/drinking as well and did not feel as good as when he left. Subsequent labwork revealed an NICHOLE again. He was discharged with a creatinine of 1.24 and returned at 2.82 which after ED hydration corrected to 2.48. He denies nausea, vomiting or diarrhea and states he has taken his medications as prescribed. He further denies fever and changes in his usual shortness of breath. He has not had chest pain and has no explanation for his intake issues. Discharge Providers Provider Date of admission: 06/05/23 03:49 Discharge Date: 06/08/23 Primary care physician: Payton Morfin MD Consults: 06/06/23 13:02 Consult to Occupational Therapy Evaluate & Treat Comment: Physician Instructions: Evaluate and treat Consult to Physical Therapy Evaluate & Treat Comment: Physician Instructions: Evaluate and Treat Discharge provider: Lalo Tinsley DO Summary Hospital Course Discharge Diagnosis: NICHOLE with metabolic acidosis, BPH with urinary obstruction Hypertension CAD COPD without exacerbation Depresion Chronic anemia Hospital Course: This is a 72 year old male, recently admitted with NICHOLE thought secondary to volume depletion and urinary obstruction, readmitted with NICHOLE. His creatinine continued to improve with fluids, and even without fluids. The etiology is thought secondary to multiple factors, including urinary obstruction due to BPH, possible component of Ozempic induced NICHOLE (which also contributed to decreased oral intake), and lisinopril. His lisinopril was held, and patient will stop taking Ozempic as well. He was seen by PT/OT for weakness and deconditioning from his recent hospitalizations and recommended for home health. He was observed for 2 days without IV fluids with continued improvement in creatinine. He is recommended to follow up with primary care in 1-2 weeks for ongoing medication management and repeat lab testing. Time Spent with Patient Time spent: Greater than 30 minutes Exam Vital Signs (past 8 hours): - 06/08/23 04:54 06/08/23 08:08 06/08/23 08:00 Temperature 98.5 F 98.2 F Pulse Rate 93 H 107 H 107 H Respiratory Rate 20 19 Blood Pressure 115/50 L 142/67 H 142/67 H Pulse Oximetry 96 94 Oxygen Flow Rate 0 0 Oxygen Delivery Method Room Air Oxygen Flow Rate 0 Narrative Exam Narrative: GEN: no acute distress CV: RRR no murmurs PULM: clear bilaterally ABD: soft, nontender, nondistended EXT: warm and well perfused, no edema Objective Labs 06/08/23 04:53 06/08/23 04:53 Labs: Laboratory Results - last 24 hr 06/08/23 06/08/23 04:53 04:53 WBC 13.5 H RBC 3.07 L Hgb 9.7 L Hct 28.6 L MCV 93.1 MCH 31.7 MCHC 34.0 RDW 15.0 H Plt Count 282 Neut % (Auto) 82.1 H Lymph % (Auto) 8.1 L [place] % (Auto) 8.3 Eos % (Auto) 0.8 L Baso % (Auto) 0.7 Neut # (Auto) 68914 H Lymph # (Auto) 1100 [place] # (Auto) 1100 H Eos # (Auto) 100 Baso # (Auto) 100 Sodium 134 L Potassium 3.9 Chloride 104 Carbon Dioxide 22 BUN 25 H Creatinine 0.87 Estimated GFR > 60 BUN/Creatinine Ratio 28.7 H Glucose 103 Calcium 9.3 PFSH Medical History Arthritis Back pain CAD (coronary artery disease) Carotid artery disease Compound fracture COPD (chronic obstructive pulmonary disease) Cyst of left kidney Depression Diabetes Easy bruisability Enlarged prostate Finding of abnormal level of heavy metals in blood (~2018) Former smoker Hearing loss (01/22/18) HLD (hyperlipidemia) HTN (hypertension) Lung cancer (~1991) Neck pain Neuropathy NIKI (obstructive sleep apnea) Pneumonia RLS (restless legs syndrome) Rosacea Surgical History History of arthroplasty of both hips History of carpal tunnel surgery of right wrist History of vasectomy Hx of blepharoplasty Hx of heart artery stent (10/20/01) Hx of prostate biopsy (10/14/15) S/P lobectomy of lung (~1991) Family History Mother Congestive heart failure Father Pancreatic cancer Brother Diverticulitis Sister Diverticulitis Social History household members: spouse and other occupational status: employed Smoking Status: Former smoker alcohol intake: former substance use type: does not use Discharge Plan Discharge Plan Patient Disposition: Home Provider Discharge Comment: You were admitted to the hospital with elevated creatinine. This may be due to a combination of lisinopril, ozempic, decreased intake and recent urinary obstruction. Creatinine now improved to normal, stable for home. Please follow up with Dr. Morfin in the next 1-2 weeks to review medication changes and chronic medicines going forward. Discharge orders & Medications Prescriptions: Continued ALBUTEROL (PROVENTIL INHALER) 1 puff Inhalation PRN PRN (Reason: Shortness Of Breath) Qty: 0 nitroglycerin 0.4 mg tablet, sublingual 0.4 mg sublingual Q5M PRN (Reason: Chest Pain) Rx Instructions: do not exceed 3 doses per episode tamsulosin 0.4 mg Capsule 0.8 mg PO DAILY sertraline [Zoloft] 20 mg/mL Concentrate 100 mg PO DAILY clopidogrel 75 mg tablet 75 mg PO DAILY pantoprazole 20 mg tablet,delayed release (DR/EC) 20 mg PO DAILY oxycodone-acetaminophen [Percocet] 5-325 mg tablet 1 tab PO Q4-6H PRN (Reason: pain) Qty: 20 0RF prednisone 10 mg tablet 10 mg PO DAILY cyclobenzaprine 10 mg tablet 10 mg PO DAILY PRN (Reason: Pain, Moderate) Patient Comments: TAKE 1 TABLET BY MOUTH EVERY NIGHT NEEDED metoprolol succinate 25 mg tablet extended release 24 hr 25 mg PO DAILY Patient Comments: TAKE 1 TABLET BY MOUTH EVERY DAY zolpidem 10 mg tablet 5 mg PO QPM PRN (Reason: Sleep) Patient Comments: TAKE 1 TABLET BY MOUTH ONE DAILY AT BEDTIME NEEDED Repatha Syringe 140 mg/mL syringe 140 mg SUBCUT Q10D Patient Comments: INJECT 1 ML UNDER THE SKIN EVERY 2 WEEKS Discontinued Ozempic 1 mg/dose (4 mg/3 mL) pen injector 1 mg SUBCUT QWEEK lisinopril 10 mg tablet 5 mg PO DAILY Qty: 30 0RF Follow up/Referrals: Payton Morfin MD [Primary Care Provider] - Diet/Activity/Treatments Diet: Diet as Tolerated and Regular Activity: As tolerated, no restrictions Visit Report/Discharge Packet Stand Alone Forms: Patient Portal/API, Stroke Signs & Symptoms Discharge Data Primary Care Provider: Payton Morfin
--- NOTE | 2023-06-08 09:16 | CM.DPC ---
Addendum entered by Tracy Lyons R.N. 06/08/23 11:04: Checked in with patient, spouse will not be able to pick patient up until about 8:00pm. Asked patient if he wished for a taxi, stated that his is concerned if he is alone, may fall. Plan is home early this pm, let him know that [facility] has been resumed. Original Note: DCP Cont: Patient is discharging home today. Called Giovanni at [facility] and gave him an update. Confirmed that they do not need another face to face, unless he was admitted for a different problem, which he was not. They will just need resumption orders and DC Summary. P: Patient is discharging home today with the resumption of [facility]. Will send over resumption orders and DC Summary. Tracy Lyons RN/Horse And Wagon Driver
--- NOTE | 2023-06-08 10:25 | PT.IPTN ---
Current Diagnoses Acute kidney failure, unspecified (06/05/23) Physical Therapy Treatment Note M2 PT-IP Current Condition Start: 06/06/23 14:44 Freq: NEEDED Status: Active Protocol: Document 06/06/23 14:45 AB (Rec: 06/06/23 15:14 AB [id number]) Physical Therapy Current Condition Current Condition Evaluation Date 06/06/23 Treatment Diagnosis Weakness; deconditioning Onset Date 06/04/23 M3 PT-IP Subjective Start: 06/06/23 14:44 Freq: NEEDED Status: Active Protocol: Document 06/08/23 11:32 TS (Rec: 06/08/23 11:49 TS [id number]) Subjective Physical Therapy Visit Type Type Treatment Note Visit Start Time 10:25 Visit Stop Time 10:45 Total Visit Minutes 20 Number of SURGICAL MANAGER Visits 2 Physical Therapy Visit Comments Patient Comments Pt found resting in bed, reports feeling fatigued today , agreeable to PT. Patient Goals To get stronger. M4 PT-IP Mobility and Gait Start: 06/06/23 14:44 Freq: NEEDED Status: Active Protocol: Document 06/08/23 11:32 TS (Rec: 06/08/23 11:49 TS [id number]) PT-Bed Mobility Assessment Rolling Level of Assist Independent Supine to Sit Supine to Sit Independent Sit to Supine Sit to Supine Independent Scooting Scooting to Edge of Bed Independent Scooting Up and Down in Bed Independent PT-Transfer Assessment Sit to and From Stand Sit to and from Stand Standby Assistance Equipment Transfer Assistive Device None,Gait Belt,4 Wheeled Walker Comments Mobility Comments Supine to sit with HOB elevated Ind with handrail assist into sitting position. Pt sat EOB with no UE support for donning of gait belt. Sit to stand SBA with 4WW, pt cued for walker in front of him, pt tends to leave walker on side when standing. Pt ambulated ~300'SBA with step thru gait and 4WW, had some SOB, pt cued for pursed lip breathing. Pt ambulated back to room, sat EOB to recover breath, requested to use toilet. Pt stood with no AD and ambulated to restroom no AD ~8', pt is unsteady without walker but had no buckling or LOB. Pt was left using restroom, nursing in room to help pt back to bed. Gait Assessment Gait Gait Assistance Required: Standby Assistance Distance (Feet) 308 Assistive Devices Assistive Device Gait Belt,4 Wheeled Walker Gait Deviations General Gait Pattern Decreased Stride Length, Decreased Feet Clearance, Flexed Trunk,Narrow Based Gait Factors Limiting Gait Function Factors Limiting Gait Function Decreased Activity Tolerance, Decreased Strength,Poor Balance,Poor Safety Awareness, Respiratory Distress Comments Gait Comments See mobility comments. PT-Balance Assessment Sitting Balance and Reactions Static Sitting Balance Ability Normal Dynamic Sitting Balance Ability Normal Standing Balance and Reactions Static Standing Balance Ability Good Dynamic Standing Balance Ability Fair M5 PT-IP Objective Assessments Start: 06/06/23 14:44 Freq: NEEDED Status: Active Protocol: Document 06/06/23 14:45 AB (Rec: 06/06/23 15:14 AB [id number]) Orientation Orientation/Cognition Level of Alertness Alert Orientation Name,Date,Place,Situation Language Function Ability No Deficits Noted Safety Awareness Understands Safety Issues Memory Description No Deficits Noted Gross Range of Motion Upper Extremity ROM Assessment Within Functional Limits Lower Extremity ROM Assessment Within Functional Limits Strength Upper Extremity Strength Assessment Within Functional Limits Lower Extremity Strength Assessment Bilaterally Impaired Coordination Assessment Gross Coordination Gross Coordination WNL Muscle Tone Muscle Tone WNL Yes M6 PT-IP Treatment Start: 06/06/23 14:44 Freq: NEEDED Status: Active Protocol: Document 06/08/23 11:32 TS (Rec: 06/08/23 11:49 TS [id number]) Physical Therapy Treatment Education Education Provided Safety Brace Education Patient M7 PT-IP Assessment and Plan Start: 06/06/23 14:44 Freq: NEEDED Status: Active Protocol: Document 06/08/23 11:32 TS (Rec: 06/08/23 11:49 TS [id number]) PT Summary Assessment and Plan Potential Rehabilitation Potential Good Summary Impairments Strength,Bed Mobility, Transfers,Gait,Activity Tolerance Progress Towards Goals Progressing Toward Goals Assessment Summary Pt continues to be Ind with all bed mobility. He progressed his gait to ~300 SBA with 4WW this morning. He continues to have some SOB with gait but was less severe this session, pt's symptoms improved with cues for pursed lip breathing. Pt did ambulate ~8' in room with no AD, he is unsteady without a device but had no buckling or LOB. PT continues to recommend home with assist and HHPT. Goals Bed Mobility Goal Independent Transfer Goal Independent Gait Goal Independent Gait Distance 100 Days to Meet Goals 5 Frequency of Treatment Frequency Of Treatment Once a Day Treatment Plan Physical Therapy Treatment Plan Transfer Training,Gait Training,Therapeutic Exercise, Balance Retraining,Discharge Planning,Neuromuscular Re-ed Other Recommendations and Next Treatment Gait to be performed with LRAD Focus . Pt would benefit from a shower chair and installation of grab bars in his bathroom to reduce fall risk. Recommendations To Nursing Amount of Assist Needed Standby Assistance Discharge Recommendations PT Discharge Recommendations Home with Assistance,Home Health,Outpatient PT Other Discharge Recommendations PT vs outpatient PT based on level of function at DC. Equipment Needed for Home Before Shower chair Discharge Transportation Needs at Discharge Private Vehicle
--- NOTE | 2023-06-08 11:40 | OT.IP.TRT ---
Current Diagnoses Acute kidney failure, unspecified (06/05/23) Occupational Therapy Treatment Note M2 OT-IP Current Condition Start: 06/07/23 10:21 Freq: Status: Active Protocol: Document 06/07/23 09:00 [facility] (Rec: 06/07/23 10:43 [facility] [id number]) Occupational Therapy Current Condition Current Condition Evaluation Date 06/05/23 Treatment Diagnosis NICHOLE, generalized weakness Diagnosis Onset Date 06/07/23 M3 OT- IP Subjective and Pain Start: 06/07/23 10:21 Freq: Status: Active Protocol: Document 06/08/23 11:35 [facility] (Rec: 06/08/23 12:39 [facility] [id number]) OT- Subjective Occupational Therapy Visit Type Type Treatment Note Visit Start Time 11:35 Visit Stop Time 11:44 Total Visit Minutes 9 Occupational Therapy Visit Comments Patient Comments Pt states doing well and to go home later and not wanting to shower at this time. Patient/Caregiver Goals To go home. OT Pain Assessment Pain When Pain Assessed At Rest Pain Present Pain Present Denied Pain M4 OT- IP ADL's Start: 06/07/23 10:21 Freq: Status: Active Protocol: Document 06/08/23 11:35 [facility] (Rec: 06/08/23 12:39 [facility] [id number]) OT [id number]-Uddkigx General Evaluation Self-Feeding Ability Independent OT ADL-Grooming General Evaluation Grooming Ability Independent OT ADL-Bathing Comments OT Bathing Comments Showed pt another option of tub bench for showering needs, however pt still interested to get a transfer pole and shower chair with non-slip mat . Freq: Status: Active Protocol: Document 06/08/23 11:35 [facility] (Rec: 06/08/23 12:39 [facility] [id number]) OT Summary Assessment and Plan Potential Rehabilitation Potential Good Analytic Complexity at Evaluation Moderate Summary OT Impairments Balance,Functional Mobility, Bathing,Toilet Transfers, Shower Transfers,Activity Tolerance Progress Towards Goals Progressing Toward Goals Assessment Summary Pt going home today and having questions about the catheter management and able to let nursing know of his needs. Pt to go home with assist and home health. Goals Bathing Goal Independent Shower Transfer Goal Independent Patient/Caregiver Education Goal Demonstrate Energy Conservation and Pacing Days to Meet Goals 5 Frequency of Treatment Frequency Of Treatment Once a Day Treatment Plan OT Treatment Plan ADL Training,Functional Mobility,Patient/Family Education,Discharge Planning Discharge Recommendations OT Discharge Recommendations Home with Assistance,Home Health Home Equipment Needs transfer pole, shower chair, non slip mat, bidet Transportation Needs at Discharge Private Vehicle
== END 2023-06-08 19:35 | disposition home or self-care (01) | DRG 918 ==
LOC: ED 06-05 02:39 → AC 06-05 03:50
PROVIDERS: Internal Medicine; Admitting Provider Internal Medicine; Emergency Provider Emergency Medicine; PCP Internal Medicine; Referring Provider Emergency Medicine; Visit Provider Internal Medicine
DX: T50.995A Adverse effect of other drugs, medicaments and biological substances, initial encounter (principal); N17.9 Acute kidney failure, unspecified; N13.8 Other obstructive and reflux uropathy; E87.20 Acidosis, unspecified; I10 Essential (primary) hypertension; I25.10 Atherosclerotic heart disease of native coronary artery without angina pectoris; J44.9 Chronic obstructive pulmonary disease, unspecified; F32.A Depression, unspecified; N40.1 Benign prostatic hyperplasia with lower urinary tract symptoms; E78.5 Hyperlipidemia, unspecified; Z79.52 Long term (current) use of systemic steroids; Z87.891 Personal history of nicotine dependence
CPT/HCPCS: 36415; 71045; 76770; 80048; 80053; 81003; 81015; 82570; 83605; 83690; 83735; 84100; 84300; 85014; 85018; 85025; 85027; 87040; 87086; 94640; 97116; 97162; 97166; 97530; 99284

== ENCOUNTER 2023-06-13 19:32 | Emergency (ER) | payer MEDICARE, OTHER, SELFPAY ==
[2023-06-05 04:46] VITALS: BMI 33.4
[2023-06-13 19:41] VITALS: BP 196/86; PULSE 127; RESP 22; TEMP 36.8; O2SAT 98; BMI 35.1
--- NOTE | 2023-06-13 20:14 | ED_ITS ---
HPI - Male Genitourinary General Chief complaint: Urogenital-Male Stated complaint: fever, needs urinary catheter replaced Time Seen by Provider: 06/13/23 20:00 Source: patient Mode of arrival: Ambulatory History of Present Illness HPI Narrative: Patient is a 72-year-old male history of CAD, carotid disease, COPD, lung resection for cancer, BPH, diabetes, hypertension has had 2 admissions to the hospital this month the 1st on May 30 through the and a 2nd on the through . He initially was seen for acute kidney injury with a creatinine 3 Conteh catheter was placed for retention possible UTI although nothing else grew. 2nd admission on the for again NICHOLE secondary to poor intake. Creatinine at the time of readmission was 2.8 to it previously was 1.24. Today he presents with Conteh catheter irritation possibly some blood at his meatus. He feels generally weak and fatigued. He reports having some exer tional shortness of breath which he says is not new for him he is absolutely no chest pain denies any orthopnea no peripheral edema. Possible fever at home but afebrile here. Really not having other complaints. Related Data Home Medications Medication Instructions Recorded Confirmed ALBUTEROL (PROVENTIL INHALER) 1 puff inhalation PRN PRN 08/17/11 06/05/23 Shortness Of Breath ##0 tamsulosin 0.4 mg capsule 0.8 mg PO DAILY 01/24/19 06/05/23 sertraline 20 mg/mL oral 100 mg PO DAILY 02/07/19 06/05/23 concentrate (Zoloft) nitroglycerin 0.4 mg sublingual 0.4 mg sublingual Q5M PRN Chest 09/23/20 06/05/23 tablet Pain cyclobenzaprine 10 mg tablet 10 mg PO DAILY PRN Pain, Moderate 05/30/21 06/05/23 evolocumab 140 mg/mL subcutaneous 140 mg SUBCUT Q10D 05/30/21 06/05/23 syringe (Repatha Syringe) metoprolol succinate 25 mg 25 mg PO DAILY 05/30/21 06/05/23 tablet,extended release 24 hr zolpidem 10 mg tablet 5 mg PO QPM PRN Sleep 05/30/21 06/05/23 clopidogrel 75 mg tablet 75 mg PO DAILY 05/30/23 06/05/23 pantoprazole 20 mg tablet,delayed 20 mg PO DAILY 05/30/23 06/05/23 release prednisone 10 mg tablet 10 mg PO DAILY 06/05/23 06/05/23 Previous Rx's Medication Instructions Recorded oxycodone-acetaminophen 5 mg-325 1 tab PO Q4-6H PRN pain #20 tabs 06/01/23 mg tablet (Percocet) Allergies Allergy/AdvReac Type Severity Reaction Status Date / Time latex Allergy Severe Rash Verified 10/16/21 11:12 Penicillins [PENICILLINS] Allergy Severe Anaphylaxis Verified 10/16/21 11:12 adhesive tape AdvReac Severe Melts to Verified 10/16/21 11:12 my skin and pulls my skin off amino acids [From Chromimin] AdvReac Severe High blood Verified 10/16/21 11:12 level of chromim chromium [From Chromimin] AdvReac Severe High blood Verified 10/16/21 11:12 level of chromim cobalt AdvReac Severe High blood Verified 10/16/21 11:12 level of cobalt meperidine [MEPERIDINE] AdvReac Severe VOMITING Verified 10/16/21 11:12 morphine [MORPHINE] AdvReac Intermediate HALLUCINATI Verified 10/16/21 11:12 ONS Review of Systems Review of Systems ROS Unobtainable: All systems reviewed & are unremarkable except as noted in HPI and below Patient History Medical History Arthritis Back pain CAD (coronary artery disease) Carotid artery disease Compound fracture COPD (chronic obstructive pulmonary disease) Cyst of left kidney Depression Diabetes Easy bruisability Enlarged prostate Finding of abnormal level of heavy metals in blood (~2018) Former smoker Hearing loss (01/22/18) HLD (hyperlipidemia) HTN (hypertension) Lung cancer (~1991) Neck pain Neuropathy NIKI (obstructive sleep apnea) Pneumonia RLS (restless legs syndrome) Rosacea Surgical History History of arthroplasty of both hips History of carpal tunnel surgery of right wrist History of vasectomy Hx of blepharoplasty Hx of heart artery stent (10/20/01) Hx of prostate biopsy (10/14/15) S/P lobectomy of lung (~1991) Family History Mother Congestive heart failure Father Pancreatic cancer Brother Diverticulitis Sister Diverticulitis Social History household members: spouse and other occupational status: employed Smoking Status: Former smoker alcohol intake: former substance use type: does not use Smoking Status: Former smoker alcohol intake frequency: holidays/special occasions only Substance Use Type: does not use Exam Initial Vital Signs Initial Vital Signs: Vital Signs Temperature 98.3 F 06/13/23 19:41 Pulse Rate 127 H 06/13/23 19:41 Respiratory Rate 22 06/13/23 19:41 Blood Pressure 196/86 H 06/13/23 19:41 Pulse Oximetry 98 06/13/23 19:41 Oxygen Delivery Method Room Air 06/13/23 19:41 GENERAL: Alert pleasant hard of hearing 72-year-old male HEENT: Head atraumatic,EOMI, pupils reactive, face symmetric, moist mucous membranes CARDIOVASCULAR: Regular rate and rhythm without murmurs, rubs or gallops. RESPIRATORY: Breath sounds equal bilaterally, no wheezes rales or rhonchi. ABDOMEN: Soft, nontender. Normoactive bowel sounds all 4 quadrants. No guarding or rebound. EXTREMITIES: Normal range of motion, no clubbing or edema. Neurovascularly intact NEUROLOGICAL: Alert and oriented x4. SKIN: Warm, dry, no laceration, no petechiae, no rashes or lesions. Course Orders Ordered: ED Orders 06/13/23 20:15 BNP [NT-proBNP (BNP-Adult 18+)] Stat CBC Auto Diff [Complete Blood Count AUTO DIFF] Stat CMP [Comprehensive Metabolic Panel] Stat Lactate (Lactic Acid) Stat Procalcitonin Stat Troponin & CK Cardiac Panel Stat 06/13/23 20:21 CT angio chest PE protocol Stat EKG-12 Lead Stat 06/13/23 21:05 UA Complete [Urinalysis and Microscopic] Stat Urine Culture Stat 06/13/23 22:41 Blood Culture Stat Vital Signs Vital signs: Vital Signs - 8 hr 06/13/23 19:41 06/13/23 21:30 06/13/23 22:00 Temperature 98.3 F Pulse Rate 127 H 103 H 102 H Respiratory Rate 22 18 20 Blood Pressure 196/86 H Blood Pressure [Right Arm] 159/73 H 148/70 H Pulse Oximetry 98 98 97 Oxygen Delivery Method Room Air Room Air Room Air 06/13/23 22:30 Temperature Pulse Rate 101 H Respiratory Rate 18 Blood Pressure Blood Pressure [Right Arm] 143/79 H Pulse Oximetry 97 Oxygen Delivery Method Room Air MDM - Male Genitourinary Lab Data 06/13/23 20:15 06/13/23 20:15 Labs: Lab Results 06/13/23 06/13/23 06/13/23 Range/Units 20:15 20:15 20:15 WBC 15.8 H (4.5-11.0) X10^3/uL RBC 3.14 L (4.5-5.9) X10^6/uL Hgb 9.6 L (13.5-17.5) g/dL Hct 29.0 L (41-53) % MCV 92.4 (80-100) fL MCH 30.5 (26-34) PG MCHC 33.0 (30-36) % RDW 14.6 (11.6-14.8) % Plt Count 347 (150-400) X10^3/uL Neut % (Auto) 82.8 H (50-75) % Lymph % (Auto) 7.9 L (25-40) % [place] % (Auto) 8.6 (3-14) % Eos % (Auto) 0.2 L (2-4) % Baso % (Auto) 0.5 (0-2) % Neut # (Auto) 35496 H (4907-4015) /uL Lymph # (Auto) 1300 (4736-1636) /uL [place] # (Auto) 1400 H (0-900) /uL Eos # (Auto) 0 (0-450) /uL Baso # (Auto) 100 (0-100) /uL Sodium 138 (137-145) mmol/L Potassium 3.8 (3.4-5.1) mmol/L Chloride 105 (98-107) mmol/L Carbon Dioxide 21 L (22-32) mmol/L BUN 30 H (9-20) mg/dL Creatinine 1.17 (0.66-1.25) mg/dL Estimated GFR > 60 (>60) mL/min BUN/Creatinine Ratio 25.6 H (6-22) Glucose 108 (80-110) mg/dL Lactate 1.1 (0.7-2.1) mmol/L Calcium 9.4 (8.4-10.2) mg/dL Total Bilirubin 0.4 (0.2-1.3) mg/dL AST 30 (17-59) IU/L ALT 30 (<50) IU/L Alkaline Phosphatase 66 (38-126) U/L Total Creatine Kinase (55-170) U/L Troponin I (0.01-0.034) ng/mL NT-Pro-B Natriuret Pep (<125) pg/mL Total Protein 7.8 (6.3-8.2) g/dL Albumin 4.0 (3.5-5.0) g/dL Globulin 3.8 (1.7-4.1) g/dL Albumin/Globulin Ratio 1.1 (1.0-2.8) Procalcitonin 0.10 (<0.5) ng/mL Urine Color Urine Appearance Urine pH (4.5-8.0) Ur Specific [place] (1.000-1.035) Urine Protein (Negative) Urine Glucose (UA) (Negative) g/dL Urine Ketones (NEGATIVE) Urine Occult Blood (Negative) Urine Nitrate (Negative) Urine Bilirubin (NEGATIVE) Urine Urobilinogen (0.2) E.U./dL Ur Leukocyte Esterase (NEGATIVE) Urine RBC (0-5/HPF) Urine WBC (0-5/HPF) Ur Squamous Epith Cells (0-5/HPF) Urine Bacteria (None) Ur Culture Indicated? 06/13/23 06/13/23 Range/Units 20:15 21:05 WBC (4.5-11.0) X10^3/uL RBC (4.5-5.9) X10^6/uL Hgb (13.5-17.5) g/dL Hct (41-53) % MCV (80-100) fL MCH (26-34) PG MCHC (30-36) % RDW (11.6-14.8) % Plt Count (150-400) X10^3/uL Neut % (Auto) (50-75) % Lymph % (Auto) (25-40) % [place] % (Auto) (3-14) % Eos % (Auto) (2-4) % Baso % (Auto) (0-2) % Neut # (Auto) (3585-3352) /uL Lymph # (Auto) (6663-5909) /uL [place] # (Auto) (0-900) /uL Eos # (Auto) (0-450) /uL Baso # (Auto) (0-100) /uL Sodium (137-145) mmol/L Potassium (3.4-5.1) mmol/L Chloride (98-107) mmol/L Carbon Dioxide (22-32) mmol/L BUN (9-20) mg/dL Creatinine (0.66-1.25) mg/dL Estimated GFR (>60) mL/min BUN/Creatinine Ratio (6-22) Glucose (80-110) mg/dL Lactate (0.7-2.1) mmol/L Calcium (8.4-10.2) mg/dL Total Bilirubin (0.2-1.3) mg/dL AST (17-59) IU/L ALT (<50) IU/L Alkaline Phosphatase (38-126) U/L Total Creatine Kinase 33 L (55-170) U/L Troponin I 0.019 (0.01-0.034) ng/mL NT-Pro-B Natriuret Pep 500 H (<125) pg/mL Total Protein (6.3-8.2) g/dL Albumin (3.5-5.0) g/dL Globulin (1.7-4.1) g/dL Albumin/Globulin Ratio (1.0-2.8) Procalcitonin (<0.5) ng/mL Urine Color Yellow Urine Appearance Clear Urine pH 5.0 (4.5-8.0) Ur Specific [place] 1.020 (1.000-1.035) Urine Protein Negative (Negative) Urine Glucose (UA) Negative (Negative) g/dL Urine Ketones Trace H (NEGATIVE) Urine Occult Blood 2+ H (Negative) Urine Nitrate Negative (Negative) Urine Bilirubin Negative (NEGATIVE) Urine Urobilinogen 0.2 (0.2) E.U./dL Ur Leukocyte Esterase 1+ H (NEGATIVE) Urine RBC 5-10/hpf H (0-5/HPF) Urine WBC 10-30/hpf H (0-5/HPF) Ur Squamous Epith Cells 0-1 /hpf (0-5/HPF) Urine Bacteria Few (2-10) H (None) Ur Culture Indicated? Specimen cultured Imaging Data CT scan - chest: Radiologist's Impression: PROCEDURE:? CT ANGIO CHEST PE PROTOCOL ? INDICATIONS:? short of breath post hospitalization ? TECHNIQUE:? After the administration of intravenous contrast, 2 mm thick sections acquired from the pulmonary apices to the posterior costophrenic angles.? 3-dimensional maximum intensity projection (MIP) coronal and sagittal reformats were then acquired through the thorax.? For radiation dose reduction, the following was used:? automated exposure control, adjustment of mA and/or kV according to patient size.? ? COMPARISON:? [facility], CT, CT ANGIO CHEST PE PROTOCOL, 09/21/2022, 11:00. ? FINDINGS:? Image quality:? Excellent.? ? Pulmonary arteries:? Pulmonary arteries are normal in size, and demonstrate no intraluminal filling defects to suggest central pulmonary embolism.? ? Lungs and pleura:? Lungs are clear.? No pleural effusions or pneumothorax.? Central and peripheral airways are patent.? Substantial paraseptal emphysema.? Bronchial thickening.? Stable pulmonary nodules. ? Mediastinum:? Heart size is normal, without pericardial effusion.? No mediastinal or hilar adenopathy.? Thoracic aorta is normal in caliber and enhancement.? Esoph lisa is normal in caliber, without hiatal hernia.? ? Bones and chest wall:? No suspicious bony lesions.? Ribs and thoracic spine appear intact throughout.? Thyroid gland is unremarkable.? No axillary or supraclavicular adenopathy.? Stable compression deformity of the L1 vertebral body. ? Abdomen:? Visualized upper abdominal solid organs appear normal in the early arterial phase of enhancement.? ? IMPRESSION:? No pulmonary embolus or evidence of infection. ? ? Dictated by: Thom Paz M.D. on 06/13/2023 at 21:43 ? ? ECG Data Interpretation: Sinus rhythm rate 102 TN interval 206 QRS [address] changes no T-wave inversions MDM Narrative Medical decision making narrative: Patient is 72-year-old male presents with indwelling Conteh catheter for a few weeks pain at the meatus general fatigue and shortness of breath. With 2 hospitalizations. Creatinine today is 1.1 significant improvement and stable. No significant electrolyte abnormalities. CT angio does not show any evidence of pulmonary embolism cover BNP is 500 more than previous at 300 but no evidence of significant fluid overload or conversational dyspnea or hypoxia. He does h ave mild leukocytosis 15.8 previously 13.5 anemia is stable. Patient reports that he got COVID last August at that time he was taking 2 doses of Flomax he was getting hypotensive whenever he stood up he was taken off Flomax and never got put back on. He is now back to Flomax once daily he is having a hard time finding a urologist who can see him before September. At this time there is no evidence of UTI although urine is cultured previous cultures have been negative. He is mild leukocytosis reports a fever at home however all cultures previously did not show any growth. He is afebrile here normal lactate normal procalcitonin at this time I think reasonable to wait until culture returns to start antibiotics if needed. Conteh catheter was exchanged by nursing staff he has no Conteh education about changing the bag. This time need for admission. Discharge Plan Departure Patient Disposition: Home Clinical Impression: Complication of Conteh catheter Instructions: How to Care for Your Conteh Catheter -- Male, Benign Prostatic Hyperplasia Activity Restrictions/Additional Instructions: *You have been diagnosed with Conteh catheter problem *What to do: At this time please talk with your primary care about ongoing Conteh catheter exchanges and urology follow up. This time no need for antibiotics however your urine culture will take about 3 days. We will call you only if it is positive *Continue to take medications as directed *Follow up with your primary care provider in 2-3 days or call [phone] *Return to ER if you should have increasing confusion fever chest pain shortness of breath or any new, worsening or concerning symptoms Prescriptions: No Action ALBUTEROL (PROVENTIL INHALER) 1 puff Inhalation PRN PRN (Reason: Shortness Of Breath) Qty: 0 nitroglycerin 0.4 mg tablet, sublingual 0.4 mg sublingual Q5M PRN (Reason: Chest Pain) Rx Instructions: do not exceed 3 doses per episode tamsulosin 0.4 mg Capsule 0.8 mg PO DAILY sertraline [Zoloft] 20 mg/mL Concentrate 100 mg PO DAILY clopidogrel 75 mg tablet 75 mg PO DAILY pantoprazole 20 mg tablet,delayed release (DR/EC) 20 mg PO DAILY oxycodone-acetaminophen [Percocet] 5-325 mg tablet 1 tab PO Q4-6H PRN (Reason: pain) Qty: 20 0RF prednisone 10 mg tablet 10 mg PO DAILY cyclobenzaprine 10 mg tablet 10 mg PO DAILY PRN (Reason: Pain, Moderate) Patient Comments: TAKE 1 TABLET BY MOUTH EVERY NIGHT NEEDED metoprolol succinate 25 mg tablet extended release 24 hr 25 mg PO DAILY Patient Comments: TAKE 1 TABLET BY MOUTH EVERY DAY zolpidem 10 mg tablet 5 mg PO QPM PRN (Reason: Sleep) Patient Comments: TAKE 1 TABLET BY MOUTH ONE DAILY AT BEDTIME NEEDED Repatha Syringe 140 mg/mL syringe 140 mg SUBCUT Q10D Patient Comments: INJECT 1 ML UNDER THE SKIN EVERY 2 WEEKS Referrals: Payton Morfin MD [Primary Care Provider] - Stand Alone Forms: Patient Portal/API
--- NOTE | 2023-06-13 20:21 | DI.CT.S_ITS ---
PROCEDURE: CT ANGIO CHEST PE PROTOCOL INDICATIONS: short of breath post hospitalization TECHNIQUE: After the administration of intravenous contrast, 2 mm thick sections acquired from the pulmonary apices to the posterior costophrenic angles. 3-dimensional maximum intensity projection (MIP) coronal and sagittal reformats were then acquired through the thorax. For radiation dose reduction, the following was used: automated exposure control, adjustment of mA and/or kV according to patient size. COMPARISON: [facility], CT, CT ANGIO CHEST PE PROTOCOL, 09/21/2022, 11:00. FINDINGS: Image quality: Excellent. Pulmonary arteries: Pulmonary arteries are normal in size, and demonstrate no intraluminal filling defects to suggest central pulmonary embolism. Lungs and pleura: Lungs are clear. No pleural effusions or pneumothorax. Central and peripheral airways are patent. Substantial paraseptal emphysema. Bronchial thickening. Stable pulmonary nodules. Mediastinum: Heart size is normal, without pericardial effusion. No mediastinal or hilar adenopathy. Thoracic aorta is normal in caliber and enhancement. Esophagus is normal in caliber, without hiatal hernia. Bones and chest wall: No suspicious bony lesions. Ribs and thoracic spine appear intact throughout. Thyroid gland is unremarkable. No axillary or supraclavicular adenopathy. Stable compression deformity of the L1 vertebral body. Abdomen: Visualized upper abdominal solid organs appear normal in the early arterial phase of enhancement. IMPRESSION: No pulmonary embolus or evidence of infection. Dictated by: Thom Paz M.D. on 06/13/2023 at 21:43 Approved by: Thom Paz M.D. on 06/13/2023 at 21:46
[2023-06-13 20:28] LABS: Add Manual Diff / Slide Review NO; Basophils Absolute Auto 100 /uL (0-100); Basophils Percent Auto 0.5 % (0-2); Eosinophils Absolute Auto 0 /uL (0-450); Eosinophils Percent Auto 0.2 % (2-4); Hemoglobin 9.6 g/dL (13.5-17.5); Lymphocytes Absolute Auto 1300 /uL (1100-4500); Lymphocytes Percent Auto 7.9 % (25-40); Mean Corpuscular Hemoglobin 30.5 PG (26-34); Mean Corpuscular Volume 92.4 fL (80-100); Monocytes Absolute Auto 1400 /uL (0-900); Monocytes Percent Auto 8.6 % (3-14); Neutrophils Absolute Auto 13000 /uL (1500-7000); Neutrophils Percent Auto 82.8 % (50-75); Platelet Count 347 X10^3/uL (150-400); Red Blood Cell Count 3.14 X10^6/uL (4.5-5.9); Red Cell Distribution Width 14.6 % (11.6-14.8); White Blood Cell Count 15.8 X10^3/uL (4.5-11.0)
--- NOTE | 2023-06-13 20:30 | PC.NURSE ---
Patient presents to ED with indwelling san catheter to leg bag. Patient states increased pain to penis and noted blood in underwear. Per Dr. Pelaez order, patient's san catheter removed and placement of non-latex san placed. Patient's drainage bag placed below bladder, urine noted in tubing.
[2023-06-13 21:00] LABS: Creatine Kinase 33 U/L (55-170)
[2023-06-13 21:02] LABS: Alanine Aminotransferase 30 IU/L (<50); Albumin Globulin Ratio 1.1 (1.0-2.8); Alkaline Phosphatase 66 U/L (38-126); Aspartate Aminotransferase 30 IU/L (17-59); BUN Creatinine Ratio 25.6 (6-22); Bilirubin Total 0.4 mg/dL (0.2-1.3); Blood Urea Nitrogen 30 mg/dL (9-20); Calcium 9.4 mg/dL (8.4-10.2); Carbon Dioxide 21 mmol/L (22-32); Chloride 105 mmol/L (98-107); Estimated Glomerular Filt Rate > 60 mL/min (>60); Globulin 3.8 g/dL (1.7-4.1); Glucose 108 mg/dL (80-110); HEMOLYSIS < 15 (0-50); Potassium 3.8 mmol/L (3.4-5.1); Sodium 138 mmol/L (137-145); Total Protein 7.8 g/dL (6.3-8.2)
[2023-06-13 21:03] LABS: Lactate (Lactic Acid) 1.1 mmol/L (0.7-2.1)
[2023-06-13 21:15] LABS: NT-proBNP (BNP-Adult 18+) 500 pg/mL (<125); Troponin I 0.019 ng/mL (0.01-0.034)
[2023-06-13 21:26] LABS: Appearance Urine UA CLEAR; Bilirubin Urine UA NEGATIVE (NEGATIVE); Color Urine UA YELLOW; Glucose Urine UA NEGATIVE (Negative); Ketones Urine UA TRACE (NEGATIVE); Leukocyte Esterase Urine UA 1+ (NEGATIVE); Nitrite Urine UA NEGATIVE (Negative); Occult Blood Urine UA 2+ (Negative); Protein Urine UA NEGATIVE (Negative); Urobilinogen Urine UA 0.2 E.U./dL (0.2)
[2023-06-13 21:30] VITALS: BP 159/73; PULSE 103; RESP 18; O2SAT 98
[2023-06-13 21:34] LABS: Bacteria Urine Few (2-10); Culture Indicated Urine Specimen Cultured; RBC Urine 5-10/HPF (0-5/HPF); Squamous Epithelial Cell Urine 0-1 /HPF (0-5/HPF); WBC Urine 10-30/HPF (0-5/HPF)
[2023-06-13 22:00] VITALS: BP 148/70; PULSE 102; RESP 20; O2SAT 97
[2023-06-13 22:30] VITALS: BP 143/79; PULSE 101; RESP 18; O2SAT 97
== END 2023-06-13 23:18 | disposition home or self-care (01) ==
PROVIDERS: Emergency Provider Emergency Medicine; PCP Internal Medicine
DX: T83.9XXA Unspecified complication of genitourinary prosthetic device, implant and graft, initial encounter (principal); R06.02 Shortness of breath; Z79.899 Other long term (current) drug therapy
CPT/HCPCS: 36415; 71275; 80053; 81001; 82550; 83605; 83880; 84145; 84484; 85025; 87040; 87086; 93005; 99284

== ENCOUNTER 2023-06-27 19:00 | Inpatient (IN) | payer MEDICARE, OTHER, SELFPAY ==
[2023-06-05 04:46] VITALS: BMI 33.4
[2023-06-27] VITALS (12 sets, daily range): BP systolic 126–154; BP diastolic 58–70; PULSE 96–125; RESP 16–40; TEMP 37.6; O2SAT 93–98; BMI 34.0
[2023-06-27] MEDS: ONDANSETRON 4 MG/2 ML INJ IV (20:30)
[2023-06-27 20:34] LABS: Hematocrit 28.5 % (41-53); Hemoglobin 9.7 g/dL (13.5-17.5); Mean Corpuscular HGB Conc 33.9 % (30-36); Mean Corpuscular Hemoglobin 31.3 PG (26-34); Mean Corpuscular Volume 92.4 fL (80-100); Platelet Count 332 X10^3/uL (150-400); Red Blood Cell Count 3.09 X10^6/uL (4.5-5.9); Red Cell Distribution Width 15.9 % (11.6-14.8); White Blood Cell Count 29.6 X10^3/uL (4.5-11.0)
[2023-06-27 20:39] LABS: Add Manual Diff / Slide Review YES
[2023-06-27 20:47] LABS: Alanine Aminotransferase 19 IU/L (<50); Albumin 3.9 g/dL (3.5-5.0); Albumin Globulin Ratio 1.1 (1.0-2.8); Alkaline Phosphatase 51 U/L (38-126); Aspartate Aminotransferase 27 IU/L (17-59); Blood Urea Nitrogen 20 mg/dL (9-20); Carbon Dioxide 25 mmol/L (22-32); Chloride 102 mmol/L (98-107); Estimated Glomerular Filt Rate > 60 mL/min (>60); Globulin 3.7 g/dL (1.7-4.1); Glucose 138 mg/dL (80-110); HEMOLYSIS < 15 (0-50); Lactate (Lactic Acid) 1.4 mmol/L (0.7-2.1); Lipase 30 U/L (23-300); Potassium 3.4 mmol/L (3.4-5.1); Sodium 138 mmol/L (137-145); Total Protein 7.6 g/dL (6.3-8.2)
[2023-06-27 20:56] LABS: Neutrophils Absolute Manual 27232 /uL (3000-5900); Total Cells Counted 100
[2023-06-27 20:57] LABS: RBC Morphology Normal Morphology
[2023-06-27 21:31] LABS: Bacteria Urine Many (>30); Culture Indicated Urine Specimen Cultured; RBC Urine 10-30/HPF (0-5/HPF); Squamous Epithelial Cell Urine 0-1 /HPF (0-5/HPF); WBC Urine >100/HPF (0-5/HPF)
--- NOTE | 2023-06-27 21:38 | DI.CT.S_ITS ---
PROCEDURE: CT IVP A/P W/WO INDICATIONS: sepsis, flank pain TECHNIQUE: Optional 5 mm thick noncontrast images acquired from the diaphragm to the symphysis pubis. After the administration of intravenous contrast, 5 mm thick images acquired from the diaphragm to the symphysis pubis after a 10-minute delay. 2 mm thick coronal and sagittal reformats were then performed of the kidneys and ureters. For radiation dose reduction, the following was used: automated exposure control, adjustment of mA and/or kV according to patient size. COMPARISON: [facility], CT, CT ABDOMEN PELVIS W CON, 05/29/2021, 6:43. FINDINGS: Image quality: There is metallic streak artifact from patient's bilateral hip prostheses limiting evaluation. Lung bases: There is scarring and atelectasis within the lung bases. Multiple pulmonary bullae are redemonstrated within the right lower lobe. Heart size is normal. Urinary system: Both kidneys are normal in size, without hydronephrosis or nephrolithiasis. There are 2 exophytic right renal cysts. A few scattered bilateral additional small low-density foci are demonstrated in the kidneys which are too small to characterize but likely represent cysts. There is normal bilateral renal enhancement. Renal calyces appear normal in morphology when filled with contrast without suspicious filling defects. Opacified portions of both ureters demonstrate normal caliber. There is localized wall thickening along the bladder dome with an associated colovesicular fistula. No calcified bladder stones. There is intraluminal gas within the bladder. Multiple lobular filling defects are demonstrated within the bladder which may represent blood clot. Other solid organs: ABDOMEN: Liver: No mass lesion. Gallbladder: Within normal limits without calcified gallstones. Biliary ducts: No biliary ductal dilatation. Pancreas: Unremarkable. Spleen: Normal in size. Adrenal Glands: No adrenal nodules. Kidneys and Ureters: No hydronephrosis. Stomach and Bowel: Stomach and small bowel loops are normal in caliber and wall thickness. The appendix is normal. There is colonic diverticulosis with segmental colonic wall thickening in the mid sigmoid colon as well as pericolonic fat stranding likely representing sequelae of diverticulitis. There is an associated colovesicular fistula demonstrated with the bladder dome. No pericolonic abscess collections or macroscopic free air. Peritoneum: No abnormal intraperitoneal fluid. No free air. Ventral Wall: No hernia. Abdominal Nodes: No retroperitoneal or mesenteric adenopathy by size criteria. Vessels: Aorta and inferior vena cava are normal in size. PELVIS: Pelvic Organs: Grossly unremarkable, with evaluation limited by metallic streak artifact. Pelvic Nodes: No enlarged lymph nodes. Miscellaneous: No inguinal hernias are seen. Bones: Visualized osseous structures demonstrate no suspicious focal lesions. IMPRESSION: 1. Bladder wall thickening along the bladder dome with an associated colovesicular fistula. Intraluminal gas is compatible with sequelae of fistula formation. Multiple filling defects within the bladder may reflect blood products or debris. 2. Segmental wall thickening in the sigmoid colon likely represent sequelae of diverticulitis given presence of colonic diverticula. However, a colonic mass is not excluded. Consider further evaluation with colonoscopy. 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 3. No nephrolithiasis or hydronephrosis. Dictated by: Alfred Quezada M.D. on 06/27/2023 at 23:41 Approved by: Alfred Quezada M.D. on 06/27/2023 at 23:53
[2023-06-27] MEDS: LACTATED RINGERS 1016.05 ML IV (21:47)
--- NOTE | 2023-06-27 22:48 | PC.NURSE ---
Patient returned from imaging, placed back on surveillance monitor and IVF's restarted. Patient denies any immediate needs or discomfort. Patient stood at bedside to urinate, urine noted to have foul strong stool-like odor and murky brown-yellow color.
[2023-06-28] VITALS (13 sets, daily range): BP systolic 118–163; BP diastolic 55–74; PULSE 83–118; RESP 19–44; TEMP 36.3–37.8; O2SAT 92–98; BMI 34.0
--- NOTE | 2023-06-28 00:46 | ED.GENADULT ---
HPI - General Adult General Chief complaint: Abdominal Pain Stated complaint: kidney issue N/pain in back T-10 Time Seen by Provider: 06/27/23 19:49 Source: patient and family Mode of arrival: Wheelchair History of Present Illness HPI narrative: 72-year-old male with history of carotid artery disease, coronary artery disease, type 2 diabetes, depression, COPD, obstructive sleep apnea, enlarged prostate, lung cancer with history of lobectomy, and recent hospitalization for acute kidney injury presents with a chief complaint of urinary frequency and urgency as well as subjective fever and shaking chills for the past few days. Today he feels increasingly weak and has developed some left-sided back pain and left lower quadrant pain as well. He was most recently admitted here a few weeks ago for acute kidney failure and discharged on June 08. He denies chest pain or shortness of breath. He denies vomiting but has been nauseated. Related Data Home Medications Medication Instructions Recorded Confirmed ALBUTEROL (PROVENTIL INHALER) 1 puff inhalation PRN PRN 08/17/11 06/28/23 Shortness Of Breath ##0 tamsulosin 0.4 mg capsule 0.8 mg PO DAILY 01/24/19 06/28/23 sertraline 20 mg/mL oral 100 mg PO DAILY 02/07/19 06/28/23 concentrate (Zoloft) nitroglycerin 0.4 mg sublingual 0.4 mg sublingual Q5M PRN Chest 09/23/20 06/28/23 tablet Pain cyclobenzaprine 10 mg tablet 10 mg PO DAILY PRN Pain, Moderate 05/30/21 06/28/23 evolocumab 140 mg/mL subcutaneous 140 mg SUBCUT Q10D 05/30/21 06/05/23 syringe (Repatha Syringe) metoprolol succinate 25 mg 25 mg PO DAILY 05/30/21 06/28/23 tablet,extended release 24 hr zolpidem 10 mg tablet 5 mg PO QPM PRN Sleep 05/30/21 06/05/23 clopidogrel 75 mg tablet 75 mg PO DAILY 05/30/23 06/28/23 pantoprazole 20 mg tablet,delayed 20 mg PO DAILY 05/30/23 06/28/23 release prednisone 10 mg tablet 10 mg PO DAILY 06/05/23 06/28/23 Previous Rx's Medication Instructions Recorded oxycodone-acetaminophen 5 mg-325 1 tab PO Q4-6H PRN pain #20 tabs 06/01/ mg tablet (Percocet) Allergies Allergy/AdvReac Type Severity Reaction Status Date / Time latex Allergy Severe Rash Verified 10/16/21 11:12 Penicillins [PENICILLINS] Allergy Severe Anaphylaxis Verified 10/16/21 11:12 adhesive tape AdvReac Severe Melts to Verified 10/16/21 11:12 my skin and pulls my skin off amino acids [From Chromimin] AdvReac Severe High blood Verified 10/16/21 11:12 level of chromim chromium [From Chromimin] AdvReac Severe High blood Verified 10/16/21 11:12 level of chromim cobalt AdvReac Severe High blood Verified 10/16/21 11:12 level of cobalt meperidine [MEPERIDINE] AdvReac Severe VOMITING Verified 10/16/21 11:12 morphine [MORPHINE] AdvReac Intermediate HALLUCINATI Verified 10/16/21 11:12 ONS Review of Systems Review of Systems Narrative: GENERAL: Denies chills, fatigue, malaise, fever, sweats. HEENT: Denies sinus pain, ear pain, sore throat, difficulty swallowing, dizziness. RESPIRATORY: Denies dyspnea, cough, wheezing, hemoptysis, sputum. CARDIOVASCULAR: Denies chest pain, palpitations, orthopnea, edema, GASTROINTESTINAL: Denies nausea, vomiting, abdominal pain, diarrhea, constipation, melena. : Denies dysuria, frequency, incontinence, hematuria, urinary retention. MUSCULOSKELETAL: denies weakness, joint pain, or bony pain SKIN: Denies rash, skin lesions, or other NEUROLOGIC: Denies weakness, headache, numbness, change in speech, confusion, seizures, incoordination. PSYCHIATRIC: No concerning psychosocial issues. 12 point review of systems is negative except for those stated above Patient History Medical History Arthritis Back pain CAD (coronary artery disease) Carotid artery disease Compound fracture COPD (chronic obstructive pulmonary disease) Cyst of left kidney Depression Diabetes Easy bruisability Enlarged prostate Finding of abnormal level of heavy metals in blood (~2018) Former smoker Hearing loss (01/22/18) HLD (hyperlipidemia) HTN (hypertension) Lung cancer (~1991) Neck pain Neuropathy NIKI (obstructive sleep apnea) Pneumonia RLS (restless legs syndrome) Rosacea Surgical History History of arthroplasty of both hips History of carpal tunnel surgery of right wrist History of vasectomy Hx of blepharoplasty Hx of heart artery stent (10/20/01) Hx of prostate biopsy (10/14/15) S/P lobectomy of lung (~1991) Family History Mother Congestive heart failure Father Pancreatic cancer Brother Diverticulitis Sister Diverticulitis Social History household members: spouse and other occupational status: employed Smoking Status: Former smoker alcohol intake: former substance use type: does not use Smoking Status: Former smoker alcohol intake frequency: holidays/special occasions only Substance Use Type: does not use Exam Narrative Exam Narrative: GENERAL: [72] year old patient appears stated age. Well-developed patient, in mild distress. HEAD: Atraumatic. Normocephalic. EYES: Pupils equal round and reactive. Extraocular motions intact. No scleral icterus. No injection or drainage. ENT: Nose without bleeding, purulent drainage. Throat without erythema, tonsillar hypertrophy or exudate. Airway patent. NECK: Trachea midline. Non tender CARDIOVASCULAR: Tachycardic but regular rhythm without murmurs, gallops, or rubs. RESPIRATORY: Clear to auscultation. Breath sounds equal bilaterally. No wheezes, rales, or rhonchi. GASTROINTESTINAL: Abdomen soft, tender in the suprapubic and left lower quadrant region, nondistended. EXTREMITIES: No edema or joint tenderness. BACK: Nontender without deformity or crepitance. Left CVA tenderness NEURO: AOx3. SKIN: No rash or erythema of visible areas Initial Vital Signs Initial Vital Signs: Vital Signs Temperature 99.7 F H 06/27/23 19:47 Pulse Rate 122 H 06/27/23 19:47 Respiratory Rate 20 06/27/23 19:47 Blood Pressure 143/68 H 06/27/23 19:47 Pulse Oximetry 96 06/27/23 19:47 Oxygen Delivery Method Room Air 06/27/23 19:47 Course Orders Ordered: ED Orders 06/28/23 01:04 Consult to General Surgery Stat Calcium Carbonate (Calcium Carbonate 500 Mg Tab) 1,000 mg PO Q4HR PRN PRN Reason: Dyspepsia Clopidogrel Bisulfate (Clopidogrel 75 Mg Tablet) 75 mg PO DAILY [facility] Cyclobenzaprine HCl (Cyclobenzaprine 10 Mg Tablet) 10 mg PO DAILY PRN PRN Reason: Pain, Moderate Heparin Sodium (Porcine) (Heparin 5,000 Unit/Ml Vial) 5,000 unit SUBCUT BID [facility] Hydromorphone HCl (Hydromorphone 0.5 Mg Inj) 0.5 mg IV Q2H PRN PRN Reason: Pain, Severe (7-10) Sodium Chloride (Normal Saline 0.9%) 1,000 mls @ 100 mls/hr IV CONT TREY Last Admin: 06/28/23 03:56 Dose: 100 mls/hr Documented By: JERSEY Metronidazole (Flagyl) 500 mg in 100 mls @ 100 mls/hr IV Q8H [facility] Cefepime HCl 2 gm/ Sodium (Chloride) 100 mls @ 200 mls/hr IV Q12H [facility] Naloxone HCl (Naloxone 0.4 Mg/Ml Vial) 0.2 mg IV Q2MIN PRN PRN Reason: Opiate Reversal Nitroglycerin (Nitroglycerin 0.4 Mg Sl Tab) 0.4 mg SL Q5M PRN PRN Reason: Chest Pain Non-Formulary Medication (Sertraline [Zoloft]) 100 mg PO DAILY [facility] Non-Formulary Medication (Albuterol (Proventil Inhaler)) 2 puff INHALATION PRN PRN PRN Reason: Shortness Of Breath Ondansetron HCl (Ondansetron 4 Mg Odt) 4 mg PO NOW PRN PRN Reason: Nausea And Vomiting Ondansetron HCl (Ondansetron 4 Mg/2 Ml Inj) 4 mg IV NOW PRN PRN Reason: Nausea And Vomiting Last Admin: 06/27/23 20:30 Dose: 4 mg Documented By: JEREMIAH Ondansetron HCl (Ondansetron 4 Mg/2 Ml Inj) 4 mg IV Q8HR PRN PRN Reason: Nausea And Vomiting Ondansetron HCl (Ondansetron 4 Mg Odt) 4 mg PO Q8HR PRN PRN Reason: Nausea And Vomiting Oxycodone HCl (Oxycodone Ir 5 Mg Tablet) 5 mg PO Q3H PRN PRN Reason: Pain, Moderate (4-6) Pantoprazole Sodium (Pantoprazole Dr 20 Mg Tablet) 20 mg PO 0600 [facility] Last Admin: 06/28/23 06:04 Dose: 20 mg Documented By: JERSEY Zolpidem Tartrate (Zolpidem 5 Mg Tablet) 5 mg PO QPM PRN PRN Reason: Sleep Discontinued Medications Acetaminophen (Acetaminophen 325 Mg Tablet) 650 mg PO NOW ONE Stop: 06/28/23 00:48 Last Admin: 06/28/23 00:55 Dose: 650 mg Documented By: NANCY Lactated Ringer's (Lactated Ringers) 3,048.15 mls @ 1,016.05 mls/hr 30 ml/kg infuse over 3 hr (3048.15 ml) IV NOW ONE Stop: 06/28/23 00:34 Last Infusion: 06/28/23 01:00 Dose: 0 mls/hr Documented By: Admin: 06/27/23 21:47 Dose: 1,016.05 mls/hr Documented By: NANCY Levofloxacin (Levaquin) 750 mg in 150 mls @ 100 mls/hr IV NOW ONE Stop: 06/28/23 02:25 Last Admin: 06/28/23 02:25 Dose: Not Given Documented By: NNACY Metronidazole (Flagyl) 500 mg in 100 mls @ 100 mls/hr IV NOW ONE Stop: 06/28/23 01:55 Last Infusion: 06/28/23 02:18 Dose: 0 mls/hr Documented By: Admin: 06/28/23 01:14 Dose: 100 mls/hr Documented By: NANCY Cefepime HCl 2 gm/ Sodium (Chloride) 100 mls @ 200 mls/hr IV NOW ONE Stop: 06/28/23 02:14 Last Infusion: 06/28/23 03:22 Dose: 0 mls/hr Documented By: Admin: 06/28/23 02:50 Dose: 200 mls/hr Documented By: JERSEY Metronidazole (Flagyl) 500 mg in 100 mls @ 100 mls/hr IV Q8H [facility] Last Admin: 06/28/23 03:54 Dose: Not Given Documented By: JERSEY Cefepime HCl 2 gm/ Sodium (Chloride) 100 mls @ 200 mls/hr IV Q12H [facility] Last Admin: 06/28/23 03:53 Dose: Not Given Documented By: JERSEY Metronidazole (Flagyl) 500 mg in 100 mls @ 100 mls/hr IV Q8H [facility] Potassium Chloride (Potassium Chloride 20 Meq/15 Ml Udc) 20 meq PO NOW ONE Stop: 06/28/23 04:41 Last Admin: 06/28/23 06:04 Dose: 20 meq Documented By: JERSEY Vital Signs Vital signs: Vital Signs - 8 hr 06/27/23 22:43 06/27/23 22:43 06/27/23 23:00 Pulse Rate 104 H Respiratory Rate 19 22 Blood Pressure 154/70 H 129/59 L Pulse Oximetry 96 98 Oxygen Delivery Method Room Air 06/27/23 23:00 06/27/23 23:30 06/27/23 23:42 Pulse Rate 96 H 125 H Respiratory Rate 27 H 30 H Blood Pressure 126/58 L Pulse Oximetry 94 Oxygen Delivery Method 06/27/23 23:42 06/27/23 23:53 06/27/23 23:53 Pulse Rate 99 H 104 H Respiratory Rate 20 40 H Blood Pressure 144/67 H Pulse Oximetry 97 93 Oxygen Delivery Method Room Air 06/28/23 00:00 06/28/23 00:01 06/28/23 00:01 Pulse Rate 94 H 95 H Respiratory Rate 27 H 26 H Blood Pressure 132/63 Pulse Oximetry 94 95 Oxygen Delivery Method 06/28/23 00:30 06/28/23 00:31 06/28/23 00:31 Pulse Rate 93 H 92 H Respiratory Rate 30 H 30 H Blood Pressure 133/62 Pulse Oximetry 92 92 Oxygen Delivery Method Room Air 06/28/23 01:00 06/28/23 01:30 Pulse Rate 118 H 107 H Respiratory Rate 44 H 32 H Blood Pressure Pulse Oximetry 97 93 Oxygen Delivery Method Room Air Medical Decision Making Lab Data 06/28/23 04:10 06/28/23 04:10 Labs: Lab Results 06/27/23 06/27/23 06/27/23 Range/Units 20:20 20:20 20:20 WBC 29.6 H (4.5-11.0) X10^3/uL RBC 3.09 L (4.5-5.9) X10^6/uL Hgb 9.7 L (13.5-17.5) g/dL Hct 28.5 L (41-53) % MCV 92.4 (80-100) fL MCH 31.3 (26-34) PG MCHC 33.9 (30-36) % RDW 15.9 H (11.6-14.8) % Plt Count 332 (150-400) X10^3/uL Neut % (Auto) Not Reportable Lymph % (Auto) Not Reportable [place] % (Auto) Not Reportable Eos % (Auto) Not Reportable Baso % (Auto) Not Reportable Lymph # (Auto) Not Reportable [place] # (Auto) Not Reportable Baso # (Auto) Not Reportable Total Counted 100 Seg Neutrophils % 90.0 H (38-70) % Band Neutrophils % 2.0 L (3-7) % Lymphocytes % (Manual) 2.0 L (25-45) % Monocytes % (Manual) 5.0 (2-11) % Eosinophils % (Manual) 1.0 L (2-4) % Neutrophils # (Manual) 50591 H (5331-3094) /uL RBC Morphology Normal morphology Sodium 138 (137-145) mmol/L Potassium 3.4 (3.4-5.1) mmol/L Chloride 102 (98-107) mmol/L Carbon Dioxide 25 (22-32) mmol/L BUN 20 (9-20) mg/dL Creatinine 1.05 (0.66-1.25) mg/dL Estimated GFR > 60 (>60) mL/min BUN/Creatinine Ratio 19.0 (6-22) Glucose 138 H (80-110) mg/dL Lactate 1.4 (0.7-2.1) mmol/L Calcium 9.0 (8.4-10.2) mg/dL Total Bilirubin 1.0 (0.2-1.3) mg/dL AST 27 (17-59) IU/L ALT 19 (<50) IU/L Alkaline Phosphatase 51 (38-126) U/L Total Protein 7.6 (6.3-8.2) g/dL Albumin 3.9 (3.5-5.0) g/dL Globulin 3.7 (1.7-4.1) g/dL Albumin/Globulin Ratio 1.1 (1.0-2.8) Lipase 30 (23-300) U/L Urine RBC (0-5/HPF) Urine WBC (0-5/HPF) Ur Squamous Epith Cells (0-5/HPF) Urine Bacteria (None) Ur Culture Indicated? 06/27/23 Range/Units 20:20 WBC (4.5-11.0) X10^3/uL RBC (4.5-5.9) X10^6/uL Hgb (13.5-17.5) g/dL Hct (41-53) % MCV (80-100) fL MCH (26-34) PG MCHC (30-36) % RDW (11.6-14.8) % Plt Count (150-400) X10^3/uL Neut % (Auto) Lymph % (Auto) [place] % (Auto) Eos % (Auto) Baso % (Auto) Lymph # (Auto) [place] # (Auto) Baso # (Auto) Total Counted Seg Neutrophils % (38-70) % Band Neutrophils % (3-7) % Lymphocytes % (Manual) (25-45) % Monocytes % (Manual) (2-11) % Eosinophils % (Manual) (2-4) % Neutrophils # (Manual) (4520-4916) /uL RBC Morphology Sodium (137-145) mmol/L Potassium (3.4-5.1) mmol/L Chloride (98-107) mmol/L Carbon Dioxide (22-32) mmol/L BUN (9-20) mg/dL Creatinine (0.66-1.25) mg/dL Estimated GFR (>60) mL/min BUN/Creatinine Ratio (6-22) Glucose (80-110) mg/dL Lactate (0.7-2.1) mmol/L Calcium (8.4-10.2) mg/dL Total Bilirubin (0.2-1.3) mg/dL AST (17-59) IU/L ALT (<50) IU/L Alkaline Phosphatase (38-126) U/L Total Protein (6.3-8.2) g/dL Albumin (3.5-5.0) g/dL Globulin (1.7-4.1) g/dL Albumin/Globulin Ratio (1.0-2.8) Lipase (23-300) U/L Urine RBC 10-30/hpf H (0-5/HPF) Urine WBC >100/hpf H (0-5/HPF) Ur Squamous Epith Cells 0-1 /hpf (0-5/HPF) Urine Bacteria Many (>30) H (None) Ur Culture Indicated? Specimen cultured Urine Dip Bedside Urine Glucose Negative Bedside Urine Bilirubin - Negative Bedside Urine Ketone - Negative Urine Specific Olds 1.005 Bedside Urine Occult Blood ++ Bedside Urine pH 6.0 Bedside Urine Protein +/- 15 Bedside Urine Urobilinogen - Negative Bedside Urine Nitrite - Negative Bedside Urine Leukocytes +++ 500 Esterase Point of care testing: Urine Dip Bedside Urine Glucose Negative Bedside Urine Bilirubin - Negative Bedside Urine Ketone - Negative Urine Specific Olds 1.005 Bedside Urine Occult Blood ++ Bedside Urine pH 6.0 Bedside Urine Protein +/- 15 Bedside Urine Urobilinogen - Negative Bedside Urine Nitrite - Negative Bedside Urine Leukocytes +++ 500 Esterase MDM Narrative Medical decision making narrative: [72] year old patient presents with urinary frequency, shaking chills, left flank pain Multiple etiologies for patient's symptoms considered including, but not limited to: [UTI, kidney stone, pyelonephritis versus other] Prior Charts reviewed in our EMR Primary Historian: patient Labs reviewed and interpreted by myself: Significant leukocytosis with left shift, electrolytes and kidney function within normal limits, urine notes significant number of white blood cells Imaging reviewed: CT IVP shows no kidney stone or hydronephrosis, 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 Vargas (Surgery), agrees with ABX selection. Asks patient be admitted to hospitalist, consult be placed to [facility]. Hospitalist (Glendy) happy to accept Discharge Plan Departure Patient Disposition: Admitted As Inpatient Clinical Impression: Colovesical fistula, Diverticulitis, Acute pyelonephritis Sepsis Qualifiers: Sepsis type: sepsis due to unspecified organism Sepsis acute organ dysfunction status: without acute organ dysfunction Qualified Code(s): A41.9 - Sepsis, unspecified organism Admit Date/Time: 06/28/23 01:47 Admit Provider: Barb Pike
[2023-06-28] MEDS: ACETAMINOPHEN 325 MG TABLET 650 MG PO (00:55)
[2023-06-28] MEDS: metroNIDAZOLE 500 MG/100 ML PIGGYBACK 100 MG IV ×4 (01:14→23:14)
[2023-06-28] MEDS: CEFEPIME 2 GM in SODIUM CHLORIDE 0.9% 100 ML IV ×2 (02:50→15:58)
[2023-06-28] MEDS: SODIUM CHLORIDE 0.9% 1,000 ML 100 ML IV (03:56)
--- NOTE | 2023-06-28 04:13 | PM.HP.1 ---
History of Present Illness History of Present Illness Chief complaint: kidney issue N/pain in back T-10 Narrative: CHIEF COMPLAINT Flank pain, left lower quadrant pain, dysuria, and chills HPI This is a 74-year-old gentleman with a history of CAD, COPD, lung cancer in remission, diabetes mellitus type 2, perforated diverticulitis 2020, and recent hospitalizations for urine retention. He was admitted: + Admitted 05/30 - 06/01 with urine retention acute renal failure with a creatinine 3.0. He was discharged with a Conteh catheter and his Flomax was stopped due to postural symptoms. +He was readmitted 06/05 - 04/08 for dehydration and acute kidney injury with creatinine 2.82. His Conteh was exchanged and his creatinine improved to 1.24. +He returned to the ER 06/13 with a leaking Conteh bag. Conteh catheter was exchanged and he was discharged for outpatient follow-up. +Conteh bag was changed again + finally his Conteh was removed 06/23 by his PCP. He has continued to make urine without any further problems. +He has been on prednisone 10 mg daily for the past few weeks to treat his chronic low back pain. The last few days his urine has become darker with a foul odor. Today he noticed fever, chills, moderate/sharp left flank pain, and moderate left lower quadrant pain. In the emergency room he was tachycardic with stable blood pressure. There was tenderness in the left flank and left lower quadrant without surgical signs. Labs are significant for strongly positive UA, WBC 29, hemoglobin 9.7, and normal creatinine. CT of the abdomen pelvis confirmed an area of sigmoid diverticulitis with associated colovesical fistula bladder wall thickening. On-call surgeon agreed to consult in the morning. Levaquin and Flagyl were originally ordered . He was also given IV fluids per sepsis protocols and his vitals have stabilized. [facility], [facility] Medical History Arthritis Back pain CAD (coronary artery disease) Carotid artery disease Compound fracture COPD (chronic obstructive pulmonary disease) Cyst of left kidney Depression Diabetes Easy bruisability Enlarged prostate Finding of abnormal level of heavy metals in blood (~2018) Former smoker Hearing loss (01/22/18) HLD (hyperlipidemia) HTN (hypertension) Lung cancer (~1991) Neck pain Neuropathy NIKI (obstructive sleep apnea) Pneumonia RLS (restless legs syndrome) Rosacea Surgical History History of arthroplasty of both hips History of carpal tunnel surgery of right wrist History of vasectomy Hx of blepharoplasty Hx of heart artery stent (10/20/01) Hx of prostate biopsy (10/14/15) S/P lobectomy of lung (~1991) Family History Mother Congestive heart failure Father Pancreatic cancer Brother Diverticulitis Sister Diverticulitis Social History household members: spouse and other occupational status: employed Smoking Status: Former smoker alcohol intake: former substance use type: does not use Meds Home Medications and Allergies Home Medications Medication Instructions Recorded Confirmed Type ALBUTEROL (PROVENTIL INHALER) 1 puff inhalation PRN PRN 08/17/11 06/28/23 History Shortness Of Breath ##0 tamsulosin 0.4 mg capsule 0.8 mg PO DAILY 01/24/19 06/28/23 History sertraline 20 mg/mL oral 100 mg PO DAILY 02/07/19 06/28/23 History concentrate (Zoloft) nitroglycerin 0.4 mg sublingual 0.4 mg sublingual Q5M PRN Chest 09/23/20 06/28/23 History tablet Pain cyclobenzaprine 10 mg tablet 10 mg PO DAILY PRN Pain, Moderate 05/30/21 06/28/23 History evolocumab 140 mg/mL subcutaneous 140 mg SUBCUT Q10D 05/30/21 06/05/23 History syringe (Repatha Syringe) metoprolol succinate 25 mg 25 mg PO DAILY 05/30/21 06/28/23 History tablet,extended release 24 hr zolpidem 10 mg tablet 5 mg PO QPM PRN Sleep 05/30/21 06/05/23 History clopidogrel 75 mg tablet 75 mg PO DAILY 05/30/23 06/28/23 History pantoprazole 20 mg tablet,delayed 20 mg PO DAILY 05/30/23 06/28/23 History release oxycodone-acetaminophen 5 mg-325 1 tab PO Q4-6H PRN pain #20 tabs 06/01/23 06/28/23 Rx mg tablet (Percocet) prednisone 10 mg tablet 10 mg PO DAILY 06/05/23 06/28/23 History Allergies Allergy/AdvReac Type Severity Reaction Status Date / Time latex Allergy Severe Rash Verified 10/16/21 11:12 Penicillins [PENICILLINS] Allergy Severe Anaphylaxis Verified 10/16/21 11:12 adhesive tape AdvReac Severe Melts to Verified 10/16/21 11:12 my skin and pulls my skin off amino acids [From Chromimin] AdvReac Severe High blood Verified 10/16/21 11:12 level of chromim chromium [From Chromimin] AdvReac Severe High blood Verified 10/16/21 11:12 level of chromim cobalt AdvReac Severe High blood Verified 10/16/21 11:12 level of cobalt meperidine [MEPERIDINE] AdvReac Severe VOMITING Verified 10/16/21 11:12 morphine [MORPHINE] AdvReac Intermediate HALLUCINATI Verified 10/16/21 11:12 ONS Current Medications Medications: Home Medications ALBUTEROL (PROVENTIL INHALER) 1 puff inhalation PRN PRN Shortness Of Breath ##0 08/17/11 [History Confirmed 06/28/23] tamsulosin 0.4 mg capsule 0.8 mg PO DAILY 01/24/19 [History Confirmed 06/28/23] sertraline 20 mg/mL oral concentrate (Zoloft) 100 mg PO DAILY 02/07/19 [History Confirmed 06/28/23] nitroglycerin 0.4 mg sublingual tablet 0.4 mg sublingual Q5M PRN Chest Pain 09/23/20 [History Confirmed 06/28/23] cyclobenzaprine 10 mg tablet 10 mg PO DAILY PRN Pain, Moderate 05/30/21 [History Confirmed 06/28/23] evolocumab 140 mg/mL subcutaneous syringe (Repatha Syringe) 140 mg SUBCUT Q10D 05/30/21 [History Confirmed 06/05/23] metoprolol succinate 25 mg tablet,extended release 24 hr 25 mg PO DAILY 05/30/21 [History Confirmed 06/28/23] zolpidem 10 mg tablet 5 mg PO QPM PRN Sleep 05/30/21 [History Confirmed 06/05/23] clopidogrel 75 mg tablet 75 mg PO DAILY 05/30/23 [History Confirmed 06/28/23] pantoprazole 20 mg tablet,delayed release 20 mg PO DAILY 05/30/23 [History Confirmed 06/28/23] oxycodone-acetaminophen 5 mg-325 mg tablet (Percocet) 1 tab PO Q4-6H PRN pain #20 tabs 06/01/23 [Rx Confirmed 06/28/23] prednisone 10 mg tablet 10 mg PO DAILY 06/05/23 [History Confirmed 06/28/23] Visit Medications (administered) Generic Name Dose Route Start Last Admin Trade Name Freq PRN Reason Stop Dose Admin Cefepime HCl 2 gm/ Sodium 100 mls @ 200 mls/hr 06/28/23 03:30 06/28/23 03:53 Chloride IV Not Given Q12H TREY Sodium Chloride 1,000 mls @ 100 mls/hr 06/28/23 03:45 06/28/23 03:56 Normal Saline 0.9% IV 100 mls/hr CONT TREY Administration Ondansetron HCl 4 mg 06/27/23 19:55 06/27/23 20:30 Ondansetron 4 Mg/2 Ml Inj IV 4 mg NOW PRN Administration Nausea And Vomiting Review of Systems Review of Systems Narrative: Significant for findings noted in the HPI. Rest of complete review of systems is negative Exam Vital Signs (past 8 hours): - 06/27/23 21:31 06/27/23 21:32 06/27/23 21:32 Temperature Pulse Rate 113 H Respiratory Rate Blood Pressure 150/65 H Pulse Oximetry 94 96 Oxygen Delivery Method 06/27/23 21:46 06/27/23 21:46 06/27/23 22:00 Temperature Pulse Rate 111 H 110 H Respiratory Rate 16 Blood Pressure 147/67 H Pulse Oximetry 95 96 Oxygen Delivery Method Room Air 06/27/23 22:01 06/27/23 22:01 06/27/23 22:40 Temperature Pulse Rate 119 H 116 H Respiratory Rate 16 Blood Pressure 131/60 Pulse Oximetry 97 Oxygen Delivery Method 06/27/23 22:43 06/27/23 22:43 06/27/23 23:00 Temperature Pulse Rate 104 H Respiratory Rate 19 22 Blood Pressure 154/70 H 129/59 L Pulse Oximetry 96 98 Oxygen Delivery Method Room Air 06/27/23 23:00 06/27/23 23:30 06/27/23 23:42 Temperature Pulse Rate 96 H 125 H Respiratory Rate 27 H 30 H Blood Pressure 126/58 L Pulse Oximetry 94 Oxygen Delivery Method 06/27/23 23:42 06/27/23 23:53 06/27/23 23:53 Temperature Pulse Rate 99 H 104 H Respiratory Rate 20 40 H Blood Pressure 144/67 H Pulse Oximetry 97 93 Oxygen Delivery Method Room Air 06/28/23 00:00 06/28/23 00:01 06/28/23 00:01 Temperature Pulse Rate 94 H 95 H Respiratory Rate 27 H 26 H Blood Pressure 132/63 Pulse Oximetry 94 95 Oxygen Delivery Method 06/28/23 00:30 06/28/23 00:31 06/28/23 00:31 Temperature Pulse Rate 93 H 92 H Respiratory Rate 30 H 30 H Blood Pressure 133/62 Pulse Oximetry 92 92 Oxygen Delivery Method Room Air 06/28/23 01:00 06/28/23 01:30 06/28/23 01:54 Temperature Pulse Rate 118 H 107 H 101 H Respiratory Rate 44 H 32 H 25 H Blood Pressure Pulse Oximetry 97 93 97 Oxygen Delivery Method Room Air 06/28/23 01:54 06/28/23 02:30 Temperature 100.0 F H Pulse Rate 102 H Respiratory Rate 20 Blood Pressure 163/74 H 134/61 Pulse Oximetry 94 Oxygen Delivery Method Oxygen Delivery Method Room Air Narrative Exam Narrative: Assistance from the bedside RN was used in conjunction with telemedicine equipment to generate this exam .. GEN: Alert and oriented x3 nontoxic appearance. HEENT: Normocephalic. Pupils are equal and reactive to light. Mucous membranes are moist. NECK: No lumps, JVD, or bruit CVS: Stethoscope audio recordings are not available RESP: Stethoscope record is not available. Bedside RN reported reduced breath sounds at the right base. Rest of lungs were clear. GIT: + Left flank pain and left lower quadrant pain. EXTR: No cyanosis, clubbing or edema. 2+ Pulses. NEURO: Cranial Nerves intact. No gross focal motor deficits SKIN: No rash or breakdown Objective Imaging CT scan - abdomen: My impression: Sigmoid diverticulitis with adjacent coloviscal fistula Radiologist's impression: IMPRESSION:? ? 1. Bladder wall thickening along the bladder dome with an associated colovesicular fistula.? Intraluminal gas is compatible with sequelae of fistula formation.? Multiple filling defects within the bladder may reflect blood products or debris. ? 2. Segmental wall thickening in the sigmoid colon likely represent sequelae of diverticulitis given presence of colonic diverticula.? However, a colonic mass is not excluded.? Consider further evaluation with colonoscopy.? 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 ? 3. No nephrolithiasis or hydronephrosis. ? ? ? Dictated by: Alfred Quezada M.D. on 06/27/2023 at 23:41 ? ? Approved by: Alfred Quezada M.D. on 06/27/2023 at 23:53 ? Labs 06/27/23 20:20 06/27/23 20:20 Labs: Laboratory Results - last 24 hr 06/27/23 06/27/23 06/27/23 20:20 20:20 20:20 WBC 29.6 H RBC 3.09 L Hgb 9.7 L Hct 28.5 L MCV 92.4 MCH 31.3 MCHC 33.9 RDW 15.9 H Plt Count 332 Neut % (Auto) Not Reportable Lymph % (Auto) Not Reportable [place] % (Auto) Not Reportable Eos % (Auto) Not Reportable Baso % (Auto) Not Reportable Lymph # (Auto) Not Reportable [place] # (Auto) Not Reportable Baso # (Auto) Not Reportable Total Counted 100 Seg Neutrophils % 90.0 H Band Neutrophils % 2.0 L Lymphocytes % (Manual) 2.0 L Monocytes % (Manual) 5.0 Eosinophils % (Manual) 1.0 L Neutrophils # (Manual) 78416 H RBC Morphology Normal morphology Sodium 138 Potassium 3.4 Chloride 102 Carbon Dioxide 25 BUN 20 Creatinine 1.05 Estimated GFR > 60 BUN/Creatinine Ratio 19.0 Glucose 138 H Lactate 1.4 Calcium 9.0 Total Bilirubin 1.0 AST 27 ALT 19 Alkaline Phosphatase 51 Total Protein 7.6 Albumin 3.9 Globulin 3.7 Albumin/Globulin Ratio 1.1 Lipase 30 Urine RBC Urine WBC Ur Squamous Epith Cells Urine Bacteria Ur Culture Indicated? 06/27/23 20:20 WBC RBC Hgb Hct MCV MCH MCHC RDW Plt Count Neut % (Auto) Lymph % (Auto) [place] % (Auto) Eos % (Auto) Baso % (Auto) Lymph # (Auto) [place] # (Auto) Baso # (Auto) Total Counted Seg Neutrophils % Band Neutrophils % Lymphocytes % (Manual) Monocytes % (Manual) Eosinophils % (Manual) Neutrophils # (Manual) RBC Morphology Sodium Potassium Chloride Carbon Dioxide BUN Creatinine Estimated GFR BUN/Creatinine Ratio Glucose Lactate Calcium Total Bilirubin AST ALT Alkaline Phosphatase Total Protein Albumin Globulin Albumin/Globulin Ratio Lipase Urine RBC 10-30/hpf H Urine WBC >100/hpf H Ur Squamous Epith Cells 0-1 /hpf Urine Bacteria Many (>30) H Ur Culture Indicated? Specimen cultured Assessment & Plan Assessment and plan (1) Sepsis: Qualifiers: Sepsis type: sepsis due to unspecified organism Sepsis acute organ dysfunction status: without acute organ dysfunction Qualified Code(s): A41.9 - Sepsis, unspecified organism Status: Acute (2) Diverticulitis: Status: Acute (3) Colovesical fistula: Status: Acute (4) Pyelonephritis of left kidney: Status: Acute Plan ASSESSMENT/PLAN: This is a 74-year-old gentleman with a history of CAD, COPD, lung cancer in remission, diabetes mellitus type 2, perforated diverticulitis 2020, and recent hospitalizations for urine retention. He is admitted with sepsis, sigmoid diverticulitis, colovesical fistula, cystitis, and left pyelonephritis. #Sepsis #Acute Sigmoid diverticulitis + prior perforated sigmoid divertiulitis 2020 (medically managed) #Colovesical fistula: acute #Cystitis #Left pyelonephritis Perforated sigmoid diverticulitis in 2020 which was managed conservatively. 2 recent hospitalizations requiring Conteh catheter for urine retention and postrenal kidney injury. Conteh catheter has been out since Monday. Now has a foul urine related to his colovesical fistula. He confirms diverticulitis with associated colovesical fistula. UA strongly postiive with LLQ pain and left flank pain. ?Sepsis protocols + check lacate ? Normal saline ? Cefepime + Flagyl ? General surgery consulted by the ER and will see in a.m. -Urology consult PRN ? Oxycodone and morphine ? Clear liquid diet and essential meds ?Vitals stabilized. No need for hydrocortisone stress dose steroids. He has been on 10 mg of prednisone daily for the last 2 weeks for his chronic low back pain #Anemia No significant change from recent ER visits -Observe MED REC - Reviewed. DVT Risk -Heparin CODE STATUS: -Full code FEN - Normal saline # SECONDARY PROBLEMS CAD: RCA and LCx stent 2001 - plavix Hypertension - hold metoprolol COPD - albuterol Lung cancer COVID-right upper and middle lobectomy 1991 Pneumonia history NIKI - no CPAP for now Left renal cysts BPH + Urine retention 05/2023: - intolerant of tamsulosin Diabetes mellitus type 2: - Diet controlled Arthritis Back pain - hold prednisone Rosacea COVID-19 infection: 08/2022
[2023-06-28 04:48] LABS: Add Manual Diff / Slide Review NO; Basophils Absolute Auto 0 /uL (0-100); Basophils Percent Auto 0.1 % (0-2); Eosinophils Absolute Auto 0 /uL (0-450); Hematocrit 24.1 % (41-53); Lymphocytes Absolute Auto 1000 /uL (1100-4500); Mean Corpuscular HGB Conc 33.4 % (30-36); Mean Corpuscular Hemoglobin 31.2 PG (26-34); Mean Corpuscular Volume 93.4 fL (80-100); Monocytes Absolute Auto 1800 /uL (0-900); Monocytes Percent Auto 7.5 % (3-14); Neutrophils Absolute Auto 21600 /uL (1500-7000); Neutrophils Percent Auto 88.4 % (50-75); Platelet Count 249 X10^3/uL (150-400); Red Blood Cell Count 2.58 X10^6/uL (4.5-5.9); Red Cell Distribution Width 15.7 % (11.6-14.8); White Blood Cell Count 24.4 X10^3/uL (4.5-11.0)
[2023-06-28 04:49] LABS: INR 1.6 (0.9-1.3); Prothrombin Time 18.3 SECONDS (10.1-12.7)
[2023-06-28 04:54] LABS: Alanine Aminotransferase 16 IU/L (<50); Alkaline Phosphatase 41 U/L (38-126); Aspartate Aminotransferase 22 IU/L (17-59); BUN Creatinine Ratio 19.6 (6-22); Bilirubin Total 0.9 mg/dL (0.2-1.3); Blood Urea Nitrogen 19 mg/dL (9-20); Calcium 8.3 mg/dL (8.4-10.2); Carbon Dioxide 25 mmol/L (22-32); Chloride 104 mmol/L (98-107); Estimated Glomerular Filt Rate > 60 mL/min (>60); Globulin 3.1 g/dL (1.7-4.1); Glucose 110 mg/dL (80-110); HEMOLYSIS < 15 (0-50); Potassium 3.3 mmol/L (3.4-5.1); Sodium 136 mmol/L (137-145); Total Protein 6.1 g/dL (6.3-8.2)
[2023-06-28] MEDS: POTASSIUM CHLORIDE 20 MEQ/15 ML UDC PO (06:04)
[2023-06-28] MEDS: PANTOPRAZOLE DR 20 MG TABLET PO (06:04)
--- NOTE | 2023-06-28 06:19 | PC.ADMIT ---
[id number] Admission Note: The patient,David Ochoa,72 y/o, was given written information regarding hospital policies, unit procedures and contact persons. Patient's smoking status: Former smoker. Vital Signs - 8 hr 06/27/23 22:40 06/27/23 22:43 06/27/23 22:43 Temperature Pulse Rate 116 H 104 H Respiratory Rate 16 19 22 Blood Pressure 154/70 H Pulse Oximetry 96 98 Oxygen Delivery Method Room Air Oxygen Flow Rate 06/27/23 23:00 06/27/23 23:00 06/27/23 23:30 Temperature Pulse Rate 96 H 125 H Respiratory Rate 27 H 30 H Blood Pressure 129/59 L Pulse Oximetry 94 Oxygen Delivery Method Oxygen Flow Rate 06/27/23 23:42 06/27/23 23:42 06/27/23 23:53 Temperature Pulse Rate 99 H Respiratory Rate 20 Blood Pressure 126/58 L 144/67 H Pulse Oximetry 97 Oxygen Delivery Method Room Air Oxygen Flow Rate 06/27/23 23:53 06/28/23 00:00 06/28/23 00:01 Temperature Pulse Rate 104 H 94 H Respiratory Rate 40 H 27 H Blood Pressure 132/63 Pulse Oximetry 93 94 Oxygen Delivery Method Oxygen Flow Rate 06/28/23 00:01 06/28/23 00:30 06/28/23 00:31 Temperature Pulse Rate 95 H 93 H Respiratory Rate 26 H 30 H Blood Pressure 133/62 Pulse Oximetry 95 92 Oxygen Delivery Method Oxygen Flow Rate 06/28/23 00:31 06/28/23 01:00 06/28/23 01:30 Temperature Pulse Rate 92 H 118 H 107 H Respiratory Rate 30 H 44 H 32 H Blood Pressure Pulse Oximetry 92 97 93 Oxygen Delivery Method Room Air Room Air Oxygen Flow Rate 06/28/23 01:54 06/28/23 01:54 06/28/23 02:30 Temperature 100.0 F H Pulse Rate 101 H 102 H Respiratory Rate 25 H 20 Blood Pressure 163/74 H 134/61 Pulse Oximetry 97 94 Oxygen Delivery Method Oxygen Flow Rate 06/28/23 02:30 06/28/23 03:35 Temperature Pulse Rate 85 Respiratory Rate 25 H Blood Pressure 121/56 L Pulse Oximetry 96 Oxygen Delivery Method Room Air Oxygen Flow Rate 0 Patient admitted to [place] [id number] at 0230. A/O x3, forgetful of date, [place]. SR/ST HR up to 120 with activity, mild shortness of breath, SpO2 96% RA, T 100.0, RR 20s, BP 134/61, has tenderness LLQ when palpated. Up to BSC frequently with 1 person assist, voiding 50-100ml cloudy urine, has fecal smell. NS @ 100ml/hr, Flagyl and Cefepime started. Can have sips of clear liquids, PO potassium given for K+ 3.3.
[2023-06-28 06:31] LABS: MRSA (Nasal) PCR Not Detected (Not Detect)
[2023-06-28] MEDS: HEPARIN 5,000 UNIT/ML VIAL 5000 UNIT SUBCUT ×2 (08:34→20:17)
[2023-06-28] MEDS: SERTRALINE 50 MG TABLET 100 MG PO (08:34)
--- NOTE | 2023-06-28 09:18 | PM.HP.1 ---
History of Present Illness History of Present Illness Date Patient Seen: 06/28/23 Chief complaint: kidney issue N/pain in back T-10 Narrative: CHIEF COMPLAINT Flank pain, left lower quadrant pain, dysuria, and chills HPI This is a 74-year-old gentleman with a history of CAD, COPD, lung cancer in remission, diabetes mellitus type 2, perforated diverticulitis 2020, and recent hospitalizations for urine retention. He was admitted: + Admitted 05/30 - 06/01 with urine retention acute renal failure with a creatinine 3.0. He was discharged with a Conteh catheter and his Flomax was stopped due to postural symptoms. +He was readmitted 06/05 - 04/08 for dehydration and acute kidney injury with creatinine 2.82. His Conteh was exchanged and his creatinine improved to 1.24. +He returned to the ER 06/13 with a leaking Conteh bag. Conteh catheter was exchanged and he was discharged for outpatient follow-up. +Conteh bag was changed again + finally his Conteh was removed 06/23 by his PCP. He has continued to make urine without any further problems. +He has been on prednisone 10 mg daily for the past few weeks to treat his chronic low back pain. The last few days his urine has become darker with a foul odor. Today he noticed fever, chills, moderate/sharp left flank pain, and moderate left lower quadrant pain. In the emergency room he was tachycardic with stable blood pressure. There was tenderness in the left flank and left lower quadrant without surgical signs. Labs are significant for strongly positive UA, WBC 29, hemoglobin 9.7, and normal creatinine. CT of the abdomen pelvis confirmed an area of sigmoid diverticulitis with associated colovesical fistula bladder wall thickening. On-call surgeon agreed to consult in the morning. Levaquin and Flagyl were originally ordered . He was also given IV fluids per sepsis protocols and his vitals have stabilized. [facility] Medical History Arthritis Back pain CAD (coronary artery disease) Carotid artery disease Compound fracture COPD (chronic obstructive pulmonary disease) Cyst of left kidney Depression Diabetes Easy bruisability Enlarged prostate Finding of abnormal level of heavy metals in blood (~2018) Former smoker Hearing loss (01/22/18) HLD (hyperlipidemia) HTN (hypertension) Lung cancer (~1991) Neck pain Neuropathy NIKI (obstructive sleep apnea) Pneumonia RLS (restless legs syndrome) Rosacea Surgical History History of arthroplasty of both hips History of carpal tunnel surgery of right wrist History of vasectomy Hx of blepharoplasty Hx of heart artery stent (10/20/01) Hx of prostate biopsy (10/14/15) S/P lobectomy of lung (~1991) Family History Mother Congestive heart failure Father Pancreatic cancer Brother Diverticulitis Sister Diverticulitis Social History household members: spouse and other occupational status: employed Smoking Status: Former smoker alcohol intake: former substance use type: does not use Meds Home Medications and Allergies Home Medications Medication Instructions Recorded Confirmed Type ALBUTEROL (PROVENTIL INHALER) 1 puff inhalation PRN PRN 08/17/11 06/28/23 History Shortness Of Breath ##0 tamsulosin 0.4 mg capsule 0.8 mg PO DAILY 01/24/19 06/28/23 History sertraline 20 mg/mL oral 100 mg PO DAILY 02/07/19 06/28/23 History concentrate (Zoloft) nitroglycerin 0.4 mg sublingual 0.4 mg sublingual Q5M PRN Chest 09/23/20 06/28/23 History tablet Pain cyclobenzaprine 10 mg tablet 10 mg PO DAILY PRN Pain, Moderate 05/30/21 06/28/23 History metoprolol succinate 25 mg 25 mg PO DAILY 05/30/21 06/28/23 History tablet,extended release 24 hr clopidogrel 75 mg tablet 75 mg PO DAILY 05/30/23 06/28/23 History pantoprazole 20 mg tablet,delayed 20 mg PO DAILY 05/30/23 06/28/23 History release oxycodone-acetaminophen 5 mg-325 1 tab PO Q4-6H PRN pain #20 tabs 06/01/23 06/28/23 Rx mg tablet (Percocet) prednisone 10 mg tablet 10 mg PO DAILY 06/05/23 06/28/23 History Allergies Allergy/AdvReac Type Severity Reaction Status Date / Time latex Allergy Severe Rash Verified 10/16/21 11:12 Penicillins [PENICILLINS] Allergy Severe Anaphylaxis Verified 10/16/21 11:12 adhesive tape AdvReac Severe Melts to Verified 10/16/21 11:12 my skin and pulls my skin off amino acids [From Chromimin] AdvReac Severe High blood Verified 10/16/21 11:12 level of chromim chromium [From Chromimin] AdvReac Severe High blood Verified 10/16/21 11:12 level of chromim cobalt AdvReac Severe High blood Verified 10/16/21 11:12 level of cobalt meperidine [MEPERIDINE] AdvReac Severe VOMITING Verified 10/16/21 11:12 morphine [MORPHINE] AdvReac Intermediate HALLUCINATI Verified 10/16/21 11:12 ONS Review of Systems Review of Systems Narrative: All other systems reviewed with the patient and are negative unless otherwise stated. Exam Vital Signs (past 8 hours): - 06/28/23 01:30 06/28/23 01:54 06/28/23 01:54 Temperature Pulse Rate 107 H 101 H Respiratory Rate 32 H 25 H Blood Pressure 163/74 H Pulse Oximetry 93 97 Oxygen Delivery Method Room Air Oxygen Flow Rate 06/28/23 02:30 06/28/23 02:30 06/28/23 03:35 Temperature 100.0 F H Pulse Rate 102 H 85 Respiratory Rate 20 25 H Blood Pressure 134/61 121/56 L Pulse Oximetry 94 96 Oxygen Delivery Method Room Air Oxygen Flow Rate 0 06/28/23 08:23 06/28/23 08:43 Temperature 97.4 F L Pulse Rate 83 Respiratory Rate 19 Blood Pressure 135/63 Pulse Oximetry 95 Oxygen Delivery Method Room Air Oxygen Flow Rate 0 Oxygen Delivery Method Room Air Oxygen Flow Rate 0 Narrative Exam Narrative: GEN: Alert and oriented x3 nontoxic appearance. HEENT: Normocephalic. Pupils are equal and reactive to light. Mucous membranes are moist. NECK: No lumps, JVD, or bruit CVS: Stethoscope audio recordings are not available RESP: Stethoscope record is not available. Bedside RN reported reduced breath sounds at the right base. Rest of lungs were clear. GIT: + Left flank pain and left lower quadrant pain. EXTR: No cyanosis, clubbing or edema. 2+ Pulses. NEURO: Cranial Nerves intact. No gross focal motor deficits SKIN: No rash or breakdown Objective Labs 06/28/23 04:10 06/28/23 04:10 Labs: Laboratory Results - last 24 hr 06/27/23 06/27/23 06/27/23 20:20 20:20 20:20 WBC 29.6 H RBC 3.09 L Hgb 9.7 L Hct 28.5 L MCV 92.4 MCH 31.3 MCHC 33.9 RDW 15.9 H Plt Count 332 Neut % (Auto) Not Reportable Lymph % (Auto) Not Reportable [place] % (Auto) Not Reportable Eos % (Auto) Not Reportable Baso % (Auto) Not Reportable Neut # (Auto) Lymph # (Auto) Not Reportable [place] # (Auto) Not Reportable Eos # (Auto) Baso # (Auto) Not Reportable Total Counted 100 Seg Neutrophils % 90.0 H Band Neutrophils % 2.0 L Lymphocytes % (Manual) 2.0 L Monocytes % (Manual) 5.0 Eosinophils % (Manual) 1.0 L Neutrophils # (Manual) 64243 H RBC Morphology Normal morphology PT INR Sodium 138 Potassium 3.4 Chloride 102 Carbon Dioxide 25 BUN 20 Creatinine 1.05 Estimated GFR > 60 BUN/Creatinine Ratio 19.0 Glucose 138 H Lactate 1.4 Calcium 9.0 Total Bilirubin 1.0 AST 27 ALT 19 Alkaline Phosphatase 51 Total Protein 7.6 Albumin 3.9 Globulin 3.7 Albumin/Globulin Ratio 1.1 Lipase 30 Urine RBC Urine WBC Ur Squamous Epith Cells Urine Bacteria Ur Culture Indicated? Nasal Screen MRSA (PCR) 06/27/23 06/28/23 06/28/23 20:20 02:35 04:10 WBC 24.4 H RBC 2.58 L Hgb 8.0 L Hct 24.1 L MCV 93.4 MCH 31.2 MCHC 33.4 RDW 15.7 H Plt Count 249 Neut % (Auto) 88.4 H Lymph % (Auto) 4.0 L [place] % (Auto) 7.5 Eos % (Auto) 0.0 L Baso % (Auto) 0.1 Neut # (Auto) 86552 H Lymph # (Auto) 1000 L [place] # (Auto) 1800 H Eos # (Auto) 0 Baso # (Auto) 0 Total Counted Seg Neutrophils % Band Neutrophils % Lymphocytes % (Manual) Monocytes % (Manual) Eosinophils % (Manual) Neutrophils # (Manual) RBC Morphology PT INR Sodium Potassium Chloride Carbon Dioxide BUN Creatinine Estimated GFR BUN/Creatinine Ratio Glucose Lactate Calcium Total Bilirubin AST ALT Alkaline Phosphatase Total Protein Albumin Globulin Albumin/Globulin Ratio Lipase Urine RBC 10-30/hpf H Urine WBC >100/hpf H Ur Squamous Epith Cells 0-1 /hpf Urine Bacteria Many (>30) H Ur Culture Indicated? Specimen cultured Nasal Screen MRSA (PCR) Not detected 06/28/23 06/28/23 04:10 04:10 WBC RBC Hgb Hct MCV MCH MCHC RDW Plt Count Neut % (Auto) Lymph % (Auto) [place] % (Auto) Eos % (Auto) Baso % (Auto) Neut # (Auto) Lymph # (Auto) [place] # (Auto) Eos # (Auto) Baso # (Auto) Total Counted Seg Neutrophils % Band Neutrophils % Lymphocytes % (Manual) Monocytes % (Manual) Eosinophils % (Manual) Neutrophils # (Manual) RBC Morphology PT 18.3 H INR 1.6 H Sodium 136 L Potassium 3.3 L Chloride 104 Carbon Dioxide 25 BUN 19 Creatinine 0.97 Estimated GFR > 60 BUN/Creatinine Ratio 19.6 Glucose 110 Lactate Calcium 8.3 L Total Bilirubin 0.9 AST 22 ALT 16 Alkaline Phosphatase 41 Total Protein 6.1 L Albumin 3.0 L Globulin 3.1 Albumin/Globulin Ratio 1.0 Lipase Urine RBC Urine WBC Ur Squamous Epith Cells Urine Bacteria Ur Culture Indicated? Nasal Screen MRSA (PCR) Assessment & Plan Assessment and plan (1) Sepsis: Qualifiers: Sepsis acute organ dysfunction status: without acute organ dysfunction Sepsis type: sepsis due to unspecified organism Qualified Code(s): A41.9 - Sepsis, unspecified organism Status: Acute (2) Diverticulitis: Status: Acute (3) Colovesical fistula: Status: Acute (4) Pyelonephritis of left kidney: Status: Acute Plan ASSESSMENT/PLAN: This is a 74-year-old gentleman with a history of CAD, COPD, lung cancer in remission, diabetes mellitus type 2, perforated diverticulitis 2020, and recent hospitalizations for urine retention. He is admitted with sepsis, sigmoid diverticulitis, colovesical fistula, cystitis, and left pyelonephritis. #Sepsis #Acute Sigmoid diverticulitis + prior perforated sigmoid divertiulitis 2020 (medically managed) #Colovesical fistula: acute #Left pyelonephritis Perforated sigmoid diverticulitis in 2020 which was managed conservatively. 2 recent hospitalizations requiring Conteh catheter for urine retention and postrenal kidney injury. Conteh catheter has been out since Monday. Now has a foul urine related to his colovesical fistula. He confirms diverticulitis with associated colovesical fistula. UA strongly postiive with LLQ pain and left flank pain. ?Sepsis protocols + lacate 1.4 ? Normal saline ? Cefepime + Flagyl ? General surgery consulted, will take for colectomy and diverting ileostomy on 06/30 ? Oxycodone and morphine ?Vitals stabilized. No need for hydrocortisone stress dose steroids. He has been on 10 mg of prednisone daily for the last 2 weeks for his chronic low back pain #Anemia No significant change from recent ER visits -Observe MED REC - Reviewed. DVT Risk -Heparin CODE STATUS: -Full code FEN - Normal saline # SECONDARY PROBLEMS CAD: RCA and LCx stent 2001 - plavix held for surgery Hypertension - hold metoprolol COPD - albuterol Lung cancer COVID-right upper and middle lobectomy 1991 Pneumonia history NIKI - no CPAP for now Left renal cysts BPH + Urine retention 05/2023: - intolerant of tamsulosin Diabetes mellitus type 2: - Diet controlled Arthritis Back pain - hold prednisone Rosacea COVID-19 infection: 08/2022
[2023-06-28 09:56] LABS: Magnesium 1.4 mg/dL (1.6-2.3)
--- NOTE | 2023-06-28 11:12 | CM.DANOTE ---
Patient is a 72 year old male who admitted 06/28/23 for Sepsis/cystitis/pyelonephritis. EMR was reviewed. PCP: Dr. Payton Morfin. Payer: confirmed: Medicare/[facility]. Pt a Readmit after multiple admission in May for urinary retention and discharged with a san catheter. Patient was having difficulty voiding due to an enlarged prostate. Patient has history of COPD, lung resection, diabetes. His last admission was due to bladder outlet obstruction, he was supposed to follow up with urologist. Met with patient and he confirms that he resides here in [place] with his spouse, Citlaly and spouse's son Power can assist as needed and local as well. Patient does have a four wheel walker for home use, does not always use. He has not been driving since his last admission. After pt's last admission on 06/08 to home with [facility]. San discontinued 06/21 by PCP. Pt has been able to ambulate to BR since his admission but somewhat weak and very tired. Per Surgeon, plan is surgical intervention in 1-2 days due to pt's fistula with stool in his bladder and pt will likely need open procedure and will also have new temporary illeostomy that will need at least HH RN to follow and ENGINEER AUTOMATED EQUIPMENT calling [facility] to alert them to a need for e learning coordinator teaching if available after surgery Saturday 06/30. SW called [facility] and confirmed they are currently open with pt for HH and alerted him to pt's admission and likely surgery Fri with new ostomy care needs and wound care at d/c. They will continue to follow for Resumption of HH Orders at d/c. Plan: SW to follow closely post surgery to confirm pt safe for d/c home with spouse and [facility] for illeostomy/wound care needs vs possible SNF and any further identified discharge planning needs. COOPER Mckay Discharge Planning/Care Management CM Discharge Assessment Start: 06/28/23 11:09 Freq: Status: Active Protocol: Document 06/28/23 11:09 BF (Rec: 06/28/23 11:12 [id number]) Discharge Planning Assessment Assigned Sales Performance Analyst COOPER Cobian DPOA/Assigned Designee Name spouse Citlaly Contact Information [phone] Advance Directives? Yes Advance Directives on File Yes History Provided By Patient,Family Member,Medical Record Has Patient been admitted in last 30 Yes days? Comment readmit from d/c 06/08/23 to home with [facility] Prior Living Arrangements House Household Members spouse,other Type of transporation used prior to Drives own vehicle admit Independent with ADL's Yes Is patient alert and oriented? Yes Needs Assistance With Home Chores / Shopping Caregiver for Another No Community Services used prior to Home Health Nurse admission: Comment Open with [facility] DME Already Rented / Owned FWW / Walker Comment has four wheel walker Patient/Family Preference Group Home Facility,Home with Home Health Comment SNF vs HH pending surgery and illeostomy needs Barriers to Discharge No Discharge Plan Home with Home Health Community Services Home Health Nurse Transportation Arrangement Spouse if safe for home Additional Comment [facility] open and will need Resume Orders Whiteboard Updated in Patient Room with Yes name and ext. # of Sales Performance Analyst Review Status In Process Please Provide Date Initial DC 06/28/23 Assessment Was Performed Next Review Type Continued Stay Review
[2023-06-28] MEDS: POTASSIUM CHLORIDE 20 MEQ/15 ML UDC 40 MEQ PO (11:25)
[2023-06-28] MEDS: MAGNESIUM SULFATE 4 GM/100 ML PIGGYBACK IV (11:25)
--- NOTE | 2023-06-28 14:19 | PM.CN ---
History of Present Illness Consult details Date Patient Seen: 06/28/23 Time Patient Seen: 14:19 Chief complaint: Colovesical fistula Narrative: Mr. Ochoa is a 72-year-old man with a history of diverticular disease who presented to the emergency department at [facility]10[facility] with abdominal pain. At admission WBC 24, with left shift, albumin 3.0, UA consistent with UTI. CT abdomen pelvis demonstrates sigmoid diverticulitis with colovesicular fistula. He reports having pneumaturia, fecal content within the urine for at least the past 1 month. Many years of diverticular disease with at least 1 perforation and contained abscess which was managed with conservative therapy. No prior abdominal surgery. Currently on a 2 week course of prednisone for low back pain PERIOPERATIVE -remote history of lung cancer status post right thoracotomy with removal of middle and upper lobes. -coronary artery disease status post stent x2. No prior myocardial infarction. -insulin-dependent diabetes -obstructive sleep apnea -shortness of breath with exertion unable to climb 1 flight of stairs. No chest pain.. -Plavix last dose 06/26. No anticoagulation. -No anesthetic issues with -Nonsmoker Meds Home Medications and Allergies Home Medications Medication Instructions Recorded Confirmed Type ALBUTEROL (PROVENTIL INHALER) 1 puff inhalation PRN PRN 08/17/11 06/28/23 History Shortness Of Breath ##0 tamsulosin 0.4 mg capsule 0.8 mg PO DAILY 01/24/19 06/28/23 History sertraline 20 mg/mL oral 100 mg PO DAILY 02/07/19 06/28/23 History concentrate (Zoloft) nitroglycerin 0.4 mg sublingual 0.4 mg sublingual Q5M PRN Chest 09/23/20 06/28/23 History tablet Pain cyclobenzaprine 10 mg tablet 10 mg PO DAILY PRN Pain, Moderate 05/30/21 06/28/23 History metoprolol succinate 25 mg 25 mg PO DAILY 05/30/21 06/28/23 History tablet,extended release 24 hr clopidogrel 75 mg tablet 75 mg PO DAILY 05/30/23 06/28/23 History pantoprazole 20 mg tablet,delayed 20 mg PO DAILY 05/30/23 06/28/23 History release oxycodone-acetaminophen 5 mg-325 1 tab PO Q4-6H PRN pain #20 tabs 06/01/23 06/28/23 Rx mg tablet (Percocet) prednisone 10 mg tablet 10 mg PO DAILY 06/05/23 06/28/23 History Allergies Allergy/AdvReac Type Severity Reaction Status Date / Time latex Allergy Severe Rash Verified 10/16/21 11:12 Penicillins [PENICILLINS] Allergy Severe Anaphylaxis Verified 10/16/21 11:12 adhesive tape AdvReac Severe Melts to Verified 10/16/21 11:12 my skin and pulls my skin off amino acids [From Chromimin] AdvReac Severe High blood Verified 10/16/21 11:12 level of chromim chromium [From Chromimin] AdvReac Severe High blood Verified 10/16/21 11:12 level of chromim cobalt AdvReac Severe High blood Verified 10/16/21 11:12 level of cobalt meperidine [MEPERIDINE] AdvReac Severe VOMITING Verified 10/16/21 11:12 morphine [MORPHINE] AdvReac Intermediate HALLUCINATI Verified 10/16/21 11:12 ONS Exam Vital Signs (past 8 hours): - 06/28/23 08:23 06/28/23 08:43 06/28/23 13:05 Temperature 97.4 F L 97.9 F Pulse Rate 83 84 Respiratory Rate 19 22 Blood Pressure 135/63 118/55 L Pulse Oximetry 95 96 Oxygen Delivery Method Room Air Oxygen Flow Rate 0 0 Oxygen Delivery Method Room Air Oxygen Flow Rate 0 Narrative Exam Narrative: GENERAL: A well nourished, elderly man, resting comfortably in hospital bed, in no acute distress. HEENT: Normocephalic, atraumatic. No scleral icterus CHEST: Rising symmetrically. No audible wheezes CARDIOVASCULAR: Warm and well perfused. Regular rate ABDOMEN: Tender left lower quadrant no peritonitis EXTREMITIES: Normal tone and without edema. NEUROLOGIC: Moving all extremities spontaneously. No gross motor deficits. Objective Labs 06/29/23 04:20 06/29/23 04:20 Labs: Laboratory Results - last 24 hr 06/27/23 06/27/23 06/27/23 20:20 20:20 20:20 WBC 29.6 H RBC 3.09 L Hgb 9.7 L Hct 28.5 L MCV 92.4 MCH 31.3 MCHC 33.9 RDW 15.9 H Plt Count 332 Neut % (Auto) Not Reportable Lymph % (Auto) Not Reportable [place] % (Auto) Not Reportable Eos % (Auto) Not Reportable Baso % (Auto) Not Reportable Neut # (Auto) Lymph # (Auto) Not Reportable [place] # (Auto) Not Reportable Eos # (Auto) Baso # (Auto) Not Reportable Total Counted 100 Seg Neutrophils % 90.0 H Band Neutrophils % 2.0 L Lymphocytes % (Manual) 2.0 L Monocytes % (Manual) 5.0 Eosinophils % (Manual) 1.0 L Neutrophils # (Manual) 66567 H RBC Morphology Normal morphology PT INR Sodium 138 Potassium 3.4 Chloride 102 Carbon Dioxide 25 BUN 20 Creatinine 1.05 Estimated GFR > 60 BUN/Creatinine Ratio 19.0 Glucose 138 H Lactate 1.4 Calcium 9.0 Magnesium Total Bilirubin 1.0 AST 27 ALT 19 Alkaline Phosphatase 51 Total Protein 7.6 Albumin 3.9 Globulin 3.7 Albumin/Globulin Ratio 1.1 Lipase 30 Urine RBC Urine WBC Ur Squamous Epith Cells Urine Bacteria Ur Culture Indicated? Nasal Screen MRSA (PCR) 06/27/23 06/28/23 06/28/23 20:20 02:35 04:10 WBC 24.4 H RBC 2.58 L Hgb 8.0 L Hct 24.1 L MCV 93.4 MCH 31.2 MCHC 33.4 RDW 15.7 H Plt Count 249 Neut % (Auto) 88.4 H Lymph % (Auto) 4.0 L [place] % (Auto) 7.5 Eos % (Auto) 0.0 L Baso % (Auto) 0.1 Neut # (Auto) 23664 H Lymph # (Auto) 1000 L [place] # (Auto) 1800 H Eos # (Auto) 0 Baso # (Auto) 0 Total Counted Seg Neutrophils % Band Neutrophils % Lymphocytes % (Manual) Monocytes % (Manual) Eosinophils % (Manual) Neutrophils # (Manual) RBC Morphology PT INR Sodium Potassium Chloride Carbon Dioxide BUN Creatinine Estimated GFR BUN/Creatinine Ratio Glucose Lactate Calcium Magnesium Total Bilirubin AST ALT Alkaline Phosphatase Total Protein Albumin Globulin Albumin/Globulin Ratio Lipase Urine RBC 10-30/hpf H Urine WBC >100/hpf H Ur Squamous Epith Cells 0-1 /hpf Urine Bacteria Many (>30) H Ur Culture Indicated? Specimen cultured Nasal Screen MRSA (PCR) Not detected 06/28/23 06/28/23 06/28/23 04:10 04:10 04:10 WBC RBC Hgb Hct MCV MCH MCHC RDW Plt Count Neut % (Auto) Lymph % (Auto) [place] % (Auto) Eos % (Auto) Baso % (Auto) Neut # (Auto) Lymph # (Auto) [place] # (Auto) Eos # (Auto) Baso # (Auto) Total Counted Seg Neutrophils % Band Neutrophils % Lymphocytes % (Manual) Monocytes % (Manual) Eosinophils % (Manual) Neutrophils # (Manual) RBC Morphology PT 18.3 H INR 1.6 H Sodium 136 L Potassium 3.3 L Chloride 104 Carbon Dioxide 25 BUN 19 Creatinine 0.97 Estimated GFR > 60 BUN/Creatinine Ratio 19.6 Glucose 110 Lactate Calcium 8.3 L Magnesium 1.4 L Total Bilirubin 0.9 AST 22 ALT 16 Alkaline Phosphatase 41 Total Protein 6.1 L Albumin 3.0 L Globulin 3.1 Albumin/Globulin Ratio 1.0 Lipase Urine RBC Urine WBC Ur Squamous Epith Cells Urine Bacteria Ur Culture Indicated? Nasal Screen MRSA (PCR) PFS Medical History Arthritis Back pain CAD (coronary artery disease) Carotid artery disease Compound fracture COPD (chronic obstructive pulmonary disease) Cyst of left kidney Depression Diabetes Easy bruisability Enlarged prostate Finding of abnormal level of heavy metals in blood (~2018) Former smoker Hearing loss (01/22/18) HLD (hyperlipidemia) HTN (hypertension) Lung cancer (~1991) Neck pain Neuropathy NIKI (obstructive sleep apnea) Pneumonia RLS (restless legs syndrome) Rosacea Surgical History History of arthroplasty of both hips History of carpal tunnel surgery of right wrist History of vasectomy Hx of blepharoplasty Hx of heart artery stent (10/20/01) Hx of prostate biopsy (10/14/15) S/P lobectomy of lung (~1991) Family History Mother Congestive heart failure Father Pancreatic cancer Brother Diverticulitis Sister Diverticulitis Social History household members: spouse and other occupational status: employed Tobacco & Substance Use Smoking Status: Former smoker alcohol intake: former substance use type: does not use Assessment & Plan Assessment and plan (1) Colovesical fistula: Status: Acute Assessment & Plan narrative: 72-year-old man history of coronary artery disease insulin-dependent diabetes COPD and prior lung resection for lung cancer with a colovesicular fistula. I had a lengthy discussion with the patient in regards to his diverticular disease. He has active diverticulitis with a colovesicular fistula. We discussed management and he will need a sigmoid colectomy. Unfortunately he has been on prednisone related to a back injury which impairs wound healing and significantly increases the risk of anastamotic leak. I do not think he is a candidate for resection and primary anastomosis. In order to mitigate this risk I recommend laparoscopic assisted sigmoid colectomy with diverting loop ileostomy. The alternative is colectomy with end colostomy but as I explained to him, it is much easier to reverse the loop ileostomy as compared to an end colostomy. An overview of the operation was discussed. He met with the ostomy nurse and has been preoperatively marked for a stoma site. With his complicated diverticular disease I am requesting lighted ureteral stent placement for improved identification of the ureter in this potentially difficult operative field. Operative risks were discussed and include but are not limited to hemorrhage, infection, anastomotic leak, damage to surrounding structures including the urinary system and hernia formation. His questions have been answered and he is in agreement with this plan. -Bowel prep today -NPO after midnight -Laparoscopic assisted sigmoid coletomy with diverting loop ileostomy, lighted ureteral stent placement Saturday 06/30
--- NOTE | 2023-06-28 15:11 | DI.CT.S_ITS ---
PROCEDURE: CT HEAD/BRAIN WO CON INDICATIONS: fall, struck head TECHNIQUE: Noncontrast 4.5 mm thick angled axial sections acquired from the foramen magnum to the vertex, with coronal and sagittal reformats. For radiation dose reduction, the following was used: automated exposure control, adjustment of mA and/or kV according to patient size. COMPARISON: None. FINDINGS: Image quality: Excellent. CSF spaces: Basal cisterns are patent. No extra-axial fluid collections. The ventricles are symmetric in size and shape. Brain: No intracranial bleeds or masses. There is cerebral volume loss for age, with resultant ventricular and sulcal prominence. There are periventricular and deep white matter chronic small vessel ischemic changes. There is intracranial internal carotid artery atherosclerosis. Skull and face: Calvarium and visualized facial bones appear intact, without suspicious lesions. Bilateral lens replacements. Otherwise, the orbits are unremarkable. Sinuses: Visualized sinuses and mastoids are clear. IMPRESSION: No acute intracranial abnormalities. Dictated by: Wilberto Hadley M.D. on 06/28/2023 at 15:53 Approved by: Wilberto Hadley M.D. on 06/28/2023 at 15:54
--- NOTE | 2023-06-28 15:25 | PC.NURSE ---
Event/Fall At approx 1515 lab personnel reported that this pt had fallen, this jingle writer to room along with Jeremy LEÓN and Isai COLLINS. Pt sitting up on floor by BSC, stated I did what I wasn't supposed to. Assisted up to BSC 3 person assist, pt able to assist partially with getting up off floor. Fall unwitnessed but pt reported he hit back of head on floor and both elbows. Denies pain to all sites. No abrasions or open areas noted to head or arms. Pt then back to bed SBA to bed, steady on feet. Bed alarm on. Instructed on need to call for assistance prior to getting out of bed and acknowledged understanding. Dr. Vance notified and order received for STAT CT scan, pt off floor at this time.
[2023-06-28] MEDS: LACTOBACILLUS ACIDOPHILUS TABLET 1 EACH PO (17:28)
--- NOTE | 2023-06-28 17:40 | PC.NURSE ---
simulation engineer saw pt today - see note in patient's chart.
[2023-06-28] MEDS: OXYCODONE IR 5 MG TABLET PO (22:31)
[2023-06-29] VITALS (12 sets, daily range): BP systolic 139–180; BP diastolic 65–80; PULSE 81–95; RESP 12–20; TEMP 36.4–37.2; O2SAT 83–99
[2023-06-29] MEDS: CEFEPIME 2 GM in SODIUM CHLORIDE 0.9% 100 ML IV ×2 (02:58→14:15)
[2023-06-29 05:10] LABS: Add Manual Diff / Slide Review NO; Basophils Absolute Auto 0 /uL (0-100); Eosinophils Absolute Auto 0 /uL (0-450); Eosinophils Percent Auto 0.2 % (2-4); Hematocrit 23.2 % (41-53); Hemoglobin 7.6 g/dL (13.5-17.5); Lymphocytes Absolute Auto 800 /uL (1100-4500); Lymphocytes Percent Auto 4.9 % (25-40); Mean Corpuscular HGB Conc 32.9 % (30-36); Mean Corpuscular Hemoglobin 31.3 PG (26-34); Mean Corpuscular Volume 95.1 fL (80-100); Monocytes Absolute Auto 800 /uL (0-900); Neutrophils Absolute Auto 14500 /uL (1500-7000); Neutrophils Percent Auto 89.9 % (50-75); Platelet Count 218 X10^3/uL (150-400); Red Blood Cell Count 2.44 X10^6/uL (4.5-5.9); Red Cell Distribution Width 15.6 % (11.6-14.8); White Blood Cell Count 16.1 X10^3/uL (4.5-11.0)
[2023-06-29 05:16] LABS: BUN Creatinine Ratio 18.6 (6-22); Blood Urea Nitrogen 16 mg/dL (9-20); Calcium 8.4 mg/dL (8.4-10.2); Carbon Dioxide 23 mmol/L (22-32); Chloride 104 mmol/L (98-107); Estimated Glomerular Filt Rate > 60 mL/min (>60); Glucose 94 mg/dL (80-110); HEMOLYSIS < 15 (0-50); Potassium 3.7 mmol/L (3.4-5.1); Sodium 136 mmol/L (137-145)
[2023-06-29] MEDS: PANTOPRAZOLE DR 20 MG TABLET PO (06:43)
[2023-06-29] MEDS: metroNIDAZOLE 500 MG/100 ML PIGGYBACK 100 MG IV (08:43)
[2023-06-29] MEDS: LACTOBACILLUS ACIDOPHILUS TABLET 1 EACH PO (08:43)
[2023-06-29] MEDS: SERTRALINE 50 MG TABLET 100 MG PO (08:43)
[2023-06-29] MEDS: HEPARIN 5,000 UNIT/ML VIAL 5000 UNIT SUBCUT ×2 (08:43→20:30)
[2023-06-29] MEDS: OXYCODONE IR 5 MG TABLET PO ×3 (08:45→21:42)
--- NOTE | 2023-06-29 09:31 | P.PN_ITS ---
Subjective Subjective Date Patient Seen: 06/29/23 Time Patient Seen: 09:31 Interval history: No acute events. Met with appraiser boats and marine and marked Exam Vital Signs (past 8 hours): - 06/29/23 04:00 06/29/23 08:00 Temperature 97.7 F 97.5 F L Pulse Rate 88 94 H Respiratory Rate 20 16 Blood Pressure 139/68 150/65 H Pulse Oximetry 97 95 Oxygen Flow Rate 0 0 Oxygen Delivery Method Room Air Oxygen Flow Rate 0 Narrative Exam Narrative: gen-Adult man alert and oriented Objective Labs 06/29/23 04:20 06/29/23 04:20 Labs: Laboratory Results - last 24 hr 06/28/23 06/29/23 06/29/23 04:10 04:20 04:20 WBC 16.1 H RBC 2.44 L Hgb 7.6 L Hct 23.2 L MCV 95.1 MCH 31.3 MCHC 32.9 RDW 15.6 H Plt Count 218 Neut % (Auto) 89.9 H Lymph % (Auto) 4.9 L [place] % (Auto) 5.0 Eos % (Auto) 0.2 L Baso % (Auto) 0.0 Neut # (Auto) 35175 H Lymph # (Auto) 800 L [place] # (Auto) 800 Eos # (Auto) 0 Baso # (Auto) 0 Sodium 136 L Potassium 3.7 Chloride 104 Carbon Dioxide 23 BUN 16 Creatinine 0.86 Estimated GFR > 60 BUN/Creatinine Ratio 18.6 Glucose 94 Calcium 8.4 Magnesium 1.4 L PFSH Medical History Arthritis Back pain CAD (coronary artery disease) Carotid artery disease Compound fracture COPD (chronic obstructive pulmonary disease) Cyst of left kidney Depression Diabetes Easy bruisability Enlarged prostate Finding of abnormal level of heavy metals in blood (~2018) Former smoker Hearing loss (01/22/18) HLD (hyperlipidemia) HTN (hypertension) Lung cancer (~1991) Neck pain Neuropathy NIKI (obstructive sleep apnea) Pneumonia RLS (restless legs syndrome) Rosacea Surgical History History of arthroplasty of both hips History of carpal tunnel surgery of right wrist History of vasectomy Hx of blepharoplasty Hx of heart artery stent (10/20/01) Hx of prostate biopsy (10/14/15) S/P lobectomy of lung (~1991) Family History Mother Congestive heart failure Father Pancreatic cancer Brother Diverticulitis Sister Diverticulitis Social History household members: spouse and other occupational status: employed Smoking Status: Former smoker alcohol intake: former substance use type: does not use Assessment & Plan Assessment & Plan narrative: 72M with complicated diverticular disease colovesicular fistula -OR tomorrow for sigmoid colectomy with ureteral stent placement and diverting loop ileostomy -Nhan prep -NPO after midnight
--- NOTE | 2023-06-29 12:47 | PM.CN ---
History of Present Illness Consult details Date Patient Seen: 06/29/23 Time Patient Seen: 12:48 Chief complaint: Colovesical fistula Reason for consult: Requested to place bilateral ureteral catheters for colectomy Requesting provider: Sam Ryder Narrative: This 72-year-old gentleman who has had multiple medical problems and admissions was found to have colovesical fistula and will be taken to the operating room on Monday. Dr. Ryder is requested that bilateral ureteral catheters be placed to aid in identifying the ureter so that they might be ?protected? during the colectomy and ileostomy formation. The procedure, risks, alternatives were discussed with the patient his questions were answered and he wishes to proceed. In reviewing the patient's record it was felt that the patient had urinary retention and in my review I find no evidence of that he did have urinary frequency and small volumes in his bladder. The patient did have an elevated creatinine this has resolved. As I discussed with the patient 1 advantage of the cystoscopy as we will be able to get a look at the anatomy of his lower urinary tract and determine what if any role of the prostate may have been playing in that scenario. Patient will have a Conteh catheter placed at the time of the procedure. Meds Home Medications and Allergies Home Medications Medication Instructions Recorded Confirmed Type ALBUTEROL (PROVENTIL INHALER) 1 puff inhalation PRN PRN 08/17/11 06/28/23 History Shortness Of Breath ##0 tamsulosin 0.4 mg capsule 0.8 mg PO DAILY 01/24/19 06/28/23 History sertraline 20 mg/mL oral 100 mg PO DAILY 02/07/19 06/28/23 History concentrate (Zoloft) nitroglycerin 0.4 mg sublingual 0.4 mg sublingual Q5M PRN Chest 09/23/20 06/28/23 History tablet Pain cyclobenzaprine 10 mg tablet 10 mg PO DAILY PRN Pain, Moderate 05/30/21 06/28/23 History metoprolol succinate 25 mg 25 mg PO DAILY 05/30/21 06/28/23 History tablet,extended release 24 hr clopidogrel 75 mg tablet 75 mg PO DAILY 05/30/23 06/28/23 History pantoprazole 20 mg tablet,delayed 20 mg PO DAILY 05/30/23 06/28/23 History release oxycodone-acetaminophen 5 mg-325 1 tab PO Q4-6H PRN pain #20 tabs 06/01/23 06/28/23 Rx mg tablet (Percocet) prednisone 10 mg tablet 10 mg PO DAILY 06/05/23 06/28/23 History Allergies Allergy/AdvReac Type Severity Reaction Status Date / Time latex Allergy Severe Rash Verified 10/16/21 11:12 Penicillins [PENICILLINS] Allergy Severe Anaphylaxis Verified 10/16/21 11:12 adhesive tape AdvReac Severe Melts to Verified 10/16/21 11:12 my skin and pulls my skin off amino acids [From Chromimin] AdvReac Severe High blood Verified 10/16/21 11:12 level of chromim chromium [From Chromimin] AdvReac Severe High blood Verified 10/16/21 11:12 level of chromim cobalt AdvReac Severe High blood Verified 10/16/21 11:12 level of cobalt meperidine [MEPERIDINE] AdvReac Severe VOMITING Verified 10/16/21 11:12 morphine [MORPHINE] AdvReac Intermediate HALLUCINATI Verified 10/16/21 11:12 ONS Exam Vital Signs (past 8 hours): - 06/29/23 08:00 06/29/23 07:00 06/29/23 12:00 Temperature 97.5 F L 99 F Pulse Rate 94 H 91 H Respiratory Rate 16 12 Blood Pressure 150/65 H Pulse Oximetry 95 92 Oxygen Delivery Method Room Air Oxygen Flow Rate 0 06/29/23 12:25 Temperature Pulse Rate Respiratory Rate Blood Pressure 146/67 H Pulse Oximetry Oxygen Delivery Method Oxygen Flow Rate Oxygen Delivery Method Room Air Oxygen Flow Rate 0 Narrative Exam Narrative: General: This is an awake, alert, oriented male who appears in minimal distress. Genitourinary exam: Normal male. Neurologic exam: Grossly intact Objective Labs 06/29/23 04:20 06/29/23 04:20 Labs: Laboratory Results - last 24 hr 06/29/23 06/29/23 04:20 04:20 WBC 16.1 H RBC 2.44 L Hgb 7.6 L Hct 23.2 L MCV 95.1 MCH 31.3 MCHC 32.9 RDW 15.6 H Plt Count 218 Neut % (Auto) 89.9 H Lymph % (Auto) 4.9 L [place] % (Auto) 5.0 Eos % (Auto) 0.2 L Baso % (Auto) 0.0 Neut # (Auto) 04093 H Lymph # (Auto) 800 L [place] # (Auto) 800 Eos # (Auto) 0 Baso # (Auto) 0 Sodium 136 L Potassium 3.7 Chloride 104 Carbon Dioxide 23 BUN 16 Creatinine 0.86 Estimated GFR > 60 BUN/Creatinine Ratio 18.6 Glucose 94 Calcium 8.4 PFSH Medical History Arthritis Back pain CAD (coronary artery disease) Carotid artery disease Compound fracture COPD (chronic obstructive pulmonary disease) Cyst of left kidney Depression Diabetes Easy bruisability Enlarged prostate Finding of abnormal level of heavy metals in blood (~2018) Former smoker Hearing loss (01/22/18) HLD (hyperlipidemia) HTN (hypertension) Lung cancer (~1991) Neck pain Neuropathy NIKI (obstructive sleep apnea) Pneumonia RLS (restless legs syndrome) Rosacea Surgical History History of arthroplasty of both hips History of carpal tunnel surgery of right wrist History of vasectomy Hx of blepharoplasty Hx of heart artery stent (10/20/01) Hx of prostate biopsy (10/14/15) S/P lobectomy of lung (~1991) Family History Mother Congestive heart failure Father Pancreatic cancer Brother Diverticulitis Sister Diverticulitis Social History household members: spouse and other occupational status: employed Tobacco & Substance Use Smoking Status: Former smoker alcohol intake: former substance use type: does not use Assessment & Plan Assessment and plan (1) Colovesical fistula: Status: Acute (2) Diverticulitis: Status: Acute (3) Sepsis: Qualifiers: Sepsis acute organ dysfunction status: without acute organ dysfunction Sepsis type: sepsis due to unspecified organism Qualified Code(s): A41.9 - Sepsis, unspecified organism Status: Acute (4) Acute kidney injury: Status: Acute Plan Assessment and plan: Colovesical fistula plan cystoscopy with placement of bilateral ureteral catheters and Conteh catheter. This is done per the request of Dr. Ryder Time Spent With Patient Time with patient: 30 to 49 minutes with 50% spent counseling/coordinating care
--- NOTE | 2023-06-29 13:10 | PM.PN.1 ---
Subjective Subjective Date Patient Seen: 06/29/23 Time Patient Seen: 08:00 Interval history: He doesn't feel normal, but he certainly feels like he is improving today. He still has dysuria. Exam Vital Signs (past 8 hours): - 06/29/23 08:00 06/29/23 07:00 06/29/23 12:00 Temperature 97.5 F L 99 F Pulse Rate 94 H 91 H Respiratory Rate 16 12 Blood Pressure 150/65 H Pulse Oximetry 95 92 Oxygen Delivery Method Room Air Oxygen Flow Rate 0 06/29/23 12:25 Temperature Pulse Rate Respiratory Rate Blood Pressure 146/67 H Pulse Oximetry Oxygen Delivery Method Oxygen Flow Rate Oxygen Delivery Method Room Air Oxygen Flow Rate 0 Narrative Exam Narrative: GEN: no acute distress CV: regular rate and rhythm, no murmurs RESP: clear bilaterally GI: soft, nontender Objective Labs 06/29/23 04:20 06/29/23 04:20 Labs: Laboratory Results - last 24 hr 06/29/23 06/29/23 04:20 04:20 WBC 16.1 H RBC 2.44 L Hgb 7.6 L Hct 23.2 L MCV 95.1 MCH 31.3 MCHC 32.9 RDW 15.6 H Plt Count 218 Neut % (Auto) 89.9 H Lymph % (Auto) 4.9 L [place] % (Auto) 5.0 Eos % (Auto) 0.2 L Baso % (Auto) 0.0 Neut # (Auto) 42834 H Lymph # (Auto) 800 L [place] # (Auto) 800 Eos # (Auto) 0 Baso # (Auto) 0 Sodium 136 L Potassium 3.7 Chloride 104 Carbon Dioxide 23 BUN 16 Creatinine 0.86 Estimated GFR > 60 BUN/Creatinine Ratio 18.6 Glucose 94 Calcium 8.4 [facility] Medical History Arthritis Back pain CAD (coronary artery disease) Carotid artery disease Compound fracture COPD (chronic obstructive pulmonary disease) Cyst of left kidney Depression Diabetes Easy bruisability Enlarged prostate Finding of abnormal level of heavy metals in blood (~2018) Former smoker Hearing loss (01/22/18) HLD (hyperlipidemia) HTN (hypertension) Lung cancer (~1991) Neck pain Neuropathy NIKI (obstructive sleep apnea) Pneumonia RLS (restless legs syndrome) Rosacea Surgical History History of arthroplasty of both hips History of carpal tunnel surgery of right wrist History of vasectomy Hx of blepharoplasty Hx of heart artery stent (10/20/01) Hx of prostate biopsy (10/14/15) S/P lobectomy of lung (~1991) Family History Mother Congestive heart failure Father Pancreatic cancer Brother Diverticulitis Sister Diverticulitis Social History household members: spouse and other occupational status: employed Smoking Status: Former smoker alcohol intake: former substance use type: does not use Assessment & Plan Assessment and plan (1) Sepsis: Qualifiers: Sepsis acute organ dysfunction status: without acute organ dysfunction Sepsis type: sepsis due to unspecified organism Qualified Code(s): A41.9 - Sepsis, unspecified organism Status: Acute (2) Diverticulitis: Status: Acute (3) Colovesical fistula: Status: Acute (4) Pyelonephritis of left kidney: Status: Acute Plan This is a 74-year-old gentleman with a history of CAD, COPD, lung cancer in remission, diabetes mellitus type 2, perforated diverticulitis 2020, and recent hospitalizations for urine retention who is admitted with sepsis, sigmoid diverticulitis, colovesical fistula, cystitis, and left pyelonephritis. #Sepsis #Acute Sigmoid diverticulitis + prior perforated sigmoid divertiulitis 2020 (medically managed) #Colovesical fistula: acute #Left pyelonephritis -Perforated sigmoid diverticulitis in 2020 which was managed conservatively. -now has foul urine related to fistula -CT shows diverticulitis with associated colovesical fistula. -UA strongly postiive with LLQ pain and left flank pain. -sepsis resolved with IV antibiotics, continue cefepime/flagyl -General surgery consulted, will take for colectomy and diverting ileostomy on 06/30, per surgery will get bilatera ureteral stents -continue with pain control #Anemia -no significant change from recent ER visits -monitor daily
[2023-06-29] MEDS: BISACODYL 5 MG TABLET 10 MG PO ×2 (14:15→20:30)
--- NOTE | 2023-06-29 14:29 | CM.DPC ---
DCP Continued: CUSTOMER ACCOUNTS ADVISOR reviewed EMR. Per nursing note, watch parts inspector saw patient yesterday. Per nursing note, patient fell yesterday, unwitnessed and patient reported he hit his head. Per PN, General surgery consulted, will take for colectomy and diverting ileostomy on 06/30, per surgery will get bilatera ureteral stents. CUSTOMER ACCOUNTS ADVISOR entered room and reintroduced self and role. Patient sitting on commode but reported he was just staying there and that we could chat about his d/c. Patient reports at this time his understanding of the d/c plan is home with resumption of [facility] for nursing/wound care. Confirms surgery tomorrow morning. Patient is open with [facility], they will continue to follow for resumption of HH orders at d/c. Plan: CUSTOMER ACCOUNTS ADVISOR to follow closely post surgery to confirm pt safe for d/c home with spouse and [facility] for illeostomy/wound care needs vs possible SNF and any further identified discharge planning needs. COOPER Real
[2023-06-29] MEDS: PEG3350/SOD SULF,BICARB,CL/KCL 4,000 ML SOLUTION 4000 ML PO (14:32)
[2023-06-29] MEDS: metroNIDAZOLE 500 MG TABLET PO ×2 (15:10→20:30)
[2023-06-29] MEDS: ERYTHROMYCIN BASE 250 MG TABLET 1000 MG PO ×2 (15:10→20:30)
--- NOTE | 2023-06-29 17:02 | PC.NURSE ---
Telemetry readings on 06/29/23 charted incorrectly, wrong patient.
[2023-06-30] VITALS (57 sets, daily range): BP systolic 139–204; BP diastolic 63–91; PULSE 76–105; RESP 16–20; TEMP 36.1–36.7; O2SAT 93–99; BMI 34.0
--- NOTE | 2023-06-30 | PATH_ITS ---
[facility] Accession Number: [id number] No. of containers..01 Tissue . 01 Material submitted: . colon - SIGMOID COLON . 01 Diagnosis: Sigmoid Colon, Sigmoidectomy: Segment of colon with diverticulosis and mural abscess, consistent with diverticulitis. One benign pericolonic lymph node. Negative for dysplasia or malignancy. V 07/06/2023 1521 Local . 01 Electronically signed: . Ricardo Anton MD, PhD, Pathologist NPI- [id number] . 01 Gross description: . The specimen is received in formalin labeled with the patient's name, , and sigmoid colon, and consists of an unoriented fragment of colon measuring 13.2 cm in length by 3.1 cm in average diameter with luo, slightly roughened serosa mostly covered by adipose extending out to 7.0 cm. No staple lines are identified, and the margins are presumably patent. One margin is inked blue, the opposite margin is inked black, the presumed mesenteric margin is inked green. Upon opening the lumen an area of luminal narrowing is identified centrally that is not probed patent. The mucosa is pink-luo and velvety with normal-appearing folds. The lumen is convoluted, however, no discrete lesions are grossly identified. The nathan range from 0.4 to 0.6 cm thick with multiple diverticula measuring up to 1.6 cm thick with no perforations grossly identified and several diverticula are filled luo-brown structures consistent with impacted fecal material. Palpation of the adjacent adipose reveals a luo lymph node candidate measuring 0.3 cm in greatest dimension. Senior Premium Auditor sections are submitted as follows: A1: Senior Premium Auditor margins en face. A2-A4: Diverticula. A5: Unremarkable mucosa. A6: Single intact lymph node candidate. ([id number]) /ROMY 07/04/2023 0943 Local . 01 Pathologist provided ICD-10: K57.20 . 01 CPT . 501088 Performed at: 01 [facility] [address] [place] [address], [place], [place] [id number] MD Alfred Johns MD Phone: [phone]
[2023-06-30] MEDS: CEFEPIME 2 GM in SODIUM CHLORIDE 0.9% 100 ML IV ×2 (03:39→15:11)
[2023-06-30 05:20] LABS: Blood Urea Nitrogen 12 mg/dL (9-20); Calcium 9.6 mg/dL (8.4-10.2); Carbon Dioxide 23 mmol/L (22-32); Chloride 102 mmol/L (98-107); Estimated Glomerular Filt Rate > 60 mL/min (>60); Glucose 103 mg/dL (80-110); HEMOLYSIS < 15 (0-50); Potassium 3.6 mmol/L (3.4-5.1); Sodium 137 mmol/L (137-145)
[2023-06-30 05:24] LABS: Add Manual Diff / Slide Review NO; Basophils Absolute Auto 100 /uL (0-100); Basophils Percent Auto 0.5 % (0-2); Eosinophils Absolute Auto 100 /uL (0-450); Eosinophils Percent Auto 0.5 % (2-4); Hematocrit 28.5 % (41-53); Hemoglobin 9.5 g/dL (13.5-17.5); Lymphocytes Absolute Auto 600 /uL (1100-4500); Lymphocytes Percent Auto 5.8 % (25-40); Mean Corpuscular HGB Conc 33.5 % (30-36); Mean Corpuscular Hemoglobin 31.8 PG (26-34); Mean Corpuscular Volume 94.9 fL (80-100); Monocytes Absolute Auto 800 /uL (0-900); Monocytes Percent Auto 6.9 % (3-14); Neutrophils Absolute Auto 9500 /uL (1500-7000); Neutrophils Percent Auto 86.3 % (50-75); Platelet Count 255 X10^3/uL (150-400); Red Cell Distribution Width 15.6 % (11.6-14.8)
[2023-06-30] MEDS: metroNIDAZOLE 500 MG TABLET PO (06:21)
[2023-06-30] MEDS: PANTOPRAZOLE DR 20 MG TABLET PO (06:22)
[2023-06-30] MEDS: ERYTHROMYCIN BASE 250 MG TABLET 1000 MG PO (06:22)
--- NOTE | 2023-06-30 07:36 | PM.PREOP ---
Pre-operative Note Interval Note History & Physical reviewed/Exam performed by Physician: Yes Changes to H&P: No
--- NOTE | 2023-06-30 07:45 | PM.PREOP ---
Pre-operative Note COVID-19 COVID-19 status: Not tested Criteria for continued procedure: Delay expected to result in less-positive ultimate med/surg outcome and Non-surgical alternatives not available or appropriate per current SOC Interval Note History & Physical reviewed/Exam performed by Physician: Yes Changes to H&P: No
[2023-06-30] MEDS: LACTATED RINGERS 1,000 ML 42 ML IV (07:51)
[2023-06-30] MEDS: PIPERACILLIN/TAZO 3.375 GM in SODIUM CHLORIDE 0.9% 100 ML IV (08:28)
--- NOTE | 2023-06-30 08:55 | P.OP_ITS ---
Procedure & Clinicians Procedure: Cystoscopy with bilateral ureteral catheter placement and Conteh catheter placement. Same procedure as scheduled: Yes Indications: This 72-year-old male is being brought to the operating room for colovesical fistula repair in colectomy by Dr. Ryder. Dr. Ryder has requested that ureteral catheters be placed so that the ureters can be identified and protected during the case. Therefore cystoscopy with bilateral ureteral catheter placement will be performed. Surgeon: Serafin Queen Click Yes if Unassisted: Yes Anesthesia Type: General Operative Notes Findings: As discussed be urethral meatus is normal urethra is normal along its length and the sphincter as well coapted. The prostate shows moderate obstructive character with a somewhat high bladder neck no other abnormality the ureteral orifices in normal position with clear efflux. In the dome of the bladder there is bullous edema and erythema consistent with the fistula. In his mirror image there was also bullous edema. There was no other abnormality noted within the bladder or as mucosa. The catheters were left in place a whistle-tip catheter in the left collecting system and a [place] catheter in the right collecting system. A 16 [place] silicone catheter was left in place to gravity drainage due to the patient's latex allergy. There were 10 cc of sterile water placed in the balloon. Closure Type: not applicable Specimen(s): none sent Prosthetic devices, grafts, tissues, transplants, or devices: Bilateral 5 [place] ureteral catheters in the collecting systems as noted above as well as the 16 [place] silicone Conteh. Estimated Blood Loss (mL): 0 Blood products transfused: none Procedure in detail: Procedure in detail: After informed consent was obtained, the patient was identified and brought to the operating room worries placed in supine position on the table. Once on the table anesthesia was induced and maintained. Ensuring an adequate level of anesthesia the patient was transferred to the lithotomy position. Once in the lithotomy position he was prepped, draped, prepared for Transurethral procedure. After prepping, draping coming ensuring an adequate level of anesthesia and time-out 22 [place] cystoscope was passed through the urethra prostate and in the bladder where cystoscopy was performed including a 30 and 70 degree lens. The left ureteral orifice was identified and the whistle-tip catheter was passed up in the collecting system without difficulty. On the right an attempt was made to pass a whistle-tip catheter but the patient appeared to have some J hooking therefore a hybrid guidewire and [place] catheter were used to access the system and the [place] catheter was passed up in the collecting system the wire was removed and the [place] catheter was left in good position. The scope was backed out leaving both catheters in position. A 16 [place] silicone catheter was then passed alongside the catheters through the urethra and into the bladder with the balloon was filled with 10 cc of sterile water. Then using a 14 gauge Angiocath passing it through the hub of the catheter each of the ureteral catheters in turn was passed through the wall of the Conteh and into its lumen. The Angiocath she is of course were removed the Conteh bag was then attached and it was placed to gravity drainage. The ureteral catheters were then taped to the Conteh so that they might be secured during the procedure but easily removed. With this accomplished and the catheter draining the patient went on to colectomy with Dr. Ryder which will be dictated under separate cover. The ureteral catheters can be removed at the end of the case and the 1st assistant professor of forestry was instructed on how that might be accomplished. There were no complications and the patient tolerated the procedure well Complications: none Post-operative Condition: stable Disposition: other (Patient went on to colectomy per Dr. Ryder under the same anesthetic as noted above this will be dictated under separate cover) Plan for aftercare: Per Dr. Ryder
--- NOTE | 2023-06-30 09:18 | SUR.OPER ---
Lithotomy on padded OR bed. Standish Pad Positioner under torso. Head on pillow, arms padded and tucked at sides. Legs secured in padded yellow fins stirrups.
[2023-06-30] MEDS: BUPIVACAINE LIPOSOME 266 MG/20 ML VIAL INJ (11:36)
[2023-06-30] MEDS: HYDROMORPHONE 1 MG INJ IV (12:37)
--- NOTE | 2023-06-30 13:37 | SUR.PHASEI ---
Dr Ryder notified that patient not oriented to person, place, or time and blood pressure 186/87. No new orders.
[2023-06-30] MEDS: LABETALOL 20 MG/4 ML SYRINGE 5 MG IV (13:43)
--- NOTE | 2023-06-30 14:06 | CM.DPC ---
DCP continued: PAPER COATING MACHINE OPERATOR reviewed EMR. PAPER COATING MACHINE OPERATOR spoke with Dr. Ryder post surgery. Britni reports patient may likely need SNF upon d/c due to wound care needs. Britni reports patient will likely be here for a few days. Britni reports patient is still coming out of surgery and it would be appropriate to post pone d/c planning conversation until tomorrow when he is more alert as patient will likely be here a few more days. Plan: pending d/c planning conversation with patient when patient more alert. Potentially SNF for wound care needs? CM team will follow closely. COOPER Real
[2023-06-30] MEDS: ALBUTEROL 2.5 MG/3 ML NEB (ADULT) INH (14:31)
--- NOTE | 2023-06-30 14:46 | P.PN_ITS ---
Subjective Subjective Date Patient Seen: 06/30/23 Time Patient Seen: 15:00 Interval history: He is post-op from his sigmoid colectomy and diverting loop ileostomy. His pain is controlled. He is sleepy Exam Vital Signs (past 8 hours): - 06/30/23 07:19 06/30/23 12:20 06/30/23 12:25 Temperature 97.7 F 97.1 F L Pulse Rate 96 H 97 H 97 H Respiratory Rate 16 20 20 Blood Pressure 176/84 H 162/76 H 148/77 H Pulse Oximetry 97 96 95 Oxygen Delivery Method Room Air Nasal Cannula Nasal Cannula Oxygen Flow Rate 2 2 06/30/23 12:30 06/30/23 12:45 06/30/23 13:00 Temperature Pulse Rate 97 H 95 H 98 H Respiratory Rate 20 20 20 Blood Pressure 165/81 H 176/81 H 174/86 H Pulse Oximetry 97 97 96 Oxygen Delivery Method Nasal Cannula Nasal Cannula Nasal Cannula Oxygen Flow Rate 2 2 2 06/30/23 13:15 06/30/23 13:30 06/30/23 13:43 Temperature Pulse Rate 97 H 95 H 95 H Respiratory Rate 20 19 Blood Pressure 181/77 H 186/87 H 187/86 H Pulse Oximetry 97 99 Oxygen Delivery Method Nasal Cannula Nasal Cannula Oxygen Flow Rate 2 2 06/30/23 14:00 06/30/23 14:31 06/30/23 14:43 Temperature 97 F L Pulse Rate 86 84 83 Respiratory Rate 18 18 Blood Pressure 163/77 H 170/82 H Pulse Oximetry 99 98 Oxygen Delivery Method Nasal Cannula Nasal Cannula Oxygen Flow Rate 2 1 Oxygen Delivery Method Nasal Cannula Oxygen Flow Rate 1 Narrative Exam Narrative: GEN: no acute distress CV: regular rate and rhythm, no murmurs RESP: clear bilaterally Objective Labs 06/30/23 04:50 06/30/23 04:50 Labs: Laboratory Results - last 24 hr 06/30/23 06/30/23 04:50 04:50 WBC 11.0 RBC 3.00 L Hgb 9.5 L Hct 28.5 L MCV 94.9 MCH 31.8 MCHC 33.5 RDW 15.6 H Plt Count 255 Neut % (Auto) 86.3 H Lymph % (Auto) 5.8 L Reynolds % (Auto) 6.9 Eos % (Auto) 0.5 L Baso % (Auto) 0.5 Neut # (Auto) 9500 H Lymph # (Auto) 600 L Reynolds # (Auto) 800 Eos # (Auto) 100 Baso # (Auto) 100 Sodium 137 Potassium 3.6 Chloride 102 Carbon Dioxide 23 BUN 12 Creatinine 0.75 Estimated GFR > 60 BUN/Creatinine Ratio 16.0 Glucose 103 Calcium 9.6 PFSH Medical History Arthritis Back pain CAD (coronary artery disease) Carotid artery disease Compound fracture COPD (chronic obstructive pulmonary disease) Cyst of left kidney Depression Diabetes Easy bruisability Enlarged prostate Finding of abnormal level of heavy metals in blood (~2018) Former smoker Hearing loss (01/22/18) HLD (hyperlipidemia) HTN (hypertension) Lung cancer (~1991) Neck pain Neuropathy NIKI (obstructive sleep apnea) Pneumonia RLS (restless legs syndrome) Rosacea Surgical History History of arthroplasty of both hips History of carpal tunnel surgery of right wrist History of vasectomy Hx of blepharoplasty Hx of heart artery stent (10/20/01) Hx of prostate biopsy (10/14/15) S/P lobectomy of lung (~1991) Family History Mother Congestive heart failure Father Pancreatic cancer Brother Diverticulitis Sister Diverticulitis Social History household members: spouse and other occupational status: employed Smoking Status: Former smoker alcohol intake: former substance use type: does not use Assessment & Plan Assessment and plan (1) Sepsis: Qualifiers: Sepsis acute organ dysfunction status: without acute organ dysfunction Sepsis type: sepsis due to unspecified organism Qualified Code(s): A41.9 - Sepsis, unspecified organism Status: Acute (2) Diverticulitis: Status: Acute (3) Colovesical fistula: Status: Acute (4) Pyelonephritis of left kidney: Status: Acute Plan This is a 74-year-old gentleman with a history of CAD, COPD, lung cancer in remission, diabetes mellitus type 2, perforated diverticulitis 2020, and recent hospitalizations for urine retention who is admitted with sepsis, sigmoid diverticulitis, colovesical fistula, cystitis, and left pyelonephritis. #Sepsis #Acute Sigmoid diverticulitis + prior perforated sigmoid divertiulitis 2020 (medically managed) #Colovesical fistula: acute #Left pyelonephritis -WBC initially 29.6, now improved to 11.0 -Perforated sigmoid diverticulitis in 2020 which was managed conservatively. -CT showed diverticulitis with associated colovesical fistula. -UA strongly postiive with LLQ pain and left flank pain. -sepsis resolved with IV antibiotics, continue cefepime -urine growing gram negative rods, blood culture negative to date -General surgery consulted, went for colectomy and diverting ileostomy on 06/30, per surgery will get bilateral ureteral stents -continue with pain control -on clear liquid diet after OR, advance per surgeon #Anemia -no significant change from recent ER visits -monitor daily Hypomagnesemia -was low on 06/28 -recheck on 07/01 Chronic issues are CAD which he is on plavix. Metoprolol is being held but if he remains stable can likely be restarted 07/01. He has a history of diet controlled diabetes, NIKI not on CPAP, lung cancer s/p right lobectomy, BPH not on tamsulosin, and COPD which is stable.
--- NOTE | 2023-06-30 15:33 | PC.NURSE ---
Pt had gone to OR prior to RN arrival, assessment and care was completed when he returned at 1400.
[2023-06-30] MEDS: OXYCODONE IR 5 MG TABLET PO (17:08)
[2023-06-30] MEDS: LACTOBACILLUS ACIDOPHILUS TABLET 1 EACH PO (17:08)
[2023-06-30] MEDS: SODIUM CHLORIDE 0.9% 1,000 ML 100 ML IV (17:09)
--- NOTE | 2023-06-30 17:32 | PM.OP.1 ---
Operative Date/Time/Diagnoses Date of procedure: 06/30/23 Time of procedure: 17:32 Pre-op diagnosis: Complicated diverticulitis. Colovesicular fistula Post-op diagnosis: same Procedure & Clinicians Procedure: Sigmoid colectomy with diverting loop ileostomy Repair of hole in bladder Same procedure as scheduled: Yes Indications: 72-year-old man with acute diverticulitis and a large colovesicular fistula. He is taken to the operating room today for colectomy with planned loop ileostomy. Surgeon: Sam Ryder [facility] Consultant: Ramy Mejía Anesthesia Type: General Operative Notes Findings: Colovesicular fistula has produced a 1-2 cm full-thickness hole within the dome of the bladder End end colonic anastomosis negative leak test Specimen(s): other (Sigmoid colon) Estimated Blood Loss (mL): 100 Procedure in detail: Patient was brought to the operating room placed supine on the table. Bilateral lower extremity compression devices were applied. General anesthesia was induced and he was intubated with an endotracheal tube. He was then placed into lithotomy position. Patient was placed into lithotomy and prepped and draped in sterile fashion. Time-out performed. Dr. Queen of Urology then proceeded with cystoscopy and placement of bilateral ureteral stents. Midline incision was made in the abdomen was entered atraumatically. A self retraining retractor was placed. The sigmoid colon was mobilized off of its lateral attachments by opening along the white line of Toldt to the splenic flexure. The colon was mobilized medially. The left ureteral stent was clearly palpable and was kept posterior deep within the abdomen out of harm's way. A window within the mesentery to the sigmoid colon was made and then the colon was divided using the TA stapler blue load at a point where the bowel was soft and pliable grossly free of diverticular disease. The mesentery to the sigmoid colon was divided with LigaSure. We continued our dissection down into the pelvis. The distal sigmoid colon was adherent to the dome of the bladder and to the pelvic sidewall and was taken down using finger fracture/blunt dissection. We observed a 1-2 cm full-thickness hole within the dome of the bladder the site of the colovesicular fistula. The inner layer of the bladder was closed in a running fashion using chromic suture and the 2nd layer was imbricated using a running 2-0 Vicryl.. The mobilization of the colon was continued until we reached soft pliable tissue just below the rectosigmoid junction. The bowel was then divided here with a 2nd firing of the TA stapler. Anal canal was sized and we selected a 29 mm EEA stapler. The colon staple line was then excised and the anvil was placed within it pursestring using 3-0 Prolene was formed. The stapler was then advanced into the rectum its point was deployed through the anterior wall of the rectum under direct visualization and then the anvil and stapler were mated. The stapler was then removed there were 2 donuts which were intact. The colon was occluded and then the rectum was insufflated using the colonoscope after the pelvis was filled with irrigation there was no evidence of a leak. The anastomosis was visualized endoscopically and it was widely patent and hemostatic. I checked the anastomosis again ensuring that it was under no tension was well perfused and the area was hemostatic. We then made a ileostomy in the right lower quadrant. A circular incision on the abdomen was made and the subcutaneous tissue was divided exposing the fascia. A cruciate incision within the fascia was made and the terminal ileum was delivered to the abdominal wall. Spot we chose on the terminal ileum was approximately 10-15 cm distal to the valve. The abdomen was then irrigated and then closed with a running 1. PDS suture to close the fascia. An enterotomy was made in the terminal ileum and then the looped ileostomy was brooked using Vicryl suture. The ostomy was well perfused and without tension. The subcutaneous tissue of the midline was then reapproximated using Vicryl suture and the skin closed with nara. The patient tolerated the procedure well was transferred to recovery room in stable condition. Exparel and lidocaine were used for local anesthetic. The assistance of Channing Mejía was critical for the adequate exposure and formation of the anastomosis during this case. Complications: none Post-operative Condition: stable Disposition: ICU
[2023-06-30] MEDS: HEPARIN 5,000 UNIT/ML VIAL 5000 UNIT SUBCUT (20:07)
[2023-06-30] MEDS: CYCLOBENZAPRINE 10 MG TABLET PO (20:07)
[2023-07-01] VITALS (41 sets, daily range): BP systolic 137–171; BP diastolic 65–75; PULSE 72–104; RESP 18–28; TEMP 36.1–36.7; O2SAT 92–98
[2023-07-01] MEDS: HYDROMORPHONE 0.5 MG INJ IV ×3 (00:10→14:44)
[2023-07-01] MEDS: CEFEPIME 2 GM in SODIUM CHLORIDE 0.9% 100 ML IV ×2 (02:03→15:27)
[2023-07-01] MEDS: SODIUM CHLORIDE 0.9% 1,000 ML 100 ML IV ×2 (03:06→13:08)
[2023-07-01] MEDS: OXYCODONE IR 5 MG TABLET PO ×3 (04:09→17:08)
[2023-07-01 04:52] LABS: Add Manual Diff / Slide Review NO; Basophils Absolute Auto 0 /uL (0-100); Eosinophils Absolute Auto 0 /uL (0-450); Hematocrit 23.3 % (41-53); Hemoglobin 7.7 g/dL (13.5-17.5); Lymphocytes Absolute Auto 300 /uL (1100-4500); Lymphocytes Percent Auto 2.8 % (25-40); Mean Corpuscular HGB Conc 33.1 % (30-36); Mean Corpuscular Volume 93.7 fL (80-100); Monocytes Absolute Auto 900 /uL (0-900); Monocytes Percent Auto 7.4 % (3-14); Neutrophils Absolute Auto 11000 /uL (1500-7000); Neutrophils Percent Auto 89.8 % (50-75); Platelet Count 245 X10^3/uL (150-400); Red Blood Cell Count 2.49 X10^6/uL (4.5-5.9); Red Cell Distribution Width 15.3 % (11.6-14.8); White Blood Cell Count 12.2 X10^3/uL (4.5-11.0)
[2023-07-01 04:59] LABS: BUN Creatinine Ratio 17.6 (6-22); Blood Urea Nitrogen 12 mg/dL (9-20); Calcium 8.5 mg/dL (8.4-10.2); Carbon Dioxide 25 mmol/L (22-32); Chloride 105 mmol/L (98-107); Estimated Glomerular Filt Rate > 60 mL/min (>60); Glucose 140 mg/dL (80-110); HEMOLYSIS < 15 (0-50); Magnesium 1.7 mg/dL (1.6-2.3); Sodium 137 mmol/L (137-145)
[2023-07-01] MEDS: PANTOPRAZOLE DR 20 MG TABLET PO (05:23)
[2023-07-01] MEDS: ALBUTEROL 2.5 MG/3 ML NEB (ADULT) INH (05:45)
[2023-07-01] MEDS: HEPARIN 5,000 UNIT/ML VIAL 5000 UNIT SUBCUT ×2 (08:19→21:10)
[2023-07-01] MEDS: SERTRALINE 50 MG TABLET 100 MG PO (08:19)
[2023-07-01] MEDS: METOPROLOL ER 25 MG TABLET PO (08:19)
[2023-07-01] MEDS: LACTOBACILLUS ACIDOPHILUS TABLET 1 EACH PO ×2 (08:19→17:09)
--- NOTE | 2023-07-01 15:04 | P.PN_ITS ---
Subjective Subjective Interval history: 72-year-old gentleman with coronary artery disease, COPD, history of lung cancer in remission, diabetes mellitus type 2, prior perforated diverticulitis, recent hospitalization for urinary retention and Conteh catheterization, as well as chronic steroid dependence who was admitted with sepsis, acute diverticulitis, colovesicular fistula, and left pyelonephritis. Patient underwent laparoscopic- assisted sigmoidectomy with loop ileostomy yesterday. Patient reports he is in very little pain. He states he is overall feeling much better. He is not yet passing any gas. No nausea. He states his only pain occurs when he is repositioning in bed. He is in good spirits. No chest pain. No shortness of breath. No new concerns. His is at bedside. Exam Vital Signs (past 8 hours): - 07/01/23 08:10 07/01/23 07:30 07/01/23 07:35 Temperature Pulse Rate 90 Respiratory Rate Blood Pressure 157/70 H Pulse Oximetry 98 97 Oxygen Delivery Method Nasal Cannula Oxygen Flow Rate 1 07/01/23 07:35 07/01/23 08:00 07/01/23 08:30 Temperature Pulse Rate 104 H 91 H 88 Respiratory Rate Blood Pressure Pulse Oximetry 97 96 98 Oxygen Delivery Method Oxygen Flow Rate 07/01/23 09:00 07/01/23 13:00 Temperature 98.0 F Pulse Rate 85 100 H Respiratory Rate 28 H Blood Pressure 141/65 H Pulse Oximetry 97 97 Oxygen Delivery Method Oxygen Flow Rate 0 Oxygen Delivery Method Nasal Cannula Oxygen Flow Rate 0 Narrative Exam Narrative: GEN: Very pleasant elderly male, Alert and oriented x 3, NAD HEENT:NC, Face symmetric CHEST: Respiratory excursions symmetric, CTAB in the anterior lung hunt CV: RRR, no M/R/G ABD: Soft, diffusely mildly tender, nondistended, BT scares, no organomegaly or masses appreciated EXTR: warm, well perfused, no C/C, 1+ ankle edema noted bilaterally SKIN: warm and dry, no rash NEURO: Alert and oriented x 3, nonfocal Objective Labs 07/01/23 04:25 07/01/23 04:25 Labs: Laboratory Results - last 24 hr 07/01/23 07/01/23 07/01/23 04:25 04:25 04:25 WBC 12.2 H RBC 2.49 L Hgb 7.7 L Hct 23.3 L MCV 93.7 MCH 31.0 MCHC 33.1 RDW 15.3 H Plt Count 245 Neut % (Auto) 89.8 H Lymph % (Auto) 2.8 L [place] % (Auto) 7.4 Eos % (Auto) 0.0 L Baso % (Auto) 0.0 Neut # (Auto) 87848 H Lymph # (Auto) 300 L [place] # (Auto) 900 Eos # (Auto) 0 Baso # (Auto) 0 Sodium 137 Potassium 4.0 Chloride 105 Carbon Dioxide 25 BUN 12 Creatinine 0.68 Estimated GFR > 60 BUN/Creatinine Ratio 17.6 Glucose 140 H Calcium 8.5 Magnesium 1.7 PFSH Medical History Arthritis Back pain CAD (coronary artery disease) Carotid artery disease Compound fracture COPD (chronic obstructive pulmonary disease) Cyst of left kidney Depression Diabetes Easy bruisability Enlarged prostate Finding of abnormal level of heavy metals in blood (~2018) Former smoker Hearing loss (01/22/18) HLD (hyperlipidemia) HTN (hypertension) Lung cancer (~1991) Neck pain Neuropathy NIKI (obstructive sleep apnea) Pneumonia RLS (restless legs syndrome) Rosacea Surgical History History of arthroplasty of both hips History of carpal tunnel surgery of right wrist History of vasectomy Hx of blepharoplasty Hx of heart artery stent (10/20/01) Hx of prostate biopsy (10/14/15) S/P lobectomy of lung (~1991) Family History Mother Congestive heart failure Father Pancreatic cancer Brother Diverticulitis Sister Diverticulitis Social History household members: spouse and other occupational status: employed Smoking Status: Former smoker alcohol intake: former substance use type: does not use Assessment & Plan Assessment & Plan narrative: 1. Sepsis Patient met criteria for sepsis with severe leukocytosis, tachycardia and evidence for significant infection as noted above. Symptoms and signs of sepsis have resolved. 2. Acute sigmoid diverticulitis as well as previous perforated sigmoid diverticulitis Initial white blood cell count was 29.6. It has improved and was down to 11 yesterday. It is mildly increased at 12.2 today. Is status post sigmoidectomy with loop ileostomy. He remains on cefepime. He is clinically dramatically improved overall. 3. Left-sided pyelonephritis Likely secondary to colovesicular fistula. Urine is positive for Gram-negative rods. Blood cultures have remained negative for 72 hours. He continues on cefepime. Await further sensitivities. 4. Colovesicular fistula Managed during surgery. 5. Anemia Hemoglobin was 9.5 yesterday. It is down to 7.7 today which is consistent with expected acute blood loss from surgery. We will continue to monitor 6. Hypertension Blood pressures were above 200 systolic overnight. IV labetalol added with improvement overall. Today his blood pressures are in the 150 systolic, which he states is consistent with his baseline. 7. Coronary artery disease Presently asymptomatic. Plavix being resumed today per General surgery. Code status Full Prophylaxis On heparin Disposition Pending clearance by General surgery Surrogate decision maker: Spouse, Citlaly Ochoa
--- NOTE | 2023-07-01 18:40 | P.PN_ITS ---
Subjective Subjective Date Patient Seen: 07/01/23 Time Patient Seen: 18:40 Interval history: Doing well. Tolerating clear liquid diet. Not passing any gas from below. None/minimal liquidy ileostomy output. Pain relatively well controlled mostly though with movement feels that the pain is pretty bad just around the incision site. Conteh catheter is making him feel as though he needs urinate constantly but would rather that then have to get up and use the restroom. He has been at rehab facilities after hip replacement in the past also has had home PT after hospitalizations in the past. Exam Vital Signs (past 8 hours): - 07/01/23 13:00 07/01/23 17:00 Temperature 98.0 F 98.0 F Pulse Rate 100 H 89 Respiratory Rate 28 H 24 Blood Pressure 141/65 H 145/70 H Pulse Oximetry 97 97 Oxygen Flow Rate 0 0 Oxygen Delivery Method Nasal Cannula Oxygen Flow Rate 0 Narrative Exam Narrative: Patient is awake alert oriented in no acute distress he is pleasant and appropriate. Seated in chair. The abdomen is soft appropriately tender around the incision minimally distended. The ileostomy is in place it is patent. Conteh catheter with light yellow urine. No lower extremity edema oral mucous membranes are moist Objective Labs 07/01/23 04:25 07/01/23 04:25 Labs: Laboratory Results - last 24 hr 07/01/23 07/01/23 07/01/23 04:25 04:25 04:25 WBC 12.2 H RBC 2.49 L Hgb 7.7 L Hct 23.3 L MCV 93.7 MCH 31.0 MCHC 33.1 RDW 15.3 H Plt Count 245 Neut % (Auto) 89.8 H Lymph % (Auto) 2.8 L [place] % (Auto) 7.4 Eos % (Auto) 0.0 L Baso % (Auto) 0.0 Neut # (Auto) 47966 H Lymph # (Auto) 300 L [place] # (Auto) 900 Eos # (Auto) 0 Baso # (Auto) 0 Sodium 137 Potassium 4.0 Chloride 105 Carbon Dioxide 25 BUN 12 Creatinine 0.68 Estimated GFR > 60 BUN/Creatinine Ratio 17.6 Glucose 140 H Calcium 8.5 Magnesium 1.7 PFSH Medical History Arthritis Back pain CAD (coronary artery disease) Carotid artery disease Compound fracture COPD (chronic obstructive pulmonary disease) Cyst of left kidney Depression Diabetes Easy bruisability Enlarged prostate Finding of abnormal level of heavy metals in blood (~2018) Former smoker Hearing loss (01/22/18) HLD (hyperlipidemia) HTN (hypertension) Lung cancer (~1991) Neck pain Neuropathy NIKI (obstructive sleep apnea) Pneumonia RLS (restless legs syndrome) Rosacea Surgical History History of arthroplasty of both hips History of carpal tunnel surgery of right wrist History of vasectomy Hx of blepharoplasty Hx of heart artery stent (10/20/01) Hx of prostate biopsy (10/14/15) S/P lobectomy of lung (~1991) Family History Mother Congestive heart failure Father Pancreatic cancer Brother Diverticulitis Sister Diverticulitis Social History household members: spouse and other occupational status: employed Smoking Status: Former smoker alcohol intake: former substance use type: does not use Assessment & Plan Post-op Postoperative Procedures: Procedures Operation Date: 06/30/23 07:45 Actual Procedure Side Surgeon p Cystoscopy w/Placement of Ureteral Stents Bilateral Serafin Queen MD p Sigmoid Colectomy Not Applicable Sam Ryder MD Postoperative day: 1 Postoperative status: doing well Postoperative status narrative: Status post sigmoidectomy and colovesicular fistula repair. For diverticulitis Postoperative plan: routine post-op care Postoperative plan narrative: DVT prophylaxis. DC IV fluids to avoid overload. Continue clear liquid diet. Pain control with scheduled Tylenol and lower dose of Advil will monitor renal function hopes to decrease narcotic requirements. Will add a 2nd tab of oxycodone as needed. Encouraged to ambulate, out of bed to chair 3 times daily, will order PT/OT. Time Spent With Patient Time with patient: 15-24 minutes
[2023-07-01] MEDS: ACETAMINOPHEN 325 MG TABLET 975 MG PO (19:23)
[2023-07-01] MEDS: OXYCODONE IR 10 MG TABLET PO (19:23)
[2023-07-01] MEDS: IBUPROFEN 400 MG TABLET PO (21:11)
[2023-07-02] VITALS (13 sets, daily range): BP systolic 129–232; BP diastolic 60–100; PULSE 78–89; RESP 16–20; TEMP 35.9–36.6; O2SAT 97–99
[2023-07-02] MEDS: CEFEPIME 2 GM in SODIUM CHLORIDE 0.9% 100 ML IV ×2 (03:32→15:53)
[2023-07-02 05:06] LABS: Add Manual Diff / Slide Review NO; Basophils Absolute Auto 0 /uL (0-100); Basophils Percent Auto 0.2 % (0-2); Eosinophils Absolute Auto 0 /uL (0-450); Eosinophils Percent Auto 0.2 % (2-4); Hematocrit 22.8 % (41-53); Hemoglobin 7.6 g/dL (13.5-17.5); Lymphocytes Absolute Auto 1100 /uL (1100-4500); Lymphocytes Percent Auto 12.6 % (25-40); Mean Corpuscular HGB Conc 33.2 % (30-36); Mean Corpuscular Hemoglobin 31.2 PG (26-34); Monocytes Absolute Auto 1100 /uL (0-900); Monocytes Percent Auto 12.5 % (3-14); Neutrophils Absolute Auto 6500 /uL (1500-7000); Neutrophils Percent Auto 74.5 % (50-75); Platelet Count 253 X10^3/uL (150-400); Red Blood Cell Count 2.43 X10^6/uL (4.5-5.9); Red Cell Distribution Width 15.4 % (11.6-14.8); White Blood Cell Count 8.7 X10^3/uL (4.5-11.0)
[2023-07-02 05:44] LABS: BUN Creatinine Ratio 18.7 (6-22); Blood Urea Nitrogen 14 mg/dL (9-20); Calcium 8.7 mg/dL (8.4-10.2); Carbon Dioxide 27 mmol/L (22-32); Chloride 106 mmol/L (98-107); Estimated Glomerular Filt Rate > 60 mL/min (>60); Glucose 97 mg/dL (80-110); HEMOLYSIS < 15 (0-50); Magnesium 1.8 mg/dL (1.6-2.3); Potassium 3.4 mmol/L (3.4-5.1); Sodium 136 mmol/L (137-145)
[2023-07-02] MEDS: IBUPROFEN 400 MG TABLET PO ×2 (06:43→16:35)
[2023-07-02] MEDS: PANTOPRAZOLE DR 20 MG TABLET PO (06:43)
[2023-07-02] MEDS: ACETAMINOPHEN 325 MG TABLET 975 MG PO (07:34)
[2023-07-02] MEDS: LACTOBACILLUS ACIDOPHILUS TABLET 1 EACH PO ×2 (07:35→16:35)
[2023-07-02] MEDS: CLOPIDOGREL 75 MG TABLET PO (08:16)
[2023-07-02] MEDS: METOPROLOL ER 25 MG TABLET PO (08:16)
[2023-07-02] MEDS: SERTRALINE 50 MG TABLET 100 MG PO (08:17)
[2023-07-02] MEDS: POTASSIUM CHLORIDE 20 MEQ TAB 40 MEQ PO (08:17)
[2023-07-02] MEDS: HEPARIN 5,000 UNIT/ML VIAL 5000 UNIT SUBCUT ×2 (08:17→20:59)
[2023-07-02] MEDS: OXYCODONE IR 5 MG TABLET PO ×3 (09:59→18:56)
--- NOTE | 2023-07-02 12:50 | PM.PN.1 ---
Subjective Subjective Interval history: 72-year-old gentleman with coronary artery disease, COPD, history of lung cancer in remission, diabetes mellitus type 2, prior perforated diverticulitis, recent hospitalization for urinary retention and Conteh catheterization, as well as chronic steroid dependence who was admitted with sepsis, acute diverticulitis, colovesicular fistula, and left pyelonephritis.? Patient is presently postoperative day #2 from Laparoscopic-assisted sigmoidectomy with loop ileostomy. Today, he reports he is in more pain than he was yesterday. He has been producing a bit of sputum, which he notes is typical for him, but when he coughs it makes his abdomen more painful. He has been on oxycodone. He notes 5 mg appears to be too small of a dose, but 10 mg makes him too sleepy. Exam Vital Signs (past 8 hours): - 07/02/23 07:00 07/02/23 07:51 07/02/23 07:52 Pulse Rate 89 86 Blood Pressure Pulse Oximetry 98 98 Oxygen Delivery Method Room Air 07/02/23 07:52 07/02/23 11:32 07/02/23 11:33 Pulse Rate 83 Blood Pressure 176/80 H 163/80 H Pulse Oximetry 98 Oxygen Delivery Method 07/02/23 11:33 07/02/23 12:00 Pulse Rate 82 Blood Pressure 163/80 H Pulse Oximetry 99 Oxygen Delivery Method Oxygen Delivery Method Room Air Oxygen Flow Rate 0 Narrative Exam Narrative: GEN:? Very pleasant elderly male, Alert and oriented x 3, NAD HEENT:NC, Face symmetric CHEST: Respiratory excursions symmetric, CTAB in the anterior lung hunt CV: RRR, no M/R/G ABD: Soft, diffusely moderately tender, nondistended, BT hypoactive, no organomegaly or masses appreciated, ostomy bag is draining serosanguineous liquid with some intermixed dark brown likely liquid stool EXTR: warm, well perfused, no C/C, 1+ ankle edema noted bilaterally SKIN: warm and dry, no rash NEURO: Alert and oriented x 3, nonfocal Objective Labs 07/02/23 04:25 07/02/23 04:25 Labs: Laboratory Results - last 24 hr 07/02/23 07/02/23 04:25 04:25 WBC 8.7 RBC 2.43 L Hgb 7.6 L Hct 22.8 L MCV 94.0 MCH 31.2 MCHC 33.2 RDW 15.4 H Plt Count 253 Neut % (Auto) 74.5 Lymph % (Auto) 12.6 L [place] % (Auto) 12.5 Eos % (Auto) 0.2 L Baso % (Auto) 0.2 Neut # (Auto) 6500 Lymph # (Auto) 1100 [place] # (Auto) 1100 H Eos # (Auto) 0 Baso # (Auto) 0 Sodium 136 L Potassium 3.4 Chloride 106 Carbon Dioxide 27 BUN 14 Creatinine 0.75 Estimated GFR > 60 BUN/Creatinine Ratio 18.7 Glucose 97 Calcium 8.7 Magnesium 1.8 [facility] Medical History Arthritis Back pain CAD (coronary artery disease) Carotid artery disease Compound fracture COPD (chronic obstructive pulmonary disease) Cyst of left kidney Depression Diabetes Easy bruisability Enlarged prostate Finding of abnormal level of heavy metals in blood (~2018) Former smoker Hearing loss (01/22/18) HLD (hyperlipidemia) HTN (hypertension) Lung cancer (~1991) Neck pain Neuropathy NIKI (obstructive sleep apnea) Pneumonia RLS (restless legs syndrome) Rosacea Surgical History History of arthroplasty of both hips History of carpal tunnel surgery of right wrist History of vasectomy Hx of blepharoplasty Hx of heart artery stent (10/20/01) Hx of prostate biopsy (10/14/15) S/P lobectomy of lung (~1991) Family History Mother Congestive heart failure Father Pancreatic cancer Brother Diverticulitis Sister Diverticulitis Social History household members: spouse and other occupational status: employed Smoking Status: Former smoker alcohol intake: former substance use type: does not use Assessment & Plan Assessment & Plan narrative: 1. . Acute sigmoid diverticulitis as well as previous perforated sigmoid diverticulitis Initial white blood cell count was 29.6.? It has improved and was down to 11 yesterday.? It is mildly increased at 12.2 today.? Presently postoperative day # 2 from sigmoidectomy with loop ileostomy.? He remains on cefepime.? He is clinically dramatically improved overall. We will transition from scheduled Tylenol and ibuprofen to scheduled hydrocodone/APAP 10 mg q.6. Will change ibuprofen as needed. I have concern for increased bleeding as he is on Plavix and heparin in addition to the ibuprofen. Will continue oxycodone as needed for breakthrough pain. 2. Left-sided pyelonephritis Likely secondary to colovesicular fistula.? Urine culture revealed less than 10,000 colonies of Gram-negative bacilli. No further speciation or sensitivities were obtained. Blood cultures have remained negative to date. Continues on cefepime (today is day 5 of antibiotic therapy). 3. Colovesicular fistula Managed during surgery. 4. Anemia Hemoglobin was 9.5 preoperatively.? It is down from 7.7 yesterday to 7.6 today which is consistent with expected acute blood loss from surgery.? We will continue to monitor 5. Hypertension Blood pressures are better overall. Restarted his usual metoprolol dose yesterday. 6. Coronary artery disease Presently asymptomatic.? Plavix restarted yesterday. Metoprolol also restarted yesterday Code status Full Prophylaxis On heparin Disposition Pending clearance by General surgery. Today, patient expresses concern about being home alone after discharge. His continues to work. He does not feel home health will provide enough support. His son is out of state and is a commercial credit head and is unavailable to come provide care. Patient also states he has no other caregivers available. I did discuss with care management option for long-term. Resolved issues: Sepsis Surrogate decision maker: Spouse, Citlaly Ochoa
--- NOTE | 2023-07-02 13:56 | CM.DPC ---
Met with patient and who are interested in continuing post-surgical rehab at [facility]. Patient states he has been there previously. He states he is concerned about his strength and balance as well as wound care. Call to Nancy at .[phone] with message left. PT/OT trupti pending.
[2023-07-02] MEDS: HYDROMORPHONE 0.5 MG INJ IV ×2 (16:21→21:12)
[2023-07-02] MEDS: HYDROCODONE/ACET 5/325 TABLET 2 TAB PO ×2 (16:36→23:21)
--- NOTE | 2023-07-02 18:09 | PM.PNPO.1 ---
Subjective Subjective Date Patient Seen: 07/02/23 Time Patient Seen: 18:09 Interval history: 72-year-old male doing okay today. He says that his pain seems like it is a little worse and he is dismayed that there is a little bit of leaking around his colostomy. Otherwise he did pass some gas from below and there was some liquid output from his ostomy per bedside nurse as well. Tolerating a clear liquid diet. Exam Vital Signs (past 8 hours): - 07/02/23 11:32 07/02/23 11:33 07/02/23 11:33 Pulse Rate 83 82 Blood Pressure 163/80 H Pulse Oximetry 98 99 Oxygen Flow Rate 07/02/23 12:00 07/02/23 16:12 07/02/23 16:13 Pulse Rate 86 Blood Pressure 163/80 H Pulse Oximetry 98 97 Oxygen Flow Rate 07/02/23 16:13 07/02/23 16:00 Pulse Rate Blood Pressure 232/100 H Pulse Oximetry 98 Oxygen Flow Rate 0 Oxygen Delivery Method Room Air Oxygen Flow Rate 0 Narrative Exam Narrative: He is awake alert oriented in no acute distress. His wound is clean dry and intact at the midline the ostomy does have an area where it loosened from the skin and probably ought to have appliance changed. The abdomen is soft appropriately tender and really mildly distended, less so than yesterday Objective Labs 07/02/23 04:25 07/02/23 04:25 Labs: Laboratory Results - last 24 hr 07/02/23 07/02/23 04:25 04:25 WBC 8.7 RBC 2.43 L Hgb 7.6 L Hct 22.8 L MCV 94.0 MCH 31.2 MCHC 33.2 RDW 15.4 H Plt Count 253 Neut % (Auto) 74.5 Lymph % (Auto) 12.6 L [place] % (Auto) 12.5 Eos % (Auto) 0.2 L Baso % (Auto) 0.2 Neut # (Auto) 6500 Lymph # (Auto) 1100 [place] # (Auto) 1100 H Eos # (Auto) 0 Baso # (Auto) 0 Sodium 136 L Potassium 3.4 Chloride 106 Carbon Dioxide 27 BUN 14 Creatinine 0.75 Estimated GFR > 60 BUN/Creatinine Ratio 18.7 Glucose 97 Calcium 8.7 Magnesium 1.8 [facility] Medical History Arthritis Back pain CAD (coronary artery disease) Carotid artery disease Compound fracture COPD (chronic obstructive pulmonary disease) Cyst of left kidney Depression Diabetes Easy bruisability Enlarged prostate Finding of abnormal level of heavy metals in blood (~2018) Former smoker Hearing loss (01/22/18) HLD (hyperlipidemia) HTN (hypertension) Lung cancer (~1991) Neck pain Neuropathy NIKI (obstructive sleep apnea) Pneumonia RLS (restless legs syndrome) Rosacea Surgical History History of arthroplasty of both hips History of carpal tunnel surgery of right wrist History of vasectomy Hx of blepharoplasty Hx of heart artery stent (10/20/01) Hx of prostate biopsy (10/14/15) S/P lobectomy of lung (~1991) Family History Mother Congestive heart failure Father Pancreatic cancer Brother Diverticulitis Sister Diverticulitis Social History household members: spouse and other occupational status: employed Smoking Status: Former smoker alcohol intake: former substance use type: does not use Assessment & Plan Post-op Postoperative Procedures: Procedures Operation Date: 06/30/23 07:45 Actual Procedure Side Surgeon p Cystoscopy w/Placement of Ureteral Stents Bilateral Serafin Queen MD p Sigmoid Colectomy Not Applicable Sam Ryder MD Postoperative day: 2 Postoperative status: doing well Postoperative plan: routine post-op care Postoperative plan narrative: Continue Conteh continue DVT prophylaxis continue clear liquid diet. Some adjustments to pain medication were made overall doing well. Asked RN to change ostomy and reinforced with stoma adhesive at this time.
[2023-07-02] MEDS: ONDANSETRON 4 MG ODT PO (19:31)
[2023-07-02] MEDS: CALCIUM CARBONATE 500 MG TAB 1000 MG PO (19:31)
[2023-07-02] MEDS: LABETALOL 20 MG/4 ML SYRINGE 5 MG IV (20:59)
[2023-07-03] VITALS (7 sets, daily range): BP systolic 145–155; BP diastolic 58–79; PULSE 81–86; RESP 16–22; TEMP 36.3–37.1; O2SAT 95–98
[2023-07-03] MEDS: CEFEPIME 2 GM in SODIUM CHLORIDE 0.9% 100 ML IV ×2 (04:44→15:01)
[2023-07-03] MEDS: HYDROCODONE/ACET 5/325 TABLET 2 TAB PO ×4 (06:15→23:57)
[2023-07-03] MEDS: PANTOPRAZOLE DR 20 MG TABLET PO (06:16)
[2023-07-03 06:55] LABS: Hematocrit 23.1 % (41-53); Hemoglobin 7.8 g/dL (13.5-17.5); Mean Corpuscular HGB Conc 33.8 % (30-36); Mean Corpuscular Hemoglobin 31.9 PG (26-34); Mean Corpuscular Volume 94.3 fL (80-100); Platelet Count 277 X10^3/uL (150-400); Red Blood Cell Count 2.45 X10^6/uL (4.5-5.9); Red Cell Distribution Width 15.8 % (11.6-14.8)
[2023-07-03 06:56] LABS: Add Manual Diff / Slide Review YES
[2023-07-03 07:02] LABS: Blood Urea Nitrogen 15 mg/dL (9-20); Calcium 8.9 mg/dL (8.4-10.2); Carbon Dioxide 28 mmol/L (22-32); Chloride 106 mmol/L (98-107); Estimated Glomerular Filt Rate > 60 mL/min (>60); Glucose 97 mg/dL (80-110); HEMOLYSIS < 15 (0-50); Potassium 4.1 mmol/L (3.4-5.1); Sodium 138 mmol/L (137-145)
[2023-07-03 07:14] LABS: Neutrophils Absolute Manual 5850 /uL (3000-5900); Total Cells Counted 100
[2023-07-03 07:15] LABS: Rouleaux 1+
[2023-07-03] MEDS: METOPROLOL ER 25 MG TABLET PO (08:29)
[2023-07-03] MEDS: HEPARIN 5,000 UNIT/ML VIAL 5000 UNIT SUBCUT ×2 (08:29→20:41)
[2023-07-03] MEDS: CLOPIDOGREL 75 MG TABLET PO (08:29)
[2023-07-03] MEDS: LACTOBACILLUS ACIDOPHILUS TABLET 1 EACH PO ×2 (08:29→18:05)
[2023-07-03] MEDS: SERTRALINE 50 MG TABLET 100 MG PO (08:29)
--- NOTE | 2023-07-03 09:25 | OT.IP.EVAL ---
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) Surgery Performed Operation Date: 06/30/23 07:45 Actual Procedures p Cystoscopy w/Placement of Ureteral Stents(Bilateral) - Serafin Queen MD p Sigmoid Colectomy(Not Applicable) - Sam Ryder MD Past Medical History (Last Reviewed 06/29/23 @ 12:51 by Serafin Queen MD) Arthritis Back pain CAD (coronary artery disease) Carotid artery disease Compound fracture COPD (chronic obstructive pulmonary disease) Cyst of left kidney Depression Diabetes Easy bruisability Enlarged prostate Finding of abnormal level of heavy metals in blood (~2018) Former smoker Hearing loss (01/22/18) HLD (hyperlipidemia) HTN (hypertension) Lung cancer (~1991) Neck pain Neuropathy NIKI (obstructive sleep apnea) Pneumonia RLS (restless legs syndrome) Rosacea Surgical History (Last Reviewed 06/29/23 @ 12:51 by Serafin Queen MD) History of arthroplasty of both hips History of carpal tunnel surgery of right wrist History of vasectomy Hx of blepharoplasty Hx of heart artery stent (10/20/01) Hx of prostate biopsy (10/14/15) S/P lobectomy of lung (~1991) Occupational Therapy Inpatient Evaluation/Re-Eval M1 PT/OT-IP Prior Functional Status Start: 07/03/23 08:15 Freq: NEEDED Status: Active Protocol: Document 07/03/23 09:27 CGR (Rec: 07/03/23 09:42 CGR [id number]) Medical Review Prior Functional Status Medical History Reviewed Yes Communication Pt is an effective verbal communicator. Pt is [place] to his L hear and deaf in his R. Mobility and Gait Pt states that he was mostly IND at home and sometimes uses a 4WW for mobility outside of the home. Activities of Daily Living and IADL's Pt was IND in ADLs but states difficulty with bathing and dressing d/t SOB. Pt's takes care of most IADLs. Social History Household Members spouse,other Living Arrangements Apartment/Condo Number of Stairs To Enter/Railing? Pt lives in a studio apartment with an elevator to his floor . 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 M2 OT-IP Current Condition Start: 07/03/23 09:27 Freq: Status: Active Protocol: Document 07/03/23 09:27 CGR (Rec: 07/03/23 09:42 CGR [id number]) Occupational Therapy Current Condition Current Condition Evaluation Date 07/03/23 Treatment Diagnosis sepsis, sigmoiid diverticulitis, 06/30 ureteral stents, sig colectomy Diagnosis Onset Date 06/28/23 M3 OT- IP Subjective and Pain Start: 07/03/23 09:27 Freq: Status: Active Protocol: Document 07/03/23 09:27 CGR (Rec: 07/03/23 09:42 CGR [id number]) OT- Subjective Occupational Therapy Visit Type Type Initial Evaluation Visit Start Time 08:58 Visit Stop Time 09:25 Total Visit Minutes 27 Notes Pt agreeable to activities. OT Pain Assessment Pain When Pain Assessed During Mobility Pain Present Pain Present Pain Reported Location Bilateral Abdomen Intensity 6 Scale Used Numeric (0 - 10) Management Techniques Distraction,Modification of Treatment,Re-positioning M4 OT- IP ADL's Start: 07/03/23 09:27 Freq: Status: Active Protocol: Document 07/03/23 09:27 CGR (Rec: 07/03/23 09:42 CGR [id number]) OT NSA-Rwwb-Lpfjcso General Evaluation Self-Feeding Ability Independent Comments OT Self-Feeding Comments eating breakfast when OT entered OT ADL-Grooming Comments OT Grooming Comments Not performed OT ADL-Oral Care Comments Oral Care Comments not performed OT ADL-Dressing General Eval Upper Body Dressing Ability Minimal Assistance Lower Body Dressing Ability Total Assistance Areas Needing Assistance Socks Comments OT Dressing Comments hospital gown OT ADL-Toileting General Evaluation Toileting Ability Total Assistance Comments OT Toileting Comments Pt with san OT ADL-Bathing Comments OT Bathing Comments not performed M5 OT- IP IADL's Start: 07/03/23 09:27 Freq: Status: Active Protocol: Document 07/03/23 09:27 CGR (Rec: 07/03/23 09:42 CGR [id number]) OT-Instrumental Activities of Daily Living Deficits IADL Deficits Identified Deficits Home Safety Awareness Awareness of Need for Assistance at Home Good Awareness Ability to Problem Solve Emergency Able to Problem Solve Situations Medication Management Medication Management No Deficits Identified Money Management Money Management No Deficits Identified Meal Preparation Meal Preparation Caregiver Provides Assist Homeopathic Doctor Homeopathic Doctor Caregiver Provides Assist Driving Driving Concerns Identified Regarding Safety M6 OT- IP Functional Cognition Start: 07/03/23 09:27 Freq: Status: Active Protocol: Document 07/03/23 09:27 CGR (Rec: 07/03/23 09:42 CGR [id number]) Cognitive Factors Limiting Selfcare Function Cognitive Ability Level of Alertness Alert Patient Orientation Name,Age,Birthday,Month,Date, Year,Day of Week,Place, Situation Attention Span Ability Capable of Focused Attention, Capable of Sustained Attention Ability to Follow Commands Able to Follow Multi-Step Commands OT- Vision and Hearing OT- Hearing Assessment OT- Hearing Assessment Hearing Impaired,Use of Hearing Aids OT- Vision Assessment Visual Acuity Glasses All The Time Visual Attentiveness WFL Occular Pursuits WFL Visual Convergence WFL Vision Assessment Comments Pt states that he has hearing aides that are being worked on right now. 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 Pt wears bifocals. M7 OT- IP Mobility and Balance Start: 07/03/23 09:27 Freq: Status: Active Protocol: Document 07/03/23 09:27 CGR (Rec: 07/03/23 09:42 CGR [id number]) OT- Bed Mobility Assessment Supine to Sit Supine to Sit Assist Contact Guard Assistance,1 Person Assistance,Bedrails Scooting Scooting to Edge of Bed Standby Assistance OT-Transfer Assessment Sit to and From Stand Sit to and from Stand Contact Guard Assistance Transfers Transfer Ability Contact Guard Assistance Technique Transfer Destination Bed,Chair Transfer Technique Stand Step Pivot Devices Transfer Assistive Devices Gait Belt,Front Wheeled Walker Comments Mobility Comments Pt stood from EOB and ambulated to chair on other side of bed with extra time. Pt with increased SOB with activity. OT- Gait Assessment Comments Gait Ability Comments see above notes OT- Balance Assessment Sitting Balance and Reactions Static Sitting Balance Ability Good Dynamic Sitting Balance Ability Good M8 OT- IP Objective Assessments Start: 07/03/23 09:27 Freq: Status: Active Protocol: Document 07/03/23 09:27 CGR (Rec: 07/03/23 09:42 CGR [id number]) OT Gross Range of Motion Upper Extremity Range of Motion Assessment Within Functional Limits OT Strength Upper Extremity Strength Assessment Bilaterally Impaired Shoulder 3-/5 Elbow 4-/5 Hand 3+/5 OT- Coordination Assessment Upper Extremity Finger to Nose Test Within Functional Limits Finger Tapping Test Within Functional Limits OT-Muscle Tone Assessment Muscle Tone WNL Yes OT Sensation Assessment Edema Edema Absent M9 OT- IP Assessment and Plan Start: 07/03/23 09:27 Freq: Status: Active Protocol: Document 07/03/23 09:27 CGR (Rec: 07/03/23 09:42 CGR [id number]) OT Summary Assessment and Plan Potential Rehabilitation Potential Excellent Analytic Complexity at Evaluation Moderate Summary OT Impairments Pain,Strength,Balance, Functional Mobility,Grooming, Dressing,Toileting,Bathing, Toilet Transfers,Shower Transfers,Activity Tolerance Progress Towards Goals Slow Progress due to Pain,Slow Progress due to Activity Tolerance Assessment Summary Pt presents as a moderate complexity evaluation s/p admit for sepsis and now s/p Ureteral stents and sigmoid colectomy. Pt ambulates with CGA but with slow gait and increased SOB with movement. Pt would likely need assist for showers and ADLs at this time. Recommend d /c to SNF which pt is agreeable to as he would like to get stronger and increase his endurance prior to going home. Pt would be a good candidate for SNF as he is motivated and is below his baseline. Goals Grooming Goal Independent Dressing Goal Independent Toileting Goal Independent Bathing Goal Independent Toilet Transfer Goal Independent Shower Transfer Goal Independent Patient/Caregiver Education Goal Demonstrate Energy Conservation and Pacing Days to Meet Goals 15 Frequency of Treatment Frequency Of Treatment Once a Day Treatment Plan OT Treatment Plan ADL Training,Functional Mobility,Therapeutic Exercises ,Patient/Family Education, Discharge Planning Other Treatment Recommendations and Next LB dressing, bathing, energy Treatment Focus conservation Discharge Recommendations OT Discharge Recommendations SNF Rehab Transportation Needs at Discharge Private Vehicle,Wheelchair/ Cabulance
[2023-07-03] MEDS: OXYCODONE IR 5 MG TABLET PO ×2 (10:41→14:59)
--- NOTE | 2023-07-03 11:24 | PT.IIE ---
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) Surgery Performed Operation Date: 06/30/23 07:45 Actual Procedures p Cystoscopy w/Placement of Ureteral Stents(Bilateral) - Serafin Queen MD p Sigmoid Colectomy(Not Applicable) - Sam Ryder MD Surgical History (Last Reviewed 06/29/23 @ 12:51 by Serafin Queen MD) History of arthroplasty of both hips History of carpal tunnel surgery of right wrist History of vasectomy Hx of blepharoplasty Hx of heart artery stent (10/20/01) Hx of prostate biopsy (10/14/15) S/P lobectomy of lung (~1991) Medical History (Last Reviewed 06/29/23 @ 12:51 by Serafin Queen MD) Arthritis Back pain CAD (coronary artery disease) Carotid artery disease Compound fracture COPD (chronic obstructive pulmonary disease) Cyst of left kidney Depression Diabetes Easy bruisability Enlarged prostate Finding of abnormal level of heavy metals in blood (~2018) Former smoker Hearing loss (01/22/18) HLD (hyperlipidemia) HTN (hypertension) Lung cancer (~1991) Neck pain Neuropathy NIKI (obstructive sleep apnea) Pneumonia RLS (restless legs syndrome) Rosacea Physical Therapy Inpatient Evaluation/Re-Eval M1 PT/OT-IP Prior Functional Status Start: 07/03/23 08:15 Freq: NEEDED Status: Active Protocol: Document 07/03/23 11:24 AW (Rec: 07/03/23 12:31 AW [id number]) Medical Review Prior Functional Status Medical History Reviewed Yes Communication Pt is an effective verbal communicator. Pt is [place] to his L hear and deaf in his R. Mobility and Gait Pt states that he was mostly IND at home and sometimes uses a 4WW for mobility outside of the home. Activities of Daily Living and IADL's Pt was IND in ADLs but states difficulty with bathing and dressing d/t SOB. Pt's takes care of most IADLs. Social History Household Members spouse,other Living Arrangements Apartment/Condo Number of Stairs To Enter/Railing? Pt lives in a studio apartment with an elevator to his floor . 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 Pt's volunteers at the [employer] at the [facility] and is gone from ~630am to 6pm. M2 PT-IP Current Condition Start: 07/03/23 08:15 Freq: NEEDED Status: Active Protocol: Document 07/03/23 11:24 AW (Rec: 07/03/23 12:31 AW [id number]) Physical Therapy Current Condition Current Condition Evaluation Date 07/03/23 Treatment Diagnosis impaired mobility s/p sigmoid colectomy with end ostomy Onset Date 06/28/23 M3 PT-IP Subjective Start: 07/03/23 08:15 Freq: NEEDED Status: Active Protocol: Document 07/03/23 11:24 AW (Rec: 07/03/23 12:31 AW [id number]) Subjective Physical Therapy Visit Type Type Initial Evaluation Visit Start Time 11:05 Visit Stop Time 11:24 Total Visit Minutes 19 Physical Therapy Visit Comments Patient Comments Pt is willing to particpate with PT Patient Goals Pt has concerns about his ability to manage at home, would like to consider rehab options. Therapy Pain Assessment Pain When Pain Assessed During Mobility Pain Present Pain Present Pain Reported Location Bilateral Abdomen Intensity 5 Scale Used Numeric (0 - 10) M4 PT-IP Mobility and Gait Start: 07/03/23 08:15 Freq: NEEDED Status: Active Protocol: Document 07/03/23 11:24 AW (Rec: 07/03/23 12:31 AW [id number]) PT-Transfer Assessment Sit to and From Stand Sit to and from Stand Contact Guard Assistance,Use of Upper Extremities Equipment Transfer Assistive Device Gait Belt,Front Wheeled Walker Transfers Transfer Destination Chair Transfer Technique ambulated with FWW Transfer Ability Level of Assist Contact Guard Assistance,Use of Upper Extremities Comments Mobility Comments Pt was found sitting up in the chair, willing to participate with PT. Pt reports syncopal episodes at home and at work. BP in sittin/65 HR 89. Pt stood with mod verbal cues for positioning and technique, needing CGA to complete the stand. He stood ~ 1 minute, complaining of some lightheadedness. BP in standing 125/69 HR 94. Pt needed to sit due to fatigue. Following seated rest, pt stood again and ambulated forward/backward using FWW with CGA. Pt SOB with quick approach to fatigue. Pt returned to chair. Bed mobility not assessed this date. Gait Assessment Gait Gait Assistance Required: Contact Guard Assist Distance (Feet) 10 Assistive Devices Assistive Device Gait Belt,Front Wheeled Walker Orthotic/Prosthetic Devices or Brace: No Gait Deviations General Gait Pattern Flexed Trunk,Wide Based Gait Factors Limiting Gait Function Factors Limiting Gait Function Decreased Sensation,Decreased Strength,Respiratory Distress Comments Gait Comments See mobility comments for details. PT-Balance Assessment Sitting Balance and Reactions Static Sitting Balance Ability Good Dynamic Sitting Balance Ability Good Standing Balance and Reactions Static Standing Balance Ability Good Dynamic Standing Balance Ability Fair Device Used FWW Balance Tests Single Limb Standing unable Romberg <5 seconds with eyes open Tandem Standing unable Functional Assessments Functional Tests 30 Seconds Sit to Stand Test 2 reps, very labored M5 PT-IP Objective Assessments Start: 07/03/23 08:15 Freq: NEEDED Status: Active Protocol: Document 07/03/23 11:24 AW (Rec: 07/03/23 12:31 AW [id number]) Orientation Orientation/Cognition Level of Alertness Alert Orientation Name,Day of Week,Place, Situation Language Function Ability No Deficits Noted,Hard of Hearing Safety Awareness Understands Safety Issues Memory Description No Deficits Noted Gross Range of Motion Upper Extremity ROM Assessment Within Functional Limits Lower Extremity ROM Assessment Within Functional Limits Strength Upper Extremity Strength Assessment Bilaterally Impaired Lower Extremity Strength Assessment Bilaterally Impaired Hip 4-/5 flex and abd Knee 4-/5 ext and flex. + crepitus bilaterally Ankle 4/5 Comments Strength Comments Grossly 4/5 BUE. Sensation Assessment Sensation Gross Sensation Right LE Impaired,Left LE Impaired Light Touch Impaired Comments Sensation Comments Neuropathy affects bilateral feet and shins with some numbness but primarily pain. M6 PT-IP Treatment Start: 07/03/23 08:15 Freq: NEEDED Status: Active Protocol: Document 07/03/23 11:24 AW (Rec: 07/03/23 12:31 AW [id number]) Physical Therapy Treatment Education Education Provided Safety M7 PT-IP Assessment and Plan Start: 07/03/23 08:15 Freq: NEEDED Status: Active Protocol: Document 07/03/23 11:24 AW (Rec: 07/03/23 12:31 AW [id number]) PT Summary Assessment and Plan Potential Rehabilitation Potential Good Status of Condition at Evaluation Evolving Summary Impairments Pain,Strength,Balance, Sensation,Bed Mobility, Transfers,Gait,Activity Tolerance Assessment Summary David is a 72 yo man seen for PT evaluation on POD3 following sigmoid colectomy with end colostomy. He is independent at baseline but admits to needing increased assist with dressing and SBA for showers over the past several weeks. CLOF: Pt presents with gross strength deficits noted above. His activity tolerance is severely limited, only able to ambulate ~10 feet with FWW. He has concern for falls. He was barely able to complete 30- second stand test with only 2 reps due to abdominal pain and weakness. Pt would benefit from continued acute PT services to progress his functional mobility. PT recommends SNF at discharge to progress mobilty and ADL management. Goals Bed Mobility Goal Independent Transfer Goal Independent,Front Wheeled Walker Gait Goal Independent,Front Wheel Walker Gait Distance 100 Other Goals - Pt completes 6 reps of sit to stand using UE support in 30 seconds or less as a measure of improved functional strength. Days to Meet Goals 10 Frequency of Treatment Frequency Of Treatment Once a Day Treatment Plan Physical Therapy Treatment Plan Bed Mobility Training,Transfer Training,Gait Training, Therapeutic Exercise,Balance Retraining,Discharge Planning, Hot or Cold Pack,Neuromuscular Re-ed Precautions Other Precautions falls risk Recommendations To Nursing Amount of Assist Needed 1 Person Assist Discharge Recommendations PT Discharge Recommendations SNF Rehab Transportation Needs at Discharge Wheelchair/Cabulance
--- NOTE | 2023-07-03 13:02 | CM.DPC ---
DCP SNF Planning: Per MD, pt making progress and to work with PT/OT today and may be stable for discharge by tomorrow 07/04. Per PT/OT, feel pt would benefit from SNF at d/c before returning home as spouse works and pt below baseline and weak/fatigues easily. SW called [facility] and confirmed they had msg with new referral and reviewed and confirmed they can accept pt at d/c and aware it might be tomorrow. SW met bedside with pt and updated on acceptance at [facility] and pt confirms he still feels SNF needed for increasing his strength and mobility and ongoing teaching of his new illeostomy care before discharging home. PASRR completed. MAELIA Lemon kindly updated [facility] that pt will d/c to [facility] at discharge as pt was just open with [facility] prior to admission. Plan: SW to follow closely for plan of discharge to [facility] for rehab likely tomorrow if he remains stable. Aranza Villafuerte, JUNIOR ENGINEER
--- NOTE | 2023-07-03 13:41 | PM.PN.1 ---
Subjective Subjective Interval history: 72-year-old gentleman with coronary artery disease, COPD, history of lung cancer in remission, diabetes mellitus type 2, prior perforated diverticulitis, recent hospitalization for urinary retention and Conteh catheterization, as well as chronic steroid dependence who was admitted with sepsis, acute diverticulitis, colovesicular fistula, and left pyelonephritis.? Patient is presently postoperative day #3 from Laparoscopic-assisted sigmoidectomy with loop ileostomy. Today, he reports his pain is better today but overall feels more weak today. Reports 3x liquid output from his rectum. Ostomy is working with output, reports mild leaking today. Exam Vital Signs (past 8 hours): - 07/03/23 08:29 07/03/23 08:00 07/03/23 08:00 Temperature 97.7 F Pulse Rate 81 81 Respiratory Rate 20 Blood Pressure 146/79 H 149/79 H Pulse Oximetry 95 Oxygen Delivery Method Room Air Oxygen Flow Rate 0 07/03/23 12:00 Temperature 97.5 F L Pulse Rate 86 Respiratory Rate 22 Blood Pressure 148/79 H Pulse Oximetry 96 Oxygen Delivery Method Oxygen Flow Rate Oxygen Delivery Method Room Air Oxygen Flow Rate 0 Narrative Exam Narrative: GEN:? Very pleasant elderly male, Alert and oriented x 3, NAD HEENT:NC, Face symmetric CHEST: Respiratory excursions symmetric, CTAB in the anterior lung hunt CV: RRR, no M/R/G EXTR: warm, well perfused, no C/C, 1+ ankle edema noted bilaterally SKIN: warm and dry, no rash NEURO: Alert and oriented x 3, nonfocal Objective Labs 07/03/23 06:20 07/03/23 06:20 Labs: Laboratory Results - last 24 hr 07/03/23 07/03/23 06:20 06:20 WBC 9.0 RBC 2.45 L Hgb 7.8 L Hct 23.1 L MCV 94.3 MCH 31.9 MCHC 33.8 RDW 15.8 H Plt Count 277 Neut % (Auto) Not Reportable Lymph % (Auto) Not Reportable [place] % (Auto) Not Reportable Eos % (Auto) Not Reportable Baso % (Auto) Not Reportable Lymph # (Auto) Not Reportable [place] # (Auto) Not Reportable Baso # (Auto) Not Reportable Total Counted 100 Seg Neutrophils % 65.0 Lymphocytes % (Manual) 23.0 L Atypical Lymphs % 2.0 H Monocytes % (Manual) 9.0 Eosinophils % (Manual) 1.0 L Neutrophils # (Manual) 5850 RBC Morphology Not Reportable Rouleaux 1+ H Sodium 138 Potassium 4.1 Chloride 106 Carbon Dioxide 28 BUN 15 Creatinine 0.75 Estimated GFR > 60 BUN/Creatinine Ratio 20.0 Glucose 97 Calcium 8.9 PFSH Medical History Arthritis Back pain CAD (coronary artery disease) Carotid artery disease Compound fracture COPD (chronic obstructive pulmonary disease) Cyst of left kidney Depression Diabetes Easy bruisability Enlarged prostate Finding of abnormal level of heavy metals in blood (~2018) Former smoker Hearing loss (01/22/18) HLD (hyperlipidemia) HTN (hypertension) Lung cancer (~1991) Neck pain Neuropathy NIKI (obstructive sleep apnea) Pneumonia RLS (restless legs syndrome) Rosacea Surgical History History of arthroplasty of both hips History of carpal tunnel surgery of right wrist History of vasectomy Hx of blepharoplasty Hx of heart artery stent (10/20/01) Hx of prostate biopsy (10/14/15) S/P lobectomy of lung (~1991) Family History Mother Congestive heart failure Father Pancreatic cancer Brother Diverticulitis Sister Diverticulitis Social History household members: spouse and other occupational status: employed Smoking Status: Former smoker alcohol intake: former substance use type: does not use Assessment & Plan Assessment & Plan narrative: 1. . Acute sigmoid diverticulitis as well as previous perforated sigmoid diverticulitis Initial white blood cell count was 29.6.? It has improved and is now normal today.? Presently postoperative day #3 from sigmoidectomy with loop ileostomy.? He remains on cefepime which I will order to complete at 7 days for now.? He is clinically dramatically improved overall. He was transitioned from scheduled Tylenol and ibuprofen to scheduled hydrocodone/APAP 10 mg q.6. Will change ibuprofen as needed for pain control as there is concern for increased bleeding as he is on Plavix and heparin in addition to the ibuprofen. He is on PPI therapy. Will continue oxycodone as needed for breakthrough pain. 2. Left-sided pyelonephritis Likely secondary to colovesicular fistula.? Urine culture revealed less than 10,000 colonies of Gram-negative bacilli. No further speciation or sensitivities were obtained. Blood cultures have remained negative to date. Continues on cefepime (today is day 5 of antibiotic therapy). 3. Colovesicular fistula Managed during surgery. 4. Anemia Hemoglobin was 9.5 preoperatively.? It is down from that but stable in upper 7stoday which is consistent with expected acute blood loss from surgery.? We will continue to monitor 5. Hypertension Blood pressures are better overall. Restarted his usual metoprolol dose yesterday. 6. Coronary artery disease Presently asymptomatic.? Plavix restarted yesterday. Metoprolol also restarted yesterday Code status Full Prophylaxis On heparin Disposition Possible SNF vs home depending on progress after surgery. Resolved issues: Sepsis is documented, however upon review SOFA score appears to be <2 so will update this to sepsis ruled out. Surrogate decision maker: Spouse, Citlaly Ochoa
--- NOTE | 2023-07-03 14:26 | PC.NURSE ---
Patient is on a work zoom meeting at 1330, requests do not disturb at this time. Call light within reach.
[2023-07-03] MEDS: SODIUM CHLORIDE 0.9% FLUSH 10 ML IV ×2 (15:02→20:42)
--- NOTE | 2023-07-03 17:17 | PM.PN.1 ---
Subjective Subjective Date Patient Seen: 07/03/23 Time Patient Seen: 17:17 Interval history: David had a good day yesterday but has had more incisional pain today. Has required IV dilaudid. Stoma appliance was changed today. The catheter makes him feel like he is urinating in bed. Exam Vital Signs (past 8 hours): - 07/03/23 12:00 Temperature 97.5 F L Pulse Rate 86 Respiratory Rate 22 Blood Pressure 148/79 H Pulse Oximetry 96 Oxygen Delivery Method Room Air Oxygen Flow Rate 0 Narrative Exam Narrative: Abdomen soft stoma is healthy appearing Objective Labs 07/03/23 06:20 07/03/23 06:20 Labs: Laboratory Results - last 24 hr 07/03/23 07/03/23 06:20 06:20 WBC 9.0 RBC 2.45 L Hgb 7.8 L Hct 23.1 L MCV 94.3 MCH 31.9 MCHC 33.8 RDW 15.8 H Plt Count 277 Neut % (Auto) Not Reportable Lymph % (Auto) Not Reportable [facility] % (Auto) Not Reportable Eos % (Auto) Not Reportable Baso % (Auto) Not Reportable Lymph # (Auto) Not Reportable [facility] # (Auto) Not Reportable Baso # (Auto) Not Reportable Total Counted 100 Seg Neutrophils % 65.0 Lymphocytes % (Manual) 23.0 L Atypical Lymphs % 2.0 H Monocytes % (Manual) 9.0 Eosinophils % (Manual) 1.0 L Neutrophils # (Manual) 5850 RBC Morphology Not Reportable [place]le[place] 1+ H Sodium 138 Potassium 4.1 Chloride 106 Carbon Dioxide 28 BUN 15 Creatinine 0.75 Estimated GFR > 60 BUN/Creatinine Ratio 20.0 Glucose 97 Calcium 8.9 PFSH Medical History Arthritis Back pain CAD (coronary artery disease) Carotid artery disease Compound fracture COPD (chronic obstructive pulmonary disease) Cyst of left kidney Depression Diabetes Easy bruisability Enlarged prostate Finding of abnormal level of heavy metals in blood (~2018) Former smoker Hearing loss (01/22/18) HLD (hyperlipidemia) HTN (hypertension) Lung cancer (~1991) Neck pain Neuropathy NIKI (obstructive sleep apnea) Pneumonia RLS (restless legs syndrome) Rosacea Surgical History History of arthroplasty of both hips History of carpal tunnel surgery of right wrist History of vasectomy Hx of blepharoplasty Hx of heart artery stent (10/20/01) Hx of prostate biopsy (10/14/15) S/P lobectomy of lung (~1991) Family History Mother Congestive heart failure Father Pancreatic cancer Brother Diverticulitis Sister Diverticulitis Social History household members: spouse and other occupational status: employed Smoking Status: Former smoker alcohol intake: former substance use type: does not use Assessment & Plan Assessment and plan (1) Diverticulitis: Status: Acute Plan He is not quite ready to be discharged yet. Dr. Ryder will re-assess tomorrow and decide.
[2023-07-03] MEDS: HYDROMORPHONE 0.5 MG INJ IV (20:40)
[2023-07-03] MEDS: CYCLOBENZAPRINE 10 MG TABLET PO (20:49)
[2023-07-03] MEDS: CALCIUM CARBONATE 500 MG TAB 1000 MG PO (20:49)
[2023-07-04] MEDS: CEFEPIME 2 GM in SODIUM CHLORIDE 0.9% 100 ML IV ×2 (02:36→14:30)
[2023-07-04] MEDS: HYDROCODONE/ACET 5/325 TABLET 2 TAB PO ×2 (05:13→13:59)
[2023-07-04] MEDS: PANTOPRAZOLE DR 20 MG TABLET PO (05:14)
[2023-07-04 05:17] VITALS: BP 172/70; PULSE 81; RESP 20; TEMP 36.3; O2SAT 98
[2023-07-04 08:00] VITALS: BP 174/67; PULSE 71; RESP 17; TEMP 36.2; O2SAT 97
[2023-07-04] MEDS: LACTOBACILLUS ACIDOPHILUS TABLET 1 EACH PO (09:00)
[2023-07-04 09:01] VITALS: BP 174/67; PULSE 71
[2023-07-04] MEDS: CLOPIDOGREL 75 MG TABLET PO (09:01)
[2023-07-04] MEDS: METOPROLOL ER 25 MG TABLET PO (09:01)
[2023-07-04] MEDS: SERTRALINE 50 MG TABLET 100 MG PO (09:01)
[2023-07-04] MEDS: HEPARIN 5,000 UNIT/ML VIAL 5000 UNIT SUBCUT (09:02)
[2023-07-04] MEDS: SODIUM CHLORIDE 0.9% FLUSH 10 ML IV (09:50)
--- NOTE | 2023-07-04 10:12 | P.DS_ITS ---
History of Present Illness History of Present Illness Date Patient Seen: 07/04/23 Time Patient Seen: 10:12 Chief complaint: Colovesical fistula Narrative: Per admitting provider, CHIEF COMPLAINT Flank pain, left lower quadrant pain, dysuria, and chills HPI This is a 74-year-old gentleman with a history of CAD, COPD, lung cancer in remission, diabetes mellitus type 2, perforated diverticulitis 2020, and recent hospitalizations for urine retention. He was admitted: + Admitted 05/30 - 06/01 with urine retention acute renal failure with a creatinine 3.0. He was discharged with a San catheter and his Flomax was stopped due to postural symptoms. +He was readmitted 06/05 - 04/08 for dehydration and acute kidney injury with crea tinine 2.82. His San was exchanged and his creatinine improved to 1.24. +He returned to the ER 06/13 with a leaking San bag. San catheter was exchanged and he was discharged for outpatient follow-up. +San bag was changed again + finally his San was removed 06/23 by his PCP. He has continued to make urine without any further problems. +He has been on prednisone 10 mg daily for the past few weeks to treat his chronic low back pain. The last few days his urine has become darker with a foul odor. Today he noticed fever, chills, moderate/sharp left flank pain, and moderate left lower quadrant pain. In the emergency room he was tachycardic with stable blood pressure. There was tenderness in the left flank and left lower quadrant without surgical signs. Labs are significant for strongly positive UA, WBC 29, hemoglobin 9.7, and normal creatinine. CT of the abdomen pelvis confirmed an area of sigmoid diverticulitis with associated colovesical fistula bladder wall thickening. On-call surgeon agreed to consult in the morning. Levaquin and Flagyl were originally ordered . He was also given IV fluids per sepsis protocols and his vitals have stabilized. Discharge Providers Provider Date of admission: 06/28/23 01:47 Discharge Date: 07/04/23 Primary care physician: Payton Morfin MD Consults: 06/28/23 01:04 Consult to General Surgery Stat Comment: Consulting Provider: Sam Ryder Reason for consultation: colovesicular fistula Has provider been notified: No 06/28/23 13:19 Consult to Inpatient Wound Care Nurse Routine Comment: material cutter Reason for consultation: new ileostomy on 06/30 Has provider been notified: Yes 07/02/23 13:13 Consult to Occupational Therapy Evaluate & Treat Comment: Physician Instructions: Evaluate and treat Consult to Physical Therapy Evaluate & Treat Comment: Physician Instructions: Evaluate and Treat Discharge provider: Lalo Tinsley DO Summary Hospital Course Discharge Diagnosis: 1. . Acute sigmoid diverticulitis as well as previous perforated sigmoid diverticulitis 2. Left-sided pyelonephritis 3. Colovesicular fistula 4. Acute blood loss anemia due to surgery 5. Hypertension 6. Coronary artery disease Hospital Course: 72-year-old gentleman with coronary artery disease, COPD, history of lung cancer in remission, diabetes mellitus type 2, prior perforated diverticulitis, recent hospitalization for urinary retention and San catheterization, as well as chronic steroid dependence who was admitted with possible sepsis (was ruled out and SOFA score was <2), acute diverticulitis, colovesicular fistula, and left pyelonephritis.?He underwent sigmoidectomy with general surgery with a diverting loop ileostomy. His post operative course was uncomplicated, with return of bowel function via the ostomy. He was assess by PT and OT and deemed that he would benefit from discharge to a SNF for ongoing therapies after discharge. His pain was controlled and he was tolerating a diet at the time of transfer. For pyelonphritis as a result of the fistula, the patient completed a 6 day course of cefepime while in the hospital, which I suspect is sufficient for therapy given his urine cultures grew <10K GNB and was not further speciated by the lab oratory. Blood cultures were also negative. His hg was down slightly after surgery but he had no evidence of bleeding and Hg remained stable in the mid 7s. He continues to have a san catheter at the time of discharge. He had ureteral stents placed for assistance with his sigmoidectomy, and per urologic note this was to be removed at the case end and surgery does confirm their removal. Outpatient follow up for appropriate removal of san catheter is recommended with general surgery (whom closed the bladder defect) or urology but for now should remain in place. Time Spent with Patient Time spent: Greater than 30 minutes Exam Vital Signs (past 8 hours): - 07/04/23 05:17 07/04/23 08:00 07/04/23 09:01 Temperature 97.4 F L 97.1 F L Pulse Rate 81 71 71 Respiratory Rate 20 17 Blood Pressure 172/70 H 174/67 H 174/67 H Pulse Oximetry 98 97 Oxygen Flow Rate 0 0 Oxygen Delivery Method Room Air Oxygen Flow Rate 0 Narrative Exam Narrative: GEN:? Very pleasant elderly male, Alert and oriented x 3, NAD HEENT:NC, Face symmetric CHEST: Respiratory excursions symmetric, CTAB in the anterior lung hunt CV: RRR, no M/R/G Abd; S NT ND, ostomy bag with liquid stool, stoma pink EXTR: warm, well perfused, no C/C, trace ankle edema noted bilaterally SKIN: warm and dry, no rash NEURO: Alert and oriented x 3, nonfocal Objective Labs 07/03/23 06:20 07/03/23 06:20 [facility] Medical History Arthritis Back pain CAD (coronary artery disease) Carotid artery disease Compound fracture COPD (chronic obstructive pulmonary disease) Cyst of left kidney Depression Diabetes Easy bruisability Enlarged prostate Finding of abnormal level of heavy metals in blood (~2018) Former smoker Hearing loss (01/22/18) HLD (hyperlipidemia) HTN (hypertension) Lung cancer (~1991) Neck pain Neuropathy NIKI (obstructive sleep apnea) Pneumonia RLS (restless legs syndrome) Rosacea Surgical History History of arthroplasty of both hips History of carpal tunnel surgery of right wrist History of vasectomy Hx of blepharoplasty Hx of heart artery stent (10/20/01) Hx of prostate biopsy (10/14/15) S/P lobectomy of lung (~1991) Family History Mother Congestive heart failure Father Pancreatic cancer Brother Diverticulitis Sister Diverticulitis Social History household members: spouse and other occupational status: employed Smoking Status: Former smoker alcohol intake: former substance use type: does not use Discharge Plan Discharge Plan Patient Disposition: SNF Transfer to: [facility] Provider Discharge Comment: 72 M admitted with colovesicular fistula, s/p sigmoidectomy with diverting loop ileostomy. Transferred to SNF at time of discharge for ongoing therapies after surgical procedure. Patient completed antibiotic course for UTI while in the hospital. Discharge orders & Medications Prescriptions: New Freeze Dried Acidophilus Capsule 1 cap PO BIDWM 15 Days Qty: 15 0RF calcium carbonate 200 mg calcium (500 mg) Tablet,Chewable 1,000 mg PO Q4HR PRN (Reason: Dyspepsia) Qty: 30 0RF hydrocodone-acetaminophen 5-325 mg Tablet 2 tab PO Q6HR PRN (Reason: Moderate Pain (Scale Score 5-6)) 7 Days Qty: 30 0RF pantoprazole 20 mg Tablet,Delayed Release (Dr/Ec) 20 mg PO 0600 Qty: 14 0RF ibuprofen 400 mg Tablet 400 mg PO Q8HR PRN (Reason: pain) Qty: 30 0RF ondansetron 4 mg Tablet,Disintegrating 4 mg PO Q8HR PRN (Reason: Nausea And Vomiting) Qty: 30 0RF Continued ALBUTEROL (PROVENTIL INHALER) 1 puff Inhalation PRN PRN (Reason: Shortness Of Breath) Qty: 0 nitroglycerin 0.4 mg tablet, sublingual 0.4 mg sublingual Q5M PRN (Reason: Chest Pain) Rx Instructions: do not exceed 3 doses per episode sertraline [Zoloft] 20 mg/mL Concentrate 100 mg PO DAILY clopidogrel 75 mg tablet 75 mg PO DAILY cyclobenzaprine 10 mg tablet 10 mg PO DAILY PRN (Reason: Pain, Moderate) Patient Comments: TAKE 1 TABLET BY MOUTH EVERY NIGHT NEEDED metoprolol succinate 25 mg tablet extended release 24 hr 25 mg PO DAILY Patient Comments: TAKE 1 TABLET BY MOUTH EVERY DAY Discontinued tamsulosin 0.4 mg Capsule 0.8 mg PO DAILY Patient Comments: no longer taking pantoprazole 20 mg tablet,delayed release (DR/EC) 20 mg PO DAILY oxycodone-acetaminophen [Percocet] 5-325 mg tablet 1 tab PO Q4-6H PRN (Reason: pain) Qty: 20 0RF prednisone 10 mg tablet 10 mg PO DAILY Follow up/Referrals: Payton Morfin MD [Primary Care Provider] - Discharge Health Status Multidrug resistant organism: No MDRO Precautions: [place] Diet/Activity/Treatments Diet: Diet as Tolerated and Regular Liquid consistency: Normal/Thin Food texture: Regular Activity: No heavy lifting, 15 lb restriction. Skin/Wound/Dressing Care Skin care: Stoma care Dressing: Ostomy Special Rehabilitation Services Reason for rehabilitation: Post-operative therapy and Recovery r/t decondition Rehab type: Physical therapy and Occupational therapy Visit Report/Discharge Packet Stand Alone Forms: Patient Portal/API Discharge Data Primary Care Provider: Payton Morfin Discharges patient from system. Discharge Date/Time: 07/04/23 15:15
--- NOTE | 2023-07-04 10:25 | PT.IPTN ---
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) Surgery Performed Operation Date: 06/30/23 07:45 Actual Procedures p Cystoscopy w/Placement of Ureteral Stents(Bilateral) - Serafin Queen MD p Sigmoid Colectomy(Not Applicable) - Sam Ryder MD Physical Therapy Treatment Note M2 PT-IP Current Condition Start: 07/03/23 08:15 Freq: NEEDED Status: Active Protocol: Document 07/03/23 11:24 AW (Rec: 07/03/23 12:31 AW [id number]) Physical Therapy Current Condition Current Condition Evaluation Date 07/03/23 Treatment Diagnosis impaired mobility s/p sigmoid colectomy with end ostomy Onset Date 06/28/23 M3 PT-IP Subjective Start: 07/03/23 08:15 Freq: NEEDED Status: Active Protocol: Document 07/04/23 11:01 TS (Rec: 07/04/23 11:18 TS [id number]) Subjective Physical Therapy Visit Type Type Treatment Note Visit Start Time 10:25 Visit Stop Time 10:56 Total Visit Minutes 31 Number of SUPERVISOR W[employer] DEPARTMENT Visits 1 Physical Therapy Visit Comments Patient Comments Pt found resting in bed, in good spirits, agreeable to PT. Therapy Pain Assessment Pain When Pain Assessed During Mobility Pain Present Pain Present Pain Reported M4 PT-IP Mobility and Gait Start: 07/03/23 08:15 Freq: NEEDED Status: Active Protocol: Document 07/04/23 11:01 TS (Rec: 07/04/23 11:18 TS [id number]) PT-Bed Mobility Assessment Rolling Level of Assist Standby Assistance Supine to Sit Supine to Sit Standby Assistance Scooting Scooting to Edge of Bed Standby Assistance PT-Transfer Assessment Sit to and From Stand Sit to and from Stand Contact Guard Assistance,Use of Upper Extremities Equipment Transfer Assistive Device Gait Belt,Front Wheeled Walker Orthotic/Prosthetic Devices or Brace: No Transfers Transfer Destination Chair Transfer Technique ambulated with FWW Transfer Ability Level of Assist Contact Guard Assistance,Use of Upper Extremities Comments Mobility Comments BP taken prior to mobility 160 /69, HR 81. Pt performed logroll and supine to sit SBA with use of handrails and HOB elevated, is slow to sit up requiring extra time to do so. He scooted to EOB with BUE support pushing from bed, c/o discomfort when doing so. He performed sit to stand x1 SBA with FWW, pt is slow to stand. He ambulated ~6' to chair CGA with a slow gait, had no buckling or LOB. Pt was left in chair with call light nearby, all needs met. Gait Assessment Gait Gait Assistance Required: Contact Guard Assist Distance (Feet) 6 Assistive Devices Assistive Device Gait Belt,Front Wheeled Walker Orthotic/Prosthetic Devices or Brace: No Gait Deviations General Gait Pattern Flexed Trunk,Wide Based Gait Factors Limiting Gait Function Factors Limiting Gait Function Decreased Sensation,Decreased Strength,Poor Balance, Respiratory Distress Comments Gait Comments See mobility comments for details. PT-Balance Assessment Sitting Balance and Reactions Static Sitting Balance Ability Good Dynamic Sitting Balance Ability Good Standing Balance and Reactions Static Standing Balance Ability Good Dynamic Standing Balance Ability Fair Device Used FWW M5 PT-IP Objective Assessments Start: 07/03/23 08:15 Freq: NEEDED Status: Active Protocol: Document 07/03/23 11:24 AW (Rec: 07/03/23 12:31 AW [id number]) Orientation Orientation/Cognition Level of Alertness Alert Orientation Name,Day of Week,Place, Situation Language Function Ability No Deficits Noted,Hard of Hearing Safety Awareness Understands Safety Issues Memory Description No Deficits Noted Gross Range of Motion Upper Extremity ROM Assessment Within Functional Limits Lower Extremity ROM Assessment Within Functional Limits Strength Upper Extremity Strength Assessment Bilaterally Impaired Lower Extremity Strength Assessment Bilaterally Impaired Hip 4-/5 flex and abd Knee 4-/5 ext and flex. + crepitus bilaterally Ankle 4/5 Comments Strength Comments Grossly 4/5 BUE. Sensation Assessment Sensation Gross Sensation Right LE Impaired,Left LE Impaired Light Touch Impaired Comments Sensation Comments Neuropathy affects bilateral feet and shins with some numbness but primarily pain. M6 PT-IP Treatment Start: 07/03/23 08:15 Freq: NEEDED Status: Active Protocol: Document 07/04/23 11:01 TS (Rec: 07/04/23 11:18 TS [id number]) Physical Therapy Treatment Education Education Provided Safety M7 PT-IP Assessment and Plan Start: 07/03/23 08:15 Freq: NEEDED Status: Active Protocol: Document 07/04/23 11:01 TS (Rec: 07/04/23 11:18 TS [id number]) PT Summary Assessment and Plan Potential Rehabilitation Potential Good Summary Impairments Pain,Strength,Balance, Sensation,Bed Mobility, Transfers,Gait,Activity Tolerance Progress Towards Goals Slow Progress due to Activity Tolerance Assessment Summary David is making slow progress with his mobility this session. He is requiring SBA for bed mobility with HOB elevated. He continues to ambulate short distances in room due to fatgiue and ongoing respiratory issues. He requires extra time for all tasks due to poor strength and discomfort. Pt continues to be a high falls risk. PT is recommending SNF rehab at this time to progress functional mobility and activity tolerance. Goals Bed Mobility Goal Independent Transfer Goal Independent,Front Wheeled Walker Gait Goal Independent,Front Wheel Walker Gait Distance 100 Other Goals - Pt completes 6 reps of sit to stand using UE support in 30 seconds or less as a measure of improved functional strength. Days to Meet Goals 10 Frequency of Treatment Frequency Of Treatment Once a Day Treatment Plan Physical Therapy Treatment Plan Bed Mobility Training,Transfer Training,Gait Training, Therapeutic Exercise,Balance Retraining,Discharge Planning, Hot or Cold Pack,Neuromuscular Re-ed Other Recommendations and Next Treatment Continue transfers, progress Focus gait. Precautions Other Precautions falls risk Recommendations To Nursing Amount of Assist Needed 1 Person Assist Discharge Recommendations PT Discharge Recommendations SNF Rehab Transportation Needs at Discharge Wheelchair/Cabulance
--- NOTE | 2023-07-04 10:39 | CM.DPC ---
Addendum entered by COOPER Real 07/04/23 14:55: [employer] gave Rn Sara nurse report number. Transport here to PU patient. SL Addendum entered by COOPER Real 07/04/23 12:20: Nancy called and asked for [phone] transport time. DANNA Lemon updated nursing staff and [facility]. [employer] updated patient on transport time. Patient in agreement. SL Original Note: DCP Continued: [employer]ER reviewed EMR. Per surgery team, patient cleared to d/c to SNF today. Per hospitalist in rounds, patient cleared to d/c today. Will go with jaswinder. [employer] AS[employer]ER spoke with patient. on board to d/c to [facility] today. [employer] updated RN, ROMELIA Ruiz will call to give nursing report. [employer]ER spoke with Nancy at [facility]. Likely able to take at 2pm today. [employer]ER updated P[employer] INFORMATION CLERK, hospitalist, and RN on 2pm transport time. KLAUDIA Lemon faxed copy of med list and PASRR and placed originals in chart. Plan: patient to d/c today to [facility] at 1400. CM team will continue to follow closely. COOPER Real
[2023-07-04 12:00] VITALS: BP 154/65; PULSE 94; RESP 17; TEMP 36.1; O2SAT 97
--- NOTE | 2023-07-04 15:42 | PC.NURSE ---
Patient is A&OX4, VSS, afebrile today on RA. He tolerates clear liquid diet well and denies n/v. He reports abdominal pain controlled well with 2 tabs hydrocodone scheduled. He c/o chronic back/buttock pain and requires assistance from the bed to chair using gait belt and FWW. Conteh in place draining adequate clear light yellow urine. Ileostomy bag intact. Patient is cleared for discharge today to SNF at 1445. RN called [facility] to give report to Claudia. Informed of need to follow up with [facility] office in x 2 weeks, as well as make a follow up appointment with Dr. Queen for Conteh catheter assessment. He is escorted via w/ch at 1515 this afternoon to [facility].
== END 2023-07-04 15:15 | DRG 854 ==
LOC: ED 06-28 00:59 → AC 06-28 01:48 → ICU 06-28 02:23 → AC 07-02 16:20
PROVIDERS: Family Medicine; Internal Medicine; Student in an Organized Health Care Education/Training Program; Surgery; Urology; Admitting Provider Specialist; Emergency Provider Emergency Medicine; PCP Internal Medicine; Referring Provider Emergency Medicine; Visit Provider Specialist
PROC: 0T768DZ Dilation of Right Ureter with Intraluminal Device, Via Natural or Artificial Opening Endoscopic (ICD-10-PCS; principal; 2023-06-30 07:45)
PROC: 0DTE0ZZ Resection of Large Intestine, Open Approach (ICD-10-PCS; 2023-06-30 07:45)
DX: A41.9 Sepsis, unspecified organism (principal); D62 Acute posthemorrhagic anemia; K57.92 Diverticulitis of intestine, part unspecified, without perforation or abscess without bleeding; N32.1 Vesicointestinal fistula; N12 Tubulo-interstitial nephritis, not specified as acute or chronic; Z87.891 Personal history of nicotine dependence; J44.9 Chronic obstructive pulmonary disease, unspecified; Z95.5 Presence of coronary angioplasty implant and graft; Z85.118 Personal history of other malignant neoplasm of bronchus and lung; Z90.2 Acquired absence of lung [part of]; Z86.16 Personal history of COVID-19; Z79.4 Long term (current) use of insulin; E11.40 Type 2 diabetes mellitus with diabetic neuropathy, unspecified
CPT/HCPCS: 36415; 44146; 51798; 52005; 70450; 74178; 80048; 80053; 81003; 81015; 82962; 83605; 83690; 83735; 85007; 85025; 85610; 87040; 87086; 87797; 93005; 93010; 94640; 94762; 96361; 96365; 96375; 97162; 97166; 97530; 99222; 99285; A9270; C9290; J0692; J1100; J1170; J1644; J2405; J2543; J2704; J3010; J3475; J3490; J7613; Q9967